=== PATIENT | male | born 1940 | race Two or more races ===

== ENCOUNTER 2024-02-05 08:56 | Inpatient (IN) | payer MEDICARE, BC, SELFPAY ==
[2024-02-05] VITALS (20 sets, daily range): BP systolic 176–206; BP diastolic 81–106; PULSE 68–80; RESP 16–25; TEMP 36.2–36.8; O2SAT 89–98; BMI 23.8; BMI 23.1
--- NOTE | 2024-02-05 09:00 | PC.NURSE ---
CEZAR, per EMS report, pt coming in for chest pain x1 week associated with nausea but no vomiting. Pt also c/o ABD pain. PMH of HTN, DM, and stroke, and on hemodialysis Friday's & Friday's. Pt connected to monitors at this time.
--- NOTE | 2024-02-05 09:02 | EKG_ITS ---
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
--- NOTE | 2024-02-05 09:33 | PC.NURSE ---
Dr. Sukumar Harris at bedside with pt and pt's , Fabienne. Dr. Harris made aware that pt here for chest pain and epigastric pain x1 week as well as rectal bleeding during BM with diarrhea for the past year, per .
[2024-02-05 10:07] LABS: Basophils # (Auto) 0.1 Thou/mm3 (0.0-0.2); Basophils % (Auto) 0 % (0-2.5); Eosinophils % (Auto) 0 % (0-10); Hematocrit 31.4 % (41.0-53.0); Hemoglobin 10.5 g/dL (13.5-16.0); Immature Granulocytes % (Auto) 1 % (0-0); Immature Granulocytes Auto 0.07 Thou/mm3 (0.00-0.00); Lymphocytes # (Auto) 0.6 Thou/mm3 (1.0-4.8); Lymphocytes % (Auto) 5 % (10-50); Mean Corpuscular HGB Conc 33.4 g/dl (31.0-37.0); Mean Corpuscular Hemoglobin 32.1 pg (25.0-35.0); Mean Corpuscular Volume 96 fL (80-100); Monocytes # (Auto) 1.4 Thou/mm3 (0.0-0.8); Monocytes % (Auto) 10 % (0-12); Neutrophils # (Auto) 12.1 Thou/mm3 (1.8-7.7); Neutrophils % (Auto) 85 % (37-80); Nucleated Red Blood Cell % 0 /100 WBC (0); Platelet Count 208 Thou/mm3 (140-440); RDW Standard Deviation 57.4 fL (35.1-43.9); Red Blood Count 3.27 Miln/mm3 (4.50-5.90); White Blood Count 14.3 Thou/mm3 (3.8-10.6)
--- NOTE | 2024-02-05 10:25 | XR_ITS ---
Examination: AP chest single view TECHNIQUE: AP portable upright chest single view Exam date and time: February 05, 2024 1056 hours Comparison January 17, 2023 INDICATIONS: Chest pain today. FINDINGS: Prominent bilateral pulmonary edema Mild enlargement cardiac contour Left internal jugular dialysis catheter tip right atrium IMPRESSION: Prominent CHF Consider superimposed bilateral pneumonia
--- NOTE | 2024-02-05 10:30 | PD.EDADULT ---
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 History is limited by residual speech deficits from CVA and hx obtained primarily by his at bedside. Patient endorsed epigastric pain followed by right upper quadrant pain. He does not associated this pain with eating food. However, the pain is worse at night. The epigastric pain started a couple hours after eating his dinner. Patient also endorses bloody diarrhea that is chronic in nature. New onset constipation started this week as well. Allergies: None, family history: Heart history. Social history: Distant LSD drug use and marijuana. Patient denies any alcohol, tobacco or illicit drug use. Surgical history: Hernia repair. MD complaint: epigastric pain Onset (ago): hour(s) Location: chest and abdomen Radiation: abdomen Severity: moderate and severe Relieving factors: none Related Data Home Medications ?Medication ?Instructions ?Recorded ?Confirmed furosemide 40 mg tablet 40 mg PO BID 09/21/22 02/05/24 metoprolol succinate 50 mg 50 mg PO DAILY 09/21/22 02/05/24 tablet,extended release 24 hr vitamin B complex-vitamin C-folic 1 tab PO DAILY 09/21/22 02/05/24 acid 0.8 mg tablet (Aileen-Abrahan) glipizide 5 mg tablet 5 mg PO BID 02/05/24 02/05/24 Previous Rx's ?Medication ?Instructions ?Recorded atorvastatin 20 mg tablet (Lipitor) 20 mg PO HS #30 tabs 03/27/17 Allergies Allergy/AdvReac Type Severity Reaction Status Date / Time No Known Allergies Allergy Verified 11/08/22 11:08 Review of Systems Review of Systems Systems Reviewed: All systems reviewed, normal except as documented Past Medical History Past Medical History NEUROLOGIC: Positive Neurological Disorders and Cerebrovascular Accident; Negative Seizures CARDIAC: Positive Cardiac Disorders, Hypercholesterolemia, Edema and Hypertension; Negative Congestive Heart Failure RESPIRATORY: Negative Chronic Obstructive Pulmonary Disease (COPD) or Asthma GASTROINTESTINAL: Positive Gastrointestinal Disorders, Gastrointestinal Bleed, Colorectal Cancer and Gastroesophageal Reflux Disease GENITOURINARY: Positive Genitourinary Disorders, Renal Disease and Dialysis MUSCULOSKELETAL: Positive Fractures; Negative Musculoskeletal Disorders ENT: Positive Cataracts ENDOCRINE: Positive Endocrine Disorders and Diabetes Mellitus Type 2; Negative Diabetes Mellitus Type 1 HEMATOLOGIC: Negative Blood Disorders, Sickle Cell Disease or Clotting Problems OTHER HISTORY: Positive Hospitalization, Falls, Chicken Pox, Measles, Cancer and Colorectal Cancer; Negative Autoimmune Disease, Shingles, Blood Transfusions, Blood Transfusion Reaction, Anesthesia Reactions or MRSA Family History FAMILY HISTORY: Negative Family Psychiatric Problems, Family Respiratory Disorders, Family Cardiac Disorders, Family Gastrointestinal Problems, Family Cancer, Family Surgery or Family Anesthesia Reaction Surgical History SURGICAL: Positive Amputation Social History SMOKING STATUS: Never smoker SECOND HAND EXPOSURE: No SUBSTANCE USE: does not use ED Exam Narrative Physical exam: GEN: well developed, well nourished man, cooperative with slurred speech. HEENT: NCAT, anicteric conjunctivae, EOMI. CV: RRR, normal S1 and S2, no M/R/G Lungs:CTAB. No wheezing, rales or rhonchi noted ABD: BS+, non-distended, Tender epigastrium and RUQ, negative ingram's sign. Skin: No rashes, lesions. Ext: No edema b/l. 2+ dorsalis pedis pulses b/l. Neuro: Alert and oriented x2. Cranial N II-XII intact. Course Quality Measures none Orders Category Date Time Status Admit to Inpatient Status Routine Admission 02/05/24 15:27 Active Patient Condition Routine Admission 02/05/24 15:27 Ordered Bedside COVID-19 Antigen Test NOW Care 02/05/24 14:59 Active COVID-19 Screening Questionnaire NOW Care 02/05/24 15:23 Completed Decision to Admit X1 Care 02/05/24 15:23 Completed EKG (ED ONLY) *Do not use* NOW Care 02/05/24 09:02 Completed Intake and Output Routine Care 02/05/24 15:30 Ordered Notify provider NEEDED Care 02/05/24 15:27 Active Obtain weight daily Care 02/05/24 15:30 Active Diet Renal Diet 02/05/[address] chest abdomen pelvis wo Stat Exams 02/05/24 13:27 Completed CXR2 [XR chest 2V] Stat Exams 02/05/24 10:25 Completed EKG (ED Only) Stat Exams 02/05/24 09:02 Draft CBC Stat Lab 02/05/24 09:44 Completed CMP [Comprehensive Metabolic Panel] Stat Lab 02/05/24 09:44 Completed Comprehensive Metabolic Panel Stat Lab 02/05/24 12:20 Completed Procalcitonin Stat Lab 02/05/24 12:20 Completed Troponin I Stat Lab 02/05/24 09:44 Completed Troponin I Stat Lab 02/05/24 12:20 Completed Code Status Routine Oth 02/05/24 15:26 Ordered Vital Signs Vital signs: Vital Signs Temperature 97.5 F 02/05/24 09:01 Pulse Rate 80 02/05/24 09:01 Respiratory Rate 18 02/05/24 09:01 Blood Pressure 197/100 H 02/05/24 09:01 Pulse Oximetry (%) 92 L 02/05/24 09:01 Oxygen Delivery Method Room Air 02/05/24 09:01 [facility] Patient data External records reviewed:: [facility] previous records Clinical information provided by:: patient and family Social determinants that could affect healthcare access:: none Patient has the following chronic illnesses:: 83-year-old male with past medical history of hypertension, dyslipidemia, DM II, HFrEF, 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 CXR shows pulmonary edema and possible b/l pneumonia. CT a/p pending Medications Medications considered but not ordered:: None Medication administrations:: Medication Administration History Acetaminophen (Acetaminophen 325 Mg Tablet) 650 mg PO Q6H PRN PRN Reason: Fever >100.4 or pain Stop: 03/06/24 15:31 Hydrocodone Bitart/Acetaminophen (Hydrocodone/Apap 10/325 Tab) 1 tab PO Q4H PRN PRN Reason: PAIN SCALE 4-6 (Moderate Stop: 02/10/24 15:31 Albuterol/Ipratropium (Albuterol/Ipratropium (Duoneb) Rt Mae 3 Ml Nebu) 3 ml INH Q4HR PRN PRN Reason: SHORTNESS OF BREATH OR WHEEZE Stop: 03/06/24 15:31 Atorvastatin Calcium (Atorvastatin Calcium 20 Mg Tablet) 20 mg PO HS [facility] Stop: 03/06/24 20:59 Dextrose (Dextrose 50%-Water Inj 50 Ml Syringe) 25 ml IV Q15MIN PRN PRN Reason: BG 50-70 responsive npo pt Stop: 03/06/24 17:11 Dextrose (Dextrose 50%-Water Inj 50 Ml Syringe) 50 ml IV Q15MIN PRN PRN Reason: BG <50 OR BG <70 & pt unresponsive Stop: 03/06/24 17:11 Glucagon (Glucagon Inj 1 Mg Vial) 1 mg IM Q15MIN PRN PRN Reason: BG <70, and no IV access Heparin Sodium (Porcine) (Heparin Sod Inj 1000 Unit/Ml Vial 10 Ml) 3,900 unit INDWELLCAT PRN PRN PRN Reason: DIALYSIS Stop: 02/19/24 16:45 Albumin Human (Albuminar-25 Ivpb) 25 gm in 100 mls @ 100 mls/min IV PRN PRN PRN Reason: DIALYSIS Stop: 02/08/24 16:45 Insulin Human Lispro (Insulin Lispro (Admelog) 1 Unit/0.01 Ml Unit) 0 unit SC [facility]; Protocol Stop: 03/06/24 20:59 Magnesium Hydroxide (Milk Of Magnesia Susp 30 Ml Udc) 30 ml PO QDAY PRN; Protocol PRN Reason: CONSTIPATION Stop: 03/06/24 15:31 Metoprolol Succinate (Metoprolol Succinate Xl 25 Mg Tabcr) 50 mg PO DAILY [facility] Stop: 03/06/24 15:44 Morphine Sulfate (Morphine Sulf Inj 10 Mg/Ml Vial) 2 mg IVP Q2H PRN PRN Reason: PAIN SCALE 7-10 (Severe Stop: 02/10/24 15:31 Ondansetron HCl (Ondansetron Inj 2 Mg/Ml Inj 2 Ml) 4 mg IV Q6H PRN; Protocol PRN Reason: NAUSEA OR VOMITING Stop: 03/06/24 15:31 Pantoprazole Sodium (Pantoprazole 40 Mg Tablet) 40 mg PO QDAY [facility] Stop: 03/06/24 15:44 Sennosides (Senna Tablet) 1 tab PO QDAY [facility]; Protocol Stop: 03/06/24 15:44 Vitamin B Complex/Vit C/Folic Acid (Vit B12/Vit C/Fa (Nephrovite) Tablet) 1 tab PO DAILY [facility] Stop: 03/06/24 15:44 Discontinued Medications Doxycycline Hyclate (Doxycycline 100 Mg Tablet) 100 mg PO X1 ONE Stop: 02/05/24 15:52 Ceftriaxone Sodium/Dextrose (Rocephin/D5w 1gm Iv Premix) 50 mls @ 100 mls/hr IV X1 ONE Stop: 02/05/24 16:21 None Consultations Consultation(s) initiated? (list below): Yes Consultation #1 (Physician, Specialty, Details): Dr. Jenkins, nephrology Diagnosis Differential Diagnosis ED Complaint MDM: CHF Most likely diagnosis given after review of the tests above:: Fluid overload 2/2 ESRD Admission Indicated Admission indicated?: indicated Explain why admission is indicated or not indicated:: Admission is indicated for this patient JESUS to be in fluid overload state. Patient refused to attend his dialysis session yesterday. Last dialysis was last Friday over a week ago. As a result, patient appears to be in fluid overload state with pulmonary edema appreciated both clinically and on imaging. Spoke with hospitalist team who says as long as nothing concerning is read on CT Chest/ab/pelvis, then will proceed with admission. Admission Request Was there a request for admission?: Yes Admission Attestation Admission request attestation: Discussed case with [] from Hospitalist service regarding admission. Discussed patients ED course, exam findings, labs, and radiology results. The Hospitalist [agrees,declines] to accept the patient for admission. 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 History is limited by residual speech deficits from CVA and hx obtained primarily by his at bedside. Patient endorsed epigastric pain followed by right upper quadrant pain. .The pain is worse at night. Consider esophageal ulcers in the differential and patient had negative ingram's sign making cholecystits less likely on differential. Considering no sick contacts, no fever, chills, N/V, then infectious source is less likely. On imaging patient is found to have pulmonary edema likely due to missing his scheduled dialysis yesterday. Dr. Jenkins Nephrology recommends to pursue HD tomorrow 02/06/24. Differential Diagnosis Differential Diagnosis: CHF Medical Records Medical records reviewed: Yes I reviewed the patient's medical records. Lab Data Lab results reviewed: Yes I reviewed the patient's lab results. 02/05/24 09:44 02/05/24 12:20 Labs: Lab Results 02/05/24 02/05/24 Range/Units 09:44 12:20 WBC 14.3 H (3.8-10.6) Thou/mm3 RBC 3.27 L (4.50-5.90) Miln/mm3 Hgb 10.5 L (13.5-16.0) g/dL Hct 31.4 L (41.0-53.0) % MCV 96 (80-100) fL MCH 32.1 (25.0-35.0) pg MCHC 33.4 (31.0-37.0) g/dl RDW Std Deviation 57.4 H (35.1-43.9) fL Plt Count 208 (140-440) Thou/mm3 Neut % (Auto) 85 H (37-80) % Lymph % (Auto) 5 L (10-50) % [place] % (Auto) 10 (0-12) % Eos % (Auto) 0 (0-10) % Baso % (Auto) 0 (0-2.5) % Neut # (Auto) 12.1 H (1.8-7.7) Thou/mm3 Lymph # (Auto) 0.6 L (1.0-4.8) Thou/mm3 [place] # (Auto) 1.4 H (0.0-0.8) Thou/mm3 Eos # (Auto) 0.0 (0.0-0.5) Thou/mm3 Baso # (Auto) 0.1 (0.0-0.2) Thou/mm3 Immature Gran # (Auto) 0.07 H (0.00-0.00) Thou/mm3 Absolute Nucleated RBC 0.00 (0.00-0.00) Thou/mm3 Immature Gran % 1 H (0-0) % Nucleated RBC % 0 (0) /100 WBC Sodium 133 L 134 L (136-145) mMol/L Potassium 5.8 H 5.4 H (3.4-5.1) mMol/L Chloride 100 101 (98-107) mMol/L Carbon Dioxide 17.4 L 16.3 L (20.0-31.0) mMol/L Anion Gap 16 17 H (7-16) BUN 120 H* 116 H* (9-23) mg/dL Creatinine 7.5 H* 7.5 H* (0.6-1.3) mg/dL Estim Creat Clear Calc 7.2 L 7.2 L (>60) mL/min eGFR 7 L* 7 L* (60 - ) See Note BUN/Creatinine Ratio 16 15 (12-20) Ratio Glucose 175 H 166 H (74-106) mg/dL Calculated Osmolality 308 H 309 H (275-295) Calcium 10.0 9.9 (8.3-10.6) mg/dL Corrected Calcium 10.0 9.9 (8.5-10.1) mg/dL Total Bilirubin 0.7 0.7 (0.3-1.2) mg/dL AST 20 < 8 (0-34) U/L ALT 12 11 (10-49) U/L Alkaline Phosphatase 81 78 (46-116) U/L Troponin I 0.037 0.043 (0.0-0.045) ng/mL Total Protein 7.8 7.5 (5.7-8.2) gm/dL Albumin 4.9 H 4.8 (3.4-4.8) gm/dL Globulin 2.9 2.7 (2.3-3.5) gm/dL Albumin/Globulin Ratio 1.7 1.8 (1.2-2.2) Procalcitonin 1.76 H (0.0-0.49) ng/ml Radiology Data Radiology results reviewed: Yes I reviewed the patient's radiology results. Discharge Plan Plan Patient Disposition: Admit Acute Care w/in Hospital Problem List Clinical Impression: Fluid overload, ESRD on dialysis MD Attestation MD Attestation The patient was seen by the PGY-2. I, the supervising physician, also encountered and examined the patient while remaining present during the entire ER visit. I was available for consultation as needed. Working with the PGY 2, management, treatment plan, and documentation were formulated. I agree with the plan and documentation.
[2024-02-05 11:24] LABS: Alanine Aminotransferase 12 U/L (10-49); Albumin, Serum 4.9 gm/dL (3.4-4.8); Albumin/Globulin Ratio 1.7 (1.2-2.2); Alkaline Phosphatase 81 U/L (46-116); Anion Gap 16 (7-16); Aspartate Amino Transferase 20 U/L (0-34); BUN/Creatinine Ratio 16 Ratio (12-20); Bilirubin,Total 0.7 mg/dL (0.3-1.2); Carbon Dioxide 17.4 mMol/L (20.0-31.0); Chloride 100 mMol/L (98-107); Creatinine (Component) 7.5 mg/dL (0.6-1.3); Estimated Creatinine Clearance 7.2 mL/min (>60); Globulin 2.9 gm/dL (2.3-3.5); Glucose 175 mg/dL (74-106); Osmolality,Calculated 308 (275-295); Potassium 5.8 mMol/L (3.4-5.1); Sodium 133 mMol/L (136-145); Total Protein 7.8 gm/dL (5.7-8.2); Troponin I 0.037 ng/mL (0.0-0.045); eGFR 7 See Note
[2024-02-05 11:31] LABS: Blood Urea Nitrogen 120 mg/dL (9-23)
[2024-02-05 12:48] LABS: Troponin I 0.043 ng/mL (0.0-0.045)
[2024-02-05 13:16] LABS: Alanine Aminotransferase 11 U/L (10-49); Albumin, Serum 4.8 gm/dL (3.4-4.8); Albumin/Globulin Ratio 1.8 (1.2-2.2); Alkaline Phosphatase 78 U/L (46-116); Anion Gap 17 (7-16); Aspartate Amino Transferase < 8 U/L (0-34); BUN/Creatinine Ratio 15 Ratio (12-20); Bilirubin,Total 0.7 mg/dL (0.3-1.2); Calcium 9.9 mg/dL (8.3-10.6); Calcium (Corrected) 9.9 mg/dL (8.5-10.1); Carbon Dioxide 16.3 mMol/L (20.0-31.0); Chloride 101 mMol/L (98-107); Creatinine (Component) 7.5 mg/dL (0.6-1.3); Estimated Creatinine Clearance 7.2 mL/min (>60); Globulin 2.7 gm/dL (2.3-3.5); Glucose 166 mg/dL (74-106); Osmolality,Calculated 309 (275-295); Potassium 5.4 mMol/L (3.4-5.1); Sodium 134 mMol/L (136-145); Total Protein 7.5 gm/dL (5.7-8.2); eGFR 7 See Note
[2024-02-05 13:19] LABS: Blood Urea Nitrogen 116 mg/dL (9-23)
--- NOTE | 2024-02-05 13:27 | XR_ITS ---
Examination: CT chest, without intravenous contrast. CT abdomen, without intravenous contrast. CT pelvis, without intravenous contrast. 2-D sagittal and coronal reconstructions. 3-D reconstructions. Date and time of exam:February 05, 2024 at 1345 hours INDICATIONS: Right upper abdominal pain chest pain beginning 2 days ago CTDI vol (mgy) 7.61 DLP (MGycm)595 Technique: Multiple CT images, 3.0 mm slice thickness, obtained chest, abdomen, pelvis, with the high-resolution 64 slice scanner.. Sagittal and coronal 2-D reconstructions are obtained. 3-D reconstructions Low dose protocols were performed. One or more of the following dose reduction techniques were used; automated exposure control, adjustment of the mA and/or KV according to patient size, use of iterative reconstruction technique. Findings: No thoracic aortic aneurysm dilatation Pulmonary artery segments are not enlarged Mild enlargement cardiac contour No paratracheal tracheobronchial or bronchopulmonary adenopathy Prominent vascular congestion with perihilar edema and pneumonia Moderate bilateral pleural effusions No focal liver or splenic lesions No gallstones No pancreatic or adrenal mass Atrophic kidneys with renal parenchymal scar formation Mild ascites No bowel obstruction Diffuse colonic diverticulosis Normal appendix No diverticulitis Abundant stool in the rectum although solid rectal sigmoid mass cannot be excluded, axial image 265, clinical correlation advised Contracted urinary bladder Prostatomegaly, transverse dimension 6.4 cm Left inguinal hernia containing sigmoid colon no incarcerated bowel Advanced degenerative disc disease L4-L5, L5-S1 IMPRESSION: Prominent heart failure Edema and likely superimposed bilateral pneumonia Moderate bilateral pleural effusions Atrophic kidneys with renal parenchymal scar formation, no hydronephrosis Diffuse colonic diverticulosis Normal appendix Abundant stool in the rectum multiple solid rectal sigmoid mass cannot be excluded, recommend direct inspection Significant prostatomegaly Left inguinal hernia containing sigmoid colon but no incarcerated bowel
--- NOTE | 2024-02-05 13:29 | PC.NURSE ---
PT WALKED TO AND FROM BATHROOM AND 02 SATS 89% UPON RETURN TO ROOM. STEPHANIE TSAI AND ALLISON INFORMED
--- NOTE | 2024-02-05 14:12 | PD.RESCONSUL ---
HPI Data of Consult Consult date: 02/05/24 Primary Care Provider: Carrillo Greenwood MD Consult Narrative Reason for consult: ESRD History of present illness: Mr. Bay is 83-year-old male with a previous medical history of end-stage renal disease on dialysis M/F (2/week), type 2 diabetes, hypertension, dyslipidemia, HFrEF, CVA who came to the ED with abdominal and chest pain. Abdominal pain is located in the right upper quadrant. He reports shortness of breath when lying on his back. His Fabienne is at the bedside. History taking is limited due to aphasia. His reported that the pain started approximately a week ago. Denies any possible precipitating factors, such as food poisoning or upper respiratory infection. She also reported that he has been having chronic diarrhea in the last year, periodically stool with bright red blood. Denies nausea vomiting, headache, fevers. Last dialysis session 02/02/24. ED course: Blood pressure 192/93, heart rate 75. Saturates well in rest on 2 L NC, when walking to the bathroom desaturated to 89. Labs were significant for WBC 14.9, sodium 134, potassium 5.4, bicarb 16.3, anion gap 17, BUN 116, creatinine 7.5. Chest x-ray showed prominent CHF, bilateral pneumonia. CTA chest/abdomen and pelvis showed Prominent heart failure, pneumonia, pleural effusions, prostatomegaly and constipation. Home medications: Glipizide 5 mg, metoprolol succinate 50 mg, furosemide 40 mg, atorvastatin 20 mg. Renal consultation requested for need for dialysis. cc:: cc: Review of Systems Review of Systems Systems Reviewed: All systems reviewed, normal except as documented Past Medical History Past Medical History NEUROLOGIC: Positive Neurological Disorders and Cerebrovascular Accident; Negative Seizures CARDIAC: Positive Cardiac Disorders, Hypercholesterolemia, Edema and Hypertension; Negative Congestive Heart Failure RESPIRATORY: Negative Chronic Obstructive Pulmonary Disease (COPD) or Asthma GASTROINTESTINAL: Positive Gastrointestinal Disorders, Gastrointestinal Bleed, Colorectal Cancer and Gastroesophageal Reflux Disease GENITOURINARY: Positive Genitourinary Disorders, Renal Disease and Dialysis MUSCULOSKELETAL: Positive Fractures; Negative Musculoskeletal Disorders ENT: Positive Cataracts ENDOCRINE: Positive Endocrine Disorders and Diabetes Mellitus Type 2; Negative Diabetes Mellitus Type 1 HEMATOLOGIC: Negative Blood Disorders, Sickle Cell Disease or Clotting Problems OTHER HISTORY: Positive Hospitalization, Falls, Chicken Pox, Measles, Cancer and Colorectal Cancer; Negative Autoimmune Disease, Shingles, Blood Transfusions, Blood Transfusion Reaction, Anesthesia Reactions or MRSA Family History FAMILY HISTORY: Negative Family Psychiatric Problems, Family Respiratory Disorders, Family Cardiac Disorders, Family Gastrointestinal Problems, Family Cancer, Family Surgery or Family Anesthesia Reaction Surgical History SURGICAL: Positive Amputation Social History SMOKING STATUS: Never smoker SECOND HAND EXPOSURE: No SUBSTANCE USE: does not use Exam Vital Signs Temp Pulse Resp BP Pulse Ox O2 Del Method O2 Flow Rate 97.8 F 75 19 192/93 H 89 L Room Air 2 02/05/24 13:20 02/05/24 13:20 02/05/24 13:20 02/05/24 13:20 02/05/24 13:28 02/05/24 13:28 02/05/24 11:24 Narrative Exam Physical Exam General: Awake and in no acute distress.AOx2, not oriented in time. Mild motor aphasia. HEENT: Normocephalic, atraumatic, mucous membranes moist. Heart: Regular rate and rhythm, no murmurs. Lungs: Clear to auscultation with no wheezing or crackles. Abdomen: Soft, epigastric, RUQ tenderness, Rodrigues sign negative, positive bowel sounds. ?No guarding or rebound tenderness. Neurologic: Alert and oriented x2, motor aphasia, and patient able to move all 4 extremities. Extremities: No edema. Skin: No rash or ecchymoses. AV fistula - no thrill palpated, sutures in place s/p thrombectomy. Left subclavian tunnelled catheter, covered in dressings, Results Labs 02/06/24 04:58 02/05/24 12:20 Labs: Short CBC 02/05/24 Range/Units 09:44 WBC 14.3 H (3.8-10.6) Thou/mm3 Hgb 10.5 L (13.5-16.0) g/dL Hct 31.4 L (41.0-53.0) % Plt Count 208 (140-440) Thou/mm3 BMP 02/05/24 02/05/24 09:44 12:20 Sodium 133 L 134 L Potassium 5.8 H 5.4 H Chloride 100 101 Carbon Dioxide 17.4 L 16.3 L BUN 120 H* 116 H* Creatinine 7.5 H* 7.5 H* Glucose 175 H 166 H Calcium 10.0 9.9 Cardiac Enzymes 02/05/24 02/05/24 Range/Units 09:44 12:20 Troponin I 0.037 0.043 (0.0-0.045) ng/mL Liver Function 02/05/24 02/05/24 Range/Units 09:44 12:20 Total Bilirubin 0.7 0.7 (0.3-1.2) mg/dL AST 20 < 8 (0-34) U/L ALT 12 11 (10-49) U/L Alkaline Phosphatase 81 78 (46-116) U/L Albumin 4.9 H 4.8 (3.4-4.8) gm/dL Quality Measures Quality Measures VTE prophylaxis Advance care planning discussed with:: other Medications Home Medications and Allergies Home Medications ?Medication ?Instructions ?Recorded ?Confirmed ?Type furosemide 40 mg tablet 40 mg PO BID 09/21/22 02/05/24 History metoprolol succinate 50 mg 50 mg PO DAILY 09/21/22 02/05/24 History tablet,extended release 24 hr vitamin B complex-vitamin C-folic 1 tab PO DAILY 09/21/22 02/05/24 History acid 0.8 mg tablet (Aileen-Abrahan) glipizide 5 mg tablet 5 mg PO BID 02/05/24 02/05/24 History Allergies Allergy/AdvReac Type Severity Reaction Status Date / Time No Known Allergies Allergy Verified 11/08/22 11:08 Assessment & Plan Plan The patient is 83-year-old male with a previous medical history of end-stage renal disease on dialysis M/F (2/week), type 2 diabetes, hypertension, dyslipidemia, HFrEF, CVA who came to the ED with abdominal and chest pain. #ESRD on dialysis M/F Patient missed dialysis past Friday. His last dialysis session was a week ago. Noted to have some shortness of breath. Chest x-ray and CT showed pleural effusions and CHF. Potassium 5.4, BUN 116, creatinine 7.5. Plan: ? Will proceed with emergent dialysis #Hypertension #Hyperlipidemia #History of HFrEF #T2DM #Pneumonia - Management as per primary team. Plan of care discussed with attending Dr. Jenkins. Olga Easton MD, PGY 1. Attending Provider Attestation/Addendum Patient seen and examined with resident physician Dr. Espinoza. Note reviewed, agree with findings and recommendations. Patient currently seen on dialysis. Tolerating dialysis without any problems. Hemodialysis for 3 hours, 2K, ultrafiltration 2-3 L, Epogen 6000, no heparin ordered. Plan of care discussed with the dialysis nurse. Please see dialysis flowsheet for further details. Next dialysis will be scheduled for tomorrow. Thank you Maxim for allowing me to participate in the care of Mr. Bay
[2024-02-05 14:55] LABS: Procalcitonin 1.76 ng/ml (0.0-0.49)
--- NOTE | 2024-02-05 15:16 | PC.NURSE ---
Dr. Khan & team at bedside with pt.
--- NOTE | 2024-02-05 15:41 | ESHP_ITS ---
<Statement entered by Maxim Goss MD - 02/06/24 12:26> I have discussed and was present for the essential components of the history, physical examination, diagnosis, and treatment plan with the resident. I agree with the patient's care as documented by the resident and amended herein by me. Maxim Goss MD. <Statement entered by Darwin Fair MD - 02/05/24 16:17> Patient was seen and examined at the bedside. Patient presented with shortness of breath and chronic diarrhea from past 1 year was worked up and he follows with oncologist Dr. Salazar who did not recommend any further investigation. Patient health advocate is Dr. Jenkins who mentioned that the patient missed his dialysis session on 02/01 and his last dialysis session was January 29. He refused to undergo dialysis session on Friday as there for his dialysis session now is Friday only. Per vitals, patient was hypertensive, slightly tachycardic and saturating well on room air. Labs revealed kidney functions consistent with ESRD requiring dialysis at this point. Folded Cloth Taper plan to do hemodialysis session today and tomorrow. CT abdomen pelvis showed abundant stool throughout colon therefore will give bowel regimen. Home medications were reconciled. Will likely follow-up with him tomorrow labs and follow nephrology recommendations. All labs and orders were reviewed. Senior attestation I saw and examined the patient, and I agree with current management stated by Dr Todd MD,PGY1. Plan of care was discussed with the attending physician and resident physician. Disclaimer: Despite multiple revisions, due to the dictation software being used, the document bellow may not be free of grammatical errors including phonetic/typographic errors. However, this does not deter from our commitment to providing health care in the patient's best interest in mind. Dr. Katelyn MD, PGY 2 Documentation for date of: 02/05/24 HPI History of Present Illness Chief complaint: SOB, chills History of present illness: HPI: Patient is a 83-year-old male with an extensive past medical history significant of ESRD on HD M/F via left brachiocephalic fistula, essential hypertension, hyperlipidemia, NIDDM type II, history of multiple strokes, chronic diarrhea, chronic systolic heart failure with reduced ejection fraction [40-45%], rectal mass s/p resection previously saw Dr. Salazar but declined any further follow-up. Patient regularly follows up with health advocate and PCP Dr. Jenkins. Patient does not regularly see a marzipan maker. Patient presented today with a chief complaint of SOB and chills since last night. Patient stated that SOB started last night and progressively worsened. Was associated with chills. Also endorses PND. Denies any cough, fever, sick contacts, recent travel, vomiting. Also denies any recent change in appetite or weight loss. Patient endorses having chronic diarrhea for the past 1 year also associated with bright red blood in his stool. Of note patient recently switched his dialysis dates to M/F from M// due to his preference. Patient's last dialysis session was 01/29 and he missed his session this week on 02/01. Spoke with Dr. Jenkins, patient's health advocate. She states that patient needs 3 times weekly dialysis but he refuses, so a compromise of twice weekly dialysis was reached. However patient is still noncompliant with his twice weekly sessions and frequently misses them. He also had admissions to the hospital in the past due to missing dialysis sessions and presented with similar complaints as this admission. ED course: BP 197/100, pulse 80, RR 18, temp 97.5 F, SpO2 92% on 2L NC. Labs were significant for WBC 14.3, BUN 116, CR 7.5, bicarb 16.3. Troponin were negative and Pro-Biju was mildly elevated at 1.76. Chest x-ray showed bilateral pulmonary edema with possible reticular nodular opacities throughout lung joel. CT C/A/P was significant for B/L pulmonary edema, B/L pleural effusions, diffuse colonic diverticulosis and abundant stool in the rectum with multiple solid rectosigmoid mass. Left inguinal hernia containing sigmoid colon without incarceration. Patient will be admitted for volume overload secondary to missed dialysis session. 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 Patient's father lived to 100 years Past Medical History Past Medical History NEUROLOGIC: Positive Neurological Disorders and Cerebrovascular Accident; Negative Seizures CARDIAC: Positive Cardiac Disorders, Hypercholesterolemia, Edema and Hypertension; Negative Congestive Heart Failure RESPIRATORY: Negative Chronic Obstructive Pulmonary Disease (COPD) or Asthma GASTROINTESTINAL: Positive Gastrointestinal Disorders, Gastrointestinal Bleed, Colorectal Cancer and Gastroesophageal Reflux Disease GENITOURINARY: Positive Genitourinary Disorders, Renal Disease and Dialysis MUSCULOSKELETAL: Positive Fractures; Negative Musculoskeletal Disorders ENT: Positive Cataracts ENDOCRINE: Positive Endocrine Disorders and Diabetes Mellitus Type 2; Negative Diabetes Mellitus Type 1 HEMATOLOGIC: Negative Blood Disorders, Sickle Cell Disease or Clotting Problems OTHER HISTORY: Positive Hospitalization, Falls, Chicken Pox, Measles, Cancer and Colorectal Cancer; Negative Autoimmune Disease, Shingles, Blood Transfusions, Blood Transfusion Reaction, Anesthesia Reactions or MRSA Family History FAMILY HISTORY: Negative Family Psychiatric Problems, Family Respiratory Disorders, Family Cardiac Disorders, Family Gastrointestinal Problems, Family Cancer, Family Surgery or Family Anesthesia Reaction Surgical History SURGICAL: Positive Amputation Social History SMOKING STATUS: Never smoker SECOND HAND EXPOSURE: No SUBSTANCE USE: does not use Exam Vital Signs Temp Pulse Resp BP Pulse Ox O2 Del Method O2 Flow Rate 97.2 F 74 25 H 187/106 H 94 L Nasal Cannula 2 02/05/24 14:48 02/05/24 14:48 02/05/24 14:48 02/05/24 14:48 02/05/24 14:48 02/05/24 14:48 02/05/24 14:48 Narrative Exam Constitutional Alert, oriented x 3 and comfortable. Elderly male on O2 via NC HEENT Vision grossly intact. Patent nares. Trachea midline Respiratory Chest normal on inspection and Decrease AE at bases with crackles Cardiovascular S1 and S2 audible, RRR. No murmurs carotid bruit. No gross JVD. Abdominal Soft and non tender to palpation in all quadrants. BS + Genitourinary No bladder tenderness, no flank pain. Normal to palpation Musculoskeletal Extremities tone within normal limits. No LE edema. Neurological CN II - XII grossly intact. Extremity motor and sensation grossly intact. Skin Warm, dry and intact. No apparent lesions. Psychiatric Patient has good affect, is cooperative Results: Labs 02/06/24 04:58 02/06/24 04:58 Labs: Short CBC 02/05/24 Range/Units 09:44 WBC 14.3 H (3.8-10.6) Thou/mm3 Hgb 10.5 L (13.5-16.0) g/dL Hct 31.4 L (41.0-53.0) % Plt Count 208 (140-440) Thou/mm3 BMP 02/05/24 02/05/24 09:44 12:20 Sodium 133 L 134 L Potassium 5.8 H 5.4 H Chloride 100 101 Carbon Dioxide 17.4 L 16.3 L BUN 120 H* 116 H* Creatinine 7.5 H* 7.5 H* Glucose 175 H 166 H Calcium 10.0 9.9 Cardiac Enzymes 02/05/24 02/05/24 Range/Units 09:44 12:20 Troponin I 0.037 0.043 (0.0-0.045) ng/mL Liver Function 02/05/24 02/05/24 Range/Units 09:44 12:20 Total Bilirubin 0.7 0.7 (0.3-1.2) mg/dL AST 20 < 8 (0-34) U/L ALT 12 11 (10-49) U/L Alkaline Phosphatase 81 78 (46-116) U/L Albumin 4.9 H 4.8 (3.4-4.8) gm/dL Quality Measures Quality Measures none Advance care planning discussed with:: other Medications Home Medications and Allergies Home Medications ?Medication ?Instructions ?Recorded ?Confirmed ?Type furosemide 40 mg tablet 40 mg PO BID 09/21/22 02/05/24 History metoprolol succinate 50 mg 50 mg PO DAILY 09/21/22 02/05/24 History tablet,extended release 24 hr vitamin B complex-vitamin C-folic 1 tab PO DAILY 09/21/22 02/05/24 History acid 0.8 mg tablet (Nirav-Abrahan) glipizide 5 mg tablet 5 mg PO BID 02/05/24 02/05/24 History Allergies Allergy/AdvReac Type Severity Reaction Status Date / Time No Known Allergies Allergy Verified 11/08/22 11:08 Visit Medications Acetaminophen (Acetaminophen 325 Mg Tablet) 650 mg PO Q6H PRN PRN Reason: Fever >100.4 or pain Stop: 03/06/24 15:31 Hydrocodone Bitart/Acetaminophen (Hydrocodone/Apap 10/325 Tab) 1 tab PO Q4H PRN PRN Reason: PAIN SCALE 4-6 (Moderate Stop: 02/10/24 15:31 Albuterol/Ipratropium (Albuterol/Ipratropium (Duoneb) Rt Mae 3 Ml Nebu) 3 ml INH Q4HR PRN PRN Reason: SHORTNESS OF BREATH OR WHEEZE Stop: 03/06/24 15:31 Atorvastatin Calcium (Atorvastatin Calcium 20 Mg Tablet) 20 mg PO HS [facility] Stop: 03/06/24 20:59 Magnesium Hydroxide (Milk Of Magnesia Susp 30 Ml Udc) 30 ml PO QDAY PRN; Protocol PRN Reason: CONSTIPATION Stop: 03/06/24 15:31 Metoprolol Succinate (Metoprolol Succinate Xl 25 Mg Tabcr) 50 mg PO DAILY [facility] Stop: 03/06/24 15:44 Morphine Sulfate (Morphine Sulf Inj 10 Mg/Ml Vial) 2 mg IVP Q2H PRN PRN Reason: PAIN SCALE 7-10 (Severe Stop: 02/10/24 15:31 Ondansetron HCl (Ondansetron Inj 2 Mg/Ml Inj 2 Ml) 4 mg IV Q6H PRN; Protocol PRN Reason: NAUSEA OR VOMITING Stop: 03/06/24 15:31 Pantoprazole Sodium (Pantoprazole 40 Mg Tablet) 40 mg PO QDAY [facility] Stop: 03/06/24 15:44 Sennosides (Senna Tablet) 1 tab PO QDAY [facility]; Protocol Stop: 03/06/24 15:44 Vitamin B Complex/Vit C/Folic Acid (Vit B12/Vit C/Fa (Nephrovite) Tablet) 1 tab PO DAILY [facility] Stop: 03/06/24 15:44 Assessment & Plan Plan Patient is a 83-year-old male with an extensive past medical history significant of ESRD on HD M/F via left brachiocephalic fistula, essential hypertension, hyperlipidemia, NIDDM type II, history of multiple strokes, chronic diarrhea, chronic systolic heart failure with reduced ejection fraction [40-45%], rectal mass s/p resection previously saw Dr. Salazar but declined any further follow-up. Patient regularly follows up with health advocate and PCP Dr. Jenkins. Patient does not regularly see a marzipan maker. Patient presented today with a chief complaint of SOB and chills since last night.Patient will be admitted for volume overload secondary to missed dialysis session. Nephrology consulted, appreciate recommendations 1. Fluid overload secondary to missed dialysis session 2. ESRD on HD M/F via left brachial cephalic fistula Patient presented today with a chief complaint of SOB and chills since last night. Patient stated that SOB started last night and progressively worsened. Was associated with chills. Also endorses PND. Denies any cough, fever, sick contacts, recent travel, vomiting. Also denies any recent change in appetite or weight loss. Of note patient recently switched his dialysis dates to /F from M//F due to his preference. Patient's last dialysis session was 01/29 and he missed his session this week on 02/01. On exam patient had no lower extremity edema, however had decreased air entry at lung bases with scattered crackles auscultated. Chest x-ray showed bilateral pulmonary edema with possible reticular nodular opacities throughout lung joel. CT C/A/P was significant for B/L pulmonary edema, B/L pleural effusions, diffuse colonic diverticulosis and abundant stool in the rectum with multiple solid rectosigmoid mass. Left inguinal hernia containing sigmoid colon without incarceration. On admission BUN 116 and CR 7.5. Bicarb 16.3 and K5.4. Pro-Biju mildly elevated at 1.76 which is a nonspecific marker of inflammation. Plan: ? Renal diet ? Resumed home medication nirav-Abrahan 1 tab p.o. daily ? Patient for urgent hemodialysis. ? Nephrology, Dr Jenkins consulted. Appreciate recommendations 3. Chronic systolic heart failure with reduced ejection fraction [40-45%] Patient presented today with a chief complaint of SOB and chills since last night. On exam patient had no lower extremity edema, however had decreased air entry at lung bases with scattered crackles auscultated. Chest x-ray showed bilateral pulmonary edema with possible reticular nodular opacities throughout lung joel. CT C/A/P was significant for B/L pulmonary edema, B/L pleural effusions, diffuse colonic diverticulosis and abundant stool in the rectum with multiple solid rectosigmoid mass. Left inguinal hernia containing sigmoid colon without incarceration. Last echocardiogram completed on 04/22/2021 findings include: Normal left ventricular size with moderate global hypokinsis LV EF 40-45%. Aortic valve sclerosis mild stenosis Troponin on admission was negative Patient's home diuretic furosemide 40 Mg p.o. twice daily NYHA class C stage III Plan: ? Strict input output charting ? Daily weights ? 2G sodium restricted on renal diet ? 1500 cc fluid restriction ? To resume home medication furosemide 40 Mg p.o. twice daily 4. Hypertensive urgency 5. Essential hypertension On admission BP 197/100. Currently BP 198/96. Patient's home medication metoprolol XL 50 Mg p.o. daily Plan: ? Resumed home medication metoprolol XL 50 Mg p.o. daily 6. NIDDM type II No recent HbA1c on file Patient home medication glipizide 5 Mg p.o. twice daily Plan: ? HbA1c ordered ? SSI to cover for any glucose spikes 7. Constipation Abundant stool visualized on CT C/A/P Plan: ? Milk of magnesia as needed ? Started on senna 1 tab daily 8. History of multiple strokes 9 chronic diarrhea 10. Hematochezia 11. History of rectal mass s/p resection no acute management necessary during this hospitalization. Health maintenance: Disposition: Pending urgent hemodialysis Diet: Renal Lines: pIVs GI Prophylaxis: None Thrombo Prophylaxis: SCDs Code status: FULL CODE Plan of care discussed with Attending Dr. Goss and PGY2 Dr. Katelyn Khan MD PGY 1
--- NOTE | 2024-02-05 16:43 | PC.NURSE ---
Attempted to call report to Sonia RICHTER (Berg); RN unavailable at this time.
--- NOTE | 2024-02-05 18:48 | PC.NURSE ---
Pt need to use the bathroom, demanded to come off of HD.
[2024-02-05] MEDS: HEPARIN SOD INJ 1000 UNIT/ML VIAL 10 ML 3900 UNIT INDWELLCAT (19:09)
[2024-02-05] MEDS: DOXYCYCLINE 100 MG TABLET PO (20:06)
[2024-02-05] MEDS: cefTRIAXone/D5w 1gm IV premix 50 ML IV (20:06)
[2024-02-05] MEDS: ATORVASTATIN CALCIUM 20 MG TABLET PO (20:06)
[2024-02-06] VITALS (13 sets, daily range): BP systolic 127–160; BP diastolic 57–80; PULSE 64–77; RESP 16–98; TEMP 36.1–37.1; O2SAT 90–98
[2024-02-06 05:48] LABS: Basophils # (Auto) 0.1 Thou/mm3 (0.0-0.2); Basophils % (Auto) 1 % (0-2.5); Eosinophils # (Auto) 0.1 Thou/mm3 (0.0-0.5); Eosinophils % (Auto) 1 % (0-10); Hematocrit 29.5 % (41.0-53.0); Hemoglobin 9.8 g/dL (13.5-16.0); Immature Granulocytes % (Auto) 0 % (0-0); Immature Granulocytes Auto 0.04 Thou/mm3 (0.00-0.00); Lymphocytes # (Auto) 0.9 Thou/mm3 (1.0-4.8); Lymphocytes % (Auto) 8 % (10-50); Mean Corpuscular HGB Conc 33.2 g/dl (31.0-37.0); Mean Corpuscular Hemoglobin 31.4 pg (25.0-35.0); Mean Corpuscular Volume 95 fL (80-100); Monocytes # (Auto) 1.3 Thou/mm3 (0.0-0.8); Monocytes % (Auto) 12 % (0-12); Neutrophils # (Auto) 8.2 Thou/mm3 (1.8-7.7); Neutrophils % (Auto) 78 % (37-80); Nucleated Red Blood Cell % 0 /100 WBC (0); Platelet Count 220 Thou/mm3 (140-440); RDW Standard Deviation 55.2 fL (35.1-43.9); Red Blood Count 3.12 Miln/mm3 (4.50-5.90); White Blood Count 10.6 Thou/mm3 (3.8-10.6)
[2024-02-06 06:37] LABS: Anion Gap 13 (7-16); BUN/Creatinine Ratio 14 Ratio (12-20); Blood Urea Nitrogen 77 mg/dL (9-23); Calcium 9.5 mg/dL (8.3-10.6); Carbon Dioxide 21.7 mMol/L (20.0-31.0); Cardiac Risk Estimate 2.4 RATIO (4.0-6.7); Chloride 100 mMol/L (98-107); Cholesterol 106 mg/dL (132-200); Creatinine (Component) 5.6 mg/dL (0.6-1.3); Estimated Creatinine Clearance 9.7 mL/min (>60); Glucose 123 mg/dL (74-106); HDL Cholesterol 44 mg/dL (40-60); LDL Cholesterol,Calculated 46 mg/dL (0-130); Magnesium 2.4 mg/dL (1.6-2.6); Osmolality,Calculated 294 (275-295); Phosphorous 4.3 mg/dL (2.4-5.1); Potassium 4.2 mMol/L (3.4-5.1); Sodium 135 mMol/L (136-145); Triglycerides 79 mg/dL (30-150); eGFR 9 See Note
--- NOTE | 2024-02-06 07:55 | PC.NURSE ---
Husam dialysis chief equipment technician at bedside with pt, pt refusing dialysis this morning.
[2024-02-06 08:16] LABS: Glucose Estimated Average 108 mg/dL (80-131); Hemoglobin A1C 5.4 % Hgb (4.8-6.0)
--- NOTE | 2024-02-06 08:19 | PC.NURSE ---
Pt refused dialysis today, stated he had dialysis yesterday. Dr. Jenkins made aware and ordered to re-schedule patient HD tomorrow.
[2024-02-06 09:06] LABS: Hepatitis A Antibody IgM Non Reactive (Non React); Hepatitis B Core Antibody IgM Non Reactive (Non React); Hepatitis B Surface Ab NonReact(Not Immune) (Immune); Hepatitis B Surface Antigen Non Reactive (Non React); Hepatitis C Antibody Non Reactive (Non React)
[2024-02-06] MEDS: VIT B12/Vit C/FA (Nephrovite) TABLET 1 TAB PO (09:13)
[2024-02-06] MEDS: PANTOPRAZOLE 40 MG TABLET PO (09:14)
[2024-02-06] MEDS: METOPROLOL SUCCINATE XL 25 MG TABCR 50 MG PO (09:14)
--- NOTE | 2024-02-06 09:35 | PC.SS ---
Alireza Bay is a 83 Year old male admitted for SOB, Pulmonary Edema. SS met with patient at bedside to discuss discharge plan. Patient reports he lives at home with his , Fabienne Bay who he reports is his surrogate decision maker [phone]. Patient reports he does not utilize any source of DME to assist with ambulation. Patient's PCP is Carrillo [facility]. Choice of Pharmacy is [facility]. At time of discharge patient will return home. Discharge plan: Home Next of Kin: , Fabienne Bay [phone]
[2024-02-06] MEDS: EPOETIN ALFA-EPBX INJ 10,000 UNIT/ML VIAL (NON-ESRD) 10000 UNIT SC (09:40)
--- NOTE | 2024-02-06 09:48 | ESPR_ITS ---
<Statement entered by Maxim Goss MD - 02/06/24 17:04> I have discussed and was present for the essential components of the history, physical examination, diagnosis, and treatment plan with the resident. I agree with the patient's care as documented by the resident and amended herein by me. Maxim Goss MD. <Statement entered by Darwin Fair MD - 02/06/24 14:20> Patient was seen and examined at the bedside. Patient refused to receive dialysis today as he was having episode of diarrhea after eating his breakfast. [employer] Supervisor recommended that patient should have another session of dialysis tomorrow before discharge. He will be undergoing dialysis session tomorrow and will anticipate discharge tomorrow morning. All labs and orders were reviewed. I saw and examined the patient, and I agree with current management stated by Dr Todd MD,PGY1. Plan of care was discussed with the attending physician and resident physician. Disclaimer: Despite multiple revisions, due to the dictation software being used, the document bellow may not be free of grammatical errors including phonetic/typographic errors. However, this does not deter from our commitment to providing health care in the patient's best interest in mind. Dr. Marv MD, PGY 2 Documentation for date of: 02/06/24 Subjective Subjective Interval history: Patient was seen and examined at bedside this AM. Patient had hemodialysis session yesterday Patient tolerating renal diet. Urine output is adequate and mentation at baseline. Patient endorses improvement of his SOB today and still complains of his chronic diarrhea. Patient was scheduled to have hemodialysis this morning, however he already had breakfast this a.m. and refused to have dialysis after eating as he says that would make him nauseous. Discussed with nephrology, Dr Jenkins. She recommended patient have 1 session of dialysis tomorrow morning and after that he should be okay to be discharged. Exam Vital Signs Temp Pulse Resp BP Pulse Ox O2 Del Method O2 Flow Rate 98.5 F 64 18 159/72 H 90 L Room Air 2 02/06/24 07:20 02/06/24 09:14 02/06/24 07:20 02/06/24 09:14 02/06/24 07:20 02/06/24 07:20 02/05/24 20:00 Narrative Exam Constitutional Alert, oriented x 3 and comfortable. Elderly male on O2 via NC HEENT Vision grossly intact. Patent nares. Trachea midline Respiratory Chest normal on inspection and Decrease AE at bases with crackles?improving. Left subclavian catheter in situ. Exit site clean Cardiovascular S1 and S2 audible, RRR. No murmurs carotid bruit. No gross JVD. Abdominal Soft and non tender to palpation in all quadrants. BS + Genitourinary No bladder tenderness, no flank pain. Normal to palpation Musculoskeletal Extremities tone within normal limits. No LE edema. Neurological CN II - XII grossly intact. Extremity motor and sensation grossly intact. Skin Warm, dry and intact. Left brachial cephalic fistula, covered with bandage, thrill palpated. Psychiatric Patient has good affect, is cooperative Objective Labs 02/06/24 04:58 02/06/24 04:58 Labs: Laboratory Results - last 24 hr 02/05/24 02/05/24 02/06/24 09:44 12:20 04:58 WBC 14.3 H 10.6 RBC 3.27 L 3.12 L Hgb 10.5 L 9.8 L Hct 31.4 L 29.5 L MCV 96 95 MCH 32.1 31.4 MCHC 33.4 33.2 RDW Std Deviation 57.4 H 55.2 H Plt Count 208 220 Neut % (Auto) 85 H 78 Lymph % (Auto) 5 L 8 L [place] % (Auto) 10 12 Eos % (Auto) 0 1 Baso % (Auto) 0 1 Neut # (Auto) 12.1 H 8.2 H Lymph # (Auto) 0.6 L 0.9 L [place] # (Auto) 1.4 H 1.3 H Eos # (Auto) 0.0 0.1 Baso # (Auto) 0.1 0.1 Immature Gran # (Auto) 0.07 H 0.04 H Absolute Nucleated RBC 0.00 0.00 Immature Gran % 1 H 0 Nucleated RBC % 0 0 Sodium 133 L 134 L 135 L Potassium 5.8 H 5.4 H 4.2 D Chloride 100 101 100 Carbon Dioxide 17.4 L 16.3 L 21.7 Anion Gap 16 17 H 13 BUN 120 H* 116 H* 77 H Creatinine 7.5 H* 7.5 H* 5.6 H* D Estim Creat Clear Calc 7.2 L 7.2 L 9.7 L eGFR 7 L* 7 L* 9 L* BUN/Creatinine Ratio 16 15 14 Glucose 175 H [address] Glu mg/dL 108 Hemoglobin A1c 5.4 Calculated Osmolality 308 H 309 H 294 Calcium 10.0 9.9 9.5 Corrected Calcium 10.0 9.9 Phosphorus 4.3 Magnesium 2.4 Total Bilirubin 0.7 0.7 AST 20 < 8 ALT 12 11 Alkaline Phosphatase 81 78 Troponin I 0.037 0.043 Total Protein 7.8 7.5 Albumin 4.9 H 4.8 Globulin 2.9 2.7 Albumin/Globulin Ratio 1.7 1.8 Triglycerides 79 Cholesterol 106 L LDL Cholesterol, Calc 46 HDL Cholesterol 44 Cholesterol/HDL Ratio 2.4 L Procalcitonin 1.76 H Hepatitis A IgM Ab Non Reactive Hep Bs Antigen Non Reactive Hep Bs Antibody NonReact(Not Immune) L Hep B Core IgM Ab Non Reactive Hepatitis C Antibody Non Reactive Quality Measures Quality Measures VTE prophylaxis Advance care planning discussed with:: other Assessment & Plan Assessment Current Active Medications: Generic Name Dose Route Start Last Admin Trade Name Freq PRN Reason Stop Dose Admin Acetaminophen 650 mg 02/05/24 15:32 Acetaminophen 325 Mg Tablet PO 03/06/24 15:31 Q6H PRN Fever >100.4 or pain Hydrocodone Bitart/Acetaminophen 1 tab 02/05/24 15:32 Hydrocodone/Apap 10/325 Tab PO 02/10/24 15:31 Q4H PRN PAIN SCALE 4-6 (Moderate Albuterol/Ipratropium 3 ml 02/05/24 15:32 Albuterol/Ipratropium (Duoneb) Rt Mae 3 Ml Nebu INH 03/06/24 15:31 Q4HR PRN SHORTNESS OF BREATH OR WHEEZE Atorvastatin Calcium 20 mg 02/05/24 21:00 02/05/24 20:06 Atorvastatin Calcium 20 Mg Tablet PO 03/06/24 20:59 20 mg HS SANTO Administration Dextrose 25 ml 02/05/24 17:12 Dextrose 50%-Water Inj 50 Ml Syringe IV 03/06/24 17:11 Q15MIN PRN BG 50-70 responsive npo pt Dextrose 50 ml 02/05/24 17:12 Dextrose 50%-Water Inj 50 Ml Syringe IV 03/06/24 17:11 Q15MIN PRN BG <50 OR BG <70 & pt unresponsive Glucagon 1 mg 02/05/24 17:12 Glucagon Inj 1 Mg Vial IM Q15MIN PRN BG <70, and no IV access Heparin Sodium (Porcine) 3,900 unit 02/05/24 16:46 02/05/24 19:09 Heparin Sod Inj 1000 Unit/Ml Vial 10 Ml INDWELLCAT 02/19/24 16:45 3,900 unit PRN PRN Administration DIALYSIS Albumin Human 25 gm in 100 mls @ 100 mls/min 02/05/24 16:46 Albuminar-25 Ivpb IV 02/08/24 16:45 PRN PRN DIALYSIS Insulin Human Lispro 0 unit 02/05/24 21:00 02/06/24 07:52 Insulin Lispro (Admelog) 1 Unit/0.01 Ml Unit SC 03/06/24 20:59 Not Given ACHS SANTO Protocol Magnesium Hydroxide 30 ml 02/05/24 15:32 Milk Of Magnesia Susp 30 Ml Udc PO 03/06/24 15:31 QDAY PRN CONSTIPATION Protocol Metoprolol Succinate 50 mg 02/05/24 15:45 02/06/24 09:14 Metoprolol Succinate Xl 25 Mg Tabcr PO 03/06/24 15:44 50 mg DAILY SANTO Administration Morphine Sulfate 2 mg 02/05/24 15:32 Morphine Sulf Inj 10 Mg/Ml Vial IVP 02/10/24 15:31 Q2H PRN PAIN SCALE 7-10 (Severe Ondansetron HCl 4 mg 02/05/24 15:32 Ondansetron Inj 2 Mg/Ml Inj 2 Ml IV 03/06/24 15:31 Q6H PRN NAUSEA OR VOMITING Protocol Pantoprazole Sodium 40 mg 02/05/24 15:45 02/06/24 09:14 Pantoprazole 40 Mg Tablet PO 03/06/24 15:44 40 mg QDAY SANTO Administration Sennosides 1 tab 02/05/24 15:45 02/06/24 09:15 Senna Tablet PO 03/06/24 15:44 Not Given QDAY SANTO Protocol Vitamin B Complex/Vit C/Folic Acid 1 tab 02/05/24 15:45 02/06/24 09:13 Vit B12/Vit C/Fa (Nephrovite) Tablet PO 03/06/24 15:44 1 tab DAILY SANTO Administration Plan Patient is a 83-year-old male with an extensive past medical history significant of ESRD on HD M/F via left brachiocephalic fistula, essential hypertension, hyperlipidemia, NIDDM type II, history of multiple strokes, chronic diarrhea, chronic systolic heart failure with reduced ejection fraction [40-45%], rectal mass s/p resection previously saw Dr. Salazar but declined any further follow-up. Patient regularly follows up with journal clerk and PCP Dr. Jenkins. Patient does not regularly see a bus info consultant. Patient presented today with a chief complaint of SOB and chills since last night.Patient will be admitted for volume overload secondary to missed dialysis session. Nephrology consulted, appreciate recommendations 1. Fluid overload secondary to missed dialysis session?improving 2. ESRD on HD M/F via left subclavian catheter 3. Left brachial cephalic fistula s/p thrombectomy Patient presented today with a chief complaint of SOB and chills since last night. Patient stated that SOB started last night and progressively worsened. Was associated with chills. Also endorses PND. Denies any cough, fever, sick contacts, recent travel, vomiting. Also denies any recent change in appetite or weight loss. Of note patient recently switched his dialysis dates to M/F from M/W/F due to his preference. Patient's last dialysis session was 01/29 and he missed his session this week on 02/01. On exam patient had no lower extremity edema, however had decreased air entry at lung bases with scattered crackles auscultated. Chest x-ray showed bilateral pulmonary edema with possible reticular nodular opacities throughout lung joel. CT C/A/P was significant for B/L pulmonary edema, B/L pleural effusions, diffuse colonic diverticulosis and abundant stool in the rectum with multiple solid rectosigmoid mass. Left inguinal hernia containing sigmoid colon without incarceration. On admission BUN 116 and CR 7.5. Bicarb 16.3 and K5.4. Pro-Biju mildly elevated at 1.76 which is a nonspecific marker of inflammation. Patient had hemodialysis session yesterday after which SOB improved Patient was scheduled to have hemodialysis this morning, however he already had breakfast this a.m. and refused to have dialysis after eating as he says that would make him nauseous. Discussed with nephrology, Dr Jenkins. She recommended patient have 1 session of dialysis tomorrow morning and after that he should be okay to be discharged. Plan: ? Renal diet ? Continue home medication nirav-Abrahan 1 tab p.o. daily ? Patient for hemodialysis tomorrow and possible discharge after completion. ? Nephrology, Dr Jenkins consulted. Appreciate recommendations 4. Chronic systolic heart failure with reduced ejection fraction [40-45%] Patient presented today with a chief complaint of SOB and chills since last night. On exam patient had no lower extremity edema, however had decreased air entry at lung bases with scattered crackles auscultated. Chest x-ray showed bilateral pulmonary edema with possible reticular nodular opacities throughout lung joel. CT C/A/P was significant for B/L pulmonary edema, B/L pleural effusions, diffuse colonic diverticulosis and abundant stool in the rectum with multiple solid rectosigmoid mass. Left inguinal hernia containing sigmoid colon without incarceration. Last echocardiogram completed on 04/22/2021 findings include: Normal left ventricular size with moderate global hypokinsis LV EF 40-45%. Aortic valve sclerosis mild stenosis Troponin on admission was negative Patient's home diuretic furosemide 40 Mg p.o. twice daily NYHA class C stage III Plan: ? Strict input output charting ? Daily weights ? 2G sodium restricted on renal diet ? 1500 cc fluid restriction ? Hold home medication for now as patient is due for hemodialysis and at higher chance of hypotension. 5. Hypertensive urgency 6. Essential hypertension On admission BP 197/100. Currently BP 198/96. Patient's home medication metoprolol XL 50 Mg p.o. daily Plan: ? Continue Home medication metoprolol XL 50 Mg p.o. daily ? Started on hydralazine 10 Mg IV every 6 hourly as needed for SBP >190. 7. NIDDM type II [5.4] [02/06/2024] HbA1c 5.4% Patient home medication glipizide 5 Mg p.o. twice daily Plan: ? SSI to cover for any glucose spikes 8. Constipation Abundant stool visualized on CT C/A/P Plan: ? Milk of magnesia as needed ? Continue senna 1 tab daily 9. History of multiple strokes 10. Chronic diarrhea 11. Hematochezia 12. History of rectal mass s/p resection no acute management necessary during this hospitalization. Health maintenance: Disposition: For hemodialysis tomorrow and possible discharge after. Diet: Renal Lines: pIVs GI Prophylaxis: None Thrombo Prophylaxis: SCDs Code status: FULL CODE Plan of care discussed with Attending Dr. Goss and PGY2 Dr. Marv Khan MD PGY 1
[2024-02-06] MEDS: INSULIN LISPRO (AdmeLOG) 1 UNIT/0.01 ML UNIT SC (12:25)
--- NOTE | 2024-02-06 13:10 | ESPR_ITS ---
Documentation for date of: 02/06/24 Subjective Subjective Interval history: Mr. Bay is 83-year-old male with a previous medical history of end-stage renal disease on dialysis M/F (2/week), type 2 diabetes, hypertension, dyslipidemia, HFrEF, CVA who came to the ED with abdominal and chest pain. Abdominal pain is located in the right upper quadrant. He reports shortness of breath when lying on his back. His Fabienne is at the bedside. History taking is limited due to aphasia. His reported that the pain started approximately a week ago. Denies any possible precipitating factors, such as food poisoning or upper respiratory infection. She also reported that he has been having chronic diarrhea in the last year, periodically stool with bright red blood. Denies nausea vomiting, headache, fevers. Last dialysis session 02/02/24. ED course: Blood pressure 192/93, heart rate 75. Saturates well in rest on 2 L NC, when walking to the bathroom desaturated to 89. Labs were significant for WBC 14.9, sodium 134, potassium 5.4, bicarb 16.3, anion gap 17, BUN 116, creatinine 7.5. Chest x-ray showed prominent CHF, bilateral pneumonia. CTA chest/abdomen and pelvis showed Prominent heart failure, pneumonia, pleural effusions, prostatomegaly and constipation. Home medications: Glipizide 5 mg, metoprolol succinate 50 mg, furosemide 40 mg, atorvastatin 20 mg. 02/06/24: Patient seen and examined at the bedside. Patient has been successfully ambulating on the floor. Reports mild abdominal pain. Denies shortness of breath, chest pain, increased edema. Had a dialysis session yesterday, 1.8 L of fluid removed, declined dialysis today. Will have a dialysis tomorrow 02/07/2024. Exam Vital Signs Temp Pulse Resp BP Pulse Ox O2 Del Method O2 Flow Rate 98.1 F 66 16 160/75 H 98 Room Air 2 02/06/24 11:49 02/06/24 11:49 02/06/24 11:49 02/06/24 11:49 02/06/24 11:49 02/06/24 11:49 02/05/24 20:00 Narrative Exam Physical Exam General: Awake and in no acute distress.AOx3. Mild motor aphasia. HEENT: Normocephalic, atraumatic, mucous membranes moist. Heart: Regular rate and rhythm, no murmurs. Lungs: Clear to auscultation with no wheezing or crackles. Abdomen: Soft, lower abdominal mild tenderness, Rodrigues sign negative, positive bowel sounds. ?No guarding or rebound tenderness. Neurologic: Alert and oriented x3, motor aphasia, and patient able to move all 4 extremities. Extremities: No edema. Skin: No rash or ecchymoses. AV fistula - no thrill palpated, sutures in place s/p thrombectomy. Left subclavian tunnelled catheter, covered in dressings, Objective Labs 02/07/24 04:30 02/07/24 04:30 Labs: Laboratory Results - last 24 hr 02/05/24 02/06/24 12:20 04:58 WBC 10.6 RBC 3.12 L Hgb 9.8 L Hct 29.5 L MCV 95 MCH 31.4 MCHC 33.2 RDW Std Deviation 55.2 H Plt Count 220 Neut % (Auto) 78 Lymph % (Auto) 8 L [place] % (Auto) 12 Eos % (Auto) 1 Baso % (Auto) 1 Neut # (Auto) 8.2 H Lymph # (Auto) 0.9 L [place] # (Auto) 1.3 H Eos # (Auto) 0.1 Baso # (Auto) 0.1 Immature Gran # (Auto) 0.04 H Absolute Nucleated RBC 0.00 Immature Gran % 0 Nucleated RBC % 0 Sodium 134 L 135 L Potassium 5.4 H 4.2 D Chloride 101 100 Carbon Dioxide 16.3 L 21.7 Anion Gap 17 H 13 BUN 116 H* 77 H Creatinine 7.5 H* 5.6 H* D Estim Creat Clear Calc 7.2 L 9.7 L eGFR 7 L* 9 L* BUN/Creatinine Ratio 15 14 Glucose [address] Glu mg/dL 108 Hemoglobin A1c 5.4 Calculated Osmolality 309 H 294 Calcium 9.9 9.5 Corrected Calcium 9.9 Phosphorus 4.3 Magnesium 2.4 Total Bilirubin 0.7 AST < 8 ALT 11 Alkaline Phosphatase 78 Total Protein 7.5 Albumin 4.8 Globulin 2.7 Albumin/Globulin Ratio 1.8 Triglycerides 79 Cholesterol 106 L LDL Cholesterol, Calc 46 HDL Cholesterol 44 Cholesterol/HDL Ratio 2.4 L Procalcitonin 1.76 H Hepatitis A IgM Ab Non Reactive Hep Bs Antigen Non Reactive Hep Bs Antibody NonReact(Not Immune) L Hep B Core IgM Ab Non Reactive Hepatitis C Antibody Non Reactive Quality Measures Quality Measures VTE prophylaxis Advance care planning discussed with:: other Assessment & Plan Assessment Current Active Medications: Generic Name Dose Route Start Last Admin Trade Name Freq PRN Reason Stop Dose Admin Acetaminophen 650 mg 02/05/24 15:32 Acetaminophen 325 Mg Tablet PO 03/06/24 15:31 Q6H PRN Fever >100.4 or pain Hydrocodone Bitart/Acetaminophen 1 tab 02/05/24 15:32 Hydrocodone/Apap 10/325 Tab PO 02/10/24 15:31 Q4H PRN PAIN SCALE 4-6 (Moderate Albuterol/Ipratropium 3 ml 02/05/24 15:32 Albuterol/Ipratropium (Duoneb) Rt Mae 3 Ml Nebu INH 03/06/24 15:31 Q4HR PRN SHORTNESS OF BREATH OR WHEEZE Atorvastatin Calcium 20 mg 02/05/24 21:00 02/05/24 20:06 Atorvastatin Calcium 20 Mg Tablet PO 03/06/24 20:59 20 mg HS SANTO Administration Dextrose 25 ml 02/05/24 17:12 Dextrose 50%-Water Inj 50 Ml Syringe IV 03/06/24 17:11 Q15MIN PRN BG 50-70 responsive npo pt Dextrose 50 ml 02/05/24 17:12 Dextrose 50%-Water Inj 50 Ml Syringe IV 03/06/24 17:11 Q15MIN PRN BG <50 OR BG <70 & pt unresponsive Glucagon 1 mg 02/05/24 17:12 Glucagon Inj 1 Mg Vial IM Q15MIN PRN BG <70, and no IV access Heparin Sodium (Porcine) 3,900 unit 02/05/24 16:46 02/05/24 19:09 Heparin Sod Inj 1000 Unit/Ml Vial 10 Ml INDWELLCAT 02/19/24 16:45 3,900 unit PRN PRN Administration DIALYSIS Albumin Human 25 gm in 100 mls @ 100 mls/min 02/05/24 16:46 Albuminar-25 Ivpb IV 02/08/24 16:45 PRN PRN DIALYSIS Insulin Human Lispro 0 unit 02/05/24 21:00 02/06/24 12:25 Insulin Lispro (Admelog) 1 Unit/0.01 Ml Unit SC 03/06/24 20:59 1 unit ACHS SANTO Administration Protocol Magnesium Hydroxide 30 ml 02/05/24 15:32 Milk Of Magnesia Susp 30 Ml Udc PO 03/06/24 15:31 QDAY PRN CONSTIPATION Protocol Metoprolol Succinate 50 mg 02/05/24 15:45 02/06/24 09:14 Metoprolol Succinate Xl 25 Mg Tabcr PO 03/06/24 15:44 50 mg DAILY SANTO Administration Morphine Sulfate 2 mg 02/05/24 15:32 Morphine Sulf Inj 10 Mg/Ml Vial IVP 02/10/24 15:31 Q2H PRN PAIN SCALE 7-10 (Severe Ondansetron HCl 4 mg 02/05/24 15:32 Ondansetron Inj 2 Mg/Ml Inj 2 Ml IV 03/06/24 15:31 Q6H PRN NAUSEA OR VOMITING Protocol Pantoprazole Sodium 40 mg 02/05/24 15:45 02/06/24 09:14 Pantoprazole 40 Mg Tablet PO 03/06/24 15:44 40 mg QDAY SANTO Administration Sennosides 1 tab 02/05/24 15:45 02/06/24 09:15 Senna Tablet PO 03/06/24 15:44 Not Given QDAY SANTO Protocol Vitamin B Complex/Vit C/Folic Acid 1 tab 02/05/24 15:45 02/06/24 09:13 Vit B12/Vit C/Fa (Nephrovite) Tablet PO 03/06/24 15:44 1 tab DAILY SANTO Administration Plan The patient is 83-year-old male with a previous medical history of end-stage renal disease on dialysis M/F (2/week), type 2 diabetes, hypertension, dyslipidemia, HFrEF, CVA who came to the ED with abdominal and chest pain. #ESRD on dialysis M/F Patient missed dialysis past Friday. His last dialysis session was a week ago. Noted to have some shortness of breath. Chest x-ray and CT showed pleural effusions and CHF. Potassium 5.4, BUN 116, creatinine 7.5. 02/06/24: Sodium 135, potassium 4.2, BUN 77, creatinine 5.6, glucose 123. Plan: ? Will proceed with dialysis tomorrow #Hypertension #Hyperlipidemia #History of HFrEF #T2DM #Pneumonia #History of CVA - Management as per primary team. Plan of care discussed with attending Dr. Jenkins. Attending Provider Attestation/Addendum Patient seen and examined with resident physician Dr. Espinoza. Note reviewed, agree with findings and recommendations. Patient supposedly needs dialysis today. Declined. Next dialysis will be scheduled for tomorrow.
[2024-02-06] MEDS: LOSARTAN POTASSIUM 25 MG TABLET PO (14:26)
[2024-02-06] MEDS: ATORVASTATIN CALCIUM 20 MG TABLET PO (20:30)
[2024-02-07] VITALS (22 sets, daily range): BP systolic 135–166; BP diastolic 65–74; PULSE 60–75; RESP 17–97; TEMP 36.1–36.8; O2SAT 95–100
[2024-02-07 05:54] LABS: Basophils # (Auto) 0.1 Thou/mm3 (0.0-0.2); Basophils % (Auto) 1 % (0-2.5); Eosinophils # (Auto) 0.2 Thou/mm3 (0.0-0.5); Eosinophils % (Auto) 3 % (0-10); Hematocrit 29.1 % (41.0-53.0); Hemoglobin 9.6 g/dL (13.5-16.0); Immature Granulocytes % (Auto) 1 % (0-0); Immature Granulocytes Auto 0.04 Thou/mm3 (0.00-0.00); Lymphocytes % (Auto) 12 % (10-50); Mean Corpuscular Hemoglobin 31.5 pg (25.0-35.0); Mean Corpuscular Volume 95 fL (80-100); Monocytes # (Auto) 1.1 Thou/mm3 (0.0-0.8); Monocytes % (Auto) 13 % (0-12); Neutrophils # (Auto) 6.3 Thou/mm3 (1.8-7.7); Neutrophils % (Auto) 72 % (37-80); Nucleated Red Blood Cell % 0 /100 WBC (0); Platelet Count 239 Thou/mm3 (140-440); RDW Standard Deviation 55.7 fL (35.1-43.9); Red Blood Count 3.05 Miln/mm3 (4.50-5.90); White Blood Count 8.8 Thou/mm3 (3.8-10.6)
[2024-02-07 06:22] LABS: Anion Gap 15 (7-16); BUN/Creatinine Ratio 16 Ratio (12-20); Calcium 9.3 mg/dL (8.3-10.6); Carbon Dioxide 19.6 mMol/L (20.0-31.0); Chloride 99 mMol/L (98-107); Creatinine (Component) 6.5 mg/dL (0.6-1.3); Estimated Creatinine Clearance 8.3 mL/min (>60); Glucose 110 mg/dL (74-106); Magnesium 2.3 mg/dL (1.6-2.6); Osmolality,Calculated 300 (275-295); Phosphorous 5.4 mg/dL (2.4-5.1); Potassium 4.4 mMol/L (3.4-5.1); Sodium 134 mMol/L (136-145); eGFR 8 See Note
[2024-02-07 06:33] LABS: Blood Urea Nitrogen 101 mg/dL (9-23)
--- NOTE | 2024-02-07 08:05 | ESPR_ITS ---
Documentation for date of: 02/07/24 Subjective Subjective Interval history: Mr. Bay is 83-year-old male with a previous medical history of end-stage renal disease on dialysis M/F (2/week), type 2 diabetes, hypertension, dyslipidemia, HFrEF, CVA who came to the ED with abdominal and chest pain. Abdominal pain is located in the right upper quadrant. He reports shortness of breath when lying on his back. His Fabienne is at the bedside. History taking is limited due to aphasia. His reported that the pain started approximately a week ago. Denies any possible precipitating factors, such as food poisoning or upper respiratory infection. She also reported that he has been having chronic diarrhea in the last year, periodically stool with bright red blood. Denies nausea vomiting, headache, fevers. Last dialysis session 02/02/24. ED course: Blood pressure 192/93, heart rate 75. Saturates well in rest on 2 L NC, when walking to the bathroom desaturated to 89. Labs were significant for WBC 14.9, sodium 134, potassium 5.4, bicarb 16.3, anion gap 17, BUN 116, creatinine 7.5. Chest x-ray showed prominent CHF, bilateral pneumonia. CTA chest/abdomen and pelvis showed Prominent heart failure, pneumonia, pleural effusions, prostatomegaly and constipation. Home medications: Glipizide 5 mg, metoprolol succinate 50 mg, furosemide 40 mg, atorvastatin 20 mg. 02/06/24: Patient seen and examined at the bedside. Patient has been successfully ambulating on the floor. Reports mild abdominal pain. Denies shortness of breath, chest pain, increased edema. Had a dialysis session yesterday, 1.8 L of fluid removed, declined dialysis today. Will have a dialysis tomorrow 02/07/2024. 02/07/24: Patient seen and examined at dialysis unit. Patient was unable to receive dialysis as patient had diarrhea, today patient reports no symptoms, goal is to have net fluid 1.3 L removed today, will continue to monitor patient. Otherwise patient has no active complaints today. Exam Vital Signs Temp Pulse Resp BP Pulse Ox O2 Del Method O2 Flow Rate 98.2 F 61 18 143/66 H 95 Room Air 2 02/07/24 07:44 02/07/24 08:01 02/07/24 07:44 02/07/24 08:01 02/07/24 07:44 02/07/24 04:00 02/05/24 20:00 Narrative Exam Constitutional: Alert, oriented x 3 and comfortable. Elderly male saturating well on room air HEENT: Vision grossly intact. Patent nares. Trachea midline Respiratory: Chest normal on inspection, clear to auscultation with no wheezing or crackles. Left subclavian catheter noted. Cardiovascular: S1 and S2 audible, RRR. No murmurs carotid bruit. No gross JVD. Abdominal: Soft and non tender to palpation in all quadrants. BS + Genitourinary: No bladder tenderness, no flank pain. Normal to palpation Musculoskeletal : Extremities tone within normal limits. 1+ BLE. Neurological: CN II - XII grossly intact. Extremity motor and sensation grossly intact. Skin: Warm, dry and intact. Left brachial cephalic fistula, covered with bandage, thrill palpated. Psychiatric: Patient has good affect, is cooperative Objective Labs 02/07/24 04:30 02/07/24 04:30 Labs: Laboratory Results - last 24 hr 02/06/24 02/07/24 04:58 04:30 WBC 8.8 RBC 3.05 L Hgb 9.6 L Hct 29.1 L MCV 95 MCH 31.5 MCHC 33.0 RDW Std Deviation 55.7 H Plt Count 239 Neut % (Auto) 72 Lymph % (Auto) 12 Patrick % (Auto) 13 H Eos % (Auto) 3 Baso % (Auto) 1 Neut # (Auto) 6.3 Lymph # (Auto) 1.0 Patrick # (Auto) 1.1 H Eos # (Auto) 0.2 Baso # (Auto) 0.1 Immature Gran # (Auto) 0.04 H Absolute Nucleated RBC 0.00 Immature Gran % 1 H Nucleated RBC % 0 Sodium 134 L Potassium 4.4 Chloride 99 Carbon Dioxide 19.6 L Anion Gap 15 BUN 101 H* Creatinine 6.5 H* D Estim Creat Clear Calc 8.3 L eGFR 8 L* BUN/Creatinine Ratio [address] Glu mg/dL 108 Hemoglobin A1c 5.4 Calculated Osmolality 300 H Calcium 9.3 Phosphorus 5.4 H Magnesium 2.3 Hepatitis A IgM Ab Non Reactive Hep Bs Antigen Non Reactive Hep Bs Antibody NonReact(Not Immune) L Hep B Core IgM Ab Non Reactive Hepatitis C Antibody Non Reactive Quality Measures Quality Measures VTE prophylaxis Advance care planning discussed with:: patient Assessment & Plan Assessment Current Active Medications: Generic Name Dose Route Start Last Admin Trade Name Freq PRN Reason Stop Dose Admin Acetaminophen 650 mg 02/05/24 15:32 Acetaminophen 325 Mg Tablet PO 03/06/24 15:31 Q6H PRN Fever >100.4 or pain Protocol Hydrocodone Bitart/Acetaminophen 1 tab 02/05/24 15:32 Hydrocodone/Apap 10/325 Tab PO 02/10/24 15:31 Q4H PRN PAIN SCALE 4-6 (Moderate Albuterol/Ipratropium 3 ml 02/05/24 15:32 Albuterol/Ipratropium (Duoneb) Rt Mae 3 Ml Nebu INH 03/06/24 15:31 Q4HR PRN SHORTNESS OF BREATH OR WHEEZE Atorvastatin Calcium 20 mg 02/05/24 21:00 02/06/24 20:30 Atorvastatin Calcium 20 Mg Tablet PO 03/06/24 20:59 20 mg HS SANTO Administration Dextrose 25 ml 02/05/24 17:12 Dextrose 50%-Water Inj 50 Ml Syringe IV 03/06/24 17:11 Q15MIN PRN BG 50-70 responsive npo pt Dextrose 50 ml 02/05/24 17:12 Dextrose 50%-Water Inj 50 Ml Syringe IV 03/06/24 17:11 Q15MIN PRN BG <50 OR BG <70 & pt unresponsive Glucagon 1 mg 02/05/24 17:12 Glucagon Inj 1 Mg Vial IM Q15MIN PRN BG <70, and no IV access Heparin Sodium (Porcine) 3,900 unit 02/05/24 16:46 02/05/24 19:09 Heparin Sod Inj 1000 Unit/Ml Vial 10 Ml INDWELLCAT 02/19/24 16:45 3,900 unit PRN PRN Administration DIALYSIS Hydralazine HCl 10 mg 02/06/24 15:12 Hydralazine Inj 20 Mg/Ml Vial IV 03/07/24 15:11 Q6HR PRN SBP > 190 Albumin Human 25 gm in 100 mls @ 100 mls/min 02/05/24 16:46 Albuminar-25 Ivpb IV 02/08/24 16:45 PRN PRN DIALYSIS Insulin Human Lispro 0 unit 02/05/24 21:00 02/07/24 07:43 Insulin Lispro (Admelog) 1 Unit/0.01 Ml Unit SC 03/06/24 20:59 Not Given ACHS SANTO Protocol Magnesium Hydroxide 30 ml 02/05/24 15:32 Milk Of Magnesia Susp 30 Ml Udc PO 03/06/24 15:31 QDAY PRN CONSTIPATION Protocol Metoprolol Succinate 50 mg 02/05/24 15:45 02/06/24 09:14 Metoprolol Succinate Xl 25 Mg Tabcr PO 03/06/24 15:44 50 mg DAILY SANTO Administration Morphine Sulfate 2 mg 02/05/24 15:32 Morphine Sulf Inj 10 Mg/Ml Vial IVP 02/10/24 15:31 Q2H PRN PAIN SCALE 7-10 (Severe Ondansetron HCl 4 mg 02/05/24 15:32 Ondansetron Inj 2 Mg/Ml Inj 2 Ml IV 03/06/24 15:31 Q6H PRN NAUSEA OR VOMITING Protocol Pantoprazole Sodium 40 mg 02/05/24 15:45 02/06/24 09:14 Pantoprazole 40 Mg Tablet PO 03/06/24 15:44 40 mg QDAY SANTO Administration Sennosides 1 tab 02/05/24 15:45 02/06/24 09:15 Senna Tablet PO 03/06/24 15:44 Not Given QDAY SANTO Protocol Vitamin B Complex/Vit C/Folic Acid 1 tab 02/05/24 15:45 02/06/24 09:13 Vit B12/Vit C/Fa (Nephrovite) Tablet PO 03/06/24 15:44 1 tab DAILY SANTO Administration Plan Summary: Mr Bay is a 83-year-old male with an extensive past medical history significant of ESRD on HD M/F via left brachiocephalic fistula, essential hypertension, hyperlipidemia, NIDDM type II, history of multiple strokes, chronic diarrhea, chronic systolic heart failure with reduced ejection fraction [40-45%], rectal mass s/p resection previously saw Dr. Salazar but declined any further follow-up. Patient regularly follows up with woodwind instrument repairer and PCP Dr. Jenkins. Patient does not regularly see a interior paneler. Patient presented with chief complaint of SOB and chills since last night, endorsed having chronic diarrhea for the past 1 year also associated with bright red blood in his stool. Patient recently switched his dialysis dates to / from //F due to his preference. Patient's last dialysis session was 01/29 and he missed his session this week on 02/01. Patient needs 3 times weekly dialysis but he refuses, so a compromise of twice weekly dialysis was reached. However patient is still noncompliant with his twice weekly sessions and frequently misses them. Patient has history of multiple admissions to the hospital in the past due to missing dialysis sessions and presented with similar complaints as this admission. #ESRD on dialysis M/F Patient missed dialysis past Friday. His last dialysis session was a week ago. Noted to have some shortness of breath. Chest x-ray and CT showed pleural effusions and CHF. Potassium 5.4, BUN 116, creatinine 7.5. 02/07/24: Patient declined dialysis yesterday, labs significant for BUN 101, creatinine 6.5 4 8, sodium 134, venous carbon dioxide 19.6, phosphorus 5.4. Patient seen during dialysis today, has no current complaints, 1+ bilateral lower extremity edema noted. Plan: -Plan is to dialyze patient today, goal fluid removal around 1.5 L -Follow renal panel in a.m. -Renally dose medications #Hypertension #Hyperlipidemia #History of HFrEF #T2DM #Pneumonia #History of CVA - Management as per primary team. Plan of care discussed with attending Dr. Jenkins. Dewey Johnson PGY1 Attending Provider Attestation/Addendum Patient seen and examined with resident physician Dr. Johnson. Note reviewed, agree with findings and recommendations. Patient currently seen on dialysis. Tolerating dialysis without any problems. Hemodialysis for 3 hours, 2K, ultrafiltration 1 L, Epogen 6000, no heparin ordered. Plan of care discussed with the dialysis nurse. Please see dialysis flowsheet for further details. Renal farmer stable for discharge
[2024-02-07] MEDS: EPOETIN ALFA-EPBX INJ 10,000 UNIT/ML VIAL (ESRD) 10000 UNIT SC (10:19)
--- NOTE | 2024-02-07 10:30 | PC.NURSE ---
Pt. had to the bathroom, demanded to come off 12 minutes early
[2024-02-07] MEDS: HEPARIN SOD INJ 1000 UNIT/ML VIAL 10 ML 3900 UNIT INDWELLCAT (11:00)
[2024-02-07] MEDS: METOPROLOL SUCCINATE XL 25 MG TABCR 50 MG PO (11:23)
[2024-02-07] MEDS: VIT B12/Vit C/FA (Nephrovite) TABLET 1 TAB PO (11:24)
[2024-02-07] MEDS: PANTOPRAZOLE 40 MG TABLET PO (11:24)
--- NOTE | 2024-02-07 11:38 | PC.NURSE ---
per pt , she will be pts ride home and will be at the hospital after 1600 to cotton picker pt.
--- NOTE | 2024-02-07 14:53 | ESDS_ITS ---
<Statement entered by Maxim Goss MD - 02/08/24 12:15> I have discussed and was present for the essential components of the history, physical examination, diagnosis, and treatment plan with the resident. I agree with the patient's care as documented by the resident and amended herein by me. Maxim Goss MD. Planned Discharge Date 02/07/24 DS: Providers Provider Date of admission: 02/05/24 15:27 Primary care physician: Carrillo Greenwood MD Admitting Provider: Maxim Goss MD Attending Provider on Admission: Maxim Goss MD Consults: 02/05/24 15:38 Consult to Nephrology Stat Comment: Missed Dialysis session Consulting Provider: Bethanie Jenkins Attending Provider on DC: Maxim Goss MD Discharging Provider: Maxim Goss MD DS: Diagnosis Problem List Completed Was Problem List Reviewed/Reconciled?: Yes Hospital Course Hospital Course Hospital course: Patient is a 83-year-old male with an extensive past medical history significant of ESRD on HD M/F via left brachiocephalic fistula, essential hypertension, hyperlipidemia, NIDDM type II, history of multiple strokes, chronic diarrhea, chronic systolic heart failure with reduced ejection fraction [40-45%], rectal mass s/p resection previously saw Dr. Salazar but declined any further follow-up. Patient regularly follows up with educational programming director and PCP Dr. Jenkins. Patient does not regularly see a micromatic hone operator. Patient presented with a chief complaint of SOB and chills he reported to have chills and PND. Denies any cough, fever, sick contacts, recent travel, vomiting. Patient refused to undergo dialysis on Wednesdays and switched his dialysis days to Friday and Friday. His last dialysis session was 01/29 and he missed his session on 02/01. Labs for consistent with ESRD pattern. Chest x-ray showed bilateral pulmonary edema with possible reticulonodular opacities. CT abdomen was significant for abundant stool throughout colon. Patient underwent dialysis session on the day of admission and today, 02/06. Patient was doing well and was stable for discharge per nephrology recommendations. Patient was advised to follow-up with educational programming director and continue his dialysis sessions per nephro recs. Home medications were reconciled during hospital stay. Patient is discharged to home. # Problem list: # Fluid overload state secondary to missed dialysis session # ESRD on hemodialysis Friday/Friday via left brachial cephalic fistula # Chronic systolic heart failure with reduced ejection fraction 40-45% # Hypertensive urgency, resolved # History of essential hypertension # NIDDM type II # Constipation # History of multiple strokes # Chronic diarrhea possible malabsorption # History of rectal mass postresection # Hematochezia history DC instructions: Take all home medication as prescribed Continue hemodialysis session as per schedule Follow-up with your PCP as outpatient within 2 weeks Follow-up with educational programming director as outpatient In case of emergency, call 900 and come back to the ED Patient was seen and discussed with attending physician, Dr. Wolfgang Fair MD, PGY 2 Time Spent with Patient Time attestation: Total time spent providing and/or coordinating discharge services: Exam Vital Signs Temp Pulse Resp BP Pulse Ox O2 Del Method O2 Flow Rate 97.4 F 75 17 166/72 H 96 Room Air 2 02/07/24 12:00 02/07/24 12:00 02/07/24 12:00 02/07/24 12:00 02/07/24 12:00 02/07/24 12:00 02/05/24 20:00 Narrative Exam Constitutional: Alert, oriented x 3 and comfortable. Elderly male saturating well on room air HEENT: Vision grossly intact. Patent nares. Trachea midline Respiratory: Chest normal on inspection, clear to auscultation with no wheezing or crackles. Left subclavian catheter noted. Cardiovascular: S1 and S2 audible, RRR. No murmurs carotid bruit. No gross JVD. Abdominal: Soft and non tender to palpation in all quadrants. BS + Genitourinary: No bladder tenderness, no flank pain. Normal to palpation Musculoskeletal : Extremities tone within normal limits. 1+ BLE. Neurological: CN II - XII grossly intact. Extremity motor and sensation grossly intact. Skin: Warm, dry and intact. Left brachial cephalic fistula, covered with bandage, thrill palpated. Psychiatric: Patient has good affect, is cooperative Discharge Plan Plan Patient Disposition: HOME (Self Care) Patient condition on transfer: Stable Care Plan Goals: Take all home medication as prescribed Continue hemodialysis session as per schedule Follow-up with your PCP as outpatient within 2 weeks Follow-up with educational programming director as outpatient In case of emergency, call 900 and come back to the ED Prescriptions/Referrals Prescriptions/Med Rec: Continued atorvastatin [Lipitor] 20 MG tablet 20 mg PO HS Qty: 30 0RF Aileen-Abrahan 0.8 mg Tablet 1 tab PO DAILY metoprolol succinate 50 mg tablet extended release 24 hr 50 mg PO DAILY Patient Comments: TAKE 1 TABLET BY MOUTH ONCE DAILY furosemide 40 mg tablet 40 mg PO BID glipizide 5 mg tablet 5 mg PO BID Patient Comments: TAKE 1 TABLET BY MOUTH TWICE DAILY Referrals: Carrillo Greenwood MD [Primary Care Provider] - Bethanie Jenkins MD [Physician] - Patient/Caregiver Discharge Instructions Other Discharge Activity Instructions:: Take all home medication as prescribed Continue hemodialysis session as per schedule Follow-up with your PCP as outpatient within 2 weeks Follow-up with educational programming director Dr. Jenkins as outpatient In case of emergency, call 911 and come back to the ED Print Language: Kyrgyz Stand Alone Forms: Nydia Award Info., Patient Portal Info Letter Discharge Order Discharge Orders: Discharge (Routine); Ordered 02/07/24 Ordered By: Darwin Fair Quality Discharge Quality Measures VTE prophylaxis (SCDs)
== END 2024-02-07 16:53 | disposition home or self-care (01) | DRG 640 ==
LOC: SERX 15:18 → SERHOLD 15:59 → S3NX 17:16
PROVIDERS: Internal Medicine; Student in an Organized Health Care Education/Training Program; Admitting Provider Internal Medicine; Emergency Provider Emergency Medicine; PCP Family Medicine; Visit Provider Internal Medicine
DX: E87.70 Fluid overload, unspecified (principal); N18.6 End stage renal disease; I13.2 Hypertensive heart and chronic kidney disease with heart failure and with stage 5 chronic kidney disease, or end stage renal disease; I50.22 Chronic systolic (congestive) heart failure; I16.0 Hypertensive urgency; E11.22 Type 2 diabetes mellitus with diabetic chronic kidney disease; K57.30 Diverticulosis of large intestine without perforation or abscess without bleeding; K40.90 Unilateral inguinal hernia, without obstruction or gangrene, not specified as recurrent; E78.5 Hyperlipidemia, unspecified; K59.00 Constipation, unspecified; K52.9 Noninfective gastroenteritis and colitis, unspecified; Z99.2 Dependence on renal dialysis; Z91.158 Patient's noncompliance with renal dialysis for other reason; Z86.73 Personal history of transient ischemic attack (TIA), and cerebral infarction without residual deficits
CPT/HCPCS: 36415; 71046; 71250; 74176; 80048; 80053; 80061; 80074; 83036; 83735; 84100; 84145; 84484; 85025; 86706; 87081; 87811; 93005; 93225; 99285; J0696; J1643; J1815; Q5105; Q5106; A9270; J1644

== ENCOUNTER 2024-05-19 12:02 | Inpatient (IN) | payer MEDICARE, BC, SELFPAY ==
[2024-05-19] VITALS (16 sets, daily range): BP systolic 151–204; BP diastolic 70–101; PULSE 76–101; RESP 18–23; TEMP 36.1–37.9; O2SAT 94–100; BMI 24.0; BMI 23.3
--- NOTE | 2024-05-19 12:27 | XR_ITS ---
Examination: AP chest single view Technique one AP portable upright chest single view Exam date and time: May 19, 2024 1211 hours Comparison February 15, 2024 INDICATIONS: Coughing congestion beginning 3 days ago. FINDINGS: Mild opacity diffusely throughout the lungs Mild prominence left ventricle Moderate vascular congestion IMPRESSION: Diffuse bilateral pneumonia and/or edema, clinical correlation advised
--- NOTE | 2024-05-19 12:28 | PD.EDRME ---
Rapid Medical Screening Exam RME Arrival date/time: 05/19/24 12:02 83-year-old male presents to the emergency department today for concerns for infection to his fistula in his left arm Chief Complaint: Fever Time Seen by Provider: 05/19/24 12:32 Vital signs: Vital Signs Temperature 37.9 C 05/19/24 12:26 Pulse Rate 87 05/19/24 12:26 Respiratory Rate 18 05/19/24 12:26 Blood Pressure 191/93 H 05/19/24 12:26 Pulse Oximetry (%) 100 05/19/24 12:26 Oxygen Delivery Method Room Air 05/19/24 12:26
--- NOTE | 2024-05-19 12:34 | PD.EDFEVER ---
ED Fever RME/HPI General Chief Complaint: Fever Stated Complaint: SENT BY DIALYSIS FOR INFECTED FISTULA, FEVER Time Seen by Provider: 05/19/24 12:32 Arrival date/time: 05/19/24 12:02 RME / HPI RME / HPI Narrative: 83-year-old male with significant history of ESRD on HD , essential hypertension, hyperlipidemia, NIDDM type II, history of multiple strokes, chronic diarrhea, chronic systolic heart failure rectal mass s/p resection was sent to us by dialysis center for possible infected fistula. Patient was noted to have fever while in dialysis, and the left arm AV fistula was noted to be warm to touch however there was no redness. Patient also complained of mild cough, nonproductive and posterior chest for couple of days. Denies any abdominal pain. Dialysis was not done today. Related Data Home Medications ?Medication ?Instructions ?Recorded ?Confirmed furosemide 40 mg tablet 40 mg PO BID 09/21/22 05/19/24 metoprolol succinate 50 mg 50 mg PO DAILY 09/21/22 05/19/24 tablet,extended release 24 hr vitamin B complex-vitamin C-folic 1 tab PO DAILY 09/21/22 05/19/24 acid 0.8 mg tablet (Aileen-Abrahan) glipizide 5 mg tablet 5 mg PO BID 02/05/24 05/19/24 Previous Rx's ?Medication ?Instructions ?Recorded atorvastatin 20 mg tablet (Lipitor) 20 mg PO HS #30 tabs 03/27/17 Allergies Allergy/AdvReac Type Severity Reaction Status Date / Time No Known Allergies Allergy Verified 05/19/24 12:06 Review of Systems Review of Systems Narrative Review of Systems: Review of system reviewed and within normal limits except mentioned in HPI Physical Exam Narrative Physical exam: VITAL SIGNS: Reviewed. GENERAL APPEARANCE: Alert and interactive, follows commands, no acute distress, HEAD AND FACE: Non-traumatic. ENT: PERRL, pink conjunctivitis, eyelid no trauma, Mucous membrane moist. NECK: Supple, nontender, no nuchal rigidity. CHEST: No tenderness, no crepitus, no paradoxical movement, no retractions. LUNGS: Clear, well ventilated, symmetric, no rales, no wheezing, no ronchi, no stridor, good breath sounds bilaterally. HEART: Regular rate, regular rhythm, no murmur, no gallops. ABDOMEN: Soft, positive bowel sounds, nondistended, no guarding, nontender, no rebound, no masses, RECTAL: Deferred. GENITAL: Deferred. NEUROLOGICAL: Gross motor function intact sensory function intact, Appropriate for age. MUSCULOSKELETAL: low back nontender, full range of motion. EXTREMITIES: Left arm AV fistula warm to touch no redness no drainage positive thrill, nontender, full range of motion. SKIN: Color pink, dry, no rash, no lacerations, no abrasions, no contusions. LYMPHATICS: Deferred. Course Quality Measures none Orders Category Date Time Status Bedside Blood Glucose Q2HX3 Care 05/19/24 14:53 Active Bedside COVID-19 Antigen Test NOW Care 05/19/24 12:27 Active Bedside COVID-19 Antigen Test NOW Care 05/19/24 12:51 Active Bedside Influenza A&B Antigen Test NOW Care 05/19/24 12:27 Completed Bedside Influenza A&B Antigen Test NOW Care 05/19/24 12:51 Completed COVID-19 Screening Questionnaire NOW Care 05/19/24 15:31 Active Decision to Admit X1 Care 05/19/24 15:31 Completed Dialysis [Hemodialysis] Urgent Care 05/19/24 15:27 Active EKG (ED ONLY) *Do not use* NOW Care 05/19/24 12:49 Completed Insert IV NOW Care 05/19/24 12:27 Active Consult to Nephrology Stat Cons 05/19/24 15:25 Ordered EKG (ED Only) Stat Exams 05/19/24 12:49 Draft XR chest 2V Stat Exams 05/19/24 12:27 Completed Blood Culture (Lab) Stat Lab 05/19/24 12:55 Received CBC Stat Lab 05/19/24 12:50 Completed Comprehensive Metabolic Panel Stat Lab 05/19/24 12:50 Completed Lactate (Lactic Acid) Stat Lab 05/19/24 12:50 Completed Procalcitonin Stat Lab 05/19/24 12:50 Completed ALBUTEROL RT 0.5ml [Proventil Rt 0.5ml] Med 05/19/24 15:18 Discontinued 2.5 mg .ROUTE .STK-MED ONE ALBUTEROL RT 0.5ml [Proventil Rt 0.5ml] Med 05/19/24 14:53 Discontinued 5 mg INH X1 ONE Albumin Human 25% Ivpb [Albuminar-25 Ivpb] Med 05/19/24 15:28 Active 25 gm in 100 ml IV PRN Calcium Chloride 10% Abboject Med 05/19/24 14:53 Discontinued 10 ml IV X1 ONE Dextrose 10%-Water 1000 ml [D10w 1000 ml] 1,000 ml Med 05/19/24 15:00 Discontinued IV 100 mls/hr Dextrose 50% Syr [D50w Syringe Abboject] Med 05/19/24 14:53 Discontinued 25 ml IV Q15MIN PRN Epoetin Francisco-Epbx Inj [Retacrit Inj] Med 05/19/24 17:00 Discontinued 10,000 unit SC X1 ONE Glucagon Inj Med 05/19/24 14:53 Discontinued 1 mg IM Q15MIN PRN Insulin Regular Med 05/19/24 14:53 Discontinued 5 unit IV X1 ONE Piper/Tazo 3.375 gm Premix [Zosyn] Med 05/19/24 14:53 Discontinued 3.375 gm in 50 ml IV X1 Sod Polystyrene Sulfon Susp [Kayexalate Susp] Med 05/19/24 14:53 Discontinued 30 gm PO X1 ONE Sodium Chloride Rt Mae 0.9% [NS Rt Mae 0.9%] Med 05/19/24 14:53 Active 3 ml INH PRN PRN Vital Signs Vital signs: Vital Signs Temperature 100.3 F 05/19/24 12:26 Pulse Rate 87 05/19/24 12:26 Respiratory Rate 18 05/19/24 12:26 Blood Pressure 191/93 H 05/19/24 12:26 Pulse Oximetry (%) 100 05/19/24 12:26 Oxygen Delivery Method Room Air 05/19/24 12:26 Fever MDM Narrative MDM Narrative:: 83-year-old male with significant history of ESRD on HD , essential hypertension, hyperlipidemia, NIDDM type II, history of multiple strokes, chronic diarrhea, chronic systolic heart failure rectal mass s/p resection was sent to us by dialysis center for possible infected fistula. Patient was noted to have fever while in dialysis, and the left arm AV fistula was noted to be warm to touch however there was no redness. Patient denies any cough denies any abdominal pain. Dialysis was not done today. Sepsis alert was initiated right away Chest x-ray showed pneumonia. Laboratory workup significant for slight leukocytosis, Pro-Biju slightly elevated. Urinalysis no UTI. Potassium 6.0. CMP significant for chronic kidney disease. Patient received Zosyn IV. EKG showed normal sinus rhythm, vent rate of 81 bpm, no ST segment elevation depression noted. 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 Patient underwent dialysis today. Patient data External records reviewed:: None Clinical information provided by:: patient Social determinants that could affect healthcare access:: none Patient has the following chronic illnesses:: ESRD How is presenting disease/condition affected by chronic disease/condition?: exacerbated by Evaluation data The following diagnostics were reviewed and interpreted by me:: lab results, radiology exam(s) and EKG tracing(s) Lab and/or radiology exams considered but not ordered:: None Interpretation Summary: See results in MDM Medications / Prescriptions Medications or Prescriptions considered but not ordered:: None Medication administrations:: Medication Administration History Acetaminophen (Acetaminophen 325 Mg Tablet) 650 mg PO Q6H PRN PRN Reason: Pain 1-3 and/or Fever >100.1 Stop: 06/18/24 16:00 Dextrose (Dextrose 50%-Water Inj 50 Ml Syringe) 25 ml IV Q15MIN PRN PRN Reason: BG 50-70 responsive npo pt Stop: 06/18/24 16:06 Dextrose (Dextrose 50%-Water Inj 50 Ml Syringe) 50 ml IV Q15MIN PRN PRN Reason: BG <50 OR BG <70 & pt unresponsive Stop: 06/18/24 16:06 Glucagon (Glucagon Inj 1 Mg Vial) 1 mg IM Q15MIN PRN PRN Reason: BG <70, and no IV access Albumin Human (Albuminar-25 Ivpb) 25 gm in 100 mls @ 100 mls/min IV PRN PRN PRN Reason: DIALYSIS Piperacillin/Tazobactam/Dextrose (Zosyn) 3.375 gm in 50 mls @ 12.5 mls/hr IV Q12HR SANTO; Protocol Stop: 05/26/24 20:59 Last Admin: 05/19/24 20:40 Dose: 12.5 mls/hr Documented By: CG Vancomycin/Sodium Chloride (Vancomycin/Ns 1 Gm Ivpb) 200 mls @ 120 mls/hr IV X1 SANTO Stop: 05/26/24 16:14 Insulin Human Lispro (Insulin Lispro (Admelog) 1 Unit/0.01 Ml Unit) 0 unit SC AC SANTO; Protocol Stop: 06/18/24 16:59 Last Admin: 05/19/24 17:54 Dose: Not Given Documented By: CHRISTIANO Non-Admin Reason: Per Protocol Metoprolol Succinate (Metoprolol Succinate Xl 25 Mg Tabcr) 50 mg PO QDAY SANTO Stop: 06/19/24 08:59 Ondansetron HCl (Ondansetron Inj 2 Mg/Ml Inj 2 Ml) 4 mg IV Q6H PRN; Protocol PRN Reason: NAUSEA OR VOMITING Stop: 06/18/24 16:00 Pharmacy Consult (Vancomycin Pharmacy To Dose 1 Each Each) 1 each IV QDAY PRN PRN Reason: CONSULT Stop: 06/18/24 16:14 Sennosides (Senna Tablet) 1 tab PO QDAY SANTO; Protocol Stop: 06/19/24 08:59 Sodium Chloride (Sodium Chloride Rt Mae 0.9% 3 Ml Nebu) 3 ml INH PRN PRN PRN Reason: SOLN Stop: 06/18/24 14:52 Last Admin: 05/19/24 15:25 Dose: 3 ml Documented By: KELLY Discontinued Medications Acetaminophen/Codeine Phosphate (Acetaminophen W/Cod 300-30 Tablet) 1 tab PO X1 ONE Stop: 05/19/24 16:38 Last Admin: 05/19/24 16:50 Dose: 1 tab Documented By: CHRISTIANO Albuterol (Albuterol Rt 2.5 Mg/0.5 Ml Nebu) 5 mg INH X1 ONE Stop: 05/19/24 14:54 Last Admin: 05/19/24 15:19 Dose: 5 mg Documented By: KELLY Albuterol (Albuterol Rt 2.5 Mg/0.5 Ml Nebu) Confirm Administered Dose 2.5 mg .ROUTE .STK-MED ONE Stop: 05/19/24 15:19 Last Admin: 05/19/24 15:49 Dose: Not Given Documented By: CHRISTIANO Non-Admin Reason: Duplicate Medication on eMAR Calcium Chloride (Calcium Chloride 10% Inj 10 Ml Syrg) 10 ml IV X1 ONE Stop: 05/19/24 14:54 Last Admin: 05/19/24 15:30 Dose: 10 ml Documented By: CHRISTIANO Dextrose (Dextrose 50%-Water Inj 50 Ml Syringe) 25 ml IV Q15MIN PRN PRN Reason: BG 50-70 responsive npo pt Stop: 06/18/24 14:52 Last Admin: 05/19/24 15:28 Dose: 25 ml Documented By: CHRISTIANO Diphenhydramine HCl (Diphenhydramine 25 Mg Capsule) 25 mg PO X1 ONE Stop: 05/19/24 21:38 Last Admin: 05/19/24 21:51 Dose: 25 mg Documented By: NAS Epoetin Francisco (Epoetin Francisco-Epbx Inj 10,000 Unit/Ml Vial (Esrd)) 10,000 unit SC X1 ONE Stop: 05/19/24 17:01 Last Admin: 05/19/24 19:05 Dose: 10,000 unit Documented By: JAIRO Glucagon (Glucagon Inj 1 Mg Vial) 1 mg IM Q15MIN PRN PRN Reason: BG <70, and no IV access Hydralazine HCl (Hydralazine Inj 20 Mg/Ml Vial) 10 mg IV Q4H ONE Stop: 05/19/24 19:12 Piperacillin/Tazobactam/Dextrose (Zosyn) 3.375 gm in 50 mls @ 100 mls/hr IV X1 ONE Stop: 05/19/24 15:22 Last Infusion: 05/19/24 16:11 Dose: Infused Documented By: Admin: 05/19/24 15:31 Dose: 100 mls/hr Documented By: CHRISTIANO Dextrose (D10w 1000 Ml) 1,000 mls @ 100 mls/hr IV .Q10H SANTO Stop: 05/20/24 00:59 Last Admin: 05/19/24 16:11 Dose: Not Given Documented By: CHRISTIANO Non-Admin Reason: Discontinued Insulin Human Regular (Insulin Hum Regular 1 Unit/0.01 Ml (Per Unit)) 5 unit IV X1 ONE Stop: 05/19/24 14:54 Last Admin: 05/19/24 15:30 Dose: 5 unit Documented By: CHRISTIANO Co-signed By: MOE Labetalol HCl (Labetalol Inj 5 Mg/Ml Vial 20 Ml) 10 mg IVP X1 ONE Stop: 05/19/24 16:37 Last Admin: 05/19/24 16:50 Dose: 10 mg Documented By: CHRISTIANO Sodium Polystyrene Sulfonate (Sod Polystyrene Sulfon Susp 15 Gm/60 Ml Btl) 30 gm PO X1 ONE Stop: 05/19/24 14:54 Last Admin: 05/19/24 15:30 Dose: 30 gm Documented By: CHRISTIANO IV Zosyn Consultations Consultation(s) initiated? (list below): Yes Consultation #1 (Physician, Specialty, Details): Dr. Jenkins, patient's glass novelty maker thank you Diagnosis Fever Differential Diagnosis: cellulitis, sepsis and other (Pneumonia) Most likely diagnosis given after review of the tests above:: Pneumonia, ESRD needing hemodialysis Admission Indicated Admission indicated?: indicated Explain why admission is indicated or not indicated:: For further management Admission Request Was there a request for admission?: No Disposition Plan Disposition Plan: Admit Discharge Plan Plan Patient Disposition: Admit Acute Care w/in Hospital Problem List Clinical Impression: Pneumonia, ESRD on dialysis
--- NOTE | 2024-05-19 12:49 | EKG_ITS ---
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
[2024-05-19 12:58] LABS: Lactate (Lactic Acid) 0.9 mMol/L (0.4-2.0)
[2024-05-19 13:03] LABS: Basophils # (Auto) 0.1 Thou/mm3 (0.0-0.2); Basophils % (Auto) 0 % (0-2.5); Eosinophils % (Auto) 0 % (0-10); Hemoglobin 11.4 g/dL (13.5-16.0); Immature Granulocytes % (Auto) 0 % (0-0); Immature Granulocytes Auto 0.06 Thou/mm3 (0.00-0.00); Lymphocytes # (Auto) 0.7 Thou/mm3 (1.0-4.8); Lymphocytes % (Auto) 5 % (10-50); Mean Corpuscular HGB Conc 33.5 g/dl (31.0-37.0); Mean Corpuscular Hemoglobin 32.9 pg (25.0-35.0); Mean Corpuscular Volume 98 fL (80-100); Monocytes # (Auto) 1.5 Thou/mm3 (0.0-0.8); Monocytes % (Auto) 11 % (0-12); Neutrophils # (Auto) 11.6 Thou/mm3 (1.8-7.7); Neutrophils % (Auto) 83 % (37-80); Nucleated Red Blood Cell % 0 /100 WBC (0); Platelet Count 173 Thou/mm3 (140-440); RDW Standard Deviation 56.3 fL (35.1-43.9); Red Blood Count 3.47 Miln/mm3 (4.50-5.90)
[2024-05-19 13:33] LABS: Alanine Aminotransferase 27 U/L (10-49); Albumin, Serum 4.6 gm/dL (3.4-4.8); Albumin/Globulin Ratio 1.6 (1.2-2.2); Alkaline Phosphatase 73 U/L (46-116); Anion Gap 17 (7-16); Aspartate Amino Transferase 27 U/L (0-34); BUN/Creatinine Ratio 15 Ratio (12-20); Bilirubin,Total 0.4 mg/dL (0.3-1.2); Calcium 10.1 mg/dL (8.3-10.6); Calcium (Corrected) 10.1 mg/dL (8.5-10.1); Carbon Dioxide 20.3 mMol/L (20.0-31.0); Chloride 99 mMol/L (98-107); Creatinine (Component) 7.1 mg/dL (0.6-1.3); Estimated Creatinine Clearance 7.6 mL/min (>60); Globulin 2.8 gm/dL (2.3-3.5); Glucose 137 mg/dL (74-106); Osmolality,Calculated 307 (275-295); Procalcitonin 0.58 ng/ml (0.0-0.49); Sodium 136 mMol/L (136-145); Total Protein 7.4 gm/dL (5.7-8.2); eGFR 7 See Note
[2024-05-19 13:47] LABS: Blood Urea Nitrogen 106 mg/dL (9-23)
[2024-05-19] MEDS: ALBUTEROL RT 2.5 MG/0.5 ML NEBU 5 MG INH (15:19)
[2024-05-19] MEDS: SODIUM CHLORIDE RT SOL 0.9% 3 ML NEBU INH (15:25)
[2024-05-19] MEDS: DEXTROSE 50%-WATER INJ 50 ML SYRINGE 25 ML IV (15:28)
[2024-05-19] MEDS: SOD POLYSTYRENE SULFON SUSP 15 GM/60 ML BTL 30 GM PO (15:30)
[2024-05-19] MEDS: CALCIUM CHLORIDE 10% INJ 10 ML SYRG IV (15:30)
[2024-05-19] MEDS: INSULIN HUM REGULAR 1 UNIT/0.01 ML (PER UNIT) 5 UNIT IV (15:30)
[2024-05-19] MEDS: PIPER/TAZO 3.375 GM PREMIX 3.375 GM/50 ML BAG IV ×2 (15:31→20:40)
--- NOTE | 2024-05-19 16:11 | ESHP_ITS ---
<Statement entered by Rhonda Perdomo MD - 05/20/24 15:52> Patient was seen and examined by me personally. I have directly supervised and reviewed documentation by the team resident and agree with its findings with any exceptions or additional findings as below. Plan of care was discussed with the attending, Dr. Archibald. New admission. Patient is a 83-year-old male with past medical history of ESRD on HD through fistula M/F, CHF (EF 40-45% 04/2021), hypertension, hyperlipidemia, type 2 diabetes mellitus, multiple strokes, chronic diarrhea, and rectal mass s/p resection, who was advised to come to the ED on 05/19/2024 due to concern for L arm AV fistula which was not erythematous but was warm to touch and patient had been having fevers. Patient was about to have dialysis at his dialysis center but did not have it done. Patient was found to meet SIRS criteria with with leukocytosis and fever, sepsis alert was initiated in the ED. CXR was not very significant for pneumonia, and the patient was not endorsing respiratory symptoms. UA was negative for UTI. Patient was started on Zosyn and vancomycin renally dosed, empiric treatment for possible soft tissue infection at the fistula site. Will await cultures. Rhonda Perdomo, PGY-2 Documentation for date of: 05/19/24 HPI History of Present Illness Chief complaint: Fever History of present illness: 83-year-old male with past medical history of ESRD on HD M/F via left brachiocephalic fistula, essential hypertension, hyperlipidemia, NIDDM type II, history of multiple strokes, chronic diarrhea, chronic systolic heart failure with reduced ejection fraction [40-45%], rectal mass s/p resection previously seen by Dr. Salazar presenting to the ED on 05/19 from dialysis center after it was noted that his fistula was warm and the patient was reporting some subjective fevers at home. Patient apparently missed dialysis session on Friday secondary to diarrhea which is a chronic medical condition for him. Patient's is bedside and provides some history regarding the patient's condition. Patient apparently started dialysis about 3 years ago secondary to diabetic and hypertensive nephropathy. Patient follows Dr. Jenkins, nephrology, and apparently still makes some urine. Patient was using a left-sided tunneled catheter for several years until recently had a left-sided brachiocephalic fistula placed which a few weeks ago which was repaired by vascular surgery in [place], Dr. Houser. Patient has suture site on the AV fistula which the states needs to be removed no earlier than Sunday 05/21 per vascular surgery recommendations. Otherwise, patient denies having any concerning symptoms such as chest pain, shortness of breath, palpitations, any sick contacts, any recent dental procedures, dysuria, melena, hematochezia or hematemesis. Medical history: As stated above Surgical history: Hernia repair, cystic mass removed from cervical/neck area Allergies: NKDA Medications: Pending official med rec Family history: Noncontributory Social history: Patient currently lives with his in [place]. Remote tobacco smoking history 50 years ago, no alcohol or illicit drug use. ROS: All 12 systems assessed and the patient denies unless otherwise stated in HPI In the ED, patient presented hypertensive with blood pressure 191/93, regular heart rate, respiratory rate 18, febrile temperature of 100.3 Fahrenheit, satting 100 on room air. Pertinent lab findings included WBC of 14, hemoglobin 11.4 with MCV of 98, weight of 173, potassium of 6.0, BUN 106, creatinine 7.1, lactic acid 0.9, corrected calcium 10.1, Pro-Biju 0.58. Urinalysis pending, blood cultures ordered. Chest x-ray does show possible bilateral pneumonia versus vascular congestion EKG shows sinus rhythm with left atrial enlargement and right bundle branch block. Patient will be admitted for sepsis of unspecified source at this time and requiring emergent dialysis to be followed by nephrology. Exam Vital Signs Temp Pulse Resp BP Pulse Ox O2 Del Method 98.5 F 81 18 191/92 H 100 Room Air 05/19/24 15:01 05/19/24 15:26 05/19/24 15:26 05/19/24 15:01 05/19/24 15:26 05/19/24 15:01 Narrative Exam Physical Exam: GENERAL: Awake, answers questions appropriately, appears stated age HEENT: NC/AT. Moist mucosa. PERRLA/EOMI. CARDIO: Heart RRR, IV/ systolic ejection murmur noted on left sternal border, no JVD. PULM: No coughing or visible SOB. Lungs CTA B/L. GI: Abdomen soft, NT/ND, +BS. SKIN/MSK/EXT: Brachiocephalic fistula with suture noted and some warmth. No wounds/discoloration/rashes/edema/amputations. +Pedal pulses present B/L. NEURO: Oriented x3, Moves extremities x4, no focal neurologic deficits noted. Results: Labs 05/20/24 04:25 05/20/24 04:25 Labs: Short CBC 05/19/24 Range/Units 12:50 WBC 14.0 H (3.8-10.6) Thou/mm3 Hgb 11.4 L (13.5-16.0) g/dL Hct 34.0 L (41.0-53.0) % Plt Count 173 (140-440) Thou/mm3 BMP 05/19/24 12:50 Sodium 136 Potassium 6.0 H Chloride 99 Carbon Dioxide 20.3 BUN 106 H* Creatinine 7.1 H* Glucose 137 H Calcium 10.1 Liver Function 05/19/24 Range/Units 12:50 Total Bilirubin 0.4 (0.3-1.2) mg/dL AST 27 (0-34) U/L ALT 27 (10-49) U/L Alkaline Phosphatase 73 (46-116) U/L Albumin 4.6 (3.4-4.8) gm/dL Quality Measures Quality Measures VTE prophylaxis Advance care planning discussed with:: patient and spouse Medications Home Medications and Allergies Home Medications ?Medication ?Instructions ?Recorded ?Confirmed ?Type furosemide 40 mg tablet 40 mg PO BID 09/21/22 History metoprolol succinate 50 mg 50 mg PO DAILY 09/21/22 History tablet,extended release 24 hr vitamin B complex-vitamin C-folic 1 tab PO DAILY 09/2105/19/24 History acid 0.8 mg tablet (Aileen-Arbahan) Allergies Allergy/AdvReac Type Severity Reaction Status Date / Time latex Allergy Verified 05/20/24 01:09 Visit Medications Acetaminophen (Acetaminophen 325 Mg Tablet) 650 mg PO Q6H PRN PRN Reason: Pain 1-3 and/or Fever >100.1 Stop: 06/18/24 16:00 Dextrose (Dextrose 50%-Water Inj 50 Ml Syringe) 25 ml IV Q15MIN PRN PRN Reason: BG 50-70 responsive npo pt Stop: 06/18/24 14:52 Last Admin: 05/19/24 15:28 Dose: 25 ml Dextrose (Dextrose 50%-Water Inj 50 Ml Syringe) 25 ml IV Q15MIN PRN PRN Reason: BG 50-70 responsive npo pt Stop: 06/18/24 16:06 Dextrose (Dextrose 50%-Water Inj 50 Ml Syringe) 50 ml IV Q15MIN PRN PRN Reason: BG <50 OR BG <70 & pt unresponsive Stop: 06/18/24 16:06 Epoetin Francisoc (Epoetin Francisco-Epbx Inj 10,000 Unit/Ml Vial (Esrd)) 10,000 unit SC X1 ONE Stop: 05/19/24 17:01 Glucagon (Glucagon Inj 1 Mg Vial) 1 mg IM Q15MIN PRN PRN Reason: BG <70, and no IV access Glucagon (Glucagon Inj 1 Mg Vial) 1 mg IM Q15MIN PRN PRN Reason: BG <70, and no IV access Albumin Human (Albuminar-25 Ivpb) 25 gm in 100 mls @ 100 mls/min IV PRN PRN PRN Reason: DIALYSIS Piperacillin/Tazobactam/Dextrose (Zosyn) 50 mls @ 100 mls/hr IV Q6HR SANTO Stop: 05/26/24 16:08 Insulin Human Lispro (Insulin Lispro (Admelog) 1 Unit/0.01 Ml Unit) 0 unit SC AC SANTO; Protocol Stop: 06/18/24 16:59 Ondansetron HCl (Ondansetron Inj 2 Mg/Ml Inj 2 Ml) 4 mg IV Q6H PRN; Protocol PRN Reason: NAUSEA OR VOMITING Stop: 06/18/24 16:00 Pharmacy Consult (Vancomycin Pharmacy To Dose 1 Each Each) 1 each IV QDAY SANTO Stop: 06/18/24 16:14 Sennosides (Senna Tablet) 1 tab PO QDAY SANTO; Protocol Stop: 06/19/24 08:59 Sodium Chloride (Sodium Chloride Rt Mae 0.9% 3 Ml Nebu) 3 ml INH PRN PRN PRN Reason: SOLN Stop: 06/18/24 14:52 Last Admin: 05/19/24 15:25 Dose: 3 ml Discontinued Medications Albuterol (Albuterol Rt 2.5 Mg/0.5 Ml Nebu) 5 mg INH X1 ONE Stop: 05/19/24 14:54 Last Admin: 05/19/24 15:19 Dose: 5 mg Calcium Chloride (Calcium Chloride 10% Inj 10 Ml Syrg) 10 ml IV X1 ONE Stop: 05/19/24 14:54 Last Admin: 05/19/24 15:30 Dose: 10 ml Piperacillin/Tazobactam/Dextrose (Zosyn) 3.375 gm in 50 mls @ 100 mls/hr IV X1 ONE Stop: 05/19/24 15:22 Last Admin: 05/19/24 15:31 Dose: 100 mls/hr Dextrose (D10w 1000 Ml) 1,000 mls @ 100 mls/hr IV .Q10H SANTO Stop: 05/20/24 00:59 Insulin Human Regular (Insulin Hum Regular 1 Unit/0.01 Ml (Per Unit)) 5 unit IV X1 ONE Stop: 05/19/24 14:54 Last Admin: 05/19/24 15:30 Dose: 5 unit Sodium Polystyrene Sulfonate (Sod Polystyrene Sulfon Susp 15 Gm/60 Ml Btl) 30 gm PO X1 ONE Stop: 05/19/24 14:54 Last Admin: 05/19/24 15:30 Dose: 30 gm Assessment & Plan Plan 83-year-old male with past medical history of ESRD on HD M/F via left brachiocephalic fistula, essential hypertension, hyperlipidemia, NIDDM type II, history of multiple strokes, chronic diarrhea, chronic systolic heart failure with reduced ejection fraction [40-45%], rectal mass s/p resection previously seen by Dr. Salazar presenting to the ED from dialysis center after it was noted that his fistula was warm and the patient was reporting some subjective fevers at home will be admitted for sepsis of unspecified source at this time and requiring emergent dialysis to be followed by nephrology. #Sepsis, unspecified source Differentials include AV fistula site infection, bacteremia, endocarditis, gastroenteritis, bilateral pneumonia Per HPI, patient is been having subjective fevers at home In the ED, patient does have elevated WBC of 14, fever of 100.3, tachycardia with heart rate of 101 but saturating well on room air and lactic acid is negative Pro-Biju is mildly elevated 0.51 but patient is ESRD so it is not the most accurate test Chest x-ray does show potential bilateral pneumonia with moderate vascular congestion as well On clinical exam patient appears to have some chills and on auscultation of the heart there is definite systolic murmur Patient also has history of chronic diarrhea which is actually the reason why he missed dialysis in the first place on Friday Patient is also been having some warmth noted on the AV fistula site but there is no erythema or exudative/purulent discharge noted At this time, source is not identified but there are labs pending Plan: Started patient on empiric IV antibiotics, Zosyn and vancomycin Blood cultures ordered Urinalysis ordered Will monitor the patient for any active diarrhea consider further imaging #ESRD on HD (M/F) #Electrolyte abnormalities Patient follows Dr. Jenkins outpatient and apparently has been on dialysis for about 3 years Used to have a left-sided tunneled catheter but recently has a matured left brachiocephalic AV fistula which was recently repaired by vascular surgery as noted in HPI Patient has a suture on the repaired AV fistula which should not be removed until 05/21/2024 Plan: Emergent dialysis Monitor electrolytes with morning labs Renal diet #Essential hypertension #Hyperlipidemia Patient presented today overtly hypertensive with systolic blood pressure in the 190s likely secondary to missing dialysis as stated above Patient is apparently on atorvastatin 20 mg p.o. at bedtime, furosemide 40 mg p.o. twice daily, metoprolol succinate 50 mg p.o. daily Plan: Restarted metoprolol succinate 50 mg p.o. daily for tomorrow 05/20 Will hold other medications at this time and restart when appropriate #[id number] type 2 diabetes Last A1c on file is 5.4 but has history of A1c's in the mid 6's Patient is on glipizide 5 mg p.o. twice daily, pending official med rec Plan: Sliding scale insulin #Anemia of chronic disease Likely secondary to ESRD Plan: Nephrology planning on supplementing with EPO #History of strokes #Chronic systolic heart failure with reduced ejection fraction (40-45%) #History of rectal mass status post resection Chronic medical conditions not pertinent to the following presentation Hospital Management: Lines: PIV Bowel: Senna Diet: Renal GI prophylaxis: Not needed DVT prophylaxis: SCD Dispo: Emergent dialysis, sepsis of unspecified source treating with IV antibiotics Code: Full Patient seen and examined with attending Dr. Archibald and senior resident Dr. Leanne Dominguez, PGY-1 Attending Provider Attestation/Addendum Shawnee Martinze DO, attest that I was physically present for the werner portions of the service and evaluated the patient with the resident and I reviewed and discussed the case with the resident and agree with the resident's findings and plans of care as documented above Patient is an 83-year-old male with past medical history of end-stage renal disease on HD Friday and Fridays , HFmrEF, hypertension, hyperlipidemia, type 2 diabetes, CVA brought to the ED due to generalized weakness. Patient has had chronic diarrhea for past 3 years and was unable to go to his dialysis on Friday due to diarrhea. Patient was sent to the ED from the dialysis center today due to his left upper extremity fistula appearing warm and erythematous. Patient recently had his fistula repaired about 1 week ago. stitches noted over fistula site, but does not appear to be infected. He had a left-sided tunneled catheter that was also removed.. Patient states that he feels that the site of the left tunneled catheter appears to be tighter. Site does not appear erythematous but is slightly swollen. Fibrous scar tissue is palpated with mild fluid collection will obtain an ultrasound to rule out any abscess collection. Patient was noted to have a fever in the ED. There is concern for possible bacteremia. Will admit patient to med/telemetry for further workup and medical management of concern for sepsis secondary to possible bacteremia. Will obtain blood cultures and broad-spectrum IV antibiotics.
--- NOTE | 2024-05-19 16:25 | PC.CC ---
Patient is a 83 year-old male who presents to the hospital as he was recommended to come by dialysis for infected fistula. ASWTessie made kieb-hh-epom contact with patient. ASW introduced self, role, and reason for visit. Patient appeared alert and oriented to self, location, and situation. At bedside was patient's , Fabienne Bay who completed initial assessment with ASW. Patient's confirmed information on demographics and reports it is just her and the patient living at home. Patient's is listed as the Next of Kin. At home patient is able to ambulate independently and completes his own ADLs. Patient's reports she helps the patient when help is needed. Patient's reports patient does not use any DME at home. Patient receives primary care with [facility] and uses [facility]. Upon discharge patient plans to go back home with . community services manager to follow up with any discharge needs.
[2024-05-19] MEDS: ACETAMINOPHEN w/COD 300-30 TABLET 1 TAB PO (16:50)
[2024-05-19] MEDS: LABETALOL INJ 5 MG/ML VIAL 20 ML 10 MG IVP (16:50)
--- NOTE | 2024-05-19 17:29 | PD.RESCONSUL ---
HPI Data of Consult Consult date: 05/19/24 Requesting Physician: Shawnee Archibald DO Admitting Provider: Shawnee Archibald DO Attending Provider: Shawnee Archibald DO Primary Care Provider: Carrillo Greenwood MD Consult Narrative Reason for consult: ESRD on HD History of present illness: Mr. 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 Patient was apparently normal at his baseline 1 day ago. Since last night patient noted to have mild shortness of breath and on the day of admission, as the shortness of breath increased patient was taken to his dialysis center where they found patient to have high temperature for which patient was referred to the ER. Per patient's , he missed his routine dialysis schedule on Friday because of diarrhea. Patient is still able to produce some amount of urine. Denies cough, abdominal pain, vomitings, burning micturition. Stated that patient is getting dialysis through fistula since last 2 weeks. Patient also noted to have elevated temperature on left upper extremity mainly at the site of fistula for which the dialysis center staff referred patient to the ED ED course: -Initial vitals are blood pressure 191/93 mmHg, pulse rate 87 bpm, respiratory rate 18/min, temperature 100.3 ?F, SpO2 100% with room air -Labs showed WBC 14, Hb 11.4, sodium 136, potassium 6, anion gap 17, BUN 106, creatinine 7.1, lactate 0.9, procalcitonin 0.58 -Chest x-ray showed bilateral moderate vascular congestion -EKG showed sinus rhythm with prolonged QTc Nephrology is consulted for hemodialysis as he is due for dialysis. cc:: cc: Shawnee Archibald DO Review of Systems Review of Systems Narrative Review of Systems: Constitutional: No Weight Change, Fever, Chills, No Night Sweats, No Fatigue, No Malaise ENT/Mouth: No Hearing Changes, No Ear Pain, No Nasal Congestion, No Sinus Pain, No Hoarseness, No sore throat, No Rhinorrhea, No Swallowing Difficulty Eyes: No Eye Pain, No Swelling, No Redness, No Foreign Body, No Discharge, No Vision Changes Cardiovascular: No Chest Pain, SOB, No PND, No Dyspnea on Exertion, No Orthopnea, No Edema, No Palpitations Respiratory: No Cough, No Sputum, No Wheezing, No Dyspnea Gastrointestinal: No Nausea, No Vomiting, No Diarrhea, No Constipation, No Pain, No Heartburn, No Anorexia, No Dysphagia, No Hematochezia, No Melena, No Flatulence, No Jaundice Genitourinary: No Dysuria, No Urinary Frequency, No Hematuria, No Urinary Incontinence, No Urgency, No Flank Pain, No Urinary Flow Changes, No Hesitancy Musculoskeletal: No Arthralgias, No Myalgias, No Joint Swelling, No Joint Stiffness, No Back Pain, No Neck Pain, No Injury History Skin: No Skin Lesions, No Pruritis Neuro: No Weakness, No Numbness, No Paresthesias, No Loss of Consciousness, No Syncope, No Dizziness, No Headache, No Coordination Changes, No Recent Falls Exam Vital Signs Temp Pulse Resp BP Pulse Ox O2 Del Method 98.7 F 101 H 23 H 204/101 H 97 Room Air 05/19/24 16:15 05/19/24 16:50 05/19/24 16:15 05/19/24 16:50 05/19/24 16:15 05/19/24 16:15 Narrative Exam General: Awake. HEENT: Normocephalic, atraumatic, mucous membranes moist. Heart: Regular rate and rhythm, systolic murmur in the aortic area Lungs: Clear to auscultation with no wheezing or crackles. Abdomen: Soft, nondistended, nontender, positive bowel sounds. ?No guarding or rebound tenderness. Neurologic: Alert and oriented x3, no gross neurological deficit, and patient able to move all 4 extremities. Extremities: No edema. fistula in the left upper extremity Skin: No rash or ecchymoses. Results Labs 05/20/24 04:25 05/20/24 04:25 Labs: Short CBC 05/19/24 Range/Units 12:50 WBC 14.0 H (3.8-10.6) Thou/mm3 Hgb 11.4 L (13.5-16.0) g/dL Hct 34.0 L (41.0-53.0) % Plt Count 173 (140-440) Thou/mm3 BMP 05/19/24 12:50 Sodium 136 Potassium 6.0 H Chloride 99 Carbon Dioxide 20.3 BUN 106 H* Creatinine 7.1 H* Glucose 137 H Calcium 10.1 Liver Function 05/19/24 Range/Units 12:50 Total Bilirubin 0.4 (0.3-1.2) mg/dL AST 27 (0-34) U/L ALT 27 (10-49) U/L Alkaline Phosphatase 73 (46-116) U/L Albumin 4.6 (3.4-4.8) gm/dL Quality Measures Quality Measures VTE prophylaxis Advance care planning discussed with:: patient and spouse Medications Home Medications and Allergies Home Medications ?Medication ?Instructions ?Recorded ?Confirmed ?Type furosemide 40 mg tablet 40 mg PO BID 09/21/22 05/19/24 History metoprolol succinate 50 mg 50 mg PO DAILY 09/21/22 05/19/24 History tablet,extended release 24 hr vitamin B complex-vitamin C-folic 1 tab PO DAILY 09/21/22 05/19/24 History acid 0.8 mg tablet (Aileen-Abrahan) Allergies Allergy/AdvReac Type Severity Reaction Status Date / Time latex Allergy Verified 05/20/24 01:09 Visit Medications Acetaminophen (Acetaminophen 325 Mg Tablet) 650 mg PO Q6H PRN PRN Reason: Pain 1-3 and/or Fever >100.1 Stop: 06/18/24 16:00 Dextrose (Dextrose 50%-Water Inj 50 Ml Syringe) 25 ml IV Q15MIN PRN PRN Reason: BG 50-70 responsive npo pt Stop: 06/18/24 16:06 Dextrose (Dextrose 50%-Water Inj 50 Ml Syringe) 50 ml IV Q15MIN PRN PRN Reason: BG <50 OR BG <70 & pt unresponsive Stop: 06/18/24 16:06 Glucagon (Glucagon Inj 1 Mg Vial) 1 mg IM Q15MIN PRN PRN Reason: BG <70, and no IV access Albumin Human (Albuminar-25 Ivpb) 25 gm in 100 mls @ 100 mls/min IV PRN PRN PRN Reason: DIALYSIS Piperacillin/Tazobactam/Dextrose (Zosyn) 3.375 gm in 50 mls @ 12.5 mls/hr IV Q12HR SANTO; Protocol Stop: 05/26/24 20:59 Vancomycin/Sodium Chloride (Vancomycin/Ns 1 Gm Ivpb) 200 mls @ 120 mls/hr IV X1 SANTO Stop: 05/26/24 16:14 Insulin Human Lispro (Insulin Lispro (Admelog) 1 Unit/0.01 Ml Unit) 0 unit SC AC SANTO; Protocol Stop: 06/18/24 16:59 Metoprolol Succinate (Metoprolol Succinate Xl 25 Mg Tabcr) 50 mg PO QDAY SANTO Stop: 06/19/24 08:59 Ondansetron HCl (Ondansetron Inj 2 Mg/Ml Inj 2 Ml) 4 mg IV Q6H PRN; Protocol PRN Reason: NAUSEA OR VOMITING Stop: 06/18/24 16:00 Pharmacy Consult (Vancomycin Pharmacy To Dose 1 Each Each) 1 each IV QDAY PRN PRN Reason: CONSULT Stop: 06/18/24 16:14 Sennosides (Senna Tablet) 1 tab PO QDAY SANTO; Protocol Stop: 06/19/24 08:59 Sodium Chloride (Sodium Chloride Rt Mae 0.9% 3 Ml Nebu) 3 ml INH PRN PRN PRN Reason: SOLN Stop: 06/18/24 14:52 Last Admin: 05/19/24 15:25 Dose: 3 ml Discontinued Medications Acetaminophen/Codeine Phosphate (Acetaminophen W/Cod 300-30 Tablet) 1 tab PO X1 ONE Stop: 05/19/24 16:38 Last Admin: 05/19/24 16:50 Dose: 1 tab Albuterol (Albuterol Rt 2.5 Mg/0.5 Ml Nebu) 5 mg INH X1 ONE Stop: 05/19/24 14:54 Last Admin: 05/19/24 15:19 Dose: 5 mg Calcium Chloride (Calcium Chloride 10% Inj 10 Ml Syrg) 10 ml IV X1 ONE Stop: 05/19/24 14:54 Last Admin: 05/19/24 15:30 Dose: 10 ml Dextrose (Dextrose 50%-Water Inj 50 Ml Syringe) 25 ml IV Q15MIN PRN PRN Reason: BG 50-70 responsive npo pt Stop: 06/18/24 14:52 Last Admin: 05/19/24 15:28 Dose: 25 ml Epoetin Francisco (Epoetin Francisco-Epbx Inj 10,000 Unit/Ml Vial (Esrd)) 10,000 unit SC X1 ONE Stop: 05/19/24 17:01 Glucagon (Glucagon Inj 1 Mg Vial) 1 mg IM Q15MIN PRN PRN Reason: BG <70, and no IV access Piperacillin/Tazobactam/Dextrose (Zosyn) 3.375 gm in 50 mls @ 100 mls/hr IV X1 ONE Stop: 05/19/24 15:22 Last Infusion: 05/19/24 16:11 Dose: Infused Dextrose (D10w 1000 Ml) 1,000 mls @ 100 mls/hr IV .Q10H SANTO Stop: 05/20/24 00:59 Last Admin: 05/19/24 16:11 Dose: Not Given Insulin Human Regular (Insulin Hum Regular 1 Unit/0.01 Ml (Per Unit)) 5 unit IV X1 ONE Stop: 05/19/24 14:54 Last Admin: 05/19/24 15:30 Dose: 5 unit Labetalol HCl (Labetalol Inj 5 Mg/Ml Vial 20 Ml) 10 mg IVP X1 ONE Stop: 05/19/24 16:37 Last Admin: 05/19/24 16:50 Dose: 10 mg Sodium Polystyrene Sulfonate (Sod Polystyrene Sulfon Susp 15 Gm/60 Ml Btl) 30 gm PO X1 ONE Stop: 05/19/24 14:54 Last Admin: 05/19/24 15:30 Dose: 30 gm Assessment & Plan Plan 83-year-old male with past medical history of hypertension, hyperlipidemia, diabetes mellitus, 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 # ESRD on HD #Hyperkalemia -Patient was referred to the ED as he was noted to have fever and redness with swelling in the left upper extremity mainly at the site of fistula -Patient noted to have missed his routine dialysis session on Friday due to diarrhea which was chronic -On physical examination, the fistula site does not appear to be infected -Labs showed leukocytosis with WBC 14, BUN 106, creatinine 7.1, potassium 6 Plan -Emergent HD is ordered -Avoid nephrotoxic medication and renally dose medication #Hypertensive urgency -Blood pressure at the time of admission is 191/93mm Hg plan -Will start emergent HD -Started on metoprolol and labetalol -Monitor blood pressures and titrate medications accordingly # Anemia, normocytic normochromic -Patient seems to have chronic anemia since 2021, likely due to anemia of chronic kidney disease -Will give erythropoietin during the dialysis #Sepsis, unspecified source #ESRD on HD (M/F) #Electrolyte abnormalities #Essential hypertension #Hyperlipidemia #Kbr-[id number] type 2 diabetes #Anemia of chronic disease #History of strokes #Chronic systolic heart failure with reduced ejection fraction (40-45%) #History of rectal mass status post resection Rest of the medical conditions to be treated as per primary team Thank you for allowing us to involve in the care of the patient Patient plan of care was discussed with the attending physician, Dr. Jenkins Attending Provider Attestation/Addendum Patient seen and examined with resident physician Dr. Hernandez. Note reviewed, agree with findings and recommendations. Admitted for fever, weakness and questionable left a fistula infection. Upon reviewing fistula is accessible. Mild redness noted. Patient missed dialysis on Friday and is due today. BUN greater than 100. Potassium 6.0. Kayexalate was given and he started having more diarrhea. Declined dialysis. After convincing him he agreed for 1 hour of dialysis today. Patient currently seen on dialysis. Tolerating dialysis without any problems. Hemodialysis for 3 hours, 2K, ultrafiltration 1 L, Epogen 6000, no heparin ordered. Agreed only for 1 hour of dialysis. Plan of care discussed with the dialysis nurse. Please see dialysis flowsheet for further details. Might need GI evaluation for recurrent diarrhea for the last 3 years. Patient has been missing several dialysis sessions. Thank you Dr. Archibald for allowing me to participate in the care of Mr. Bay
--- NOTE | 2024-05-19 19:04 | XR_ITS ---
Examination: Ultrasound soft tissue extremity left chest TECHNIQUE: Haque scale sonographic images soft tissue left chest inferior to the left clavicle Presented time: May 19, 20242010 hours INDICATIONS: Discomfort left chest at the site of prior dialysis catheter, removed 1 week ago FINDINGS: Focal mass noncompressible most consistent with hematoma at the area of concern inferior to the left clavicle 5.6 x 0.8 x 1.6 cm IMPRESSION: Findings most consistent with soft tissue hematoma
[2024-05-19] MEDS: EPOETIN ALFA-EPBX INJ 10,000 UNIT/ML VIAL (ESRD) 10000 UNIT SC (19:05)
--- NOTE | 2024-05-19 19:23 | PC.NURSE ---
tx terminated early per pt request r/t diarrhea despite risks vs benefits explained. MD Jenkins notified.
--- NOTE | 2024-05-19 19:53 | PC.NURSE ---
Pt is in dialysis . Report called to fara RICHTER. notified museum informatics specialist who agreed to take pt to rm [facility] after dialysis.
[2024-05-19 21:51] LABS: Collection Type, Urine Clean Catch
[2024-05-19] MEDS: DiphenhydrAMINE 25 MG CAPSULE PO (21:51)
[2024-05-19 22:04] LABS: Bilirubin,Urine Negative (Negative); Blood,Urine 1+ (Negative); Clarity,Urine Clear (Clear/Hazy); Color,Urine Lt-Yellow (Lt Yel-Yel); Glucose, Urine 3+ (Negative); Ketones,Urine Negative (Negative); Leukocyte Esterase,Urine Negative (Negative); Nitrite,Urine Negative (Negative); Protein,Urine 3+ (Neg - Trace); RBC,Urine 3 /hpf (0-3); Specific Gravity,Urine 1.013 (1.001-1.035); Squamous Epithelial Cell,Urine < 1 /hpf (0-5); Urobilinogen,Urine Negative mg/dL (0.0-1.0); WBC,Urine 2 /hpf (0-5)
[2024-05-20] VITALS (21 sets, daily range): BP systolic 140–171; BP diastolic 66–85; PULSE 67–86; RESP 16–19; TEMP 36.1–36.9; O2SAT 93–97
[2024-05-20] MEDS: VANCOMYCIN/NS 1 GM IVPB 200 ML IV (02:40)
[2024-05-20 06:04] LABS: Basophils % (Auto) 0 % (0-2.5); Eosinophils # (Auto) 0.2 Thou/mm3 (0.0-0.5); Eosinophils % (Auto) 2 % (0-10); Hematocrit 33.4 % (41.0-53.0); Hemoglobin 11.3 g/dL (13.5-16.0); Immature Granulocytes % (Auto) 1 % (0-0); Immature Granulocytes Auto 0.06 Thou/mm3 (0.00-0.00); Lymphocytes % (Auto) 10 % (10-50); Mean Corpuscular HGB Conc 33.8 g/dl (31.0-37.0); Mean Corpuscular Hemoglobin 32.8 pg (25.0-35.0); Mean Corpuscular Volume 97 fL (80-100); Monocytes # (Auto) 1.2 Thou/mm3 (0.0-0.8); Monocytes % (Auto) 12 % (0-12); Neutrophils # (Auto) 7.8 Thou/mm3 (1.8-7.7); Neutrophils % (Auto) 76 % (37-80); Nucleated Red Blood Cell % 0 /100 WBC (0); Platelet Count 179 Thou/mm3 (140-440); RDW Standard Deviation 55.1 fL (35.1-43.9); Red Blood Count 3.45 Miln/mm3 (4.50-5.90); White Blood Count 10.3 Thou/mm3 (3.8-10.6)
[2024-05-20 07:02] LABS: Alanine Aminotransferase 19 U/L (10-49); Albumin, Serum 4.1 gm/dL (3.4-4.8); Albumin/Globulin Ratio 1.5 (1.2-2.2); Alkaline Phosphatase 63 U/L (46-116); Anion Gap 18 (7-16); Aspartate Amino Transferase 19 U/L (0-34); BUN/Creatinine Ratio 13 Ratio (12-20); Bilirubin,Total 0.6 mg/dL (0.3-1.2); Blood Urea Nitrogen 74 mg/dL (9-23); Calcium 9.9 mg/dL (8.3-10.6); Calcium (Corrected) 9.9 mg/dL (8.5-10.1); Carbon Dioxide 21.4 mMol/L (20.0-31.0); Chloride 100 mMol/L (98-107); Creatinine (Component) 5.8 mg/dL (0.6-1.3); Estimated Creatinine Clearance 9.3 mL/min (>60); Globulin 2.7 gm/dL (2.3-3.5); Glucose 117 mg/dL (74-106); Osmolality,Calculated 300 (275-295); Potassium 3.8 mMol/L (3.4-5.1); Sodium 139 mMol/L (136-145); Total Protein 6.8 gm/dL (5.7-8.2); eGFR 9 See Note
[2024-05-20] MEDS: PIPER/TAZO 3.375 GM PREMIX 3.375 GM/50 ML BAG IV ×2 (09:42→21:18)
--- NOTE | 2024-05-20 13:17 | ESPR_ITS ---
<Statement entered by Rhonda Perdomo MD - 05/21/24 06:59> Patient was seen and examined by me personally. I have directly supervised and reviewed documentation by the team resident and agree with its findings with any exceptions or additional findings as below. Plan of care was discussed with the attending, Dr. Archibald. Patient underwent dialysis yesterday, and planned for another dialysis today. Patient is feeling better without complaints. No new fevers overnight. WBC has downtrended. US which was obtained of the left chest wall due to discomfort showed soft tissue hematoma but no abscess. Continue IV Zosyn and vancomycin and await blood culture results. Rhonda Perdomo, PGY-2 Documentation for date of: 05/20/24 Subjective Subjective Interval history: 05/20/2024: Overnight patient completed emergent hemodialysis with Dr. Jenkins without any acute complications. Patient seen and assessed this morning in hospital bed, does not report any concerning symptoms such as chest pain, shortness of breath, abdominal pain, dizziness or any fever or chills. Patient has a another scheduled dialysis session today with Dr. Jenkins. Patient's blood cultures show no growth within 24 hours and white blood cell count is downtrending, but we will continue to treat with broad-spectrum IV antibiotics for an additional day. Patient had a ultrasound of the clavicle completed which showed inferior left clavicle hematoma which is stable. Will continue to monitor for any acute changes Exam Vital Signs Temp Pulse Resp BP Pulse Ox O2 Del Method 98.0 F 67 18 150/70 H 94 L Room Air 05/20/24 10:39 05/20/24 13:00 05/20/24 10:39 05/20/24 13:00 05/20/24 10:39 05/20/24 04:00 Narrative Exam Physical Exam: GENERAL: Awake, answers questions appropriately, appears stated age HEENT: NC/AT. Moist mucosa. PERRLA/EOMI. CARDIO: Heart RRR, IV/ systolic ejection murmur noted on left sternal border, no JVD. PULM: No coughing or visible SOB. Lungs CTA B/L. GI: Abdomen soft, NT/ND, +BS. SKIN/MSK/EXT: Brachiocephalic fistula with suture noted and some warmth. No wounds/discoloration/rashes/edema/amputations. +Pedal pulses present B/L. NEURO: Oriented x3, Moves extremities x4, no focal neurologic deficits noted. Objective Labs 05/21/24 04:48 05/21/24 04:48 Labs: Laboratory Results - last 24 hr 05/19/24 05/19/24 05/20/24 12:50 21:30 04:25 WBC 10.3 RBC 3.45 L Hgb 11.3 L Hct 33.4 L MCV 97 MCH 32.8 MCHC 33.8 RDW Std Deviation 55.1 H Plt Count 179 Neut % (Auto) 76 Lymph % (Auto) 10 [place] % (Auto) 12 Eos % (Auto) 2 Baso % (Auto) 0 Neut # (Auto) 7.8 H Lymph # (Auto) 1.0 [place] # (Auto) 1.2 H Eos # (Auto) 0.2 Baso # (Auto) 0.0 Immature Gran # (Auto) 0.06 H Absolute Nucleated RBC 0.00 Immature Gran % 1 H Nucleated RBC % 0 Sodium 136 139 Potassium 6.0 H 3.8 D Chloride 99 100 Carbon Dioxide 20.3 21.4 Anion Gap 17 H 18 H BUN 106 H* 74 H Creatinine 7.1 H* 5.8 H* D Estim Creat Clear Calc 7.6 L 9.3 L eGFR 7 L* 9 L* BUN/Creatinine Ratio 15 13 Glucose 137 H 117 H Calculated Osmolality 307 H 300 H Calcium 10.1 9.9 Corrected Calcium 10.1 9.9 Total Bilirubin 0.4 0.6 AST 27 19 ALT 27 19 Alkaline Phosphatase 73 63 Total Protein 7.4 6.8 Albumin 4.6 4.1 D Globulin 2.8 2.7 Albumin/Globulin Ratio 1.6 1.5 Procalcitonin 0.58 H Ur Collection Type Clean Catch Urine Color Lt-Yellow Urine Clarity Clear Urine pH 7.0 Ur Specific [place] 1.013 Urine Protein 3+ A Urine Glucose (UA) 3+ A Urine Ketones Negative Urine Blood 1+ A Urine Nitrite Negative Urine Bilirubin Negative Urine Urobilinogen (Auto) Negative Ur Leukocyte Esterase Negative Urine RBC 3 Urine WBC 2 Ur Squamous Epith Cells < 1 Urine Bacteria None Quality Measures Quality Measures none Advance care planning discussed with:: patient and spouse Assessment & Plan Assessment Current Active Medications: Generic Name Dose Route Start Last Admin Trade Name Freq PRN Reason Stop Dose Admin Acetaminophen 650 mg 05/19/24 16:01 Acetaminophen 325 Mg Tablet PO 06/18/24 16:00 Q6H PRN Pain 1-3 and/or Fever >100.1 Dextrose 25 ml 05/19/24 16:07 Dextrose 50%-Water Inj 50 Ml Syringe IV 06/18/24 16:06 Q15MIN PRN BG 50-70 responsive npo pt Dextrose 50 ml 05/19/24 16:07 Dextrose 50%-Water Inj 50 Ml Syringe IV 06/18/24 16:06 Q15MIN PRN BG <50 OR BG <70 & pt unresponsive Glucagon 1 mg 05/19/24 16:07 Glucagon Inj 1 Mg Vial IM Q15MIN PRN BG <70, and no IV access Hydralazine HCl 10 mg 05/20/24 01:38 Hydralazine Inj 20 Mg/Ml Vial IV 06/19/24 01:37 Q6H PRN SBP > 170 Albumin Human 25 gm in 100 mls @ 100 mls/min 05/19/24 15:28 Albuminar-25 Ivpb IV PRN PRN DIALYSIS Piperacillin/Tazobactam/Dextrose 3.375 gm in 50 mls @ 12.5 mls/hr 05/19/24 21:00 05/20/24 09:42 Zosyn IV 05/26/24 20:59 12.5 mls/hr Q12HR SANTO Administration Protocol Insulin Human Lispro 0 unit 05/19/24 17:00 05/20/24 11:27 Insulin Lispro (Admelog) 1 Unit/0.01 Ml Unit SC 06/18/24 16:59 Not Given AC [facility] Protocol Metoprolol Succinate 50 mg 05/20/24 09:00 05/20/24 09:42 Metoprolol Succinate Xl 25 Mg Tabcr PO 06/19/24 08:59 Not Given QDAY SANTO Ondansetron HCl 4 mg 05/19/24 16:01 Ondansetron Inj 2 Mg/Ml Inj 2 Ml IV 06/18/24 16:00 Q6H PRN NAUSEA OR VOMITING Protocol Pharmacy Consult 1 each 05/19/24 16:15 Vancomycin Pharmacy To Dose 1 Each Each IV 06/18/24 16:14 QDAY PRN CONSULT Sennosides 1 tab 05/20/24 09:00 05/20/24 09:38 Senna Tablet PO 06/19/24 08:59 Not Given QDAY SANTO Protocol Sodium Chloride 3 ml 05/19/24 14:53 05/19/24 15:25 Sodium Chloride Rt Mae 0.9% 3 Ml Nebu INH 06/18/24 14:52 3 ml PRN PRN Administration SOLN Plan 83-year-old male with past medical history of ESRD on HD M/F via left brachiocephalic fistula, essential hypertension, hyperlipidemia, NIDDM type II, history of multiple strokes, chronic diarrhea, chronic systolic heart failure with reduced ejection fraction [40-45%], rectal mass s/p resection previously seen by Dr. Slaazar presenting to the ED from dialysis center after it was noted that his fistula was warm and the patient was reporting some subjective fevers at home will be admitted for sepsis of unspecified source at this time and requiring emergent dialysis to be followed by nephrology. #Sepsis, unspecified source Differentials include AV fistula site infection, bacteremia, endocarditis, gastroenteritis, bilateral pneumonia Per HPI, patient is been having subjective fevers at home In the ED, patient does have elevated WBC of 14, fever of 100.3, tachycardia with heart rate of 101 but saturating well on room air and lactic acid is negative Pro-Biju is mildly elevated 0.51 but patient is ESRD so it is not the most accurate test Chest x-ray does show potential bilateral pneumonia with moderate vascular congestion as well On clinical exam patient appears to have some chills and on auscultation of the heart there is definite systolic murmur Patient also has history of chronic diarrhea which is actually the reason why he missed dialysis in the first place on Friday Patient is also been having some warmth noted on the AV fistula site but there is no erythema or exudative/purulent discharge noted At this time, source is not identified but there are labs pending Blood cultures no growth within 24 hours, urinalysis does not show any signs of infection Plan: Continue empiric IV antibiotics, Zosyn and vancomycin Will monitor the patient for any active diarrhea consider further imaging #ESRD on HD (M/F) #Electrolyte abnormalities Patient follows Dr. Jenikns outpatient and apparently has been on dialysis for about 3 years Used to have a left-sided tunneled catheter but recently has a matured left brachiocephalic AV fistula which was recently repaired by vascular surgery as noted in HPI Patient has a suture on the repaired AV fistula which should not be removed until 05/21/2024 Plan: Continue dialysis with Dr. Jenkins Monitor electrolytes with morning labs Renal diet #Essential hypertension #Hyperlipidemia Patient presented today overtly hypertensive with systolic blood pressure in the 190s likely secondary to missing dialysis as stated above Patient is apparently on atorvastatin 20 mg p.o. at bedtime, furosemide 40 mg p.o. twice daily, metoprolol succinate 50 mg p.o. daily Plan: Continue metoprolol succinate 50 mg p.o. daily Will hold other medications at this time and restart when appropriate #Xle-[id number] type 2 diabetes Last A1c on file is 5.4 but has history of A1c's in the mid 6's Patient is on glipizide 5 mg p.o. twice daily, pending official med rec Plan: Sliding scale insulin #Anemia of chronic disease Likely secondary to ESRD Plan: Nephrology supplementing with EPO #History of strokes #Chronic systolic heart failure with reduced ejection fraction (40-45%) #History of rectal mass status post resection Chronic medical conditions not pertinent to the following presentation Hospital Management: Lines: PIV Bowel: Senna Diet: Renal GI prophylaxis: Not needed DVT prophylaxis: SCD Dispo: Emergent dialysis, sepsis of unspecified source treating with IV antibiotics Code: Full Patient seen and examined with attending Dr. Archibald and senior resident Dr. Leanne Dominguez, PGY-1 Attending Provider Attestation/Addendum I, Shawnee Archibald DO, attest that I was physically present for the werner portions of the service and evaluated the patient with the resident and I reviewed and discussed the case with the resident and agree with the resident's findings and plans of care as documented above Patient seen and evaluated this AM. he states that he is feeling better today. at bedside and states that the patient has been suffering from diarrhea for 3 years, such that he was unable to make it to dialysis on Friday. No further episodes of fever. Pending final cultures and sensitivities. GI consulted due to chronic diarrhea.
--- NOTE | 2024-05-20 13:48 | PC.NURSE ---
TX TERMINATED 13 MIN EARLY PER PT REQUEST. MD PAN NOTIFIED.
--- NOTE | 2024-05-20 15:17 | PD.RESPRO ---
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 Patient was apparently normal at his baseline 1 day ago. Since last night patient noted to have mild shortness of breath and on the day of admission, as the shortness of breath increased patient was taken to his dialysis center where they found patient to have high temperature for which patient was referred to the ER. Per patient's , he missed his routine dialysis schedule on Friday because of diarrhea. Patient is still able to produce some amount of urine. Denies cough, abdominal pain, vomitings, burning micturition. Stated that patient is getting dialysis through fistula since last 2 weeks. Patient also noted to have elevated temperature on left upper extremity mainly at the site of fistula for which the dialysis center staff referred patient to the ED ED course: -Initial vitals are blood pressure 191/93 mmHg, pulse rate 87 bpm, respiratory rate 18/min, temperature 100.3 ?F, SpO2 100% with room air -Labs showed WBC 14, Hb 11.4, sodium 136, potassium 6, anion gap 17, BUN 106, creatinine 7.1, lactate 0.9, procalcitonin 0.58 -Chest x-ray showed bilateral moderate vascular congestion -EKG showed sinus rhythm with prolonged QTc Nephrology is consulted for hemodialysis as he is due for it 05/20/2024 Patient was seen and examined at the bedside Patient did not get complete dialysis session yesterday, so will do dialysis today Patient is still having chronic diarrhea, will consult Dr. Cantu for further recommendations Exam Vital Signs Temp Pulse Resp BP Pulse Ox O2 Del Method 98.4 F 72 18 163/66 H 96 Room Air 05/20/24 13:53 05/20/24 13:53 05/20/24 13:53 05/20/24 13:53 05/20/24 13:53 05/20/24 08:00 Narrative Exam General: Awake. HEENT: Normocephalic, atraumatic, mucous membranes moist. Heart: Regular rate and rhythm, systolic murmur in the aortic area Lungs: Clear to auscultation with no wheezing or crackles. Abdomen: Soft, nondistended, nontender, positive bowel sounds. ?No guarding or rebound tenderness. Neurologic: Alert and oriented x3, no gross neurological deficit, and patient able to move all 4 extremities. Extremities: No edema. fistula in the left upper extremity Skin: No rash or ecchymoses. Objective Labs 05/20/24 04:25 05/20/24 04:25 Labs: Laboratory Results - last 24 hr 05/19/24 05/20/24 21:30 04:25 WBC 10.3 RBC 3.45 L Hgb 11.3 L Hct 33.4 L MCV 97 MCH 32.8 MCHC 33.8 RDW Std Deviation 55.1 H Plt Count 179 Neut % (Auto) 76 Lymph % (Auto) 10 [place] % (Auto) 12 Eos % (Auto) 2 Baso % (Auto) 0 Neut # (Auto) 7.8 H Lymph # (Auto) 1.0 [place] # (Auto) 1.2 H Eos # (Auto) 0.2 Baso # (Auto) 0.0 Immature Gran # (Auto) 0.06 H Absolute Nucleated RBC 0.00 Immature Gran % 1 H Nucleated RBC % 0 Sodium 139 Potassium 3.8 D Chloride 100 Carbon Dioxide 21.4 Anion Gap 18 H BUN 74 H Creatinine 5.8 H* D Estim Creat Clear Calc 9.3 L eGFR 9 L* BUN/Creatinine Ratio 13 Glucose 117 H Calculated Osmolality 300 H Calcium 9.9 Corrected Calcium 9.9 Total Bilirubin 0.6 AST 19 ALT 19 Alkaline Phosphatase 63 Total Protein 6.8 Albumin 4.1 D Globulin 2.7 Albumin/Globulin Ratio 1.5 Ur Collection Type Clean Catch Urine Color Lt-Yellow Urine Clarity Clear Urine pH 7.0 Ur Specific Isabella 1.013 Urine Protein 3+ A Urine Glucose (UA) 3+ A Urine Ketones Negative Urine Blood 1+ A Urine Nitrite Negative Urine Bilirubin Negative Urine Urobilinogen (Auto) Negative Ur Leukocyte Esterase Negative Urine RBC 3 Urine WBC 2 Ur Squamous Epith Cells < 1 Urine Bacteria None Quality Measures Quality Measures none Advance care planning discussed with:: patient and spouse Assessment & Plan Assessment Current Active Medications: Generic Name Dose Route Start Last Admin Trade Name Freq PRN Reason Stop Dose Admin Acetaminophen 650 mg 05/19/24 16:01 Acetaminophen 325 Mg Tablet PO 06/18/24 16:00 Q6H PRN Pain 1-3 and/or Fever >100.1 Dextrose 25 ml 05/19/24 16:07 Dextrose 50%-Water Inj 50 Ml Syringe IV 06/18/24 16:06 Q15MIN PRN BG 50-70 responsive npo pt Dextrose 50 ml 05/19/24 16:07 Dextrose 50%-Water Inj 50 Ml Syringe IV 06/18/24 16:06 Q15MIN PRN BG <50 OR BG <70 & pt unresponsive Glucagon 1 mg 05/19/24 16:07 Glucagon Inj 1 Mg Vial IM Q15MIN PRN BG <70, and no IV access Hydralazine HCl 10 mg 05/20/24 01:38 Hydralazine Inj 20 Mg/Ml Vial IV 06/19/24 01:37 Q6H PRN SBP > 170 Albumin Human 25 gm in 100 mls @ 100 mls/min 05/19/24 15:28 Albuminar-25 Ivpb IV PRN PRN DIALYSIS Piperacillin/Tazobactam/Dextrose 3.375 gm in 50 mls @ 12.5 mls/hr 05/19/24 21:00 05/20/24 09:42 Zosyn IV 05/26/24 20:59 12.5 mls/hr Q12HR [facility] Administration Protocol Insulin Human Lispro 0 unit 05/19/24 17:00 05/20/24 11:27 Insulin Lispro (Admelog) 1 Unit/0.01 Ml Unit SC 06/18/24 16:59 Not Given AC [facility] Protocol Metoprolol Succinate 50 mg 05/20/24 09:00 05/20/24 09:42 Metoprolol Succinate Xl 25 Mg Tabcr PO 06/19/24 08:59 Not Given QDAY [facility] Ondansetron HCl 4 mg 05/19/24 16:01 Ondansetron Inj 2 Mg/Ml Inj 2 Ml IV 06/18/24 16:00 Q6H PRN NAUSEA OR VOMITING Protocol Pharmacy Consult 1 each 05/19/24 16:15 Vancomycin Pharmacy To Dose 1 Each Each IV 06/18/24 16:14 QDAY PRN CONSULT Sennosides 1 tab 05/20/24 09:00 05/20/24 09:38 Senna Tablet PO 06/19/24 08:59 Not Given QDAY [facility] Protocol Sodium Chloride 3 ml 05/19/24 14:53 05/19/24 15:25 Sodium Chloride Rt Mae 0.9% 3 Ml Nebu INH 06/18/24 14:52 3 ml PRN PRN Administration SOLN Plan 83-year-old male with past medical history of hypertension, hyperlipidemia, diabetes mellitus, 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 # ESRD on HD #Hyperkalemia -Patient was referred to the ED as he was noted to have fever and redness with swelling in the left upper extremity mainly at the site of fistula -Patient noted to have missed his routine dialysis session on Friday due to diarrhea which was chronic -On physical examination, the fistula site does not appear to be infected -Labs at the time of admission showed leukocytosis with WBC 14, BUN 106, creatinine 7.1, potassium 6 Plan -Emergent HD is ordered on 05/20/2024 -will do HD today -Avoid nephrotoxic medication and renally dose medication #Hypertensive urgency, resolved -Blood pressure at the time of admission is 191/93mm Hg plan -Will start HD -Started on metoprolol and labetalol -Monitor blood pressures and titrate medications accordingly # Anemia, normocytic normochromic -Patient seems to have chronic anemia since 2021, likely due to anemia of chronic kidney disease -Will give erythropoietin during the dialysis #Sepsis, unspecified source #ESRD on HD (M/F) #Electrolyte abnormalities #Essential hypertension #Hyperlipidemia #Nwh-[id number] type 2 diabetes #Anemia of chronic disease #History of strokes #Chronic systolic heart failure with reduced ejection fraction (40-45%) #History of rectal mass status post resection Rest of the medical conditions to be treated as per primary team Thank you for allowing us to involve in the care of the patient Patient plan of care was discussed with the attending physician, Dr. Alice Coleman, PGY1 Attending Provider Attestation/Addendum Patient seen and examined with resident physician Dr. Hernandez. Note reviewed, agree with findings and recommendations. Admitted for fever, weakness and questionable left a fistula infection. Upon reviewing fistula is accessible. Mild redness noted. Patient did receive only 1 hour of dialysis yesterday. Patient currently seen on dialysis. Tolerating dialysis without any problems. Hemodialysis for 3 hours, 2K, ultrafiltration 1 L, Epogen 6000, no heparin ordered. Agreed only for 1 hour of dialysis. Plan of care discussed with the dialysis nurse. Please see dialysis flowsheet for further details. Might need GI evaluation for recurrent diarrhea for the last 3 years. Patient has been missing several dialysis sessions. Thank you Dr. Archibald for allowing me to participate in the care of Mr. Bay
--- NOTE | 2024-05-20 16:11 | PC.SS ---
SS met with patient and regarding patient's d/c plan.? Pt is alert/oriented.? Pt was admitted for AVF Infection, Sepsis.? confirmed patient's demographic and contact information is correct on facesheet.? Pt resides with .? Pt ambulates independently without assistance or DME.? Pt is ok with all ADLs.? Patient?s pharmacy of choice is [facility].? is patient's medical decision maker if he is unable.? SS provided verbal d/c options for home or SNF.? ?s choice is for pt to return home upon d/c.? ?Per , pt is diabetic, has glucometer, and test strips.? [facility] and provides transportation.? states pt has an advance directive.? states pt followed up with PCP 1 month ago. D/C plan:? Return home Next of Kin:? Fabienne Bay, , phone# [phone] PCP:? Dr. Carrillo Greenwood Address:? Correct on facesheet
[2024-05-20] MEDS: INSULIN LISPRO (AdmeLOG) 1 UNIT/0.01 ML UNIT SC (17:07)
--- NOTE | 2024-05-20 23:11 | PD.IMCONS ---
HPI Data of Consult Requesting Physician: Shawnee Archibald DO Primary Care Provider: Carrillo Greenwood MD Consult Narrative Reason for consult: GI evaluation for rectal mass History of present illness: 88 years old male admitted from the ER sent there by the hemodialysis unit he was found to have sepsis with the infected shunt was started on Zosyn and vancomycin Patient has a history of end-stage renal disease on hemodialysis hypertension diabetes mellitus type 2 and hyperlipidemia Patient does have diarrhea off-and-on responds very well to loperamide On 11/19/2022 patient was evaluated by Dr. Salazar for his transanal resection of a polyp which was tubular adenoma and no dysplasia cc:: cc: Shawnee Archibald DO Review of Systems Review of Systems Systems Reviewed: All systems reviewed, normal except as documented Past Medical History Surgical History OTHER SURGICAL HX: End-stage renal disease on hemodialysis. Hypertension Diabetes mellitus type 2 hyperlipidemia . Meds Home Medications and Allergies Home Medications ?Medication ?Instructions ?Recorded ?Confirmed ?Type furosemide 40 mg tablet 40 mg PO BID 09/21/22 05/19/24 History metoprolol succinate 50 mg 50 mg PO DAILY 09/21/22 05/19/24 History tablet,extended release 24 hr vitamin B complex-vitamin C-folic 1 tab PO DAILY 09/21/22 05/19/24 History acid 0.8 mg tablet (Aileen-Abrahan) Allergies Allergy/AdvReac Type Severity Reaction Status Date / Time latex Allergy Verified 05/20/24 01:09 Exam Vital Signs Temp Pulse Resp BP Pulse Ox O2 Del Method 97.9 F 72 16 149/67 H 97 Room Air 05/20/24 20:00 05/20/24 20:00 05/20/24 20:00 05/20/24 20:00 05/20/24 20:00 05/20/24 20:00 Constitutional Comments: Chronically ill-appearing Routine Respiratory Exam Comments: Normal to auscultation Routine Abdominal Exam Comments: Soft nontender Results Labs 05/20/24 04:25 05/20/24 04:25 Labs: Short CBC 05/20/24 Range/Units 04:25 WBC 10.3 (3.8-10.6) Thou/mm3 Hgb 11.3 L (13.5-16.0) g/dL Hct 33.4 L (41.0-53.0) % Plt Count 179 (140-440) Thou/mm3 BMP 05/20/24 04:25 Sodium 139 Potassium 3.8 D Chloride 100 Carbon Dioxide 21.4 BUN 74 H Creatinine 5.8 H* D Glucose 117 H Calcium 9.9 Liver Function 05/20/24 Range/Units 04:25 Total Bilirubin 0.6 (0.3-1.2) mg/dL AST 19 (0-34) U/L ALT 19 (10-49) U/L Alkaline Phosphatase 63 (46-116) U/L Albumin 4.1 D (3.4-4.8) gm/dL Assessment and Plan Additional Assessment & Plan Additional Plan: # 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 End-stage renal disease on HD # Essential hypertension # diabetes mellitus type 2 # Hyperlipidemia Thank you very much for the opportunity to participate in this patient
[2024-05-21] VITALS: BP 149/79; PULSE 77; PULSE 79; RESP 16; TEMP 36.6; O2SAT 96
[2024-05-21 04:00] VITALS: BP 144/71; PULSE 75; PULSE 78; RESP 16; TEMP 36.6; O2SAT 98
[2024-05-21 06:10] LABS: Basophils # (Auto) 0.1 Thou/mm3 (0.0-0.2); Basophils % (Auto) 1 % (0-2.5); Eosinophils # (Auto) 0.3 Thou/mm3 (0.0-0.5); Eosinophils % (Auto) 3 % (0-10); Hematocrit 33.9 % (41.0-53.0); Hemoglobin 11.5 g/dL (13.5-16.0); Immature Granulocytes % (Auto) 0 % (0-0); Immature Granulocytes Auto 0.03 Thou/mm3 (0.00-0.00); Lymphocytes % (Auto) 12 % (10-50); Mean Corpuscular HGB Conc 33.9 g/dl (31.0-37.0); Mean Corpuscular Hemoglobin 33.2 pg (25.0-35.0); Mean Corpuscular Volume 98 fL (80-100); Monocytes # (Auto) 1.2 Thou/mm3 (0.0-0.8); Monocytes % (Auto) 15 % (0-12); Neutrophils # (Auto) 5.6 Thou/mm3 (1.8-7.7); Neutrophils % (Auto) 69 % (37-80); Nucleated Red Blood Cell % 0 /100 WBC (0); Platelet Count 205 Thou/mm3 (140-440); RDW Standard Deviation 55.3 fL (35.1-43.9); Red Blood Count 3.46 Miln/mm3 (4.50-5.90); White Blood Count 8.1 Thou/mm3 (3.8-10.6)
[2024-05-21 06:26] LABS: Alanine Aminotransferase 16 U/L (10-49); Albumin, Serum 4.1 gm/dL (3.4-4.8); Albumin/Globulin Ratio 1.6 (1.2-2.2); Alkaline Phosphatase 52 U/L (46-116); Anion Gap 13 (7-16); Aspartate Amino Transferase 13 U/L (0-34); BUN/Creatinine Ratio 10 Ratio (12-20); Bilirubin,Total 0.6 mg/dL (0.3-1.2); Blood Urea Nitrogen 43 mg/dL (9-23); Calcium 9.4 mg/dL (8.3-10.6); Calcium (Corrected) 9.4 mg/dL (8.5-10.1); Carbon Dioxide 27.3 mMol/L (20.0-31.0); Chloride 98 mMol/L (98-107); Creatinine (Component) 4.4 mg/dL (0.6-1.3); Estimated Creatinine Clearance 12.3 mL/min (>60); Globulin 2.6 gm/dL (2.3-3.5); Glucose 85 mg/dL (74-106); Osmolality,Calculated 285 (275-295); Potassium 4.1 mMol/L (3.4-5.1); Sodium 138 mMol/L (136-145); Total Protein 6.7 gm/dL (5.7-8.2); Vancomycin,Random 11.2 mcg/mL; eGFR 13 See Note
[2024-05-21 06:44] LABS: C-Reactive Protein 11.5 mg/dL (0.0-0.9)
[2024-05-21 07:52] VITALS: BP 128/66; PULSE 73; RESP 16; TEMP 37.2; O2SAT 96
[2024-05-21 08:00] VITALS: PULSE 75
[2024-05-21 08:14] VITALS: BP 128/66; PULSE 73
[2024-05-21] MEDS: METOPROLOL SUCCINATE XL 25 MG TABCR 50 MG PO (08:14)
[2024-05-21] MEDS: PIPER/TAZO 3.375 GM PREMIX 3.375 GM/50 ML BAG IV (08:14)
[2024-05-21 09:14] LABS: Stool for WBCs Negative (Negative)
[2024-05-21 09:41] LABS: Sed Rate (ESR) 41 mm/hr (0-20)
[2024-05-21] MEDS: VANCOMYCIN/NS 500 MG IVPB 100 ML 120 MG IV (10:10)
--- NOTE | 2024-05-21 11:08 | PD.RESPRO ---
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 Patient was apparently normal at his baseline 1 day ago. Since last night patient noted to have mild shortness of breath and on the day of admission, as the shortness of breath increased patient was taken to his dialysis center where they found patient to have high temperature for which patient was referred to the ER. Per patient's , he missed his routine dialysis schedule on Friday because of diarrhea. Patient is still able to produce some amount of urine. Denies cough, abdominal pain, vomitings, burning micturition. Stated that patient is getting dialysis through fistula since last 2 weeks. Patient also noted to have elevated temperature on left upper extremity mainly at the site of fistula for which the dialysis center staff referred patient to the ED ED course: -Initial vitals are blood pressure 191/93 mmHg, pulse rate 87 bpm, respiratory rate 18/min, temperature 100.3 ?F, SpO2 100% with room air -Labs showed WBC 14, Hb 11.4, sodium 136, potassium 6, anion gap 17, BUN 106, creatinine 7.1, lactate 0.9, procalcitonin 0.58 -Chest x-ray showed bilateral moderate vascular congestion -EKG showed sinus rhythm with prolonged QTc Nephrology is consulted for hemodialysis as he is due for it 05/20/2024 Patient was seen and examined at the bedside Patient did not get complete dialysis session yesterday, so will do dialysis today Patient is still having chronic diarrhea, will consult Dr. Cantu for further recommendations 05/21/2024 Patient is seen and examined at the bedside Patient is doing well. Denies any other complaints Will do dialysis as per his routine schedule Exam Vital Signs Temp Pulse Resp BP Pulse Ox O2 Del Method 97.1 F 67 18 137/71 H 98 Room Air 05/21/24 12:00 05/21/24 12:00 05/21/24 12:00 05/21/24 12:00 05/21/24 12:00 05/21/24 04:00 Narrative Exam General: Awake. HEENT: Normocephalic, atraumatic, mucous membranes moist. Heart: Regular rate and rhythm, systolic murmur in the aortic area Lungs: Clear to auscultation with no wheezing or crackles. Abdomen: Soft, nondistended, nontender, positive bowel sounds. ?No guarding or rebound tenderness. Neurologic: Alert and oriented x3, no gross neurological deficit, and patient able to move all 4 extremities. Extremities: No edema. fistula in the left upper extremity Skin: No rash or ecchymoses. Objective Labs 05/21/24 04:48 05/21/24 04:48 Labs: Laboratory Results - last 24 hr 05/21/24 05/21/24 04:48 05:05 WBC 8.1 RBC 3.46 L Hgb 11.5 L Hct 33.9 L MCV 98 MCH 33.2 MCHC 33.9 RDW Std Deviation 55.3 H Plt Count 205 Neut % (Auto) 69 Lymph % (Auto) 12 [place] % (Auto) 15 H Eos % (Auto) 3 Baso % (Auto) 1 Neut # (Auto) 5.6 Lymph # (Auto) 1.0 [place] # (Auto) 1.2 H Eos # (Auto) 0.3 Baso # (Auto) 0.1 Immature Gran # (Auto) 0.03 H Absolute Nucleated RBC 0.00 Immature Gran % 0 Nucleated RBC % 0 ESR 41 H Sodium 138 Potassium 4.1 Chloride 98 Carbon Dioxide 27.3 Anion Gap 13 BUN 43 H Creatinine 4.4 H* D Estim Creat Clear Calc 12.3 L eGFR 13 L* BUN/Creatinine Ratio 10 L Glucose 85 Calculated Osmolality 285 Calcium 9.4 Corrected Calcium 9.4 Total Bilirubin 0.6 AST 13 ALT 16 Alkaline Phosphatase 52 C-Reactive Prot, Quant 11.5 H Total Protein 6.7 Albumin 4.1 Globulin 2.6 Albumin/Globulin Ratio 1.6 Stool for White Cells Negative Stl C. diff Tox B Gene Negative Random Vancomycin 11.2 Quality Measures Quality Measures VTE prophylaxis Advance care planning discussed with:: patient Assessment & Plan Assessment Current Active Medications: Generic Name Dose Route Start Last Admin Trade Name Freq PRN Reason Stop Dose Admin Acetaminophen 650 mg 05/19/24 16:01 Acetaminophen 325 Mg Tablet PO 06/18/24 16:00 Q6H PRN Pain 1-3 and/or Fever >100.1 Dextrose 25 ml 05/19/24 16:07 Dextrose 50%-Water Inj 50 Ml Syringe IV 06/18/24 16:06 Q15MIN PRN BG 50-70 responsive npo pt Dextrose 50 ml 05/19/24 16:07 Dextrose 50%-Water Inj 50 Ml Syringe IV 06/18/24 16:06 Q15MIN PRN BG <50 OR BG <70 & pt unresponsive Glucagon 1 mg 05/19/24 16:07 Glucagon Inj 1 Mg Vial IM Q15MIN PRN BG <70, and no IV access Hydralazine HCl 10 mg 05/20/24 01:38 Hydralazine Inj 20 Mg/Ml Vial IV 06/19/24 01:37 Q6H PRN SBP > 170 Albumin Human 25 gm in 100 mls @ 100 mls/min 05/19/24 15:28 Albuminar-25 Ivpb IV PRN PRN DIALYSIS Piperacillin/Tazobactam/Dextrose 3.375 gm in 50 mls @ 12.5 mls/hr 05/19/24 21:00 05/20/24 09:42 Zosyn IV 05/26/24 20:59 12.5 mls/hr Q12HR [facility] Administration Protocol Insulin Human Lispro 0 unit 05/19/24 17:00 05/20/24 11:27 Insulin Lispro (Admelog) 1 Unit/0.01 Ml Unit SC 06/18/24 16:59 Not Given AC [facility] Protocol Metoprolol Succinate 50 mg 05/20/24 09:00 05/20/24 09:42 Metoprolol Succinate Xl 25 Mg Tabcr PO 06/19/24 08:59 Not Given QDAY [facility] Ondansetron HCl 4 mg 05/19/24 16:01 Ondansetron Inj 2 Mg/Ml Inj 2 Ml IV 06/18/24 16:00 Q6H PRN NAUSEA OR VOMITING Protocol Pharmacy Consult 1 each 05/19/24 16:15 Vancomycin Pharmacy To Dose 1 Each Each IV 06/18/24 16:14 QDAY PRN CONSULT Sennosides 1 tab 05/20/24 09:00 05/20/24 09:38 Senna Tablet PO 06/19/24 08:59 Not Given QDAY [facility] Protocol Sodium Chloride 3 ml 05/19/24 14:53 05/19/24 15:25 Sodium Chloride Rt Mae 0.9% 3 Ml Nebu INH 06/18/24 14:52 3 ml PRN PRN Administration SOLN Plan 83-year-old male with past medical history of hypertension, hyperlipidemia, diabetes mellitus, 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 # ESRD on HD #Hyperkalemia -Patient was referred to the ED as he was noted to have fever and redness with swelling in the left upper extremity mainly at the site of fistula -Patient noted to have missed his routine dialysis session on Friday due to diarrhea which was chronic -On physical examination, the fistula site does not appear to be infected -Labs at the time of admission showed leukocytosis with WBC 14, BUN 106, creatinine 7.1, potassium 6 Plan -Emergent HD is ordered on 05/20/2024 and HD done on 05/21/2024 -will do as per his routine schedule -Avoid nephrotoxic medication and renally dose medication #Hypertensive urgency, resolved -Blood pressure at the time of admission is 191/93mm Hg plan -Will start HD -Started on metoprolol and labetalol -Monitor blood pressures and titrate medications accordingly # Anemia, normocytic normochromic -Patient seems to have chronic anemia since 2021, likely due to anemia of chronic kidney disease -Will give erythropoietin during the dialysis #Sepsis, unspecified source #ESRD on HD (M/F) #Electrolyte abnormalities #Essential hypertension #Hyperlipidemia #Uhc-dcrzniq-ohwikoceb type 2 diabetes #Anemia of chronic disease #History of strokes #Chronic systolic heart failure with reduced ejection fraction (40-45%) #History of rectal mass status post resection Rest of the medical conditions to be treated as per primary team Thank you for allowing us to involve in the care of the patient Patient plan of care was discussed with the attending physician, Dr. Alice Coleman, PGY1 Attending Provider Attestation/Addendum Patient seen and examined with resident physician Dr. Hernandez. Note reviewed, agree with findings and recommendations. Admitted for fever, weakness and questionable left a fistula infection. Upon reviewing fistula is accessible. Mild redness noted. Patient did receive only 1 hour of dialysis yesterday. Patient currently seen on dialysis. Tolerating dialysis without any problems. Hemodialysis for 3 hours, 2K, ultrafiltration 1 L, Epogen 6000, no heparin ordered. Agreed only for 1 hour of dialysis. Plan of care discussed with the dialysis nurse. Please see dialysis flowsheet for further details. Might need GI evaluation for recurrent diarrhea for the last 3 years. Patient has been missing several dialysis sessions. Thank you Dr. Archibald for allowing me to participate in the care of Mr. Bay
--- NOTE | 2024-05-21 11:34 | PD.RESPRO ---
Documentation for date of: 05/21/24 Exam Vital Signs Temp Pulse Resp BP Pulse Ox O2 Del Method 99.0 F 73 16 128/66 96 Room Air 05/21/24 07:52 05/21/24 08:14 05/21/24 07:52 05/21/24 08:14 05/21/24 07:52 05/21/24 04:00 Objective Labs 05/21/24 04:48 05/21/24 04:48 Labs: Laboratory Results - last 24 hr 05/21/24 05/21/24 04:48 05:05 WBC 8.1 RBC 3.46 L Hgb 11.5 L Hct 33.9 L MCV 98 MCH 33.2 MCHC 33.9 RDW Std Deviation 55.3 H Plt Count 205 Neut % (Auto) 69 Lymph % (Auto) 12 [place] % (Auto) 15 H Eos % (Auto) 3 Baso % (Auto) 1 Neut # (Auto) 5.6 Lymph # (Auto) 1.0 [place] # (Auto) 1.2 H Eos # (Auto) 0.3 Baso # (Auto) 0.1 Immature Gran # (Auto) 0.03 H Absolute Nucleated RBC 0.00 Immature Gran % 0 Nucleated RBC % 0 ESR 41 H Sodium 138 Potassium 4.1 Chloride 98 Carbon Dioxide 27.3 Anion Gap 13 BUN 43 H Creatinine 4.4 H* D Estim Creat Clear Calc 12.3 L eGFR 13 L* BUN/Creatinine Ratio 10 L Glucose 85 Calculated Osmolality 285 Calcium 9.4 Corrected Calcium 9.4 Total Bilirubin 0.6 AST 13 ALT 16 Alkaline Phosphatase 52 C-Reactive Prot, Quant 11.5 H Total Protein 6.7 Albumin 4.1 Globulin 2.6 Albumin/Globulin Ratio 1.6 Stool for White Cells Negative Random Vancomycin 11.2 Quality Measures Quality Measures none Assessment & Plan Assessment Current Active Medications: Generic Name Dose Route Start Last Admin Trade Name Freq PRN Reason Stop Dose Admin Acetaminophen 650 mg 05/19/24 16:01 Acetaminophen 325 Mg Tablet PO 06/18/24 16:00 Q6H PRN Pain 1-3 and/or Fever >100.1 Dextrose 25 ml 05/19/24 16:07 Dextrose 50%-Water Inj 50 Ml Syringe IV 06/18/24 16:06 Q15MIN PRN BG 50-70 responsive npo pt Dextrose 50 ml 05/19/24 16:07 Dextrose 50%-Water Inj 50 Ml Syringe IV 06/18/24 16:06 Q15MIN PRN BG <50 OR BG <70 & pt unresponsive Glucagon 1 mg 05/19/24 16:07 Glucagon Inj 1 Mg Vial IM Q15MIN PRN BG <70, and no IV access Hydralazine HCl 10 mg 05/20/24 01:38 Hydralazine Inj 20 Mg/Ml Vial IV 06/19/24 01:37 Q6H PRN SBP > 170 Albumin Human 25 gm in 100 mls @ 100 mls/min 05/19/24 15:28 Albuminar-25 Ivpb IV PRN PRN DIALYSIS Piperacillin/Tazobactam/Dextrose 3.375 gm in 50 mls @ 12.5 mls/hr 05/19/24 21:00 05/21/24 08:14 Zosyn IV 05/26/24 20:59 12.5 mls/hr Q12HR [facility] Administration Protocol Insulin Human Lispro 0 unit 05/19/24 17:00 05/21/24 11:19 Insulin Lispro (Admelog) 1 Unit/0.01 Ml Unit SC 06/18/24 16:59 Not Given AC [facility] Protocol Metoprolol Succinate 50 mg 05/20/24 09:00 05/21/24 08:14 Metoprolol Succinate Xl 25 Mg Tabcr PO 06/19/24 08:59 50 mg QDAY [facility] Administration Ondansetron HCl 4 mg 05/19/24 16:01 Ondansetron Inj 2 Mg/Ml Inj 2 Ml IV 06/18/24 16:00 Q6H PRN NAUSEA OR VOMITING Protocol Pharmacy Consult 1 each 05/19/24 16:15 Vancomycin Pharmacy To Dose 1 Each Each IV 06/18/24 16:14 QDAY PRN CONSULT Sennosides 1 tab 05/20/24 09:00 05/21/24 08:09 Senna Tablet PO 06/19/24 08:59 Not Given QDAY [facility] Protocol Sodium Chloride 3 ml 05/19/24 14:53 05/19/24 15:25 Sodium Chloride Rt Mae 0.9% 3 Ml Nebu INH 06/18/24 14:52 3 ml PRN PRN Administration SOLN
[2024-05-21 12:00] VITALS: BP 137/71; PULSE 67; PULSE 78; RESP 18; TEMP 36.2; O2SAT 98
[2024-05-21 14:48] LABS: Clostridium Difficile PCR Negative (Negative)
--- NOTE | 2024-05-21 15:56 | ESDS_ITS ---
<Statement entered by Shawnee Archibald DO - 05/22/24 08:38> I, Shawnee Archibald DO, attest that I was physically present for the werner portions of the service and evaluated the patient with the resident and I reviewed and discussed the case with the resident and agree with the resident's findings and plans of care as documented above Planned Discharge Date 05/21/24 DS: Providers Provider Date of admission: 05/19/24 16:01 Primary care physician: Carrillo Greenwood MD Admitting Provider: Shawnee Archibald DO Attending Provider on Admission: Shawnee Archibald DO Consults: 05/19/24 15:25 Consult to Nephrology Stat Comment: ESRD needing dialysis Consulting Provider: Bethanie Jenkins 05/20/24 09:10 Consult to Gastroenterology Routine Comment: chronic diarrhea Consulting Provider: Nell Cantu Attending Provider on DC: Louie Dominguez MD Discharging Provider: Louie Dominguez MD DS: Diagnosis Problem List Completed Was Problem List Reviewed/Reconciled?: Yes Hospital Course Hospital Course Hospital course: 83-year-old male with past medical history of ESRD on HD M/F via left brachiocephalic fistula, essential hypertension, hyperlipidemia, non -insulin-dependent type 2 diabetes, history of multiple strokes, chronic diarrhea, chronic systolic heart failure with reduced ejection fraction, rectal mass s/p resection presented to the ED on 05/19 from dialysis as there after it was noted that the patient was having fevers. Patient recently had a fistula repair with vascular surgery prior to the episodes and had been having subjective fevers at home. In the ED, patient did present hypertensive but with regular heart rate although he was febrile with a temperature of 100.3 Fahrenheit but satting 100 on room air. Chest x-ray did show possible bilateral pneumonia versus vascular congestion and EKG showed sinus rhythm with left atrial enlargement and right bundle branch block. Patient was admitted for unspecified fever likely secondary to AV fistula site cellulitis. Nephrology was consulted and completed emergent hemodialysis for 2 days. Patient was also been having chronic diarrhea for several years now and stool cultures along with Giardia, WBC, C. difficile was ordered by gastroenterology which was consulted. Patient symptomatically improved and there was low suspicion for acute gastrointestinal process at this time; moreover, patient denied wanting extensive workup and rejected colonoscopy. As result of patient's rapid improvement, he will be discharged with the following strict instructions. Please take Keflex 500mg by mouth twice a day for 5 additional days Stop taking Glipizide 5mg tab Follow-up with your PCP within 1-2 weeks Continue taking all other home medications as prescribed Continue going to dialysis sessions If your symptoms worsen or if you develop chest pain, shortness of breath, abdominal pain or dizziness - please come back to the ED immediately. Hospital Diagnosis: #Cellulitis #ESRD on HD (M/F) #Electrolyte abnormalities #Essential hypertension #Hyperlipidemia #Wlx-[id number] type 2 diabetes #Anemia of chronic disease #History of strokes #Chronic systolic heart failure with reduced ejection fraction (40-45%) #History of rectal mass status post resection Louie Dominguez, PGY-1 Status at Discharge Overall status at discharge: patient is progressing back to baseline Time Spent with Patient Time attestation: Total time spent providing and/or coordinating discharge services: 45 minutes Time spent: Greater than 30 minutes Exam Vital Signs Temp Pulse Resp BP Pulse Ox O2 Del Method 97.1 F 67 18 137/71 H 98 Room Air 05/21/24 12:00 05/21/24 12:00 05/21/24 12:00 05/21/24 12:00 05/21/24 12:00 05/21/24 04:00 Narrative Exam Physical Exam: GENERAL: Awake, answers questions appropriately, appears stated age HEENT: NC/AT. Moist mucosa. PERRLA/EOMI. CARDIO: Heart RRR, IV/ systolic ejection murmur noted on left sternal border, no JVD. PULM: No coughing or visible SOB. Lungs CTA B/L. GI: Abdomen soft, NT/ND, +BS. SKIN/MSK/EXT: Brachiocephalic fistula with suture noted and some warmth. No wounds/discoloration/rashes/edema/amputations. +Pedal pulses present B/L. NEURO: Oriented x3, Moves extremities x4, no focal neurologic deficits noted. Discharge Plan Plan Patient Disposition: HOME (Self Care) Care Plan Goals: Please take Keflex 500mg by mouth twice a day for 5 additional days Stop taking Glipizide 5mg tab Follow-up with your PCP within 1-2 weeks Continue taking all other home medications as prescribed Continue going to dialysis sessions If your symptoms worsen or if you develop chest pain, shortness of breath, abdominal pain or dizziness - please come back to the ED immediately. Prescriptions/Referrals Prescriptions/Med Rec: New cephalexin 500 mg capsule 500 mg PO BID 5 Days Qty: 10 0RF Continued atorvastatin [Lipitor] 20 MG tablet 20 mg PO HS Qty: 30 0RF Aileen-Abrahan 0.8 mg Tablet 1 tab PO DAILY metoprolol succinate 50 mg tablet extended release 24 hr 50 mg PO DAILY Patient Comments: TAKE 1 TABLET BY MOUTH ONCE DAILY furosemide 40 mg tablet 40 mg PO BID Discontinued glipizide 5 mg tablet 5 mg PO BID Patient Comments: TAKE 1 TABLET BY MOUTH TWICE DAILY Referrals: Carrillo Greenwood MD [Primary Care Provider] - Patient/Caregiver Discharge Instructions Education Materials: Coping with Kidney Failure, Kidney Disease Reducing Po tassium, Kidney Disease: Limiting Fluids Print Language: Kyrgyz Stand Alone Forms: Nydia Award Info., Patient Portal Info Letter Discharge Order Discharge Orders: Discharge (Routine); Ordered 05/21/24 Ordered By: Louie Dominguez Quality Discharge Quality Measures VTE prophylaxis
[2024-05-25 07:48] LABS: Giardia Result NOT DETECTED
[2024-05-31 07:06] LABS: ANCA Screen NEGATIVE (NEGATIVE); Myeloperoxidase Ab <1.0 AI (<1.0); Proteinase-3 Ab <1.0 AI (<1.0)
== END 2024-05-21 14:50 | disposition home or self-care (01) | DRG 314 ==
LOC: SERX 14:47 → SERHOLD 16:12 → S3NX 20:00
PROVIDERS: Nurse Practitioner Primary Care; Specialist; Admitting Provider Internal Medicine; Emergency Provider Family Medicine; PCP Family Medicine; Visit Provider Internal Medicine
DX: T82.7XXA Infection and inflammatory reaction due to other cardiac and vascular devices, implants and grafts, initial encounter (principal); J18.9 Pneumonia, unspecified organism; N18.6 End stage renal disease; I13.2 Hypertensive heart and chronic kidney disease with heart failure and with stage 5 chronic kidney disease, or end stage renal disease; I50.22 Chronic systolic (congestive) heart failure; L03.90 Cellulitis, unspecified; E11.22 Type 2 diabetes mellitus with diabetic chronic kidney disease; E78.5 Hyperlipidemia, unspecified; D63.1 Anemia in chronic kidney disease; E87.5 Hyperkalemia; K52.9 Noninfective gastroenteritis and colitis, unspecified; I16.0 Hypertensive urgency; Z79.84 Long term (current) use of oral hypoglycemic drugs; Z86.73 Personal history of transient ischemic attack (TIA), and cerebral infarction without residual deficits; Z87.891 Personal history of nicotine dependence; Z99.2 Dependence on renal dialysis; S40.012A Contusion of left shoulder, initial encounter; Z79.899 Other long term (current) drug therapy; Z91.158 Patient's noncompliance with renal dialysis for other reason; Y83.2 Surgical operation with anastomosis, bypass or graft as the cause of abnormal reaction of the patient, or of later complication, without mention of misadventure at the time of the procedure
CPT/HCPCS: 36415; 71046; 76536; 80053; 80202; 81001; 83605; 84145; 85025; 85652; 86021; 86036; 86140; 87015; 87040; 87045; 87046; 87077; 87081; 87205; 87329; 87400; 87493; 87811; 87899; 93005; 93225; 94640; 96374; 99285; J1815; J2543; J3370; J3490; Q5105; A9270; J1920

== ENCOUNTER 2024-05-27 17:48 | Inpatient (IN) | payer MEDICARE, BC, SELFPAY ==
[2024-05-27] VITALS (7 sets, daily range): BP systolic 119–207; BP diastolic 57–102; PULSE 76–114; RESP 19–22; TEMP 37.2–39.2; O2SAT 94–99; BMI 25.6
--- NOTE | 2024-05-27 19:11 | XR_ITS ---
Examination: AP chest single view TECHNIQUE: AP portable upright chest single view Examination date time: May 27, 2024 at 1927 hours Comparison May 19, 2024 INDICATIONS: Sepsis today. FINDINGS: Diffuse significant bilateral pneumonia Mild prominence cardiac contour with moderate vascular congestion IMPRESSION: Extensive bilateral pneumonia
--- NOTE | 2024-05-27 19:14 | EKG_ITS ---
[facility] Test Date: 2024-05-27 Pat Name: LAURA BELTRAN Department: Room: - Gender: Male Marketing Liaison: : 1940 Requested By: Romina Santiago Order Number: [id number] Reading MD: Romina Santiago Measurements Intervals [place] Rate: 97 P: 20 CA: 155 QRS: 76 QRSD: 147 T: 11 QT: 409 QTc: 521 Interpretive Statements SINUS RHYTHM POSSIBLE LEFT ATRIAL ENLARGEMENT [-0.1mV P-WAVE IN V1/V2] INDETERMINATE AXIS RIGHT BUNDLE BRANCH BLOCK [120+ ms QRS DURATION, UPRIGHT V1, 40+ ms S IN I/aVL/V4/V5/V6] Compared to ECG 05/19/2024 12:51:34 Indeterminate axis now present /store/S0/[id number].pdf
--- NOTE | 2024-05-27 19:15 | EDNOTE_ITS ---
ED General RME/HPI General Chief complaint: Shortness of Breath/Dyspnea Stated complaint: SHORTNESS OF BREATH Time Seen by Provider: 05/27/24 18:51 Arrival date/time: 05/27/24 17:48 RME / HPI RME / HPI narrative: DR. WILLIS MAIN ED EVALUATION: 83-year-old male with history of high cholesterol, hypertension, CHF, recently started hemodialysis Friday last dialysis was on Friday presents to the Emergency Department [facility] with complaint of diarrhea that is gotten worse over the last few days. The patient states he left the hospital in the last 1 week. Today he is feeling worse. Per the the patient is taking his medications twice a day and is due for his Lasix tonight. She reports that he had his dialysis yesterday but only had part of it because he became sick so they could not do a full dialysis. Multiple episodes of nonbloody nonbilious diarrhea in the last 24 hours. Denies abdominal pain. Positive subjective fever. Mild shortness of breath that is improved since he has been in the hospital. Related Data Home Medications ?Medication ?Instructions ?Recorded ?Confirmed furosemide 40 mg tablet 40 mg PO BID 09/21/22 metoprolol succinate 50 mg 50 mg PO DAILY 09/21/22 tablet,extended release 24 hr vitamin B complex-vitamin C-folic 1 tab PO DAILY 09/2105/19/24 acid 0.8 mg tablet (Aileen-Arbahan) Previous Rx's ?Medication ?Instructions ?Recorded atorvastatin 20 mg tablet (Lipitor) 20 mg PO HS #30 ta bs 03/27/17 Allergies Allergy/AdvReac Type Severity Reaction Status Date / Time latex Allergy Verified 05/20/24 01:09 Review of Systems Review of Systems Systems Reviewed: All systems reviewed, normal except as documented Past Medical History Past Medical History NEUROLOGIC: Positive Neurological Disorders and Cerebrovascular Accident; Negative Seizures CARDIAC: Positive Cardiac Disorders, Hypercholesterolemia, Edema and Hypertension; Negative Congestive Heart Failure RESPIRATORY: Negative Chronic Obstructive Pulmonary Disease (COPD) or Asthma GASTROINTESTINAL: Positive Gastrointestinal Disorders, Gastrointestinal Bleed, Colorectal Cancer and Gastroesophageal Reflux Disease GENITOURINARY: Positive Genitourinary Disorders, Renal Disease and Dialysis MUSCULOSKELETAL: Positive Fractures; Negative Musculoskeletal Disorders ENT: Positive Cataracts ENDOCRINE: Positive Endocrine Disorders and Diabetes Mellitus Type 2; Negative Diabetes Mellitus Type 1 HEMATOLOGIC: Negative Blood Disorders, Sickle Cell Disease or Clotting Problems OTHER HISTORY: Positive Hospitalization, Falls, Chicken Pox, Measles, Cancer and Colorectal Cancer; Negative Autoimmune Disease, Shingles, Blood Transfusions, Blood Transfusion Reaction, Anesthesia Reactions or MRSA Family History FAMILY HISTORY: Negative Family Psychiatric Problems, Family Respiratory Disorders, Family Cardiac Disorders, Family Gastrointestinal Problems, Family Cancer, Family Surgery or Family Anesthesia Reaction Surgical History SURGICAL: Positive Amputation Social History SMOKING STATUS: Former smoker SECOND HAND EXPOSURE: No SUBSTANCE USE: does not use ED Exam Narrative Physical exam: GEN. APPEARANCE: The patient is alert awake oriented X-3 in no distress, lying down comfortably, does not look ill/toxic.? Patient has good eye contact.? Patient is cooperative. HEENT: Normocephalic, atraumatic.? Pupils are equal and reactive.? Oral mucosa is dry. Patent Nares NECK: Supple, nontender, no thyromegaly, no meningismus, no JVD, no step offs CHEST: Symmetrical, atraumatic, and with equal expansion , Nontender on palpation no deformity and no crepitus. CARDIOVASCULAR: No murmur or gallop rub or extra beats. LUNGS: There is decreased breath sounds with R> L? No laboring tachypnea or wheezing.? No intercostal subcostal retraction.? No rales and no rhonchi. ABDOMEN: Soft, flat, nontender to palpation, no guarding or rebound tenderness.? There are no abnormal masses palpated.? Active and normal bowel sounds. EXTREMITIES: Nontender.? No edema.? No cyanosis.? Patient is able to move all 4 extremities well, with full ROM. There is pedal edema at bilateral ankles. SKIN: Warm and dry, no jaundice or rashes noted. No pallor. MUSCULOSKELETAL: No lumbar or midline bony tenderness.? There is no CVA tenderness.? No paraspinal muscle spasm or tenderness. NEURO: Patient is JUDD x 4, Cranial nerves II through XII grossly intact.? There is no focal neurologic deficits noted.? GCS is 15, PNS and PRE CODER appear grossly intact. PSYCHIATRIC: Patient is in normal mood and affect, cooperative, no SI or HI or hallucinations. Course Course Course Narrative: Chest x-ray has been ordered to aid in determining etiology of shortness of breath. Refer to ROS for associated respiratory symptoms. See physical exam for additional information if not listed in ROS. 1915: Sepsis alert initiated. Patient meets the following SIRS criteria: T- 101.5, HR 114, RR 19, WBC Pending. Orders made at this time are congruent with ED Adult Sepsis Order List. Re-evaluation is to be completed. IV fluids 30 mL/kg not given secondary to patient being on hemodialysis, requiring 6 L of oxygen O2 and slightly has decreased breath sounds. Cannot rule out CHF. 2039: Sepsis reassessment performed consisting of lab review, vitals, physical exam including auscultation of heart, lungs, and visual evaluation of capillary refills, mucosal membranes and extremities. Quality Measures Current suspected stage: sepsis Possible source: unknown Blood cultures ordered: yes Antibiotic ordered: Yes Pertinent labs: 05/27/24 05/27/24 19:40 19:40 Lactic Acid 2.3 H mMol/L (0.4-2.0) Procalcitonin 3.96 H ng/ml Cancelled (0.0-0.49) sepsis Orders Category Date Time Status Teaching Fellow STAT Care 05/27/24 19:14 Active Continuous Pulse Oximetry STAT Care 05/27/24 19:14 Active EKG (ED ONLY) *Do not use* NOW Care 05/27/24 19:14 Completed In and Out Catheter X1PRN Care 05/27/24 19:14 Active Insert IV NOW Care 05/27/24 19:14 Active NPO STAT Care 05/27/24 19:14 Active Strict Intake and Output Routine Care 05/27/24 19:14 Ordered EKG (ED Only) Stat Exams 05/27/24 19:14 Draft XR chest 1V SEPSIS PROTOCOL Stat Exams 05/27/24 19:11 Completed B-Type Natriuretic Peptide Stat Lab 05/27/24 19:40 Completed Blood Culture (Lab) Stat Lab 05/27/24 19:40 Received CBC Stat Lab 05/27/24 19:40 Completed CMP [Comprehensive Metabolic Panel] Stat Lab 05/27/24 19:40 Completed LDH (Lactate Dehydrogenase) Stat Lab 05/27/24 19:40 Completed Lactate (Lactic Acid) Stat Lab 05/27/24 19:40 Results Lipase Stat Lab 05/27/24 19:40 Completed Magnesium Stat Lab 05/27/24 19:40 Completed Partial Thromboplastin Time Stat Lab 05/27/24 19:40 Completed Phosphorous Stat Lab 05/27/24 19:40 Completed Procalcitonin Stat Lab 05/27/24 19:40 Completed Prothrombin Time with INR Stat Lab 05/27/24 19:40 Completed Troponin I Stat Lab 05/27/24 19:40 Completed Urinalysis Stat Lab 05/27/24 20:24 Completed Urine Culture Stat Lab 05/27/24 20:24 Received Acetaminophen Ivpb [Ofirmev Inj] Med 05/27/24 20:37 Discontinued 1,000 mg in 100 ml IV X1 Furosemide Inj [Lasix Inj] Med 05/27/24 19:11 Discontinued 40 mg IVP X1 ONE Ondansetron Inj [Zofran Inj] Med 05/27/24 19:14 Discontinued 4 mg IV X1 ONE Sodium Chloride 0.9% 1000 ml [Ns] 1,845 ml Med 05/27/24 19:13 Discontinued IV 1,845 mls/hr Oxygen Delivery NOW RT 05/27/24 19:14 Active Vital Signs Vital signs: Vital Signs Temperature 101.5 F H 05/27/24 17:55 Pulse Rate 114 H 05/27/24 17:55 Blood Pressure 207/102 H 05/27/24 17:55 Pulse Oximetry (%) 98 05/27/24 17:55 Oxygen Delivery Method Oxy Mask 05/27/24 17:55 Procedures -ED EKG Interpretation #1: Date of EK05/27/24 Rate: 97 Interpretation: Interpreted by me Additional EKG comment: sinus rhythm, rate 97, right bundle branch block, QTc 521 MDM Patient data External records reviewed:: [facility] previous records (Reviewed last admission discharge dated 05/21/24, patient admitted for the following: ESRD on dialysis) and EMS form Clinical information provided by:: patient and EMS Social determinants that could affect healthcare access:: none Patient has the following chronic illnesses:: high cholesterol, hypertension, CHF, recently started hemodialysis Friday last dialysis was on Friday How is presenting disease/condition affected by chronic disease/condition?: e xacerbated by Evaluation data The following diagnostics were reviewed and interpreted by me:: lab results, radiology exam(s) and EKG tracing(s) Lab and/or radiology exams considered but not ordered:: none Interpretation Summary: Procedure(s): XR chest 1V SEPSIS PROTOCOL Accession Number(s): [id number] cc: Jarrett Mendoza MD; Romina Willis MD~ Examination: AP chest single view TECHNIQUE: AP portable upright chest single view Examination date time: May 27, 2024 at 1927 hours Comparison May 19, 2024 INDICATIONS: Sepsis today. FINDINGS: Diffuse significant bilateral pneumonia Mild prominence cardiac contour with moderate vascular congestion IMPRESSION: Extensive bilateral pneumonia Dictated By: Jarrett Mendoza MD Medications Medications considered but not ordered:: none Medication administrations:: Medication Administration History Acetaminophen (Acetaminophen 325 Mg Tablet) 650 mg PO Q6H PRN PRN Reason: Fever >100 or pain 1-3 Stop: 06/26/24 22:11 Atorvastatin Calcium (Atorvastatin Calcium 20 Mg Tablet) 20 mg PO HS SANTO Stop: 06/27/24 20:59 Dextrose (Dextrose 50%-Water Inj 50 Ml Syringe) 25 ml IV Q15MIN PRN PRN Reason: BG 50-70 responsive npo pt Stop: 06/26/24 22:17 Dextrose (Dextrose 50%-Water Inj 50 Ml Syringe) 50 ml IV Q15MIN PRN PRN Reason: BG <50 OR BG <70 & pt unresponsive Stop: 06/26/24 22:17 Furosemide (Furosemide Inj 10 Mg/Ml 4ml Vial) 20 mg IVP QDAY SANTO Stop: 06/27/24 08:59 Glucagon (Glucagon Inj 1 Mg Vial) 1 mg IM Q15MIN PRN PRN Reason: BG <70, and no IV access Heparin Sodium (Porcine) (Heparin Sod Inj 5000 Unit/Ml Vial) 5,000 unit SC Q12H SANTO Stop: 06/11/24 08:59 Piperacillin/Tazobactam/Dextrose (Zosyn) 3.375 gm in 50 mls @ 12.5 mls/hr IV Q12HR SANTO; Protocol Stop: 06/04/24 08:59 Vancomycin/Sodium Chloride (Vancomycin/Ns 1 Gm Ivpb) 200 mls @ 120 mls/hr IV X1 ONE Stop: 05/27/24 22:39 Insulin Human Lispro (Insulin Lispro (Admelog) 1 Unit/0.01 Ml Unit) 0 unit SC AC SANTO; Protocol Stop: 06/27/24 07:29 Pharmacy Consult (Vancomycin Pharmacy To Dose 1 Each Each) 1 each IV QDAY SANTO Stop: 06/26/24 20:59 Sevelamer Carbonate (Sevelamer Carbonate 800 Mg Tablet) 800 mg PO TID SANTO Stop: 06/27/24 05:59 Vitamin B Complex/Vit C/Folic Acid (Vit B12/Vit C/Fa (Nephrovite) Tablet) 1 tab PO QDAY [facility] Stop: 06/27/24 08:59 Discontinued Medications Furosemide (Furosemide Inj 10 Mg/Ml 4ml Vial) 40 mg IVP X1 ONE Stop: 05/27/24 19:12 Last Admin: 05/27/24 20:13 Dose: 40 mg Documented By: LB Sodium Chloride (Ns) 1,845 mls @ 1,845 mls/hr 30 ml/kg infuse over 60 min (1845 ml) IV .Q1H ONE Stop: 05/27/24 20:12 Last Admin: 05/27/24 20:16 Dose: 1,845 mls/hr Documented By: LB Acetaminophen (Ofirmev Inj) 1,000 mg in 100 mls @ 250 mls/hr IV X1 ONE Stop: 05/27/24 21:00 Last Infusion: 05/27/24 21:14 Dose: Infused Documented By: Admin: 05/27/24 20:50 Dose: 250 mls/hr Documented By: LB Piperacillin/Tazobactam/Dextrose (Zosyn) 3.375 gm in 50 mls @ 100 mls/hr IV X1 ONE Stop: 05/27/24 21:29 Last Admin: 05/27/24 21:01 Dose: 100 mls/hr Documented By: LB Ondansetron HCl (Ondansetron Inj 2 Mg/Ml Inj 2 Ml) 4 mg IV X1 ONE Stop: 05/27/24 19:15 Last Admin: 05/27/24 20:12 Dose: 4 mg Documented By: LB see above Consultations Consultation(s) initiated? (list below): Yes Consultation #1 (Physician, Specialty, Details): Discussed test HPI, PMHx, lab, radiology results and/or management with hospitalist Dr. Poe. Will admit for further evaluation and management. Accepts patient for admission. Time: 21:04 Diagnosis Differential Diagnosis ED Complaint MDM: sepsis, pneumonia, COVID, Influenza Most likely diagnosis given after review of the tests above:: Sepsis Extensive Bilateral Pneumonia Admission Indicated Admission indicated?: indicated Explain why admission is indicated or not indicated:: Diagnoses meet admission criteria. Admission Request Was there a request for admission?: Yes Admission Attestation Admission request attestation: Discussed case with [] from Hospitalist service regarding admission. Discussed patients ED course, exam findings, labs, and radiology results. The Hospitalist [agrees,declines] to accept the patient for admission. Disposition Plan Disposition Plan: Admit Medical Decision Making MDM Narrative MDM Narrative: I, Genet Leon, am scribing for and in the presence of Dr. Willis. Differential Diagnosis Differential Diagnosis: sepsis, pneumonia, COVID, Influenza Lab Data 05/27/24 19:40 05/27/24 19:40 Labs: Lab Results 05/27/24 05/27/24 05/27/24 Range/Units 19:40 19:40 19:40 WBC 12.2 H D (3.8-10.6) Thou/mm3 RBC 3.67 L (4.50-5.90) Miln/mm3 Hgb 12.0 L (13.5-16.0) g/dL Hct 35.8 L (41.0-53.0) % MCV 98 (80-100) fL MCH 32.7 (25.0-35.0) pg MCHC 33.5 (31.0-37.0) g/dl RDW Std Deviation 55.8 H (35.1-43.9) fL Plt Count 184 (140-440) Thou/mm3 Neut % (Auto) 89 H (37-80) % Lymph % (Auto) 3 L (10-50) % Jewell % (Auto) 7 (0-12) % Eos % (Auto) 0 (0-10) % Baso % (Auto) 1 (0-2.5) % Neut # (Auto) 10.9 H (1.8-7.7) Thou/mm3 Lymph # (Auto) 0.4 L (1.0-4.8) Thou/mm3 Jewell # (Auto) 0.8 (0.0-0.8) Thou/mm3 Eos # (Auto) 0.0 (0.0-0.5) Thou/mm3 Baso # (Auto) 0.1 (0.0-0.2) Thou/mm3 Immature Gran # (Auto) 0.07 H (0.00-0.00) Thou/mm3 Absolute Nucleated RBC 0.00 (0.00-0.00) Thou/mm3 Immature Gran % 1 H (0-0) % Nucleated RBC % 0 (0) /100 WBC PT 11.2 (9.0-12.2) Seconds INR 1.0 (0.9-1.3) APTT 26.2 (22.0-36.0) Seconds Sodium 135 L (136-145) mMol/L Potassium 5.0 (3.4-5.1) mMol/L Chloride 94 L (98-107) mMol/L Carbon Dioxide 24.9 (20.0-31.0) mMol/L Anion Gap 16 (7-16) BUN 72 H (9-23) mg/dL Creatinine 5.5 H* D (0.6-1.3) mg/dL Estim Creat Clear Calc 8.9 L (>60) mL/min eGFR 10 L* (60 - ) See Note BUN/Creatinine Ratio 13 (12-20) Ratio Glucose 216 H (74-106) mg/dL Calculated Osmolality 298 H (275-295) Lactic Acid 2.3 H (0.4-2.0) mMol/L Calcium 9.3 (8.3-10.6) mg/dL Corrected Calcium 9.3 (8.5-10.1) mg/dL Phosphorus 6.0 H (2.4-5.1) mg/dL Magnesium 2.0 (1.6-2.6) mg/dL Total Bilirubin 0.2 L (0.3-1.2) mg/dL AST 108 H (0-34) U/L ALT 91 H (10-49) U/L Alkaline Phosphatase 127 H (46-116) U/L Lactate Dehydrogenase 286 H (120-246) U/L Troponin I 0.054 H* Cancelled (0.0-0.045) ng/mL B-Natriuretic Peptide > 3280 H* (0-100) pg/mL Total Protein 7.3 (5.7-8.2) gm/dL Albumin 4.4 (3.4-4.8) gm/dL Globulin 2.9 (2.3-3.5) gm/dL Albumin/Globulin Ratio 1.5 (1.2-2.2) Lipase 41 (12-53) U/L Procalcitonin 3.96 H Cancelled (0.0-0.49) ng/ml Ur Collection Type Urine Color (Lt Yel-Yel) Urine Clarity (Clear/Hazy) Urine pH (5.0-7.0) Ur Specific Pilot (1.001-1.035) Urine Protein (Neg - Trace) Urine Glucose (UA) (Negative) Urine Ketones (Negative) Urine Blood (Negative) Urine Nitrite (Negative) Urine Bilirubin (Negative) Urine Urobilinogen (Auto) (0.0-1.0) mg/dL Ur Leukocyte Esterase (Negative) Urine RBC (0-3) /hpf Urine WBC (0-5) /hpf Ur Squamous Epith Cells (0-5) /hpf Urine Bacteria (None) Hyaline Casts (0-1) /hpf 05/27/24 Range/Units 20:24 WBC (3.8-10.6) Thou/mm3 RBC (4.50-5.90) Miln/mm3 Hgb (13.5-16.0) g/dL Hct (41.0-53.0) % MCV (80-100) fL MCH (25.0-35.0) pg MCHC (31.0-37.0) g/dl RDW Std Deviation (35.1-43.9) fL Plt Count (140-440) Thou/mm3 Neut % (Auto) (37-80) % Lymph % (Auto) (10-50) % Jewell % (Auto) (0-12) % Eos % (Auto) (0-10) % Baso % (Auto) (0-2.5) % Neut # (Auto) (1.8-7.7) Thou/mm3 Lymph # (Auto) (1.0-4.8) Thou/mm3 Jewell # (Auto) (0.0-0.8) Thou/mm3 Eos # (Auto) (0.0-0.5) Thou/mm3 Baso # (Auto) (0.0-0.2) Thou/mm3 Immature Gran # (Auto) (0.00-0.00) Thou/mm3 Absolute Nucleated RBC (0.00-0.00) Thou/mm3 Immature Gran % (0-0) % Nucleated RBC % (0) /100 WBC PT (9.0-12.2) Seconds INR (0.9-1.3) APTT (22.0-36.0) Seconds Sodium (136-145) mMol/L Potassium (3.4-5.1) mMol/L Chloride (98-107) mMol/L Carbon Dioxide (20.0-31.0) mMol/L Anion Gap (7-16) BUN (9-23) mg/dL Creatinine (0.6-1.3) mg/dL Estim Creat Clear Calc (>60) mL/min eGFR (60 - ) See Note BUN/Creatinine Ratio (12-20) Ratio Glucose (74-106) mg/dL Calculated Osmolality (275-295) Lactic Acid (0.4-2.0) mMol/L Calcium (8.3-10.6) mg/dL Corrected Calcium (8.5-10.1) mg/dL Phosphorus (2.4-5.1) mg/dL Magnesium (1.6-2.6) mg/dL Total Bilirubin (0.3-1.2) mg/dL AST (0-34) U/L ALT (10-49) U/L Alkaline Phosphatase (46-116) U/L Lactate Dehydrogenase (120-246) U/L Troponin I (0.0-0.045) ng/mL B-Natriuretic Peptide (0-100) pg/mL Total Protein (5.7-8.2) gm/dL Albumin (3.4-4.8) gm/dL Globulin (2.3-3.5) gm/dL Albumin/Globulin Ratio (1.2-2.2) Lipase (12-53) U/L Procalcitonin (0.0-0.49) ng/ml Ur Collection Type Clean Catch Urine Color Lt-Yellow (Lt Yel-Yel) Urine Clarity Clear (Clear/Hazy) Urine pH 8.0 H (5.0-7.0) Ur Specific Pilot 1.013 (1.001-1.035) Urine Protein 3+ A (Neg - Trace) Urine Glucose (UA) 3+ A (Negative) Urine Ketones Negative (Negative) Urine Blood Trace (Negative) Urine Nitrite Negative (Negative) Urine Bilirubin Negative (Negative) Urine Urobilinogen (Auto) Negative (0.0-1.0) mg/dL Ur Leukocyte Esterase Negative (Negative) Urine RBC 6 H (0-3) /hpf Urine WBC 2 (0-5) /hpf Ur Squamous Epith Cells 0 (0-5) /hpf Urine Bacteria None (None) Hyaline Casts < 1 (0-1) /hpf Critical Care Time Critical Care Time Total Critical Care Time (min.): 60 Attestation: The high probability of sudden, clinically significant deterioration in the patient?s condition required the highest level of my preparedness to intervene urgently. The services I provided to this patient were to treat and/or prevent clinically significant deterioration. Services included the following: chart data review, reviewing nursing notes and/or old charts, documentation time, wellness consultant collaboration regarding findings and treatment options, medication orders and management, direct patient care, vital sign assessments and ordering, interpreting and reviewing diagnostic studies and lab tests. Aggregate critical care time includes only time during which I was engaged in work directly related to the patient?s care, as described above, whether at bedside or elsewhere in the Emergency Department. It did not include time spent performing other reported procedures or the services of residents, students, nurses or physician assistants. Discharge Plan Plan Patient Disposition: Admit Acute Care w/in Hospital Problem List Clinical Impression: Sepsis, Bilateral pneumonia
[2024-05-27 19:49] LABS: Lactate (Lactic Acid) 2.3 mMol/L (0.4-2.0)
[2024-05-27 19:53] LABS: Basophils # (Auto) 0.1 Thou/mm3 (0.0-0.2); Basophils % (Auto) 1 % (0-2.5); Eosinophils % (Auto) 0 % (0-10); Hematocrit 35.8 % (41.0-53.0); Immature Granulocytes % (Auto) 1 % (0-0); Immature Granulocytes Auto 0.07 Thou/mm3 (0.00-0.00); Lymphocytes # (Auto) 0.4 Thou/mm3 (1.0-4.8); Lymphocytes % (Auto) 3 % (10-50); Mean Corpuscular HGB Conc 33.5 g/dl (31.0-37.0); Mean Corpuscular Hemoglobin 32.7 pg (25.0-35.0); Mean Corpuscular Volume 98 fL (80-100); Monocytes # (Auto) 0.8 Thou/mm3 (0.0-0.8); Monocytes % (Auto) 7 % (0-12); Neutrophils # (Auto) 10.9 Thou/mm3 (1.8-7.7); Neutrophils % (Auto) 89 % (37-80); Nucleated Red Blood Cell % 0 /100 WBC (0); Platelet Count 184 Thou/mm3 (140-440); RDW Standard Deviation 55.8 fL (35.1-43.9); Red Blood Count 3.67 Miln/mm3 (4.50-5.90); White Blood Count 12.2 Thou/mm3 (3.8-10.6)
[2024-05-27 20:09] LABS: Partial Thromboplastin Time 26.2 Seconds (22.0-36.0); Prothrombin Time 11.2 Seconds (9.0-12.2)
[2024-05-27] MEDS: ONDANSETRON INJ 2 MG/ML INJ 2 ML 4 MG IV (20:12)
[2024-05-27] MEDS: FUROSEMIDE INJ 10 MG/ML 4ML VIAL 40 MG IVP (20:13)
[2024-05-27] MEDS: SODIUM CHLORIDE 0.9% 1000 ML 1,845 ML 1845 ML IV (20:16)
[2024-05-27 20:17] LABS: B-Type Natriuretic Peptide > 3280 pg/mL (0-100)
[2024-05-27 20:18] LABS: Alanine Aminotransferase 91 U/L (10-49); Albumin, Serum 4.4 gm/dL (3.4-4.8); Albumin/Globulin Ratio 1.5 (1.2-2.2); Alkaline Phosphatase 127 U/L (46-116); Anion Gap 16 (7-16); Aspartate Amino Transferase 108 U/L (0-34); BUN/Creatinine Ratio 13 Ratio (12-20); Bilirubin,Total 0.2 mg/dL (0.3-1.2); Blood Urea Nitrogen 72 mg/dL (9-23); Calcium 9.3 mg/dL (8.3-10.6); Calcium (Corrected) 9.3 mg/dL (8.5-10.1); Carbon Dioxide 24.9 mMol/L (20.0-31.0); Chloride 94 mMol/L (98-107); Creatinine (Component) 5.5 mg/dL (0.6-1.3); Estimated Creatinine Clearance 8.9 mL/min (>60); Globulin 2.9 gm/dL (2.3-3.5); Glucose 216 mg/dL (74-106); LDH (Lactate Dehydrogenase) 286 U/L (120-246); Lipase 41 U/L (12-53); Osmolality,Calculated 298 (275-295); Sodium 135 mMol/L (136-145); Total Protein 7.3 gm/dL (5.7-8.2); eGFR 10 See Note
[2024-05-27 20:21] LABS: Troponin I 0.054 ng/mL (0.0-0.045)
[2024-05-27 20:31] LABS: Collection Type, Urine Clean Catch; Squamous Epithelial Cell,Urine 0 /hpf (0-5)
--- NOTE | 2024-05-27 20:37 | PD.EVENT ---
Documentation for date of: 05/27/24 Event Note Event Note: An 83-year-old male presented to the ER with the chief complaint of fever, cough, shortness of breath, and vomiting. Symptoms began yesterday with increased shortness of breath, productive cough with red-tinged phlegm, multiple episodes of vomiting, and subjective fever. He also reports fatigue, dizziness, and decreased appetite. There has been ongoing chronic diarrhea for the past three years, with multiple nonbloody, nonbilious episodes worsening over the past 24 hours. He did not complete his hemodialysis session yesterday due to feeling unwell after two hours. Currently, he requires supplemental oxygen. The patient has a history of ESRD on HD via left brachiocephalic fistula, HTN, HLD, type 2 DM (non-insulin dependent), CVA, chronic diarrhea, and HFrEF (EF 40?45%). Surgical history includes rectal mass s/p transanal excision (10/22/2022), hernia repair, and excision of a cervical cystic mass. Current medications include Cephalexin, Lipitor, Aileen-Abrahan, Metoprolol, and Furosemide. He does not use home oxygen, does not drive, and is functionally independent. He was recently discharged from the hospital within the past week. He declined extensive GI workup during the last admission despite a fiberoptic colonoscopy offer. In the ER, vital signs recorded as temp 101.5 F, HR 114, RR 19, BP 207/102 mmHg, and oxygen saturation 95% on 6 L/min via nasal cannula. Imaging revealed extensive bilateral pneumonia. Labs showed WBC 12.2, Hgb 12, Plt 184, Na 135, K 5, BUN 72, creatinine 5.5, glucose 216, lactic acid 2.3, phosphorus 6, AST 108, ALT 91, procalcitonin 3.96, and BNP >3280. Sepsis alert was called. The patient was admitted. Sepsis Extensive Bilateral Pneumonia #Assessment: - Fever, cough with red-tinged sputum, dyspnea, hypoxia requiring 6L NC, WBC 12.2, recent hospitalization, CXR with extensive bilateral infiltrates - SIRS = 3/4 #Plan: - Initiate broad-spectrum antibiotics - Obtain blood and sputum cultures - Monitor oxygen requirements; maintain SpO2 >92% End-Stage Renal Disease on Hemodialysis (M/W/F) #Assessment: - Missed dialysis yesterday, BUN 72, Cr 5.5, K 5.0, phosphorus 6.0 #Plan: - Monitor electrolytes and volume status daily - Nephrology consult Chronic Systolic Heart Failure with Reduced Ejection Fraction (EF 40?45%) #Assessment: - History of HFrEF, elevated BNP >3280, currently hypertensive, on metoprolol and furosemide #Plan: - Continue guideline-directed medical therapy - Not one ACEi/ARB due to history of hyperkalemia - Avoid volume overload; adjust diuretics based on volume status and HD - Monitor daily weights, BNP trends, and signs of decompensation Essential Hypertension #Assessment: - BP 207/102 mmHg in ER, on metoprolol #Plan: - Continue metoprolol - Monitor BP closely - BP goal 130/80 Hyperlipidemia #Assessment: - On atorvastatin; no acute concerns #Plan: - Continue statin therapy - Monitor LFTs, particularly with elevated AST/ALT - Reassess lipid panel outpatient - Goal LDL<70 Mrs-[id number] Type 2 Diabetes Mellitus #Assessment: - Glucose 216, chronic condition, no insulin use, recent hospitalization #Plan: - Monitor BG Q6H - Initiate sliding scale insulin PRN
--- NOTE | 2024-05-27 20:42 | PC.NURSE ---
Dr. Willis in room seeing pt. Dtr at bedside.
[2024-05-27 20:44] LABS: Procalcitonin 3.96 ng/ml (0.0-0.49)
[2024-05-27] MEDS: ACETAMINOPHEN IVPB 1,000 MG/100 ML VIAL 250 MG IV (20:50)
[2024-05-27 20:56] LABS: Bilirubin,Urine Negative (Negative); Blood,Urine Trace (Negative); Clarity,Urine Clear (Clear/Hazy); Color,Urine Lt-Yellow (Lt Yel-Yel); Glucose, Urine 3+ (Negative); Hyaline Casts,Urine < 1 /hpf (0-1); Ketones,Urine Negative (Negative); Leukocyte Esterase,Urine Negative (Negative); Nitrite,Urine Negative (Negative); Protein,Urine 3+ (Neg - Trace); RBC,Urine 6 /hpf (0-3); Specific Gravity,Urine 1.013 (1.001-1.035); Urobilinogen,Urine Negative mg/dL (0.0-1.0); WBC,Urine 2 /hpf (0-5)
--- NOTE | 2024-05-27 21:00 | ESHP_ITS ---
Documentation for date of: 05/27/24 [facility] History of Present Illness History of present illness: Messi is a 83 y/o male with PMHx of ESRD on HD M/W/F via left brachiocephalic fistula, essential hypertension, hyperlipidemia, [id number] type 2 DM, history of multiple strokes, chronic diarrhea, HFrEF (~EF 40-45%), rectal mass s/p resection who comes in for evaluation for SOB, onset today, with associated of fever and chills. Pt reports that he was at dialysis today and was not tolerating it well and also had fever and chills and was told to go to the ED and he got half of a dialysis session. He says that his kidney doctor is Dr. Jenkins and he gets dialysis Friday. He also says that he went to go see his vascular surgeon on Friday who removed the sutures from his left AV fistula that he has had repair 3 times. He was also given antibiotic, Keflex for the fistula as well. He does report also multiple episodes of vomiting all day today brownish in color. He denies any syncope, diaphoresis, numbness, tingling or headache. Denies any sick contacts or recent travel. He says he was recently discharged from the hospital a week ago for similar symptoms. 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 Edison Pappas and has not seen him in several years. He denies having history of coronary artery disease, abnormal caths or echoes. He does not use a CPAP or oxygen at home. Does not take aspirin at home. No other complaints at this time. ED Course: Patient arrived to the ED with a temperature of 100.5, heart rate of 114, blood pressure of 207/102, saturating 90% on OxyMask. He was worked up and was found to have a potassium of 5, BUN/creatinine of 72 and 5.5 respectively, glucose 216, white count 12.2, hemoglobin 12, magnesium 2, phosphorus 6, lactate 2.3, troponin 0.054, BNP over 3000, Pro-Biju 4. Urine pending. EKG showed sinus rhythm, left atrial enlargement and right bundle branch block. Chest x-ray showed extensive bilateral pneumonia. Treatment was given including Zofran x 1, Lasix x 1, 500 mL of normal saline, Tylenol 1 g. Medicine was consulted and patient was admitted to floors. PMHx: As above Surgeries: AV fistula repair 3 times on left arm, had a AV fistula in the right arm as well. Meds: Lipitor 20, metoprolol XL 50, Aileen-Abrahan 0.8, Lasix 40, sevelamer 800, Keflex 500 Allergies: Latex Family Hx: Denies family history of medical problems including heart disease, diabetes, stroke Social Hx: Born in [facility], raised in [place]. 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 Lives with his , in [place]. Has positive drug history and heavy alcohol use history, no smoking history. Review of Systems Review of Systems Narrative Review of Systems: Constitutional: +fever, +chills, no fatigue, weakness, weight loss HEENT: No eye pain, vision loss, ear pain, hearing loss, dysphagia, Cardiovascular: No chest pain, palpitations, edema, pain with walking Respiratory: No cough, + shortness of breath, no wheezing GI: No NVD, abdominal pain, constipation, blood in stool, loss of appetite, heartburn Extremities: No presence of pitting edema MSK: No back pain, joint pain, joint swelling Neuro: No dizziness, numbness, weakness, headaches, seizures, tremors Psych: No anxiety, depression Exam Vital Signs Temp Pulse Resp BP Pulse Ox O2 Del Method O2 Flow Rate 102.6 F H 98 22 H 170/88 H 94 L Nasal Cannula 6 05/27/24 20:28 05/27/24 20:28 05/27/24 20:28 05/27/24 20:28 05/27/24 20:28 05/27/24 20:28 05/27/24 20:28 Narrative Exam General: AAOx2, NAD, does not look his age, able to answer some questions HEENT: Dry mucous membranes, conjunctiva clear, EOMI, PERRLA, Cardiovascular: Ejection systolic murmur RONAN radiates to carotids, radial pulses +2 bilat, RRR Pulmonary: Crackles auscultated upon bases of lungs bilat, no cough, on NC GI: No tenderness to light or deep palpitation, no guarding, rigidity, rebound tenderness or distension, abd soft Extremities: Trace edema in lower extremities bilaterally, dorsalis pedis pulses +2 bilaterally, LUE AV fistula, RUE has had previous AV fistula, multiple areas of senile purpura Neuro: AAOx2, no focal motor or sensory deficits in the UE or LE bilat, no nystagmus appreciated, pupillary reflex +2 bilat, has some Psych: Good judgement, thought and behavior Results: Labs 05/27/24 19:40 05/27/24 19:40 Labs: Short CBC 05/27/24 Range/Units 19:40 WBC 12.2 H D (3.8-10.6) Thou/mm3 Hgb 12.0 L (13.5-16.0) g/dL Hct 35.8 L (41.0-53.0) % Plt Count 184 (140-440) Thou/mm3 BMP 05/27/24 19:40 Sodium 135 L Potassium 5.0 Chloride 94 L Carbon Dioxide 24.9 BUN 72 H Creatinine 5.5 H* D Glucose 216 H Calcium 9.3 Cardiac Enzymes 05/27/24 05/27/24 Range/Units 19:40 19:40 Troponin I 0.054 H* Cancelled (0.0-0.045) ng/mL Liver Function 05/27/24 Range/Units 19:40 Total Bilirubin 0.2 L (0.3-1.2) mg/dL AST 108 H (0-34) U/L ALT 91 H (10-49) U/L Alkaline Phosphatase 127 H (46-116) U/L Albumin 4.4 (3.4-4.8) gm/dL Quality Measures Quality Measures VTE prophylaxis Advance care planning discussed with:: patient Medications Home Medications and Allergies Home Medications ?Medication ?Instructions ?Recorded ?Confirmed ?Type furosemide 40 mg tablet 40 mg PO BID 09/21/22 History metoprolol succinate 50 mg 50 mg PO DAILY 09/21/22 History tablet,extended release 24 hr vitamin B complex-vitamin C-folic 1 tab PO DAILY 09/2105/19/24 History acid 0.8 mg tablet (Aileen-Abrahan) Allergies Allergy/AdvReac Type Severity Reaction Status Date / Time latex Allergy Verified 05/20/24 01:09 Visit Medications Piperacillin/Tazobactam/Dextrose (Zosyn) 3.375 gm in 50 mls @ 12.5 mls/hr IV Q12HR [facility]; Protocol Stop: 06/04/24 08:59 Piperacillin/Tazobactam/Dextrose (Zosyn) 3.375 gm in 50 mls @ 100 mls/hr IV X1 ONE Stop: 05/27/24 21:29 Vancomycin/Sodium Chloride (Vancomycin/Ns 1 Gm Ivpb) 200 mls @ 120 mls/hr IV X1 ONE Stop: 05/27/24 22:39 Pharmacy Consult (Vancomycin Pharmacy To Dose 1 Each Each) 1 each IV QDAY SANTO Stop: 06/26/24 20:59 Discontinued Medications Furosemide (Furosemide Inj 10 Mg/Ml 4ml Vial) 40 mg IVP X1 ONE Stop: 05/27/24 19:12 Last Admin: 05/27/24 20:13 Dose: 40 mg Sodium Chloride (Ns) 1,845 mls @ 1,845 mls/hr 30 ml/kg infuse over 60 min (1845 ml) IV .Q1H ONE Stop: 05/27/24 20:12 Last Admin: 05/27/24 20:16 Dose: 1,845 mls/hr Acetaminophen (Ofirmev Inj) 1,000 mg in 100 mls @ 250 mls/hr IV X1 ONE Stop: 05/27/24 21:00 Last Admin: 05/27/24 20:50 Dose: 250 mls/hr Ondansetron HCl (Ondansetron Inj 2 Mg/Ml Inj 2 Ml) 4 mg IV X1 ONE Stop: 05/27/24 19:15 Last Admin: 05/27/24 20:12 Dose: 4 mg Assessment & Plan Plan Assessment Messi is a 83 y/o male with PMHx of ESRD on HD M/W/F via left brachiocephalic fistula, essential hypertension, hyperlipidemia, myo-dqgmylh-gpghgmpco type 2 DM, history of multiple strokes, chronic diarrhea, HFrEF (~EF 40-45%), rectal mass s/p resection who is admitted for sepsis 2/2 PNA #Acute on chronic hypoxic respiratory failure #Sepsis secondary to #Extensive bilat PNA Tachycardic, white count 12.2, Lactate: 2.3 qSOFA: 1 points 3 out of 4 SIRS criteria Sepsis due to 3/4 SIRS criteria with acute sepsis-related organ dysfunction as evidence by RYAN on ESRD Given Sepsis Bolus: 500 mL because of hx of ESRD and CHF Respiratory failure related to PNA and fluid overload Pt will need Pseudomonal coverage and MRSA coverage due to risk factors including DM2 and recent admissions Plan: ? Zosyn 3.375 mg Q8H IV ? Pharmacy to dose Vancomycin ? Follow-up urine cultures ? Follow-up blood cultures ? Follow up MRSA screen ? Oxygen, wean down as tolerated, maintain SpO2 above 92% #Hypertensive emergency, improving #Fluid overload #ESRD, HD MWF BP 207/102 on admission, only on metoprolol No ACEi/ARB due to hyperkalemia and ESRD BUN 72, Cr 5.5, K 5.0, phosphorus 6.0 Plan: ? Do not correct systolic blood pressure more than 25% within the first 24 hours ? Dialysis session tomorrow ? Resuming Lasix 20 mg IV ? Nephrology consulted, appreciate recs ? Trend electrolytes #Hx of HTN #Chronic Systolic Heart Failure with Reduced Ejection Fraction (EF 40?45%) History of HFrEF, elevated BNP >3280, currently hypertensive, on metoprolol and furosemide Plan: ? Continue guideline-directed medical therapy ? Not one ACEi/ARB due to history of hyperkalemia ? Avoid volume overload; adjust diuretics based on volume status and HD ? Monitor daily weights, BNP trends, and signs of decompensation #Hyperlipidemia On atorvastatin 20 mg LDL 46, Total ~100 Plan: ? Continue statin therapy ? Monitor LFTs, particularly with elevated AST/ALT ? Reassess lipid panel outpatient ? Goal LDL<70 #Non insulin dependent type II Diabetes mellitus A1c in February 2024 5.4 Plan: ? Sliding scale insulin ? Hypoglycemic protocol in place ? Blood sugar checks with meals #Health Maintenance Disposition: Telemetry DVT prophylaxis: Heparin q12h GI prophylaxis: None indicated at this time Diet: Renal after passes swallow eval CODE STATUS: Full Patient seen and care discussed with my attending physician, Dr. Lui Cho, PGY-1 Attending Provider Attestation/Addendum Pt was evaluated and plan formulated together with the housestaff team. I have reviewed the residents note above and agree with most of its content. Please refer to the residents note for additional details.
[2024-05-27] MEDS: PIPER/TAZO 3.375 GM PREMIX 3.375 GM/50 ML BAG IV (21:01)
--- NOTE | 2024-05-27 21:14 | PC.NURSE ---
Awaiting for phrmacy to dose [place]
--- NOTE | 2024-05-27 22:23 | PC.NURSE ---
Called pharmacist to dose Vancomycin.
[2024-05-27 22:48] LABS: Reflex Lactate? Y
[2024-05-27] MEDS: VANCOMYCIN/NS 1 GM IVPB 200 ML IV (22:48)
[2024-05-27 23:33] LABS: Lactic Acid, 3 HR 1.5 mMol/L (0.4-2.0)
[2024-05-28] VITALS (27 sets, daily range): BP systolic 120–163; BP diastolic 60–88; PULSE 60–95; RESP 14–30; TEMP 36.6–37.3; O2SAT 95–989; BMI 25.2
--- NOTE | 2024-05-28 00:50 | XR_ITS ---
Examination: Abdomen sonogram, Limited Date and time of exam: May 28, 2024 0200 hours INDICATIONS: Elevated liver enzymes on laboratory examination May 27, 2024 Technique: Real-time german scale transabdominal sonographic images of the upper abdomen obtained. Findings: Normal gallbladder Normal common bile duct 0.3 cm Pancreatic head 2.1 cm Liver 15.1 cm fatty infiltration Normal hepatopedal portal venous flow Patent IVC IMPRESSION: Normal gallbladder Fatty liver
[2024-05-28 01:29] LABS: Alcohol, Blood Medical < 3.0 mg/dL (0-10.0)
[2024-05-28 02:23] LABS: Hepatitis A Antibody IgM Non Reactive (Non React); Hepatitis B Core Antibody IgM Non Reactive (Non React); Hepatitis B Surface Antigen Non Reactive (Non React); Hepatitis C Antibody Non Reactive (Non React)
[2024-05-28 04:37] LABS: Lactate (Lactic Acid) 1.8 mMol/L (0.4-2.0)
[2024-05-28 04:43] LABS: Basophils % (Auto) 0 % (0-2.5); Eosinophils % (Auto) 0 % (0-10); Hematocrit 30.8 % (41.0-53.0); Hemoglobin 10.5 g/dL (13.5-16.0); Immature Granulocytes % (Auto) 0 % (0-0); Immature Granulocytes Auto 0.04 Thou/mm3 (0.00-0.00); Lymphocytes # (Auto) 0.6 Thou/mm3 (1.0-4.8); Lymphocytes % (Auto) 7 % (10-50); Mean Corpuscular HGB Conc 34.1 g/dl (31.0-37.0); Mean Corpuscular Volume 97 fL (80-100); Monocytes # (Auto) 0.9 Thou/mm3 (0.0-0.8); Monocytes % (Auto) 10 % (0-12); Neutrophils # (Auto) 7.6 Thou/mm3 (1.8-7.7); Neutrophils % (Auto) 83 % (37-80); Nucleated Red Blood Cell % 0 /100 WBC (0); Platelet Count 172 Thou/mm3 (140-440); RDW Standard Deviation 55.9 fL (35.1-43.9); Red Blood Count 3.18 Miln/mm3 (4.50-5.90); White Blood Count 9.1 Thou/mm3 (3.8-10.6)
--- NOTE | 2024-05-28 04:47 | PRELIM_ITS ---
Ultrasound liver with doppler and wave doppler spectral analysis. May 28, 2024 at 0200 hours Clinical history: Elevated liver enzyme. Comparison: None. Findings: Hyperechoic liver. The liver measures 15.1 cm. There is no intrahepatic biliary ductal dilatation. The common hepatic duct is normal in caliber. The CBD measures 2.9 mm. The pancreas is within normal limits. The portal vein is patent with hepatopetal flow and normal wave Doppler spectral analysis. The hepatic veins are patent with hepatopetal flow and normal wave Doppler spectral analysis. The inferior vena cava is patent. Impression: Liver steatosis. Consider steatohepatitis in the differential diagnosis. Report Electronically Signed By: Marvin Mcguire 05/28/2024 4:46:52 AM [EST]
[2024-05-28 05:04] LABS: Partial Thromboplastin Time 28.5 Seconds (22.0-36.0); Prothrombin Time 11.3 Seconds (9.0-12.2)
[2024-05-28 05:11] LABS: Alanine Aminotransferase 65 U/L (10-49); Albumin/Globulin Ratio 1.5 (1.2-2.2); Alkaline Phosphatase 91 U/L (46-116); Anion Gap 15 (7-16); Aspartate Amino Transferase 67 U/L (0-34); BUN/Creatinine Ratio 13 Ratio (12-20); Bilirubin,Total 0.3 mg/dL (0.3-1.2); Blood Urea Nitrogen 75 mg/dL (9-23); Calcium 8.9 mg/dL (8.3-10.6); Calcium (Corrected) 8.9 mg/dL (8.5-10.1); Carbon Dioxide 24.1 mMol/L (20.0-31.0); Chloride 96 mMol/L (98-107); Creatinine (Component) 5.7 mg/dL (0.6-1.3); Estimated Creatinine Clearance 8.5 mL/min (>60); Globulin 2.7 gm/dL (2.3-3.5); Glucose 133 mg/dL (74-106); Osmolality,Calculated 294 (275-295); Phosphorous 6.7 mg/dL (2.4-5.1); Potassium 5.3 mMol/L (3.4-5.1); Sodium 135 mMol/L (136-145); Thyroid Stimulating Hormone 1.29 uIU/mL (0.55-4.78); Total Protein 6.7 gm/dL (5.7-8.2); eGFR 9 See Note
[2024-05-28] MEDS: SEVELAMER CARBONATE 800 MG TABLET PO ×3 (05:31→21:19)
[2024-05-28] MEDS: VIT B12/Vit C/FA (Nephrovite) TABLET 1 TAB PO (08:18)
[2024-05-28] MEDS: HEPARIN SOD INJ 5000 UNIT/ML VIAL SC ×2 (08:18→20:30)
[2024-05-28] MEDS: ACETAMINOPHEN 325 MG TABLET 650 MG PO (08:18)
[2024-05-28] MEDS: EPOETIN ALFA-EPBX INJ 10,000 UNIT/ML VIAL (ESRD) 10000 UNIT SC (09:52)
--- NOTE | 2024-05-28 10:46 | PC.SS ---
Patient receiving dialysis today.
[2024-05-28 11:48] LABS: Troponin I 0.408 ng/mL (0.0-0.045)
[2024-05-28 12:01] LABS: Cocci Serology, IgM Negative (Negative)
[2024-05-28] MEDS: VANCOMYCIN/NS 1 GM IVPB 200 ML IV (14:17)
--- NOTE | 2024-05-28 14:22 | ESPR_ITS ---
<Statement entered by Rhonda Perdomo MD - 05/29/24 09:18> Patient was seen and examined by me personally. I have directly supervised and reviewed documentation by the team resident and agree with its findings with any exceptions or additional findings as below. Plan of care was discussed with the attending, Dr. Castaneda. Overnight admission. 83-year-old male with past medical history of ESRD on HD M/W/F via left brachiocephalic fistula, essential hypertension, hyperlipidemia, non-insulin dependent type 2 diabetes, history of multiple strokes, chronic diarrhea, HFrEF (40-45% 2021), rectal mass s/p resection who presented to the ED on 05/27/2024 for evaluation of SOB with associated fever and chills for 1 day. Patient also was recently admitted 05/19/2024-05/21/2024 for suspected fistula site infection, was treated with IV Zosyn and vancomycin, and was subsequently discharged with 5 more days of cephalexin. Blood cultures at that time were negative. This time the patient is coming in with patchy infiltrate on CXR showing extensive bilateral pneumonia. Will treat with empiric IV Zosyn, vancomycin, await cultures, O2 as needed. Cocci serology sent as patient had not been tested in the past. Patient is also complaining of chronic diarrhea, for which GI was consulted last admission but patient had refused colonoscopy. Stool studies were negative, ANCA studies pending. Ordered tissue transglutaminase and calprotectin. Rhonda Perdomo, PGY-2 Documentation for date of: 05/28/24 Subjective Subjective Interval history: 05/28/2024: Overnight admission for 83-year-old male with past medical history of ESRD on HD (M WF), hypertension, [id number] type 2 diabetes, HFrEF (EF 40 to 45%), chronic diarrhea who presented to the ED with shortness of breath. Patient was admitted and is being treated for bilateral pneumonia with broad-spectrum IV antibiotics with blood, sputum and urine cultures pending. Patient also is completing dialysis with Dr. Jenkins along with IV diuretics for history of HFrEF with likely acute exacerbation. Patient has elevated troponin which is currently being trended as the patient also has some chest tightness/pressure-like sensation without any concerning EKG changes noted. Will continue to monitor the patient for any acute changes. Exam Vital Signs Temp Pulse Resp BP Pulse Ox O2 Del Method O2 Flow Rate 98.1 F 76 14 138/73 H 95 Nasal Cannula 3 05/28/24 12:50 05/28/24 12:50 05/28/24 12:50 05/28/24 12:50 05/28/24 12:50 05/28/24 12:50 05/28/24 12:50 Narrative Exam Physical Exam: GENERAL: Awake, aswering questions appropriately, appears stated age HEENT: NC/AT. Moist mucosa. PERRLA/EOMI. CARDIO: Heart RRR, IV/ systolic murmur heard at L sternal border, no JVD. PULM: No coughing or visible SOB. Lungs CTA B/L. GI: Abdomen soft, NT/ND, +BS. SKIN/MSK/EXT: L brachiocephalic AVF. No wounds/discoloration/rashes/edema/amputations. +Pedal pulses present B/L. NEURO: Oriented x3, no focal neurological deficits noted. Moves extremities x4. Objective Labs 05/28/24 04:27 05/28/24 04:27 Labs: Laboratory Results - last 24 hr 05/27/24 05/27/24 05/27/24 19:40 19:40 19:40 WBC 12.2 H D RBC 3.67 L Hgb 12.0 L Hct 35.8 L MCV 98 MCH 32.7 MCHC 33.5 RDW Std Deviation 55.8 H Plt Count 184 Neut % (Auto) 89 H Lymph % (Auto) 3 L Walsh % (Auto) 7 Eos % (Auto) 0 Baso % (Auto) 1 Neut # (Auto) 10.9 H Lymph # (Auto) 0.4 L Walsh # (Auto) 0.8 Eos # (Auto) 0.0 Baso # (Auto) 0.1 Immature Gran # (Auto) 0.07 H Absolute Nucleated RBC 0.00 Immature Gran % 1 H Nucleated RBC % 0 PT 11.2 INR 1.0 APTT 26.2 Sodium 135 L Potassium 5.0 Chloride 94 L Carbon Dioxide 24.9 Anion Gap 16 BUN 72 H Creatinine 5.5 H* D Estim Creat Clear Calc 8.9 L eGFR 10 L* BUN/Creatinine Ratio 13 Glucose 216 H Calculated Osmolality 298 H Lactic Acid 2.3 H Calcium 9.3 Corrected Calcium 9.3 Phosphorus 6.0 H Magnesium 2.0 Total Bilirubin 0.2 L AST 108 H ALT 91 H Alkaline Phosphatase 127 H Lactate Dehydrogenase 286 H Troponin I 0.054 H* Cancelled B-Natriuretic Peptide > 3280 H* Total Protein 7.3 Albumin 4.4 Globulin 2.9 Albumin/Globulin Ratio 1.5 Lipase 41 Procalcitonin 3.96 H Cancelled TSH Ur Collection Type Urine Color Urine Clarity Urine pH Ur Specific [place] Urine Protein Urine Glucose (UA) Urine Ketones Urine Blood Urine Nitrite Urine Bilirubin Urine Urobilinogen (Auto) Ur Leukocyte Esterase Urine RBC Urine WBC Ur Squamous Epith Cells Urine Bacteria Hyaline Casts Ethyl Alcohol Coccidioides IgM Ab Hepatitis A IgM Ab Hep Bs Antigen Hep B Core IgM Ab Hepatitis C Antibody 05/27/24 05/27/24 05/28/24 20:24 23:09 01:04 WBC RBC Hgb Hct MCV MCH MCHC RDW Std Deviation Plt Count Neut % (Auto) Lymph % (Auto) Walsh % (Auto) Eos % (Auto) Baso % (Auto) Neut # (Auto) Lymph # (Auto) Walsh # (Auto) Eos # (Auto) Baso # (Auto) Immature Gran # (Auto) Absolute Nucleated RBC Immature Gran % Nucleated RBC % PT INR APTT Sodium Potassium Chloride Carbon Dioxide Anion Gap BUN Creatinine Estim Creat Clear Calc eGFR BUN/Creatinine Ratio Glucose Calculated Osmolality Lactic Acid 1.5 Calcium Corrected Calcium Phosphorus Magnesium Total Bilirubin AST ALT Alkaline Phosphatase Lactate Dehydrogenase Troponin I B-Natriuretic Peptide Total Protein Albumin Globulin Albumin/Globulin Ratio Lipase Procalcitonin TSH Ur Collection Type Clean Catch Urine Color Lt-Yellow Urine Clarity Clear Urine pH 8.0 H Ur Specific [place] 1.013 Urine Protein 3+ A Urine Glucose (UA) 3+ A Urine Ketones Negative Urine Blood Trace Urine Nitrite Negative Urine Bilirubin Negative Urine Urobilinogen (Auto) Negative Ur Leukocyte Esterase Negative Urine RBC 6 H Urine WBC 2 Ur Squamous Epith Cells 0 Urine Bacteria None Hyaline Casts < 1 Ethyl Alcohol < 3.0 Coccidioides IgM Ab Hepatitis A IgM Ab Non Reactive Hep Bs Antigen Non Reactive Hep B Core IgM Ab Non Reactive Hepatitis C Antibody Non Reactive 05/28/24 05/28/24 05/28/24 04:27 09:07 11:03 WBC 9.1 RBC 3.18 L Hgb 10.5 L Hct 30.8 L MCV 97 MCH 33.0 MCHC 34.1 RDW Std Deviation 55.9 H Plt Count 172 Neut % (Auto) 83 H Lymph % (Auto) 7 L Walsh % (Auto) 10 Eos % (Auto) 0 Baso % (Auto) 0 Neut # (Auto) 7.6 Lymph # (Auto) 0.6 L Walsh # (Auto) 0.9 H Eos # (Auto) 0.0 Baso # (Auto) 0.0 Immature Gran # (Auto) 0.04 H Absolute Nucleated RBC 0.00 Immature Gran % 0 Nucleated RBC % 0 PT 11.3 INR 1.0 APTT 28.5 Sodium 135 L Potassium 5.3 H Chloride 96 L Carbon Dioxide 24.1 Anion Gap 15 BUN 75 H Creatinine 5.7 H* Estim Creat Clear Calc 8.5 L eGFR 9 L* BUN/Creatinine Ratio 13 Glucose 133 H D Calculated Osmolality 294 Lactic Acid 1.8 Calcium 8.9 Corrected Calcium 8.9 Phosphorus 6.7 H Magnesium 2.0 Total Bilirubin 0.3 AST 67 H ALT 65 H Alkaline Phosphatase 91 D Lactate Dehydrogenase Troponin I 0.350 H* D 0.408 H* B-Natriuretic Peptide Total Protein 6.7 Albumin 4.0 Globulin 2.7 Albumin/Globulin Ratio 1.5 Lipase Procalcitonin TSH 1.29 Ur Collection Type Urine Color Urine Clarity Urine pH Ur Specific [place] Urine Protein Urine Glucose (UA) Urine Ketones Urine Blood Urine Nitrite Urine Bilirubin Urine Urobilinogen (Auto) Ur Leukocyte Esterase Urine RBC Urine WBC Ur Squamous Epith Cells Urine Bacteria Hyaline Casts Ethyl Alcohol Coccidioides IgM Ab Negative Hepatitis A IgM Ab Hep Bs Antigen Hep B Core IgM Ab Hepatitis C Antibody Quality Measures Quality Measures VTE prophylaxis Advance care planning discussed with:: patient and spouse Assessment & Plan Assessment Current Active Medications: Generic Name Dose Route Start Last Admin Trade Name Freq PRN Reason Stop Dose Admin Acetaminophen 650 mg 05/27/24 22:12 05/28/24 08:18 Acetaminophen 325 Mg Tablet PO 06/26/24 22:11 650 mg Q6H PRN Administration Fever >100 or pain 1-3 Dextrose 25 ml 05/27/24 22:18 Dextrose 50%-Water Inj 50 Ml Syringe IV 06/26/24 22:17 Q15MIN PRN BG 50-70 responsive npo pt Dextrose 50 ml 05/27/24 22:18 Dextrose 50%-Water Inj 50 Ml Syringe IV 06/26/24 22:17 Q15MIN PRN BG <50 OR BG <70 & pt unresponsive Furosemide 40 mg 05/28/24 09:00 05/28/24 08:24 Furosemide Inj 10 Mg/Ml 4ml Vial IVP 06/27/24 08:59 Not Given BID SANTO Glucagon 1 mg 05/27/24 22:18 Glucagon Inj 1 Mg Vial IM Q15MIN PRN BG <70, and no IV access Heparin Sodium (Porcine) 5,000 unit 05/28/24 09:00 05/28/24 08:18 Heparin Sod Inj 5000 Unit/Ml Vial SC 06/11/24 08:59 5,000 unit Q12H SANTO Administration Piperacillin/Tazobactam/Dextrose 3.375 gm in 50 mls @ 12.5 mls/hr 05/28/24 09:00 05/28/24 08:27 Zosyn IV 06/04/24 08:59 Not Given Q12HR [facility] Protocol Vancomycin/Sodium Chloride 200 mls @ 120 mls/hr 05/28/24 14:00 05/28/24 14:17 Vancomycin/Ns 1 Gm Ivpb IV 05/28/24 15:39 120 mls/hr X1 ONE Administration Insulin Human Lispro 0 unit 05/28/24 07:30 05/28/24 13:04 Insulin Lispro (Admelog) 1 Unit/0.01 Ml Unit SC 06/27/24 07:29 Not Given AC [facility] Protocol Pharmacy Consult 1 each 05/27/24 21:00 Vancomycin Pharmacy To Dose 1 Each Each IV 06/26/24 20:59 QDAY [facility] Sevelamer Carbonate 800 mg 05/28/24 06:00 05/28/24 14:03 Sevelamer Carbonate 800 Mg Tablet PO 06/27/24 05:59 800 mg TID SANTO Administration Vitamin B Complex/Vit C/Folic Acid 1 tab 05/28/24 09:00 05/28/24 08:18 Vit B12/Vit C/Fa (Nephrovite) Tablet PO 06/27/24 08:59 1 tab QDAY [facility] Administration Plan 83-year-old male with past medical history of ESRD on HD M/W/F via left brachiocephalic fistula, essential hypertension, hyperlipidemia, [id number] type 2 DM, history of multiple strokes, chronic diarrhea, HFrEF (~EF 40-45%), rectal mass s/p resection who is admitted for acute on chronic hypoxic respiratory failure secondary to bilateral pneumonia, volume overloaded secondary to ESRD and elevated troponin likely secondary to NSTEMI type II versus type I. #Acute hypoxic respiratory failure #Sepsis secondary to extensive bilateral pneumonia Patient notes that after dialysis session on Friday, he felt suddenly short of breath and thought he was going to pass away at home Patient was recently discharged from the hospital for febrile illness likely secondary to cellulitis from AV fistula site and discharged with oral antibiotics In the ED, patient presented septic with the following: Tachycardic, white count 12.2, Lactate: 2.3. qSOFA: 1 points. 3 out of 4 SIRS criteria Sepsis due to 3/4 SIRS criteria with acute sepsis-related organ dysfunction as evidence by RYAN on ESRD Chest x-ray showed diffuse significant bilateral pneumonia with mild prominence of the cardiac contour and moderate vascular congestion Respiratory failure related to PNA and fluid overload Plan: Continue IV Zosyn and vancomycin, pseudomonal coverage initiated as the patient has recent hospitalization Follow-up on blood, urine, sputum cultures and MRSA screen Oxygen, wean down as tolerated, maintain SpO2 above 92% #Elevated troponin Likely NSTEMI type II versus type I Patient did present with hypertensive emergency, volume overloaded secondary to ESRD Patient is currently having some chest tightness/pressure-like sensation which is present even with and without deep inspiration EKG does not show any concerning ST changes and is similar to previous EKGs Troponin initially was 0.054 and has been up trended to 0.350 and 0.408 Plan: Trending troponin Treating hypertensive emergency along with pneumonia and dialysis for ESRD #Hypertensive emergency, improving #Fluid overload #ESRD, HD MWF Patient is on home furosemide 40 mg p.o. twice daily and metoprolol succinate 50 mg p.o. daily BP 207/102 on admission No ACEi/ARB due to hyperkalemia and ESRD BUN 72, Cr 5.5, K 5.0, phosphorus 6.0 Plan: Dialysis completed with Dr. Jenkins Blood pressure within goal for 24 hours On IV Lasix 40 mg twice daily Nephrology consulted, appreciate recs Monitor with morning labs #Hx of HTN #Chronic Systolic Heart Failure with Reduced Ejection Fraction (EF 40?45%) History of HFrEF, elevated BNP >3280, currently hypertensive, on metoprolol and furosemide Plan: Not one ACEi/ARB due to history of hyperkalemia On IV Lasix 40 mg twice daily Avoid volume overload; adjust diuretics based on volume status and HD Monitor daily weights Strict I's and O's #Elevated liver function enzymes #Metabolic associated steatotic liver disease Patient presented with elevated AST, ALT Likely secondary to acutely ill status versus primary hepatocellular disease Hepatitis panel is negative Liver ultrasound shows normal gallbladder and fatty liver Plan: Monitor liver function #Hyperlipidemia On atorvastatin 20 mg LDL 46, Total ~100 Plan: Continue statin therapy Goal LDL<70 #Non insulin dependent type II Diabetes mellitus A1c in February 2024 5.4 Plan: Sliding scale insulin Hypoglycemic protocol in place Blood sugar checks with meals Hospital management: Lines: PIV Diet: Renal Bowel: Senna GI prophylaxis: Not needed DVT prophylaxis: Heparin subcu Dispo: IV antibiotics for bilateral pneumonia, dialysis for ESRD and trending troponin Code: Full Patient seen and examined with attending Dr. Castaneda and senior resident Dr. Leanne Dominguez, PGY-1 Attending Provider Attestation/Addendum I attest that I was physically present for the evaluation, physical examination, lab and imaging review of the patient with the residents. I discussed the case with the residents and agree with the findings and plans of care as documented above. Patient is an 83 years old male with past medical history of ESRD on hemodialysis, hypertension, hyperlipidemia, diabetes, CVA, chronic diarrhea, HFrEF and rectal mass who presented to the ED with fever, chills and was admitted overnight for management of acute on chronic hypoxic respiratory failure and sepsis secondary to bilateral pneumonia. Continues to be on IV Zosyn and vancomycin. Currently on 3 L nasal cannula, saturating well. Underwent hemodialysis today with nephrology, tolerated well. We will also continue with IV Lasix. Patient noted to have elevated troponin, continue to trend and monitor for new symptoms. Continues to be on a statin for hyperlipidemia and insulin regimen for diabetes. Pending culture results. Shanta Castaneda MD
--- NOTE | 2024-05-28 16:07 | PC.PT ---
Patient was approached for PT eval at ~15:00. When PT approached patient was already standing and using the bathroom with the SENIOR MARKETING ASSOCIATE supervising. Patient and SENIOR MARKETING ASSOCIATE reported he had been up to the bathroom multiple times already and was not using any DME. The SENIOR MARKETING ASSOCIATE was there to manage the IV pole only. PT observed patient transfer from the toilet to standing and then ambulate back to bed with no assistance. Patient is xI. Will cancel PT eval.
--- NOTE | 2024-05-28 16:45 | PD.RESCONSUL ---
HPI Data of Consult Consult date: 05/28/24 Requesting Physician: Shanta Castaneda MD Admitting Provider: Perez Poe MD Attending Provider: Shanta Castaneda MD Primary Care Provider: Bethanie Jenkins MD Consult Narrative Reason for consult: ESRD on HD History of present illness: 83-year-old male with past medical history of hypertension, hyperlipidemia, type 2 diabetes mellitus, ESRD on HD [M/W/F], history of multiple strokes, chronic diarrhea, rectal mass s/p resection, HFrEF presented to the hospital with chief complaints of shortness of breath, fever with chills for 1 day. Patient stated that he was at dialysis center and was not able to tolerate it and also developed fever and chills due to which patient was referred to the ED in the middle of the dialysis session. Also stated that he recently saw vascular surgeon 3 days back for suture removal and also got treated with Keflex for the suspicion of fistula site infection. Patient denied chest pain, nausea, vomiting, palpitations. Patient had recent hospitalization 8 days ago as he missed his dialysis session and for suspected fistula site infection, fever ED course: -Initial vitals at the time of admission are blood pressure 207/102 mmHg, pulse rate 114 bpm, respiratory rate 19/min, temperature 101.5 ?F, SpO2 98% with 6 L oxygen -Labs at the time of admission showed WBC 12.2, Hb 12, platelets 184, sodium 135, potassium 5, BUN 72, creatinine 5.5 -Chest x-ray showed bilateral moderate to severe vascular congestion Nephrology is consulted for hemodialysis as patient is having ESRD cc:: cc: Shanta Castaneda MD Review of Systems Review of Systems Systems Reviewed: All systems reviewed, normal except as documented Past Medical History Past Medical History NEUROLOGIC: Positive Neurological Disorders and Cerebrovascular Accident; Negative Seizures CARDIAC: Positive Cardiac Disorders, Hypercholesterolemia, Edema and Hypertension; Negative Congestive Heart Failure RESPIRATORY: Negative Chronic Obstructive Pulmonary Disease (COPD) or Asthma GASTROINTESTINAL: Positive Gastrointestinal Disorders, Gastrointestinal Bleed, Colorectal Cancer and Gastroesophageal Reflux Disease GENITOURINARY: Positive Genitourinary Disorders, Renal Disease and Dialysis MUSCULOSKELETAL: Positive Fractures; Negative Musculoskeletal Disorders ENT: Positive Cataracts ENDOCRINE: Positive Endocrine Disorders and Diabetes Mellitus Type 2; Negative Diabetes Mellitus Type 1 HEMATOLOGIC: Negative Blood Disorders, Sickle Cell Disease or Clotting Problems OTHER HISTORY: Positive Hospitalization, Falls, Chicken Pox, Measles, Cancer and Colorectal Cancer; Negative Autoimmune Disease, Shingles, Blood Transfusions, Blood Transfusion Reaction, Anesthesia Reactions or MRSA Family History FAMILY HISTORY: Negative Family Psychiatric Problems, Family Respiratory Disorders, Family Cardiac Disorders, Family Gastrointestinal Problems, Family Cancer, Family Surgery or Family Anesthesia Reaction Surgical History SURGICAL: Positive Amputation Social History SMOKING STATUS: Former smoker SECOND HAND EXPOSURE: No SUBSTANCE USE: does not use Exam Vital Signs Temp Pulse Resp BP Pulse Ox O2 Del Method O2 Flow Rate 98.1 F 76 14 138/73 H 95 Nasal Cannula 3 05/28/24 12:50 05/28/24 12:50 05/28/24 12:50 05/28/24 12:50 05/28/24 12:50 05/28/24 12:50 05/28/24 12:50 Narrative Exam General: Awake. HEENT: Normocephalic, atraumatic, mucous membranes moist. Heart: Regular rate and rhythm, systolic murmur in the aortic area Lungs: Clear to auscultation with no wheezing or crackles. Abdomen: Soft, nondistended, nontender, positive bowel sounds. ?No guarding or rebound tenderness. Neurologic: Alert and oriented x3, no gross neurological deficit, and patient able to move all 4 extremities. Extremities: No edema. fistula in the left upper extremity Skin: No rash or ecchymoses. Results Labs 05/29/24 05:28 05/29/24 05:28 Labs: Short CBC 05/27/24 05/28/24 Range/Units 19:40 04:27 WBC 12.2 H D 9.1 (3.8-10.6) Thou/mm3 Hgb 12.0 L 10.5 L (13.5-16.0) g/dL Hct 35.8 L 30.8 L (41.0-53.0) % Plt Count 184 172 (140-440) Thou/mm3 BMP 05/27/24 05/28/24 19:40 04:27 Sodium 135 L 135 L Potassium 5.0 5.3 H Chloride 94 L 96 L Carbon Dioxide 24.9 24.1 BUN 72 H 75 H Creatinine 5.5 H* D 5.7 H* Glucose 216 H 133 H D Calcium 9.3 8.9 Cardiac Enzymes 05/27/24 05/27/24 05/28/24 Range/Units 19:40 19:40 04:27 Troponin I 0.054 H* Cancelled 0.350 H* D (0.0-0.045) ng/mL 05/28/24 Range/Units 11:03 Troponin I 0.408 H* (0.0-0.045) ng/mL Liver Function 05/27/24 05/28/24 Range/Units 19:40 04:27 Total Bilirubin 0.2 L 0.3 (0.3-1.2) mg/dL AST 108 H 67 H (0-34) U/L ALT 91 H 65 H (10-49) U/L Alkaline Phosphatase 127 H 91 D (46-116) U/L Albumin 4.4 4.0 (3.4-4.8) gm/dL Urine 05/27/24 Range/Units 20:24 Urine Color Lt-Yellow (Lt Yel-Yel) Urine Clarity Clear (Clear/Hazy) Urine pH 8.0 H (5.0-7.0) Ur Specific [place] 1.013 (1.001-1.035) Urine Protein 3+ A (Neg - Trace) Urine Glucose (UA) 3+ A (Negative) Quality Measures Quality Measures VTE prophylaxis Advance care planning discussed with:: patient Medications Home Medications and Allergies Home Medications ?Medication ?Instructions ?Recorded ?Confirmed ?Type furosemide 40 mg tablet 40 mg PO BID 09/21/22 05/28/24 History metoprolol succinate 50 mg 50 mg PO DAILY 09/21/22 05/28/24 History tablet,extended release 24 hr vitamin B complex-vitamin C-folic 1 tab PO DAILY 09/21/22 05/28/24 History acid 0.8 mg tablet (Aileen-Abrahan) sevelamer carbonate 800 mg tablet 800 mg PO TID 05/28/24 05/28/24 History Allergies Allergy/AdvReac Type Severity Reaction Status Date / Time latex Allergy Verified 05/20/24 01:09 Visit Medications Acetaminophen (Acetaminophen 325 Mg Tablet) 650 mg PO Q6H PRN PRN Reason: Fever >100 or pain 1-3 Stop: 06/26/24 22:11 Last Admin: 05/28/24 08:18 Dose: 650 mg Dextrose (Dextrose 50%-Water Inj 50 Ml Syringe) 25 ml IV Q15MIN PRN PRN Reason: BG 50-70 responsive npo pt Stop: 06/26/24 22:17 Dextrose (Dextrose 50%-Water Inj 50 Ml Syringe) 50 ml IV Q15MIN PRN PRN Reason: BG <50 OR BG <70 & pt unresponsive Stop: 06/26/24 22:17 Furosemide (Furosemide Inj 10 Mg/Ml 4ml Vial) 40 mg IVP BID [facility] Stop: 06/27/24 08:59 Last Admin: 05/28/24 08:24 Dose: Not Given Glucagon (Glucagon Inj 1 Mg Vial) 1 mg IM Q15MIN PRN PRN Reason: BG <70, and no IV access Heparin Sodium (Porcine) (Heparin Sod Inj 5000 Unit/Ml Vial) 5,000 unit SC Q12H SANTO Stop: 06/11/24 08:59 Last Admin: 05/28/24 08:18 Dose: 5,000 unit Piperacillin/Tazobactam/Dextrose (Zosyn) 3.375 gm in 50 mls @ 12.5 mls/hr IV Q12HR [facility]; Protocol Stop: 06/04/24 08:59 Last Admin: 05/28/24 08:27 Dose: Not Given Insulin Human Lispro (Insulin Lispro (Admelog) 1 Unit/0.01 Ml Unit) 0 unit SC AC SANTO; Protocol Stop: 06/27/24 07:29 Last Admin: 05/28/24 13:04 Dose: Not Given Pharmacy Consult (Vancomycin Pharmacy To Dose 1 Each Each) 1 each IV QDAY [facility] Stop: 06/26/24 20:59 Last Admin: 05/28/24 14:28 Dose: Not Given Sennosides (Senna Tablet) 1 tab PO QDAY [facility]; Protocol Stop: 06/28/24 08:59 Sevelamer Carbonate (Sevelamer Carbonate 800 Mg Tablet) 800 mg PO TID SANTO Stop: 06/27/24 05:59 Last Admin: 05/28/24 14:03 Dose: 800 mg Vitamin B Complex/Vit C/Folic Acid (Vit B12/Vit C/Fa (Nephrovite) Tablet) 1 tab PO QDAY SANTO Stop: 06/27/24 08:59 Last Admin: 05/28/24 08:18 Dose: 1 tab Discontinued Medications Atorvastatin Calcium (Atorvastatin Calcium 20 Mg Tablet) 20 mg PO HS SANTO Stop: 06/27/24 20:59 Epoetin Francisco (Epoetin Francisco-Epbx Inj 10,000 Unit/Ml Vial (Esrd)) 10,000 unit SC X1 ONE Stop: 05/28/24 10:01 Last Admin: 05/28/24 09:52 Dose: 10,000 unit Furosemide (Furosemide Inj 10 Mg/Ml 4ml Vial) 40 mg IVP X1 ONE Stop: 05/27/24 19:12 Last Admin: 05/27/24 20:13 Dose: 40 mg Furosemide (Furosemide Inj 10 Mg/Ml 4ml Vial) 20 mg IVP QDAY SANTO Stop: 06/27/24 08:59 Sodium Chloride (Ns) 1,845 mls @ 1,845 mls/hr 30 ml/kg infuse over 60 min (1845 ml) IV .Q1H ONE Stop: 05/27/24 20:12 Last Infusion: 05/27/24 21:00 Dose: 999 mls/hr Acetaminophen (Ofirmev Inj) 1,000 mg in 100 mls @ 250 mls/hr IV X1 ONE Stop: 05/27/24 21:00 Last Infusion: 05/27/24 21:14 Dose: Infused Piperacillin/Tazobactam/Dextrose (Zosyn) 3.375 gm in 50 mls @ 100 mls/hr IV X1 ONE Stop: 05/27/24 21:29 Last Infusion: 05/27/24 21:31 Dose: Infused Vancomycin/Sodium Chloride (Vancomycin/Ns 1 Gm Ivpb) 200 mls @ 120 mls/hr IV X1 ONE Stop: 05/27/24 22:39 Last Infusion: 05/28/24 00:29 Dose: Infused Vancomycin/Sodium Chloride (Vancomycin/Ns 1 Gm Ivpb) 200 mls @ 120 mls/hr IV X1 ONE Stop: 05/28/24 15:39 Last Admin: 05/28/24 14:17 Dose: 120 mls/hr Ondansetron HCl (Ondansetron Inj 2 Mg/Ml Inj 2 Ml) 4 mg IV X1 ONE Stop: 05/27/24 19:15 Last Admin: 05/27/24 20:12 Dose: 4 mg Assessment & Plan Plan 83-year-old male with past medical history of hypertension, hyperlipidemia, type 2 diabetes mellitus, ESRD on HD [M/W/F], history of multiple strokes, chronic diarrhea, rectal mass s/p resection, HFrEF presented to the hospital with chief complaints of shortness of breath, fever with chills for 1 day and nephrology is consulted for HD as patient is having ESRD # ESRD on HD Likely due to diabetes mellitus and hypertension -Patient was referred to the ED as he was noted to have fever and shortness of breath in the middle of dialysis -Labs at the time of admission showed WBC 12.2, Hb 12, platelets 184, sodium 135, potassium 5, BUN 72, creatinine 5.5 -Chest x-ray showed bilateral moderate to severe vascular congestion Plan -Received HD today for 2-hour 36 minutes and patient tolerated well -Avoid nephrotoxic medications and renally dose medications -Will continue to do dialysis as per his routine schedule #Hypertensive urgency, resolved # History of hypertension -Blood pressure at the time of admission is 207/102 mmHg -Blood pressure appears to be well-controlled as of 05/28/2024 plan -HD is done today -Patient is using metoprolol and furosemide at home -Started on renal diet and recommended to add antihypertensives based on his blood pressures -Monitor blood pressures and titrate medications accordingly # Anemia, normocytic normochromic -Patient seems to have chronic anemia since 2021, likely due to anemia of chronic kidney disease -Will give erythropoietin during the dialysis #Acute hypoxic respiratory failure #Sepsis secondary to extensive bilateral pneumonia #Elevated troponin #Chronic Systolic Heart Failure with Reduced Ejection Fraction (EF 40?45%) #Elevated liver function enzymes #Metabolic associated steatotic liver disease #Hyperlipidemia #Non insulin dependent type II Diabetes mellitus -Rest of the medical conditions to be treated as per primary team Thank you for allowing us to involved in the care of the patient Patient plan of care was discussed with the attending physician, Dr. Alice Coleman, PGY1 Attending Provider Attestation/Addendum Patient seen and examined with resident physician Dr. Hernandez. Note reviewed, agree with findings and recommendations. Patient admitted with weakness, hypoxic respiratory failure secondary to pneumonia. patient currently seen on dialysis. Tolerating dialysis without any problems. Hemodialysis for 3 hours, 2K, ultrafiltration 2-3 L, Epogen 6000, no heparin ordered. Plan of care discussed with the dialysis nurse. Please see dialysis flowsheet for further details. Plan of care discussed with primary team.
[2024-05-28 17:21] LABS: Troponin I 0.311 ng/mL (0.0-0.045)
--- NOTE | 2024-05-28 19:06 | PC.NURSE ---
patient complaining of abdominal pain, called [facility] is aware. no new order receiced.
--- NOTE | 2024-05-28 20:06 | PC.NURSE ---
MD Cho notified that patient is complaining of nausea. He said he will order a medication
[2024-05-28] MEDS: FUROSEMIDE INJ 10 MG/ML 4ML VIAL 40 MG IVP (20:28)
[2024-05-28] MEDS: PIPER/TAZO 3.375 GM PREMIX 3.375 GM/50 ML BAG IV (20:29)
[2024-05-28] MEDS: ONDANSETRON INJ 2 MG/ML INJ 2 ML 4 MG IV (20:30)
[2024-05-29] VITALS (9 sets, daily range): BP systolic 131–146; BP diastolic 54–76; PULSE 68–87; RESP 16–21; TEMP 36.6–37.2; O2SAT 92–100
[2024-05-29] MEDS: SEVELAMER CARBONATE 800 MG TABLET PO ×3 (05:12→21:03)
[2024-05-29 06:01] LABS: Basophils % (Auto) 0 % (0-2.5); Eosinophils % (Auto) 0 % (0-10); Hematocrit 30.4 % (41.0-53.0); Hemoglobin 10.1 g/dL (13.5-16.0); Immature Granulocytes % (Auto) 0 % (0-0); Immature Granulocytes Auto 0.03 Thou/mm3 (0.00-0.00); Lymphocytes # (Auto) 0.7 Thou/mm3 (1.0-4.8); Lymphocytes % (Auto) 9 % (10-50); Mean Corpuscular HGB Conc 33.2 g/dl (31.0-37.0); Mean Corpuscular Hemoglobin 32.7 pg (25.0-35.0); Mean Corpuscular Volume 98 fL (80-100); Monocytes # (Auto) 0.9 Thou/mm3 (0.0-0.8); Monocytes % (Auto) 12 % (0-12); Neutrophils # (Auto) 5.9 Thou/mm3 (1.8-7.7); Neutrophils % (Auto) 78 % (37-80); Nucleated Red Blood Cell % 0 /100 WBC (0); Platelet Count 162 Thou/mm3 (140-440); RDW Standard Deviation 57.1 fL (35.1-43.9); Red Blood Count 3.09 Miln/mm3 (4.50-5.90); White Blood Count 7.6 Thou/mm3 (3.8-10.6)
[2024-05-29 06:40] LABS: Alanine Aminotransferase 42 U/L (10-49); Albumin, Serum 4.1 gm/dL (3.4-4.8); Albumin/Globulin Ratio 1.6 (1.2-2.2); Alkaline Phosphatase 70 U/L (46-116); Anion Gap 10 (7-16); Aspartate Amino Transferase 42 U/L (0-34); BUN/Creatinine Ratio 10 Ratio (12-20); Bilirubin,Total 0.4 mg/dL (0.3-1.2); Blood Urea Nitrogen 46 mg/dL (9-23); Calcium 9.3 mg/dL (8.3-10.6); Calcium (Corrected) 9.3 mg/dL (8.5-10.1); Chloride 100 mMol/L (98-107); Creatinine (Component) 4.7 mg/dL (0.6-1.3); Estimated Creatinine Clearance 10.4 mL/min (>60); Globulin 2.6 gm/dL (2.3-3.5); Glucose 97 mg/dL (74-106); Osmolality,Calculated 285 (275-295); Phosphorous 4.7 mg/dL (2.4-5.1); Potassium 4.9 mMol/L (3.4-5.1); Sodium 137 mMol/L (136-145); Total Protein 6.7 gm/dL (5.7-8.2); Vancomycin,Random 28.9 mcg/mL; eGFR 12 See Note
[2024-05-29] MEDS: VIT B12/Vit C/FA (Nephrovite) TABLET 1 TAB PO (08:09)
[2024-05-29] MEDS: SENNA TABLET 1 TAB PO (08:09)
[2024-05-29] MEDS: FUROSEMIDE INJ 10 MG/ML 4ML VIAL 40 MG IVP ×2 (08:09→20:38)
[2024-05-29] MEDS: HEPARIN SOD INJ 5000 UNIT/ML VIAL SC ×2 (08:10→20:39)
[2024-05-29] MEDS: PIPER/TAZO 3.375 GM PREMIX 3.375 GM/50 ML BAG IV ×2 (08:10→20:39)
[2024-05-29] MEDS: ONDANSETRON INJ 2 MG/ML INJ 2 ML 4 MG IV (09:57)
--- NOTE | 2024-05-29 10:27 | ESPR_ITS ---
Documentation for date of: 05/29/24 Subjective Subjective Interval history: Patient was seen and examined in telemetry today. There were no major overnight events. Patient slept well however this morning he states that he been having some what difficulty in swallowing. His breathing has improved and he is saturating at 99 on room air. was at bedside and questions were answered about plan of care. Will continue with antibiotics at this time and continue to titrate oxygen as required. Exam Vital Signs Temp Pulse Resp BP Pulse Ox O2 Del Method O2 Flow Rate 98.9 F 81 17 146/76 H 96 Nasal Cannula 2 05/29/24 08:00 05/29/24 08:09 05/29/24 08:00 05/29/24 08:09 05/29/24 08:00 05/29/24 08:00 05/29/24 08:00 Narrative Exam Constitutional: Well nourished and in no acute distress CVS: RRR, S1 and S2 present, 4/6 systolic murmur best heard at the left sternal border RESP: CTAB, no SOB, no rales, rhonchi or wheezing. No respiratory Distress GI: Normal BS, Nontender/Nondistended. MSK: Full range of motion, No trauma or deformities or masses. Skin: Warm to touch, Dry. No rashes or lesions. No hematomas. There is a AV fistula in the left upper arm. Neuro: landfill grader II-XII grossly intact. Sensation grossly intact. Psych: (AAO) x3 . Appropriate mood and affect. Objective Labs 05/29/24 05:28 05/29/24 05:28 Labs: Laboratory Results - last 24 hr 05/28/24 05/28/24 05/28/24 09:07 11:03 16:45 WBC RBC Hgb Hct MCV MCH MCHC RDW Std Deviation Plt Count Neut % (Auto) Lymph % (Auto) [place] % (Auto) Eos % (Auto) Baso % (Auto) Neut # (Auto) Lymph # (Auto) [place] # (Auto) Eos # (Auto) Baso # (Auto) Immature Gran # (Auto) Absolute Nucleated RBC Immature Gran % Nucleated RBC % Sodium Potassium Chloride Carbon Dioxide Anion Gap BUN Creatinine Estim Creat Clear Calc eGFR BUN/Creatinine Ratio Glucose Calculated Osmolality Calcium Corrected Calcium Phosphorus Magnesium Total Bilirubin AST ALT Alkaline Phosphatase Troponin I 0.408 H* 0.311 H* Total Protein Albumin Globulin Albumin/Globulin Ratio Random Vancomycin Coccidioides IgM Ab Negative 05/29/24 05:28 WBC 7.6 RBC 3.09 L Hgb 10.1 L Hct 30.4 L MCV 98 MCH 32.7 MCHC 33.2 RDW Std Deviation 57.1 H Plt Count 162 Neut % (Auto) 78 Lymph % (Auto) 9 L [place] % (Auto) 12 Eos % (Auto) 0 Baso % (Auto) 0 Neut # (Auto) 5.9 Lymph # (Auto) 0.7 L [place] # (Auto) 0.9 H Eos # (Auto) 0.0 Baso # (Auto) 0.0 Immature Gran # (Auto) 0.03 H Absolute Nucleated RBC 0.00 Immature Gran % 0 Nucleated RBC % 0 Sodium 137 Potassium 4.9 Chloride 100 Carbon Dioxide 27.0 Anion Gap 10 BUN 46 H Creatinine 4.7 H* D Estim Creat Clear Calc 10.4 L eGFR 12 L* BUN/Creatinine Ratio 10 L Glucose 97 Calculated Osmolality 285 Calcium 9.3 Corrected Calcium 9.3 Phosphorus 4.7 Magnesium 2.0 Total Bilirubin 0.4 AST 42 H ALT 42 Alkaline Phosphatase 70 D Troponin I Total Protein 6.7 Albumin 4.1 Globulin 2.6 Albumin/Globulin Ratio 1.6 Random Vancomycin 28.9 Coccidioides IgM Ab Quality Measures Quality Measures VTE prophylaxis Advance care planning discussed with:: patient Assessment & Plan Assessment Current Active Medications: Generic Name Dose Route Start Last Admin Trade Name Freq PRN Reason Stop Dose Admin Acetaminophen 650 mg 05/27/24 22:12 05/28/24 08:18 Acetaminophen 325 Mg Tablet PO 06/26/24 22:11 650 mg Q6H PRN Administration Fever >100 or pain 1-3 Benzonatate 100 mg 05/29/24 10:20 Benzonatate 100 Mg Capsule PO 06/28/24 10:19 Q8HR PRN COUGH Protocol Dextrose 25 ml 05/27/24 22:18 Dextrose 50%-Water Inj 50 Ml Syringe IV 06/26/24 22:17 Q15MIN PRN BG 50-70 responsive npo pt Dextrose 50 ml 05/27/24 22:18 Dextrose 50%-Water Inj 50 Ml Syringe IV 06/26/24 22:17 Q15MIN PRN BG <50 OR BG <70 & pt unresponsive Furosemide 40 mg 05/28/24 09:00 05/29/24 08:09 Furosemide Inj 10 Mg/Ml 4ml Vial IVP 06/27/24 08:59 40 mg BID SANTO Administration Glucagon 1 mg 05/27/24 22:18 Glucagon Inj 1 Mg Vial IM Q15MIN PRN BG <70, and no IV access Heparin Sodium (Porcine) 5,000 unit 05/28/24 09:00 05/29/24 08:10 Heparin Sod Inj 5000 Unit/Ml Vial SC 06/11/24 08:59 5,000 unit Q12H SANTO Administration Piperacillin/Tazobactam/Dextrose 3.375 gm in 50 mls @ 12.5 mls/hr 05/28/24 09:00 05/29/24 08:10 Zosyn IV 06/04/24 08:59 12.5 mls/hr Q12HR SANTO Administration Protocol Insulin Human Lispro 0 unit 05/28/24 07:30 05/29/24 07:28 Insulin Lispro (Admelog) 1 Unit/0.01 Ml Unit SC 06/27/24 07:29 Not Given AC [facility] Protocol Ondansetron HCl 4 mg 05/28/24 20:05 05/29/24 09:57 Ondansetron Inj 2 Mg/Ml Inj 2 Ml IV 06/27/24 20:04 4 mg Q6HR PRN Administration NAUSEA OR VOMITING Protocol Pharmacy Consult 1 each 05/27/24 21:00 05/28/24 14:28 Vancomycin Pharmacy To Dose 1 Each Each IV 06/26/24 20:59 Not Given QDAY [facility] Sennosides 1 tab 05/29/24 09:00 05/29/24 08:09 Senna Tablet PO 06/28/24 08:59 1 tab QDAY [facility] Administration Protocol Sevelamer Carbonate 800 mg 05/28/24 06:00 05/29/24 05:12 Sevelamer Carbonate 800 Mg Tablet PO 06/27/24 05:59 800 mg TID SANTO Administration Vitamin B Complex/Vit C/Folic Acid 1 tab 05/28/24 09:00 05/29/24 08:09 Vit B12/Vit C/Fa (Nephrovite) Tablet PO 06/27/24 08:59 1 tab QDAY SANTO Administration Plan 83-year-old male with past medical history of ESRD on HD M/W/F via left brachiocephalic fistula, essential hypertension, hyperlipidemia, [id number] type 2 DM, history of multiple strokes, chronic diarrhea, HFrEF (~EF 40-45%), rectal mass s/p resection who is admitted for acute on chronic hypoxic respiratory failure secondary to bilateral pneumonia, volume overloaded secondary to ESRD and elevated troponin likely secondary to NSTEMI type II versus type I. #Acute hypoxic respiratory failure #Sepsis secondary to extensive bilateral pneumonia Patient notes that after dialysis session on Friday, he felt suddenly short of breath and thought he was going to pass away at home Patient was recently discharged from the hospital for febrile illness likely secondary to cellulitis from AV fistula site and discharged with oral antibiotics In the ED, patient presented septic with the following: Tachycardic, white count 12.2, Lactate: 2.3. qSOFA: 1 points. 3 out of 4 SIRS criteria Sepsis due to 3/4 SIRS criteria with acute sepsis-related organ dysfunction as evidence by RYAN on ESRD Chest x-ray showed diffuse significant bilateral pneumonia with mild prominence of the cardiac contour and moderate vascular congestion Respiratory failure related to PNA and fluid overload Plan: Continue IV Zosyn and vancomycin, pseudomonal coverage initiated as the patient has recent hospitalization Follow-up on blood, urine, sputum cultures and MRSA screen Oxygen, wean down as tolerated, maintain SpO2 above 92% Patient did well on room air today and his counts have decreased. Started benzonatate 100 mg p.o. 3 times daily as needed for cough #Elevated troponin Likely NSTEMI type II versus type I Patient did present with hypertensive emergency, volume overloaded secondary to ESRD Patient is currently having some chest tightness/pressure-like sensation which is present even with and without deep inspiration EKG does not show any concerning ST changes and is similar to previous EKGs Troponin initially was 0.054 and has been up trended to 0.350 and 0.408 Plan: Trending troponin Treating hypertensive emergency along with pneumonia and dialysis for ESRD #Hypertensive emergency, improving #Fluid overload #ESRD, HD MWF Patient is on home furosemide 40 mg p.o. twice daily and metoprolol succinate 50 mg p.o. daily BP 207/102 on admission No ACEi/ARB due to hyperkalemia and ESRD BUN 72, Cr 5.5, K 5.0, phosphorus 6.0 Plan: Dialysis completed with Dr. Jenkins Blood pressure within goal for 24 hours On IV Lasix 40 mg twice daily Nephrology consulted, appreciate recs Monitor with morning labs #Hx of HTN #Chronic Systolic Heart Failure with Reduced Ejection Fraction (EF 40?45%) History of HFrEF, elevated BNP >3280, currently hypertensive, on metoprolol and furosemide Plan: Not one ACEi/ARB due to history of hyperkalemia On IV Lasix 40 mg twice daily Avoid volume overload; adjust diuretics based on volume status and HD Monitor daily weights Strict I's and O's #Elevated liver function enzymes #Metabolic associated steatotic liver disease Patient presented with elevated AST, ALT Likely secondary to acutely ill status versus primary hepatocellular disease Hepatitis panel is negative Liver ultrasound shows normal gallbladder and fatty liver Plan: Monitor liver function #Hyperlipidemia On atorvastatin 20 mg LDL 46, Total ~100 Plan: Continue statin therapy Goal LDL<70 #Non insulin dependent type II Diabetes mellitus A1c in February 2024 5.4 Plan: Sliding scale insulin Hypoglycemic protocol in place Blood sugar checks with meals Hospital management: Lines: PIV Diet: Renal Bowel: Senna GI prophylaxis: Not needed DVT prophylaxis: Heparin subcu Dispo: IV antibiotics for bilateral pneumonia, dialysis for ESRD and trending troponin Code: Full I discussed patient's care with attending physician, Dr Leonel Currie PGY3 Attending Provider Attestation/Addendum I attest that I was physically present for the evaluation, physical examination, lab and imaging review of the patient with the residents. I discussed the case with the residents and agree with the findings and plans of care as documented above. At bedside today, patient is states that he has been having some nausea and hence was not able to eat wall. We will start him on antacids. Breathing continues to be improving, saturating well on room air. Continues to be on IV Zosyn and vancomycin pending culture results. Also added benzonatate for cough. Continues to be on IV Lasix, had dialysis session yesterday, nephrology following, appreciate recommendations. We will also obtain PT evaluation. Shanta Castaneda MD
--- NOTE | 2024-05-29 10:57 | ESPR_ITS ---
Documentation for date of: 05/29/24 Subjective Subjective Interval history: 83-year-old male with past medical history of hypertension, hyperlipidemia, type 2 diabetes mellitus, ESRD on HD [M/W/F], history of multiple strokes, chronic diarrhea, rectal mass s/p resection, HFrEF presented to the hospital with chief complaints of shortness of breath, fever with chills for 1 day. Patient stated that he was at dialysis center and was not able to tolerate it and also developed fever and chills due to which patient was referred to the ED in the middle of the dialysis session. Also stated that he recently saw vascular surgeon 3 days back for suture removal and also got treated with Keflex for the suspicion of fistula site infection. Patient denied chest pain, nausea, vomiting, palpitations. Patient had recent hospitalization 8 days ago as he missed his dialysis session and for suspected fistula site infection, fever ED course: -Initial vitals at the time of admission are blood pressure 207/102 mmHg, pulse rate 114 bpm, respiratory rate 19/min, temperature 101.5 ?F, SpO2 98% with 6 L oxygen -Labs at the time of admission showed WBC 12.2, Hb 12, platelets 184, sodium 135, potassium 5, BUN 72, creatinine 5.5 -Chest x-ray showed bilateral moderate to severe vascular congestion Nephrology is consulted for hemodialysis as patient is having ESRD 05/29/2024 Patient is seen and examined at bedside No acute overnight events. Patient is complaining of early satiety despite having good appetite. Also complaining of cough Patient had previous history of rectal tumor and recommended follow-up with Dr. Cantu with endoscopy and colonoscopy, but patient denied undergoing procedures Vitals are stable with blood pressure 146/76 mmHg, pulse rate 81 bpm, respiratory rate 17/min. Labs showed BUN 46, creatinine 4.7 Will do HD as per his routine schedule Exam Vital Signs Temp Pulse Resp BP Pulse Ox O2 Del Method O2 Flow Rate 98.9 F 81 17 146/76 H 96 Nasal Cannula 2 05/29/24 08:00 05/29/24 08:09 05/29/24 08:00 05/29/24 08:09 05/29/24 08:00 05/29/24 08:00 05/29/24 08:00 Narrative Exam General: Awake. On oxygen at 1 L/min HEENT: Normocephalic, atraumatic, mucous membranes moist. Heart: Regular rate and rhythm, systolic murmur heard at aortic area and pulmonary area Lungs: Clear to auscultation with no wheezing or crackles. Abdomen: Soft, nondistended, nontender, positive bowel sounds. ?No guarding or rebound tenderness. Neurologic: Alert and oriented x3, no gross neurological deficit, and patient able to move all 4 extremities. Extremities: No edema. AV fistula on left arm Skin: No rash or ecchymoses. Objective Labs 05/29/24 05:28 05/29/24 05:28 Labs: Laboratory Results - last 24 hr 05/28/24 05/28/24 05/28/24 09:07 11:03 16:45 WBC RBC Hgb Hct MCV MCH MCHC RDW Std Deviation Plt Count Neut % (Auto) Lymph % (Auto) [place] % (Auto) Eos % (Auto) Baso % (Auto) Neut # (Auto) Lymph # (Auto) [place] # (Auto) Eos # (Auto) Baso # (Auto) Immature Gran # (Auto) Absolute Nucleated RBC Immature Gran % Nucleated RBC % Sodium Potassium Chloride Carbon Dioxide Anion Gap BUN Creatinine Estim Creat Clear Calc eGFR BUN/Creatinine Ratio Glucose Calculated Osmolality Calcium Corrected Calcium Phosphorus Magnesium Total Bilirubin AST ALT Alkaline Phosphatase Troponin I 0.408 H* 0.311 H* Total Protein Albumin Globulin Albumin/Globulin Ratio Random Vancomycin Coccidioides IgM Ab Negative 05/29/24 05:28 WBC 7.6 RBC 3.09 L Hgb 10.1 L Hct 30.4 L MCV 98 MCH 32.7 MCHC 33.2 RDW Std Deviation 57.1 H Plt Count 162 Neut % (Auto) 78 Lymph % (Auto) 9 L [place] % (Auto) 12 Eos % (Auto) 0 Baso % (Auto) 0 Neut # (Auto) 5.9 Lymph # (Auto) 0.7 L [place] # (Auto) 0.9 H Eos # (Auto) 0.0 Baso # (Auto) 0.0 Immature Gran # (Auto) 0.03 H Absolute Nucleated RBC 0.00 Immature Gran % 0 Nucleated RBC % 0 Sodium 137 Potassium 4.9 Chloride 100 Carbon Dioxide 27.0 Anion Gap 10 BUN 46 H Creatinine 4.7 H* D Estim Creat Clear Calc 10.4 L eGFR 12 L* BUN/Creatinine Ratio 10 L Glucose 97 Calculated Osmolality 285 Calcium 9.3 Corrected Calcium 9.3 Phosphorus 4.7 Magnesium 2.0 Total Bilirubin 0.4 AST 42 H ALT 42 Alkaline Phosphatase 70 D Troponin I Total Protein 6.7 Albumin 4.1 Globulin 2.6 Albumin/Globulin Ratio 1.6 Random Vancomycin 28.9 Coccidioides IgM Ab Quality Measures Quality Measures VTE prophylaxis Advance care planning discussed with:: patient Assessment & Plan Assessment Current Active Medications: Generic Name Dose Route Start Last Admin Trade Name Freq PRN Reason Stop Dose Admin Acetaminophen 650 mg 05/27/24 22:12 05/28/24 08:18 Acetaminophen 325 Mg Tablet PO 06/26/24 22:11 650 mg Q6H PRN Administration Fever >100 or pain 1-3 Benzonatate 100 mg 05/29/24 10:20 Benzonatate 100 Mg Capsule PO 06/28/24 10:19 Q8HR PRN COUGH Protocol Dextrose 25 ml 05/27/24 22:18 Dextrose 50%-Water Inj 50 Ml Syringe IV 06/26/24 22:17 Q15MIN PRN BG 50-70 responsive npo pt Dextrose 50 ml 05/27/24 22:18 Dextrose 50%-Water Inj 50 Ml Syringe IV 06/26/24 22:17 Q15MIN PRN BG <50 OR BG <70 & pt unresponsive Furosemide 40 mg 05/28/24 09:00 05/29/24 08:09 Furosemide Inj 10 Mg/Ml 4ml Vial IVP 06/27/24 08:59 40 mg BID SANTO Administration Glucagon 1 mg 05/27/24 22:18 Glucagon Inj 1 Mg Vial IM Q15MIN PRN BG <70, and no IV access Heparin Sodium (Porcine) 5,000 unit 05/28/24 09:00 05/29/24 08:10 Heparin Sod Inj 5000 Unit/Ml Vial SC 06/11/24 08:59 5,000 unit Q12H SANTO Administration Piperacillin/Tazobactam/Dextrose 3.375 gm in 50 mls @ 12.5 mls/hr 05/28/24 09:00 05/29/24 08:10 Zosyn IV 06/04/24 08:59 12.5 mls/hr Q12HR SANTO Administration Protocol Insulin Human Lispro 0 unit 05/28/24 07:30 05/29/24 07:28 Insulin Lispro (Admelog) 1 Unit/0.01 Ml Unit SC 06/27/24 07:29 Not Given AC SANTO Protocol Ondansetron HCl 4 mg 05/28/24 20:05 05/29/24 09:57 Ondansetron Inj 2 Mg/Ml Inj 2 Ml IV 06/27/24 20:04 4 mg Q6HR PRN Administration NAUSEA OR VOMITING Protocol Pharmacy Consult 1 each 05/27/24 21:00 05/28/24 14:28 Vancomycin Pharmacy To Dose 1 Each Each IV 06/26/24 20:59 Not Given QDAY SANTO Sennosides 1 tab 05/29/24 09:00 05/29/24 08:09 Senna Tablet PO 06/28/24 08:59 1 tab QDAY SANTO Administration Protocol Sevelamer Carbonate 800 mg 05/28/24 06:00 05/29/24 05:12 Sevelamer Carbonate 800 Mg Tablet PO 06/27/24 05:59 800 mg TID SANTO Administration Vitamin B Complex/Vit C/Folic Acid 1 tab 05/28/24 09:00 05/29/24 08:09 Vit B12/Vit C/Fa (Nephrovite) Tablet PO 06/27/24 08:59 1 tab QDAY SANTO Administration Plan 83-year-old male with past medical history of hypertension, hyperlipidemia, type 2 diabetes mellitus, ESRD on HD [M/W/F], history of multiple strokes, chronic diarrhea, rectal mass s/p resection, HFrEF presented to the hospital with chief complaints of shortness of breath, fever with chills for 1 day and nephrology is consulted for HD as patient is having ESRD # ESRD on HD Likely due to diabetes mellitus and hypertension -Patient was referred to the ED as he was noted to have fever and shortness of breath in the middle of dialysis -Labs at the time of admission showed WBC 12.2, Hb 12, platelets 184, sodium 135, potassium 5, BUN 72, creatinine 5.5 -Chest x-ray showed bilateral moderate to severe vascular congestion Plan -Received HD for 2-hour 36 minutes on 05/29/2024, will continue his HD as per his routine schedule -Avoid nephrotoxic medications and renally dose medications -Will continue to do dialysis as per his routine schedule #Hypertensive urgency, resolved # History of hypertension -Blood pressure at the time of admission is 207/102 mmHg -Blood pressure appears to be well-controlled as of 05/28/2024 plan -HD is done on 05/29/2024, will do HD as her his routine schedule -Patient is using metoprolol and furosemide at home -Started on renal diet and recommended to add antihypertensives based on his blood pressures -Monitor blood pressures and titrate medications accordingly # Anemia, normocytic normochromic -Patient seems to have chronic anemia since 2021, likely due to anemia of chronic kidney disease -Will give erythropoietin during the dialysis #Acute hypoxic respiratory failure #Sepsis secondary to extensive bilateral pneumonia #Elevated troponin #Chronic Systolic Heart Failure with Reduced Ejection Fraction (EF 40?45%) #Elevated liver function enzymes #Metabolic associated steatotic liver disease #Hyperlipidemia #Non insulin dependent type II Diabetes mellitus -Rest of the medical conditions to be treated as per primary team Thank you for allowing us to involved in the care of the patient Patient plan of care was discussed with the attending physician, Dr. Alice Coleman, PGY1 Attending Provider Attestation/Addendum Patient seen and examined with resident physician Dr. Hernandez. Note reviewed, agree with findings and recommendations. Patient admitted with weakness/hypoxic respiratory failure secondary to bilateral pneumonia. On antibiotics. Complaining of cough-promethazine given. Plan of care discussed with primary team.
[2024-05-30] VITALS (8 sets, daily range): BP systolic 132–156; BP diastolic 61–79; PULSE 66–83; RESP 14–25; TEMP 36–36.9; O2SAT 95–100
[2024-05-30] MEDS: SEVELAMER CARBONATE 800 MG TABLET PO ×3 (05:27→22:07)
[2024-05-30 06:06] LABS: Basophils % (Auto) 0 % (0-2.5); Eosinophils # (Auto) 0.1 Thou/mm3 (0.0-0.5); Eosinophils % (Auto) 1 % (0-10); Hematocrit 31.3 % (41.0-53.0); Hemoglobin 10.2 g/dL (13.5-16.0); Immature Granulocytes % (Auto) 0 % (0-0); Immature Granulocytes Auto 0.02 Thou/mm3 (0.00-0.00); Lymphocytes # (Auto) 0.9 Thou/mm3 (1.0-4.8); Lymphocytes % (Auto) 12 % (10-50); Mean Corpuscular HGB Conc 32.6 g/dl (31.0-37.0); Mean Corpuscular Hemoglobin 32.8 pg (25.0-35.0); Mean Corpuscular Volume 101 fL (80-100); Monocytes # (Auto) 0.9 Thou/mm3 (0.0-0.8); Monocytes % (Auto) 13 % (0-12); Neutrophils # (Auto) 5.2 Thou/mm3 (1.8-7.7); Neutrophils % (Auto) 73 % (37-80); Nucleated Red Blood Cell % 0 /100 WBC (0); Platelet Count 186 Thou/mm3 (140-440); RDW Standard Deviation 56.8 fL (35.1-43.9); Red Blood Count 3.11 Miln/mm3 (4.50-5.90); White Blood Count 7.2 Thou/mm3 (3.8-10.6)
[2024-05-30 06:21] LABS: Alanine Aminotransferase 31 U/L (10-49); Albumin, Serum 4.2 gm/dL (3.4-4.8); Albumin/Globulin Ratio 1.5 (1.2-2.2); Alkaline Phosphatase 70 U/L (46-116); Anion Gap 11 (7-16); Aspartate Amino Transferase 34 U/L (0-34); BUN/Creatinine Ratio 10 Ratio (12-20); Bilirubin,Total 0.4 mg/dL (0.3-1.2); Blood Urea Nitrogen 57 mg/dL (9-23); Calcium 9.3 mg/dL (8.3-10.6); Calcium (Corrected) 9.3 mg/dL (8.5-10.1); Carbon Dioxide 26.3 mMol/L (20.0-31.0); Chloride 98 mMol/L (98-107); Creatinine (Component) 5.9 mg/dL (0.6-1.3); Estimated Creatinine Clearance 8.3 mL/min (>60); Globulin 2.8 gm/dL (2.3-3.5); Glucose 102 mg/dL (74-106); Osmolality,Calculated 285 (275-295); Phosphorous 4.8 mg/dL (2.4-5.1); Potassium 4.9 mMol/L (3.4-5.1); Sodium 135 mMol/L (136-145); Vancomycin,Random 25.5 mcg/mL; eGFR 9 See Note
[2024-05-30] MEDS: PIPER/TAZO 3.375 GM PREMIX 3.375 GM/50 ML BAG IV (08:04)
[2024-05-30] MEDS: VIT B12/Vit C/FA (Nephrovite) TABLET 1 TAB PO (08:05)
[2024-05-30] MEDS: FUROSEMIDE INJ 10 MG/ML 4ML VIAL 40 MG IVP ×2 (08:05→20:11)
[2024-05-30] MEDS: HEPARIN SOD INJ 5000 UNIT/ML VIAL SC ×2 (08:06→20:11)
--- NOTE | 2024-05-30 09:50 | PD.NEPHPROG ---
Documentation for date of: 05/30/24 Subjective Subjective Interval history: 83-year-old male with past medical history of hypertension, hyperlipidemia, type 2 diabetes mellitus, ESRD on HD [M/W/F], history of multiple strokes, chronic diarrhea, rectal mass s/p resection, HFrEF presented to the hospital with chief complaints of shortness of breath, fever with chills for 1 day. Patient stated that he was at dialysis center and was not able to tolerate it and also developed fever and chills due to which patient was referred to the ED in the middle of the dialysis session. Also stated that he recently saw vascular surgeon 3 days back for suture removal and also got treated with Keflex for the suspicion of fistula site infection. Patient denied chest pain, nausea, vomiting, palpitations. Patient had recent hospitalization 8 days ago as he missed his dialysis session and for suspected fistula site infection, fever ED course: -Initial vitals at the time of admission are blood pressure 207/102 mmHg, pulse rate 114 bpm, respiratory rate 19/min, temperature 101.5 ?F, SpO2 98% with 6 L oxygen -Labs at the time of admission showed WBC 12.2, Hb 12, platelets 184, sodium 135, potassium 5, BUN 72, creatinine 5.5 -Chest x-ray showed bilateral moderate to severe vascular congestion Nephrology is consulted for hemodialysis as patient is having ESRD 05/29/2024 Patient is seen and examined at bedside No acute overnight events. Patient is complaining of early satiety despite having good appetite. Also complaining of cough Patient had previous history of rectal tumor and recommended follow-up with Dr. Cantu with endoscopy and colonoscopy, but patient denied undergoing procedures Vitals are stable with blood pressure 146/76 mmHg, pulse rate 81 bpm, respiratory rate 17/min. Labs showed BUN 46, creatinine 4.7 Will do HD as per his routine schedule 05/30/2024 patient currently seen in telemetry. Still having some cough. Scheduled for dialysis tomorrow. Postdialysis renal farmer stable for discharge. On antibiotics for pneumonia. Review of Systems Review of Systems Narrative Review of Systems: CONSTITUTIONAL: Patient denies any fever, chills. HEENT: Denies any visual disturbances or hearing problems. CARDIOVASCULAR: Patient denies any chest pain, shortness of breath, swelling in the lower extremities. PULMONARY: Patient complaining of cough GASTROINTESTINAL: Patient denies any abdominal pain, constipation, nausea, vomiting. Complaining of diarrhea. GENITOURINARY: Patient denies any urinary symptoms of burning or frequency or hematuria, denies any form in the urine. SKIN: Denies any rash. MUSCULOSKELETAL: Denies any muscular skeletal problems of joint pains. NEUROLOGICAL: Denies any neurological problems of strokes, seizures or confusion. Denies any memory problems. PSYCHIATRIC: Denies any depression or anxiety. LYMPHATICS : No lymphadenopathy Exam Vital Signs Temp Pulse Resp BP Pulse Ox O2 Del Method O2 Flow Rate 36.8 C 72 16 132/61 H 98 Nasal Cannula 2 05/30/24 08:00 05/30/24 08:05 05/30/24 08:00 05/30/24 08:05 05/30/24 08:00 05/30/24 08:00 05/30/24 08:00 Narrative Exam General: Awake. On oxygen at 1 L/min HEENT: Normocephalic, atraumatic, mucous membranes moist. Heart: Regular rate and rhythm, systolic murmur heard at aortic area and pulmonary area Lungs: Few rhonchi at the bases Abdomen: Soft, nondistended, nontender, positive bowel sounds. ?No guarding or rebound tenderness. Neurologic: Alert and oriented x3, no gross neurological deficit, and patient able to move all 4 extremities. Extremities: No edema. AV fistula on left arm Skin: No rash or ecchymoses. Objective Labs 05/30/24 05:19 05/30/24 05:19 Labs: Laboratory Results - last 24 hr 05/30/24 05:19 WBC 7.2 RBC 3.11 L Hgb 10.2 L Hct 31.3 L MCV 101 H MCH 32.8 MCHC 32.6 RDW Std Deviation 56.8 H Plt Count 186 Neut % (Auto) 73 Lymph % (Auto) 12 [place] % (Auto) 13 H Eos % (Auto) 1 Baso % (Auto) 0 Neut # (Auto) 5.2 Lymph # (Auto) 0.9 L [place] # (Auto) 0.9 H Eos # (Auto) 0.1 Baso # (Auto) 0.0 Immature Gran # (Auto) 0.02 H Absolute Nucleated RBC 0.00 Immature Gran % 0 Nucleated RBC % 0 Sodium 135 L Potassium 4.9 Chloride 98 Carbon Dioxide 26.3 Anion Gap 11 BUN 57 H Creatinine 5.9 H* D Estim Creat Clear Calc 8.3 L eGFR 9 L* BUN/Creatinine Ratio 10 L Glucose 102 Calculated Osmolality 285 Calcium 9.3 Corrected Calcium 9.3 Phosphorus 4.8 Magnesium 2.0 Total Bilirubin 0.4 AST 34 ALT 31 Alkaline Phosphatase 70 Total Protein 7.0 Albumin 4.2 Globulin 2.8 Albumin/Globulin Ratio 1.5 Random Vancomycin 25.5 Assessment & Plan Additional Assessment & Plan Additional Plan: 83-year-old male with past medical history of hypertension, hyperlipidemia, type 2 diabetes mellitus, ESRD on HD [M/W/F], history of multiple strokes, chronic diarrhea, rectal mass s/p resection, HFrEF presented to the hospital with chief complaints of shortness of breath, fever with chills for 1 day and nephrology is consulted for HD as patient is having ESRD # ESRD on HD Likely due to diabetes mellitus and hypertension -Patient was referred to the ED as he was noted to have fever and shortness of breath in the middle of dialysis -Labs at the time of admission showed WBC 12.2, Hb 12, platelets 184, sodium 135, potassium 5, BUN 72, creatinine 5.5 -Chest x-ray showed bilateral moderate to severe vascular congestion Plan -Received HD for 2-hour 36 minutes on 05/29/2024, will continue his HD as per his routine schedule -Avoid nephrotoxic medications and renally dose medications -Will continue to do dialysis as per his routine schedule- am #Hypertensive urgency, resolved # History of hypertension -Blood pressure at the time of admission is 207/102 mmHg -Blood pressure appears to be well-controlled as of 05/28/2024 plan -HD is done on 05/29/2024, will do HD as her his routine schedule -Patient is using metoprolol and furosemide at home -Started on renal diet and recommended to add antihypertensives based on his blood pressures -Monitor blood pressures and titrate medications accordingly # Anemia, normocytic normochromic -Patient seems to have chronic anemia since 2021, likely due to anemia of chronic kidney disease -Will give erythropoietin during the dialysis #Acute hypoxic respiratory failure #Sepsis secondary to extensive bilateral pneumonia #Elevated troponin #Chronic Systolic Heart Failure with Reduced Ejection Fraction (EF 40?45%) #Elevated liver function enzymes #Metabolic associated steatotic liver disease #Hyperlipidemia #Non insulin dependent type II Diabetes mellitus -Rest of the medical conditions to be treated as per primary team Quality - progress note Quality Measures Quality Measures: VTE prophylaxis Reason for Continued Stay Reason for Continued Stay: further monitoring
[2024-05-30] MEDS: cefTRIAXone/D5w 1gm IV premix 1 GM/50 ML BAG IV (09:55)
--- NOTE | 2024-05-30 10:55 | PC.NURSE ---
Oxygen test: Room air at rest- 97%, Room air with exercise-92%, SPO2 on O2 with exercise-99%
--- NOTE | 2024-05-30 12:12 | ESPR_ITS ---
Documentation for date of: 05/30/24 Subjective Subjective Interval history: 05/30/2024: No acute overnight events to report. Patient seen and examined in hospital bed remains at current baseline with no concerning symptoms such as chest pain/tightness, shortness of breath, abdominal pain, dizziness or new headaches. Patient initially on 1 L nasal cannula during examination but no longer requires it; moreover, walk test was completed and the patient did not desaturate. Patient's antibiotics were switched from IV Zosyn and Vanco to IV ceftriaxone as blood cultures are negative within 48 hours. Patient continues to be on IV Lasix 40 mg twice daily for the HFrEF with systolic dysfunction and echocardiogram is pending. Patient to have dialysis likely tomorrow (Wednesday 05/31) as regular scheduled. Exam Vital Signs Temp Pulse Resp BP Pulse Ox O2 Del Method O2 Flow Rate 98.2 F 72 16 132/61 H 98 Nasal Cannula 2 05/30/24 08:00 05/30/24 08:05 05/30/24 08:00 05/30/24 08:05 05/30/24 08:00 05/30/24 08:00 05/30/24 08:00 Narrative Exam Physical Exam: General: Awake. On room air HEENT: Normocephalic, atraumatic, mucous membranes moist. Heart: Regular rate and rhythm, systolic murmur heard at aortic area and pulmonary area Lungs: Clear to auscultation with no wheezing or crackles. Abdomen: Soft, nondistended, nontender, positive bowel sounds. ?No guarding or rebound tenderness. Neurologic: Alert and oriented x3, no gross neurological deficit, and patient able to move all 4 extremities. Extremities: No edema. AV fistula on left arm Skin: No rash or ecchymoses. Objective Labs 05/30/24 05:19 05/30/24 05:19 Labs: Laboratory Results - last 24 hr 05/30/24 05:19 WBC 7.2 RBC 3.11 L Hgb 10.2 L Hct 31.3 L MCV 101 H MCH 32.8 MCHC 32.6 RDW Std Deviation 56.8 H Plt Count 186 Neut % (Auto) 73 Lymph % (Auto) 12 [place] % (Auto) 13 H Eos % (Auto) 1 Baso % (Auto) 0 Neut # (Auto) 5.2 Lymph # (Auto) 0.9 L [place] # (Auto) 0.9 H Eos # (Auto) 0.1 Baso # (Auto) 0.0 Immature Gran # (Auto) 0.02 H Absolute Nucleated RBC 0.00 Immature Gran % 0 Nucleated RBC % 0 Sodium 135 L Potassium 4.9 Chloride 98 Carbon Dioxide 26.3 Anion Gap 11 BUN 57 H Creatinine 5.9 H* D Estim Creat Clear Calc 8.3 L eGFR 9 L* BUN/Creatinine Ratio 10 L Glucose 102 Calculated Osmolality 285 Calcium 9.3 Corrected Calcium 9.3 Phosphorus 4.8 Magnesium 2.0 Total Bilirubin 0.4 AST 34 ALT 31 Alkaline Phosphatase 70 Total Protein 7.0 Albumin 4.2 Globulin 2.8 Albumin/Globulin Ratio 1.5 Random Vancomycin 25.5 Quality Measures Quality Measures VTE prophylaxis Advance care planning discussed with:: patient and spouse Assessment & Plan Assessment Current Active Medications: Generic Name Dose Route Start Last Admin Trade Name Freq PRN Reason Stop Dose Admin Acetaminophen 650 mg 05/27/24 22:12 05/28/24 08:18 Acetaminophen 325 Mg Tablet PO 06/26/24 22:11 650 mg Q6H PRN Administration Fever >100 or pain 1-3 Benzonatate 100 mg 05/29/24 10:20 Benzonatate 100 Mg Capsule PO 06/28/24 10:19 Q8HR PRN COUGH Protocol Dextrose 25 ml 05/27/24 22:18 Dextrose 50%-Water Inj 50 Ml Syringe IV 06/26/24 22:17 Q15MIN PRN BG 50-70 responsive npo pt Dextrose 50 ml 05/27/24 22:18 Dextrose 50%-Water Inj 50 Ml Syringe IV 06/26/24 22:17 Q15MIN PRN BG <50 OR BG <70 & pt unresponsive Furosemide 40 mg 05/28/24 09:00 05/30/24 08:05 Furosemide Inj 10 Mg/Ml 4ml Vial IVP 06/27/24 08:59 40 mg BID SANTO Administration Glucagon 1 mg 05/27/24 22:18 Glucagon Inj 1 Mg Vial IM Q15MIN PRN BG <70, and no IV access Heparin Sodium (Porcine) 5,000 unit 05/28/24 09:00 05/30/24 08:06 Heparin Sod Inj 5000 Unit/Ml Vial SC 06/11/24 08:59 5,000 unit Q12H SANTO Administration Ceftriaxone Sodium/Dextrose 1 gm in 50 mls @ 100 mls/hr 05/30/24 09:43 05/30/24 09:55 Rocephin/D5w 1gm Iv Premix IV 06/06/24 09:42 100 mls/hr QDAY SANTO Administration Insulin Human Lispro 0 unit 05/28/24 07:30 05/30/24 11:31 Insulin Lispro (Admelog) 1 Unit/0.01 Ml Unit SC 06/27/24 07:29 Not Given AC SANTO Protocol Ondansetron HCl 4 mg 05/28/24 20:05 05/29/24 09:57 Ondansetron Inj 2 Mg/Ml Inj 2 Ml IV 06/27/24 20:04 4 mg Q6HR PRN Administration NAUSEA OR VOMITING Protocol Sennosides 1 tab 05/29/24 09:00 05/30/24 08:06 Senna Tablet PO 06/28/24 08:59 Not Given QDAY SANTO Protocol Sevelamer Carbonate 800 mg 05/28/24 06:00 05/30/24 05:27 Sevelamer Carbonate 800 Mg Tablet PO 06/27/24 05:59 800 mg TID SANTO Administration Vitamin B Complex/Vit C/Folic Acid 1 tab 05/28/24 09:00 05/30/24 08:05 Vit B12/Vit C/Fa (Nephrovite) Tablet PO 06/27/24 08:59 1 tab QDAY SANTO Administration Plan 83-year-old male with past medical history of ESRD on HD M/W/F via left brachiocephalic fistula, essential hypertension, hyperlipidemia, wax-drxvdrg-bcjndiyrh type 2 DM, history of multiple strokes, chronic diarrhea, HFrEF (~EF 40-45%), rectal mass s/p resection who is admitted for acute on chronic hypoxic respiratory failure secondary to bilateral pneumonia, volume overloaded secondary to ESRD and elevated troponin likely secondary to NSTEMI type II versus type I. #Acute hypoxic respiratory failure #Sepsis secondary to extensive bilateral pneumonia Patient notes that after dialysis session on Friday, he felt suddenly short of breath and thought he was going to pass away at home Patient was recently discharged from the hospital for febrile illness likely secondary to cellulitis from AV fistula site and discharged with oral antibiotics In the ED, patient presented septic with the following: Tachycardic, white count 12.2, Lactate: 2.3. qSOFA: 1 points. 3 out of 4 SIRS criteria Sepsis due to 3/4 SIRS criteria with acute sepsis-related organ dysfunction as evidence by RYAN on ESRD Chest x-ray showed diffuse significant bilateral pneumonia with mild prominence of the cardiac contour and moderate vascular congestion Respiratory failure likely related to PNA and fluid overload MRSA screen is negative, urine culture no growth, blood culture no growth within 48 hours Plan: Switched IV Zosyn and vancomycin to IV ceftriaxone Patient did well on room air today and his counts have decreased. Continue benzonatate 100 mg p.o. 3 times daily as needed for cough #Elevated troponin, peaked and downtrending Likely NSTEMI type II versus type I Patient did present with hypertensive emergency, volume overloaded secondary to ESRD Patient is currently having some chest tightness/pressure-like sensation which is present even with and without deep inspiration EKG does not show any concerning ST changes and is similar to previous EKGs Troponin initially was 0.054 and has been up trended to 0.350 and 0.408 Plan: Treating hypertensive emergency along with pneumonia and dialysis for ESRD #Hypertensive emergency, improving #Fluid overload #ESRD, HD MWF Patient is on home furosemide 40 mg p.o. twice daily and metoprolol succinate 50 mg p.o. daily BP 207/102 on admission No ACEi/ARB due to hyperkalemia and ESRD BUN 72, Cr 5.5, K 5.0, phosphorus 6.0 Plan: Dialysis completed with Dr. Jenkins Blood pressure within goal for 24 hours On IV Lasix 40 mg twice daily Nephrology consulted, appreciate recs Monitor with morning labs #Hx of HTN #Chronic Systolic Heart Failure with Reduced Ejection Fraction (EF 40?45%) History of HFrEF, elevated BNP >3280, currently hypertensive, on metoprolol and furosemide Plan: Not one ACEi/ARB due to history of hyperkalemia On IV Lasix 40 mg twice daily Avoid volume overload; adjust diuretics based on volume status and HD Monitor daily weights Strict I's and O's #Elevated liver function enzymes #Metabolic associated steatotic liver disease Patient presented with elevated AST, ALT Likely secondary to acutely ill status versus primary hepatocellular disease Hepatitis panel is negative Liver ultrasound shows normal gallbladder and fatty liver Plan: Monitor liver function #Hyperlipidemia On atorvastatin 20 mg LDL 46, Total ~100 Plan: Continue statin therapy Goal LDL<70 #Non insulin dependent type II Diabetes mellitus A1c in February 2024 5.4 Plan: Sliding scale insulin Hypoglycemic protocol in place Blood sugar checks with meals Hospital management: Lines: PIV Diet: Renal Bowel: Senna GI prophylaxis: Not needed DVT prophylaxis: Heparin subcu Dispo: IV antibiotics for bilateral pneumonia, dialysis for ESRD and trending troponin Code: Full Patient seen and examined with attending Dr. Castaneda and senior resident Dr. Kush Dominguez, PGY-1 -- ATTESTATION: I saw and examined the patient this morning, and I agree with current management stated by the resident. Will continue to monitor patient during their stay. Disclaimer: Despite multiple revisions, due to the dictation software being used, the document bellow may not be free of grammatical errors including phonetic/typographic errors. However, this does not deter from our commitment to providing health care in the patient's best interest in mind. Dr. Mookie Currie, PGY-3 Attending Provider Attestation/Addendum I attest that I was physically present for the evaluation, physical examination, lab and imaging review of the patient with the residents. I discussed the case with the residents and agree with the findings and plans of care as documented above. At bedside today, patient appears comfortable and does not have any new complaints. Was working well with physical therapy and walking around the hallway. Was maintaining his saturation well even during walking. WBC count continues to be stable. Culture results have been negative for more than 48 hours, MRSA screen is negative, we will de-escalate his antibiotics to IV Rocephin daily. Also continues to be on IV Lasix twice daily for CHF exacerbation. Pending echocardiography. Shanta Castaneda MD
--- NOTE | 2024-05-30 12:42 | PC.SS ---
This is 83-year-old, , male who presented to the ED due to suffering from shortness of breath. Patient appeared alert and oriented to self, place and situation. Patient was pleasant, his mood and behavior were ordinary. Patient verified his address and phone number. Patient reported that he resides at home with his , Fabienne. Patient is independent with all ADLs, no DME use. Patient attends outpatient HD on // at 1430. Patient outpatient HD clinic is [facility]. Patient's elevator repairer helper is Dr. Jenkins. When medically clear, patient will return home, no need of transportation.
--- NOTE | 2024-05-30 13:00 | PC.NURSE ---
Patient oxygen dropped to 85% and maintained while sleeping. 1L NC applied, patient oxygen increased to 97%.
[2024-05-30 13:38] LABS: Cocci Serology, IgG Negative (Negative)
[2024-05-31] VITALS (21 sets, daily range): BP systolic 148–184; BP diastolic 66–98; PULSE 66–100; RESP 16–21; TEMP 36.4–37.1; O2SAT 93–100; BMI 27.1
[2024-05-31] MEDS: SEVELAMER CARBONATE 800 MG TABLET PO ×2 (05:10→13:14)
--- NOTE | 2024-05-31 05:44 | PC.NURSE ---
pt refused morning labs, Dr. Colmean was made aware.
--- NOTE | 2024-05-31 08:29 | PC.NURSE ---
lab notified me patient refused labs. Lab will come back later. Will continue to monitor patient.
--- NOTE | 2024-05-31 10:08 | PD.NEPHPROG ---
Documentation for date of: 05/31/24 Subjective Subjective Interval history: 83-year-old male with past medical history of hypertension, hyperlipidemia, type 2 diabetes mellitus, ESRD on HD [M/W/F], history of multiple strokes, chronic diarrhea, rectal mass s/p resection, HFrEF presented to the hospital with chief complaints of shortness of breath, fever with chills for 1 day. Patient stated that he was at dialysis center and was not able to tolerate it and also developed fever and chills due to which patient was referred to the ED in the middle of the dialysis session. Also stated that he recently saw vascular surgeon 3 days back for suture removal and also got treated with Keflex for the suspicion of fistula site infection. Patient denied chest pain, nausea, vomiting, palpitations. Patient had recent hospitalization 8 days ago as he missed his dialysis session and for suspected fistula site infection, fever ED course: -Initial vitals at the time of admission are blood pressure 207/102 mmHg, pulse rate 114 bpm, respiratory rate 19/min, temperature 101.5 ?F, SpO2 98% with 6 L oxygen -Labs at the time of admission showed WBC 12.2, Hb 12, platelets 184, sodium 135, potassium 5, BUN 72, creatinine 5.5 -Chest x-ray showed bilateral moderate to severe vascular congestion Nephrology is consulted for hemodialysis as patient is having ESRD 05/29/2024 Patient is seen and examined at bedside No acute overnight events. Patient is complaining of early satiety despite having good appetite. Also complaining of cough Patient had previous history of rectal tumor and recommended follow-up with Dr. Cantu with endoscopy and colonoscopy, but patient denied undergoing procedures Vitals are stable with blood pressure 146/76 mmHg, pulse rate 81 bpm, respiratory rate 17/min. Labs showed BUN 46, creatinine 4.7 Will do HD as per his routine schedule 05/31/2024 patient currently seen in dialysis. Postdialysis can be discharged cough is much better.. On antibiotics for pneumonia. Review of Systems Review of Systems Narrative Review of Systems: CONSTITUTIONAL: Patient denies any fever, chills. HEENT: Denies any visual disturbances or hearing problems. CARDIOVASCULAR: Patient denies any chest pain, shortness of breath, swelling in the lower extremities. PULMONARY: Patient complaining of cough GASTROINTESTINAL: Patient denies any abdominal pain, constipation, nausea, vomiting. Complaining of diarrhea. GENITOURINARY: Patient denies any urinary symptoms of burning or frequency or hematuria, denies any form in the urine. SKIN: Denies any rash. MUSCULOSKELETAL: Denies any muscular skeletal problems of joint pains. NEUROLOGICAL: Denies any neurological problems of strokes, seizures or confusion. Denies any memory problems. PSYCHIATRIC: Denies any depression or anxiety. LYMPHATICS : No lymphadenopathy Exam Vital Signs Temp Pulse Resp BP Pulse Ox O2 Del Method O2 Flow Rate 36.8 C 75 18 169/70 H 97 Room Air 2 05/31/24 16:00 05/31/24 16:00 05/31/24 16:00 05/31/24 16:00 05/31/24 16:00 05/31/24 16:05/30/24 16:00 Narrative Exam General: Awake. Patient comfortable on dialysis HEENT: Normocephalic, atraumatic, mucous membranes moist. Heart: Regular rate and rhythm, systolic murmur heard at aortic area and pulmonary area Lungs: Few rhonchi at the bases Abdomen: Soft, nondistended, nontender, positive bowel sounds. ?No guarding or rebound tenderness. Neurologic: Alert and oriented x3, no gross neurological deficit, and patient able to move all 4 extremities. Extremities: No edema. AV fistula on left arm Skin: No rash or ecchymoses. Objective Labs 05/30/24 05:19 05/30/24 05:19 Assessment & Plan Additional Assessment & Plan Additional Plan: 83-year-old male with past medical history of hypertension, hyperlipidemia, type 2 diabetes mellitus, ESRD on HD [M/W/F], history of multiple strokes, chronic diarrhea, rectal mass s/p resection, HFrEF presented to the hospital with chief complaints of shortness of breath, fever with chills for 1 day and nephrology is consulted for HD as patient is having ESRD # ESRD on HD Likely due to diabetes mellitus and hypertension -Patient was referred to the ED as he was noted to have fever and shortness of breath in the middle of dialysis -Labs at the time of admission showed WBC 12.2, Hb 12, platelets 184, sodium 135, potassium 5, BUN 72, creatinine 5.5 -Chest x-ray showed bilateral moderate to severe vascular congestion Plan Patient currently seen on dialysis. Tolerating dialysis without any problems. Hemodialysis for 3 hours, 2K, ultrafiltration 2-3 L, Epogen 6000, no heparin ordered. Plan of care discussed with the dialysis nurse. Please see dialysis flowsheet for further details. -Avoid nephrotoxic medications and renally dose medications -Renal farmer stable for discharge #Hypertensive urgency, resolved # History of hypertension -Blood pressure at the time of admission is 207/102 mmHg -Blood pressure appears to be well-controlled as of 05/28/2024 plan -HD is done on 05/29/2024, will do HD as her his routine schedule -Patient is using metoprolol and furosemide at home -Started on renal diet and recommended to add antihypertensives based on his blood pressures -Monitor blood pressures and titrate medications accordingly # Anemia, normocytic normochromic -Patient seems to have chronic anemia since 2021, likely due to anemia of chronic kidney disease -Will give erythropoietin during the dialysis #Acute hypoxic respiratory failure #Sepsis secondary to extensive bilateral pneumonia-resolved #Elevated troponin #Chronic Systolic Heart Failure with Reduced Ejection Fraction (EF 40?45%) #Elevated liver function enzymes #Metabolic associated steatotic liver disease #Hyperlipidemia #Non insulin dependent type II Diabetes mellitus -Rest of the medical conditions to be treated as per primary team
--- NOTE | 2024-05-31 10:20 | XR_ITS ---
Examination: AP chest single view TECHNIQUE: AP portable sitting chest single view Exam date and time: May 31, 2024 1119 hours COMPARISON: May 27, 2024 INDICATIONS: Shortness of breath today. FINDINGS: Partial clearing of extensive bilateral pneumonia Stable cardiac contour Moderate osteopenia IMPRESSION: Partial clearing extensive bilateral pneumonia
--- NOTE | 2024-05-31 10:22 | ECHO_ITS ---
Transthoracic Echo Report Ht (in): 65 Wt (lb): 162 Exam Location: Echo Lab Status: Inpatient Overhauler Helper: TESFAYE Berrios^^^^ Indications: Procedure Performed: BP: / HR: Technical Quality: Fair MEASUREMENTS (Male / Female) Normal Values 2D ECHO LV Diastolic Diameter PLAX 4.5 cm 4.2 - 5.9 / 3.9 - 5.3 cm LV Systolic Diameter PLAX 3.0 cm IVS Diastolic Thickness 0.9 cm 0.6 - 1.0 / 0.6 - 0.9 cm LVPW Diastolic Thickness 0.8 cm 0.6 - 1.0 / 0.6 - 0.9 cm LV Relative Wall Thickness 0.4 LVOT Diameter 1.6 cm Aortic Root Diameter 3.5 cm LA Systolic Diameter LX 3.2 cm 3.0 - 4.0 / 2.7 - 3.8 cm LV Ejection Fraction MOD BP 62.9 % >= 55 % LV Ejection Fraction MOD 4C 65.7 % LV Ejection Fraction 4C AL 66.6 % LV Ejection Fraction MOD 2C 59.1 % LV Ejection Fraction 2C AL 60.9 % LA Volume Index 49.2 cm?/m? 16 - 28 cm?/m? Ascending Aorta Diameter 3.0 cm DOPPLER AV Peak Velocity 236.0 cm/s AV Peak Gradient 22.3 mmHg AV Mean Gradient 15.0 mmHg AV Velocity Time Integral 59.4 cm LVOT Peak Velocity 74.2 cm/s LVOT Peak Gradient 2.2 mmHg LVOT Velocity Time Integral 23.0 cm AV Area Cont Eq vti 0.8 cm? AV Area Cont Eq pk 0.6 cm? MV Area PHT 2.7 cm? Mitral E Point Velocity 96.8 cm/s Mitral A Point Velocity 144.0 cm/s Mitral E to A Ratio 0.7 LV E' Lateral Velocity 8.6 cm/s Mitral E to LV E' Lateral Ratio 11.3 LV E' Septal Velocity 7.0 cm/s Mitral E to LV E' Septal Ratio 13.9 TR Peak Velocity 231.3 cm/s TR Peak Gradient 21.4 mmHg PV Peak Velocity 103.0 cm/s PV Peak Gradient 4.2 mmHg RVOT Peak Velocity 76.1 cm/s FINDINGS Left Ventricle Normal left ventricular size, wall thickness, systolic function with no obvious regional wall motion abnormalities. There is grade I diastolic dysfunction of the left ventricle (impaired relaxation pattern). The left ventricular ejection fraction is normal, estimated at 55-60%. Right Ventricle The right ventricle is normal in size and systolic function. The estimated right ventricular systolic pressure, 25 mmHg. Left Atrium Mildly increased left atrial volume 49.2 mL/m?. Right Atrium The right atrium is normal by two-dimensional imaging, color flow and Doppler imaging with no structural abnormalities, no thrombus formation present. Atrial Septum The interatrial septum appears normal with no evidence of a shunt. Aorta The aorta is normal by two-dimensional, color flow and Doppler interrogation. Mitral Valve Mild mitral regurgitation. Mild mitral annular calcification. Aortic Valve Mildto modearte aortic valve stenosis, Peak gradient 25 mm Hg mean gradient 15 mmHg, OLGA LIDIA 0.78 cm?. Tricuspid Valve There is mild tricuspid valve regurgitation. Pulmonic Valve The pulmonic valve is not well visualized. There is no significant pulmonic valve regurgitation. Vessels The pulmonary artery appears normal. The inferior vena cava pulmonary and hepatic veins appear normal. Pericardium The pericardium is normal by two-dimensional imaging. There is no significant pericardial effusion. CONCLUSIONS indication: CHF Normal left ventricular size and function. Approximate ejection fraction is 60%. RV appears normal with RVSP 25 mmHg. LA is mildly dilated. Moderate calcific aortic stensois Vmax 2.5 m/sec peak gradient 25 mm HG Mild mitral and tricuspid regurgitation Radha Waller (Electronically Signed) Final Date: 31 May 2024 17:28
[2024-05-31] MEDS: EPOETIN ALFA-EPBX INJ 10,000 UNIT/ML VIAL (NON-ESRD) 10000 UNIT SC (11:35)
--- NOTE | 2024-05-31 11:56 | PC.SS ---
Follow up note: On IV antibiotic. Dialysis today. Echo is pending. Chest Xray today. Pt is established with dialysis MWF. Pt will return home upon dc.
[2024-05-31] MEDS: cefTRIAXone/D5w 1gm IV premix 1 GM/50 ML BAG IV (12:51)
[2024-05-31] MEDS: FUROSEMIDE INJ 10 MG/ML 4ML VIAL 40 MG IVP (12:51)
[2024-05-31] MEDS: VIT B12/Vit C/FA (Nephrovite) TABLET 1 TAB PO (12:52)
[2024-05-31] MEDS: HEPARIN SOD INJ 5000 UNIT/ML VIAL SC (12:52)
--- NOTE | 2024-05-31 13:14 | ESDS_ITS ---
<Statement entered by Perez Miller MD - 06/01/24 21:45> Patient seen and examined at bedside with resident. Agree with assessment and plan as documented. Patient cleared for discharge today. Perez Miller MD Planned Discharge Date 05/31/24 DS: Providers Provider Date of admission: 05/27/24 20:43 Primary care physician: Bethanie Jenkins MD Admitting Provider: Perez Poe MD Attending Provider on Admission: Perez Miller MD Consults: 05/27/24 22:18 Consult to Nephrology Routine Comment: ESRD Consulting Provider: Bethanie Jenkins 05/28/24 09:00 Referral - SHANK ARCHER Turntable Engineer Routine Comment: kyaw Franz Attending Provider on DC: Louie Dominguez MD Discharging Provider: Louie Dominguez MD DS: Diagnosis Problem List Completed Was Problem List Reviewed/Reconciled?: Yes Hospital Course Hospital Course Hospital course: 83-year-old male with past medical history of ESRD on HD M/W/F via left brachiocephalic fistula, essential hypertension, hyperlipidemia, [id number] type 2 diabetes, history of multiple strokes, chronic diarrhea, HFrEF (EF 40 to 45%), rectal mass s/p resection presented to the ED on 05/27 for evaluation of shortness of breath associated with fever and chills. In the ED, patient was febrile with temperature of 100.5 ?F, tachycardic 114, blood pressure 207/102, saturating 90% on oxime mask. Pertinent lab findings included BUN/creatinine 72/5.5, white count of 12.2, lactate of 2.3, troponin 0.054, BNP greater than 3000, Pro-Biju 4. EKG showed sinus rhythm, chest x-ray showed exten sive bilateral pneumonia. Patient was admitted for acute on chronic hypoxic respiratory failure secondary to bilateral pneumonia, volume overload secondary to ESRD and elevated troponin likely secondary to NSTEMI type II. Patient was started on IV antibiotics, blood urine and sputum cultures were ordered which were all negative. Patient completed dialysis session with nephrology and was also treated with IV diuretics for the hypertensive emergency, fluid overload status. Patient's supplemental oxygenation needs decreased throughout several days that he was admitted. Repeat chest x-ray showed improvement in initial findings. During admission, patient also had some elevated liver enzymes and ultrasound which was ordered showed a normal gallbladder with fatty liver changes. Patient made significant recovery and will be discharged with the following strict instructions. Please take Augmentin 500-125 mg tablet by mouth once a day for 3 additional days Please take benzonatate 100 mg every 8 hours as needed for cough Continue taking all other home medications as prescribed Please follow-up with your PCP within the next 1 to 2 weeks; ask for echocardiogram results to be reviewed with you. Please follow-up with Dr. Jenkins, nephrology, and continue going to your dialysis sessions as scheduled If your symptoms worsen or if you develop new chest pain/tightness, shortness of breath, severe abdominal pain or dizziness - please come back to the ED immediately Hospital Diagnosis: #Acute hypoxic respiratory failure #Elevated troponin, peaked and downtrending #Hypertensive emergency, improving #Fluid overload #ESRD, HD MWF #Hypertension #Chronic Systolic Heart Failure with Reduced Ejection Fraction (EF 40?45%) #Elevated liver function enzymes #Metabolic associated steatotic liver disease #Hyperlipidemia #Non insulin dependent type II Diabetes mellitus Louie Dominguez, PGY-1 Status at Discharge Overall status at discharge: patient is progressing back to baseline Time Spent with Patient Time attestation: Total time spent providing and/or coordinating discharge services: 45 minutes Time spent: Greater than 30 minutes Exam Vital Signs Temp Pulse Resp BP Pulse Ox O2 Del Method O2 Flow Rate 97.7 F 69 16 158/68 H 95 Room Air 2 05/31/24 12:05 05/31/24 12:51 05/31/24 12:05 05/31/24 12:51 05/31/24 12:05 05/31/24 08:00 05/30/24 16:00 Narrative Exam Physical Exam: General: Awake. On room air HEENT: Normocephalic, atraumatic, mucous membranes moist. Heart: Regular rate and rhythm, systolic murmur heard at aortic area and pulmonary area Lungs: Clear to auscultation with no wheezing or crackles. Abdomen: Soft, nondistended, nontender, positive bowel sounds. ?No guarding or rebound tenderness. Neurologic: Alert and oriented x3, no gross neurological deficit, and patient able to move all 4 extremities. Extremities: No edema. AV fistula on left arm Skin: No rash or ecchymoses. Discharge Plan Plan Patient Disposition: HOME (Self Care) Care Plan Goals: Please take Augmentin 500-125 mg tablet by mouth once a day for 3 additional days Please take benzonatate 100 mg every 8 hours as needed for cough Continue taking all other home medications as prescribed Please follow-up with your PCP within the next 1 to 2 weeks; ask for echocardiogram results to be reviewed with you. Please follow-up with Dr. Jenkins, nephrology, and continue going to your dialysis sessions as scheduled If your symptoms worsen or if you develop new chest pain/tightness, shortness of breath, severe abdominal pain or dizziness - please come back to the ED immediately Prescriptions/Referrals Prescriptions/Med Rec: New benzonatate 100 mg Capsule 100 mg PO Q8HR PRN (Reason: Cough) 7 Days Qty: 21 0RF amoxicillin-pot clavulanate 500-125 mg tablet 1 tab PO QDAY 3 Days Qty: 3 0RF Continued atorvastatin [Lipitor] 20 MG tablet 20 mg PO HS Qty: 30 0RF Aileen-Abrahan 0.8 mg Tablet 1 tab PO DAILY metoprolol succinate 50 mg tablet extended release 24 hr 50 mg PO DAILY Patient Comments: TAKE 1 TABLET BY MOUTH ONCE DAILY furosemide 40 mg tablet 40 mg PO BID sevelamer carbonate 800 mg tablet 800 mg PO TID Rx Instructions: must administer with a meal/food Referrals: Bethanie Jenkins MD [Primary Care Provider] - Patient/Caregiver Discharge Instructions Education Materials: Kidney Failure Self Care, Kidney Disease Avoid High Sodium Print Language: Beninese Stand Alone Forms: Nydia Award Info., Patient Portal Info Letter Discharge Order Discharge Orders: Discharge (Routine); Ordered 05/31/24 Ordered By: Louie Dominguez Quality Discharge Quality Measures VTE prophylaxis
--- NOTE | 2024-05-31 13:24 | PC.NURSE ---
Dr. Alice bolanos with patient discharge. Will continue to monitor patient.
--- NOTE | 2024-05-31 13:27 | PC.NURSE ---
DC orders are in patient needs an ECHO to discharge. Notified Dr. Perdomo she is going to contact ECHO. Will continue to monitor patient.
--- NOTE | 2024-05-31 15:00 | PC.NURSE ---
Patient refusing labs. Will continue to monitor patient.
[2024-06-02 06:44] LABS: (tTG) Ab, IgA 1.3 U/mL; (tTG) Ab, IgG <1.0 U/mL
[2024-06-09 06:14] LABS: Calprotectin, Stool* 27 mcg/g
== END 2024-05-31 18:24 | disposition home or self-care (01) | DRG 871 ==
LOC: SERX 20:16 → SERHOLD 20:57 → S2NX 05-28 05:19 → S3SX 05-30 23:44 → S3NX 05-31 03:59
PROVIDERS: Student in an Organized Health Care Education/Training Program; Admitting Provider Internal Medicine; Emergency Provider Emergency Medicine; PCP Internal Medicine; Visit Provider Student in an Organized Health Care Education/Training Program
DX: A41.9 Sepsis, unspecified organism (principal); J18.9 Pneumonia, unspecified organism; J96.21 Acute and chronic respiratory failure with hypoxia; N18.6 End stage renal disease; I50.22 Chronic systolic (congestive) heart failure; I13.2 Hypertensive heart and chronic kidney disease with heart failure and with stage 5 chronic kidney disease, or end stage renal disease; N17.9 Acute kidney failure, unspecified; I16.1 Hypertensive emergency; E11.22 Type 2 diabetes mellitus with diabetic chronic kidney disease; E78.5 Hyperlipidemia, unspecified; R65.20 Severe sepsis without septic shock; E87.70 Fluid overload, unspecified; E87.5 Hyperkalemia; Z79.84 Long term (current) use of oral hypoglycemic drugs; Z99.2 Dependence on renal dialysis; K52.9 Noninfective gastroenteritis and colitis, unspecified; D63.1 Anemia in chronic kidney disease; I45.10 Unspecified right bundle-branch block; R68.81 Early satiety; E78.00 Pure hypercholesterolemia, unspecified; K76.0 Fatty (change of) liver, not elsewhere classified; R13.10 Dysphagia, unspecified; Z79.899 Other long term (current) drug therapy; Z86.73 Personal history of transient ischemic attack (TIA), and cerebral infarction without residual deficits; Z87.891 Personal history of nicotine dependence
CPT/HCPCS: 36415; 71045; 76705; 80053; 80074; 80202; 80307; 80320; 81001; 83605; 83615; 83690; 83735; 83880; 83993; 84100; 84145; 84443; 84484; 85025; 85610; 85730; 86331; 86364; 86635; 87040; 87081; 87086; 92526; 92610; 93225; 93306; 96361; 96365; 96366; 96367; 96375; 99291; J0131; J0696; J1643; J1940; J2405; J2543; J3370; J7030; Q5105; Q5106; A9270; G0480

== ENCOUNTER 2024-08-16 15:57 | Inpatient (IN) | payer MEDICARE, BC, SELFPAY ==
[2024-08-16] VITALS (10 sets, daily range): BP systolic 121–191; BP diastolic 55–102; PULSE 81–101; RESP 18–23; TEMP 36.2–39.4; O2SAT 91–100; BMI 25.8; BMI 23.2
--- NOTE | 2024-08-16 16:04 | EKG_ITS ---
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
--- NOTE | 2024-08-16 16:04 | XR_ITS ---
Examination: AP chest single view TECHNIQUE: AP portable upright chest single view Date and time: August 16, 2024 1651 hours Comparison May 31, 2024 INDICATIONS: Shortness breath today. FINDINGS: Mild heart failure Mild enlargement cardiac contour Prominent vascular congestion Suspicious for early septal edema at the lung bases Prominent osteopenia IMPRESSION: Mild heart failure
--- NOTE | 2024-08-16 16:17 | PD.EDWEAK ---
ED Weakness RME/HPI General Chief complaint: Weakness Stated complaint: WEAKNESS Time Seen by Provider: 08/16/24 16:03 Arrival date/time: 08/16/24 15:57 Limitations: no limitations RME / HPI RME / HPI Narrative: 84-year-old male who is brought in by EMS from a dialysis center. He was retirement through his right dialysis, went to the bathroom, came back, and staff noted his oxygenation was low. He was sent here for further evaluation. He has no acute shortness of breath. No cough. EMS report he maintained a saturation above 90% during transport. He has had no syncopal related falls. Patient states she has had some frequent dysuria since Friday of last week. Has had intermittent fevers. He arrived afebrile but developed a fever of 103 Fahrenheit while here. Related Data Home Medications ?Medication ?Instructions ?Recorded ?Confirmed furosemide 40 mg tablet 40 mg PO BID 09/21/22 05/28/24 metoprolol succinate 50 mg 50 mg PO DAILY 09/21/22 05/28/24 tablet,extended release 24 hr vitamin B complex-vitamin C-folic 1 tab PO DAILY 09/21/22 05/28/24 acid 0.8 mg tablet (Aileen-Abrahan) sevelamer carbonate 800 mg tablet 800 mg PO TID 05/28/24 05/28/24 Previous Rx's ?Medication ?Instructions ?Recorded atorvastatin 20 mg tablet (Lipitor) 20 mg PO HS #30 tabs 03/27/17 Allergies Allergy/AdvReac Type Severity Reaction Status Date / Time latex Allergy Verified 05/20/24 01:09 Review of Systems Review of Systems Systems Reviewed: All systems reviewed, normal except as documented ED Exam General Limitations: Present no limitations General appearance: Present alert and in no apparent distress Head Head exam: Present atraumatic Eye Eye exam: Present normal appearance, PERRL and EOMI ENT ENT exam: Present normal exam, normal oropharynx and mucous membranes moist Neck Neck exam: Present normal inspection, full ROM and trachea midline Chest Chest inspection: Present normal inspection and symmetric chest wall rise Respiratory Respiratory exam: Present normal lung sounds bilaterally Cardiovascular Cardiovascular exam: Present regular rate, normal rhythm and normal heart sounds Abdominal Exam Abdominal exam: Present soft and normal bowel sounds Extremities Exam Extremities exam: Present normal inspection and full ROM Back Exam Back exam: Present normal inspection and full ROM Neurological Exam Neurological exam: Present alert, oriented X3 and CN II-XII intact Psychiatric Psychiatric exam: Present normal affect and normal mood Skin Skin exam: Present warm, dry, intact and normal color Course Quality Measures none Orders Category Date Time Status Bedside COVID-19 Antigen Test NOW Care 08/16/24 17:49 Active Bedside Influenza A&B Antigen Test NOW Care 08/16/24 17:49 Completed COVID-19 Screening Questionnaire NOW Care 08/16/24 18:13 Active Decision to Admit X1 Care 08/16/24 18:13 Completed EKG (ED ONLY) *Do not use* NOW Care 08/16/24 16:04 Completed Insert IV NOW Care 08/16/24 17:36 Active EKG (ED Only) Stat Exams 08/16/24 16:04 Draft XR chest 1V Stat Exams 08/16/24 16:04 Completed BNP [B-Type Natriuretic Peptide] Stat Lab 08/16/24 16:57 Completed Blood Culture (Lab) Stat Lab 08/16/24 16:52 Received CBC Stat Lab 08/16/24 16:52 Completed CMP [Comprehensive Metabolic Panel] Stat Lab 08/16/24 16:52 Completed Lipase Stat Lab 08/16/24 16:52 Completed Magnesium Stat Lab 08/16/24 16:52 Completed UA [Urinalysis] Stat Lab 08/16/24 17:16 Completed Acetaminophen Tab [Tylenol ES Tab] Med 08/16/24 17:46 Discontinued 1,000 mg PO X1 ONE Sodium Chloride 0.9% 500 ml [Ns] 500 ml Med 08/16/24 17:47 Discontinued IV 999 mls/hr Sodium Chloride 0.9% 500 ml [Ns] 500 ml Med 08/16/24 17:49 Discontinued IV 999 mls/hr cephALEXin [Keflex] Med 08/16/24 18:26 Discontinued 500 mg PO X1 ONE Vital Signs Vital signs: Vital Signs Temperature 100.4 F 08/16/24 16:51 Pulse Rate 101 H 08/16/24 16:51 Respiratory Rate 22 H 08/16/24 16:51 Blood Pressure 191/102 H 08/16/24 16:51 Pulse Oximetry (%) 100 08/16/24 16:51 Oxygen Delivery Method Room Air 08/16/24 16:51 Weakness MDM Narrative MDM Narrative:: 84-year-old male who is brought in by EMS from a dialysis center. He was retirement through his right dialysis, went to the bathroom, came back, and staff noted his oxygenation was low. He was sent here for further evaluation. He has no acute shortness of breath. No cough. EMS report he maintained a saturation above 90% during transport. He has had no syncopal related falls. Patient states she has had some frequent dysuria since Friday of last week. Has had intermittent fevers. He arrived afebrile but developed a fever of 103 Fahrenheit while here. On exam patient is nontoxic. No visible signs distress. He arrived with normal vital signs however he developed a fever here. He was given a dose of Tylenol. Was given a small bolus of fluids additionally. Labs were obtained, patient has no significant leukocytosis or metabolic derangement. Urinalysis consistent UTI. He is given a dose of Keflex. His primary waste disposal attendant was called and will follow the patient. Patient to have dialysis tomorrow. We will admit to medicine. At 1920 5 PM, medicine was contacted Case discussed, they will admit the patient. Patient data External records reviewed:: [facility] previous records Clinical information provided by:: patient and family Social determinants that could affect healthcare access:: none Patient has the following chronic illnesses:: Congestive heart failure, end-stage renal disease How is presenting disease/condition affected by chronic disease/condition?: exacerbated by Evaluation data The following diagnostics were reviewed and interpreted by me:: lab results, radiology exam(s) and EKG tracing(s) (EKG obtained today at 1620 p.m. EKG reveals normal sinus rhythm at 98 bpm. There is a widened complex consistent with old right bundle branch block. There is no ST changes. There are nonspecific T wave changes at V1. There are no significant EKG changes when compared to prior EKGs.) Lab and/or radiology exams considered but not ordered:: Interpretation Summary: No leukocytosis or metabolic derangement. Urinalysis consistent with a UTI. Medications / Prescriptions Medications or Prescriptions considered but not ordered:: n/a Medication administrations:: Medication Administration History Discontinued Medications Acetaminophen (Acetaminophen 500 Mg Tablet) 1,000 mg PO X1 ONE Stop: 08/16/24 17:47 Last Admin: 08/16/24 18:05 Dose: 1,000 mg Documented By: DB Cephalexin HCl (Cephalexin 250 Mg Capsule) 500 mg PO X1 ONE Stop: 08/16/24 18:27 Last Admin: 08/16/24 18:49 Dose: 500 mg Documented By: LAYLA Sodium Chloride (Ns) 500 mls @ 999 mls/hr IV .Q31M ONE Stop: 08/16/24 18:17 Last Admin: 08/16/24 17:50 Dose: Not Given Documented By: FIDELIA Non-Admin Reason: Cancelled by Provider Sodium Chloride (Ns) 500 mls @ 999 mls/hr IV .Q31M ONE Stop: 08/16/24 18:19 Last Infusion: 08/16/24 18:44 Dose: Infused Documented By: Admin: 08/16/24 18:08 Dose: 999 mls/hr Documented By: FIDELIA See above Consultations Consultation(s) initiated? (list below): Yes Consultation #1 (Physician, Specialty, Details): Spoke of his waste disposal attendant, Dr. Taylor. Will admit to medicine. Patient will finish the dialysis tomorrow. Nephrology be available for further consultation needed. Time: 18:24 Diagnosis Weakness Differential Diagnosis: anemia, hypoglycemia, sepsis and dehydration Most likely diagnosis given after review of the tests above:: UTI Admission Indicated Admission indicated?: indicated Admission Request Was there a request for admission?: Yes Admission Attestation Admission request attestation: Discussed case with [] from Hospitalist service regarding admission. Discussed patients ED course, exam findings, labs, and radiology results. The Hospitalist [agrees,declines] to accept the patient for admission. Disposition Plan Disposition Plan: Admit Discharge Plan Plan Patient Disposition: Admit Acute Care w/in Hospital Patient condition on transfer: Stable Prescriptions/Referrals Prescriptions/Med Rec: No Action atorvastatin [Lipitor] 20 MG tablet 20 mg PO HS Qty: 30 0RF Aileen-Abrahan 0.8 mg Tablet 1 tab PO DAILY metoprolol succinate 50 mg tablet extended release 24 hr 50 mg PO DAILY Patient Comments: TAKE 1 TABLET BY MOUTH ONCE DAILY furosemide 40 mg tablet 40 mg PO BID sevelamer carbonate 800 mg tablet 800 mg PO TID Rx Instructions: must administer with a meal/food Referrals: No Primary/Family,Physician [Primary Care Provider] - In 1 week Problem List Clinical Impression: ESRD on dialysis, Congestive heart failure (CHF) Patient/Caregiver Discharge Instructions Print Language: Bhutanese Stand Alone Forms: Nydia Award Info., Patient Portal Info Letter
[2024-08-16 17:00] LABS: Basophils % (Auto) 0 % (0-2.5); Eosinophils # (Auto) 0.1 Thou/mm3 (0.0-0.5); Eosinophils % (Auto) 2 % (0-10); Hematocrit 32.5 % (41.0-53.0); Immature Granulocytes % (Auto) 1 % (0-0); Immature Granulocytes Auto 0.04 Thou/mm3 (0.00-0.00); Lymphocytes # (Auto) 0.2 Thou/mm3 (1.0-4.8); Lymphocytes % (Auto) 5 % (10-50); Mean Corpuscular HGB Conc 33.8 g/dl (31.0-37.0); Mean Corpuscular Hemoglobin 32.4 pg (25.0-35.0); Mean Corpuscular Volume 96 fL (80-100); Monocytes % (Auto) 0 % (0-12); Neutrophils # (Auto) 4.3 Thou/mm3 (1.8-7.7); Neutrophils % (Auto) 92 % (37-80); Nucleated Red Blood Cell % 0 /100 WBC (0); Platelet Count 174 Thou/mm3 (140-440); RDW Standard Deviation 53.2 fL (35.1-43.9); White Blood Count 4.7 Thou/mm3 (3.8-10.6)
[2024-08-16 17:18] LABS: Alanine Aminotransferase 22 U/L (10-49); Albumin, Serum 4.5 gm/dL (3.4-4.8); Albumin/Globulin Ratio 1.6 (1.2-2.2); Alkaline Phosphatase 143 U/L (46-116); Anion Gap 18 (7-16); Aspartate Amino Transferase 34 U/L (0-34); BUN/Creatinine Ratio 13 Ratio (12-20); Bilirubin,Total 0.4 mg/dL (0.3-1.2); Blood Urea Nitrogen 84 mg/dL (9-23); Calcium 9.5 mg/dL (8.3-10.6); Calcium (Corrected) 9.5 mg/dL (8.5-10.1); Carbon Dioxide 26.8 mMol/L (20.0-31.0); Chloride 91 mMol/L (98-107); Creatinine (Component) 6.6 mg/dL (0.6-1.3); Estimated Creatinine Clearance 7.5 mL/min (>60); Globulin 2.9 gm/dL (2.3-3.5); Glucose 174 mg/dL (74-106); Lipase 37 U/L (12-53); Magnesium 2.1 mg/dL (1.6-2.6); Osmolality,Calculated 301 (275-295); Sodium 136 mMol/L (136-145); Total Protein 7.4 gm/dL (5.7-8.2); eGFR 8 See Note
[2024-08-16 17:20] LABS: Collection Type, Urine Voided
[2024-08-16 17:49] LABS: Bilirubin,Urine Negative (Negative); Blood,Urine 2+ (Negative); Clarity,Urine Turbid (Clear/Hazy); Color,Urine Yellow (Lt Yel-Yel); Glucose, Urine 2+ (Negative); Ketones,Urine Negative (Negative); Leukocyte Esterase,Urine Positive (Negative); Nitrite,Urine Negative (Negative); PH,Urine 7.5 (5.0-7.0); Protein,Urine 2+ (Neg - Trace); RBC,Urine 57 /hpf (0-3); Specific Gravity,Urine 1.014 (1.001-1.035); Squamous Epithelial Cell,Urine < 1 /hpf (0-5); Urobilinogen,Urine Negative mg/dL (0.0-1.0); WBC,Urine 642 /hpf (0-5)
[2024-08-16] MEDS: ACETAMINOPHEN 500 MG TABLET 1000 MG PO (18:05)
[2024-08-16] MEDS: SODIUM CHLORIDE 0.9% 500 ML 500 ML 999 ML IV (18:08)
[2024-08-16 18:19] LABS: B-Type Natriuretic Peptide 2479 pg/mL (0-100)
[2024-08-16] MEDS: cephALEXin 250 MG CAPSULE 500 MG PO (18:49)
--- NOTE | 2024-08-16 20:05 | PD.RESHP ---
Documentation for date of: 08/16/24 HPI History of Present Illness Chief complaint: Burning sensation with urination, fevers, low O2 History of present illness: 84-year-old male with past of ESRD (HD on MWF), HFpEF (EF 60% on 05/2024), NIDDM, strokes with residual aphasia and chronic diarrhea was admitted to the hospital on 08/16/2024 after coming to the ED where she complains of low oxygen saturations, dysuria, subjective fevers, and weakness. Patient stated that today he was in the hemodialysis session when the bathroom and when he came back his oxygen saturation was low and he had a fever of 106 at this time. He stated that he has been having some burning sensation when he urinates and that since which was when this began he was urinating a little bit less, but was still able to produce urine. Patient also stated that he had some nausea and vomiting, but was nonbloody and this also started around . Patient stated he was started with 2 food issues hemodialysis today given that he was sent to the ER given his low O2 and fever. He does not recall any history of BPH or kidney stones in the past. Otherwise patient denies any blood in the stools, shortness of breath, chest pain, or any recent falls. ED course: Initially came in hypertensive, tachycardic, tachypneic, and febrile. Initial labs were relevant for azotemia, elevated BNP, and UA was positive for WBCs, RBCs, leukocytes esterase, and for blood. Initial imaging included chest x-ray which showed vascular congestion and EKG which showed sinus rhythm. Once patient arrived to the ED he was saturating well on room air, and does not have any shortness of breath at this time is not requiring any O2 administration. PMH: As above Surgical Hx: AV fistula left upper extremity, rectal mass resection Social Hx: Denies any current smoking, drugs, alcohol Allergies: Latex Review of Systems Review of Systems Systems Reviewed: All systems reviewed, normal except as documented Past Medical History Past Medical History NEUROLOGIC: Positive Neurological Disorders and Cerebrovascular Accident; Negative Seizures CARDIAC: Positive Cardiac Disorders, Hypercholesterolemia, Edema and Hypertension; Negative Congestive Heart Failure RESPIRATORY: Negative Chronic Obstructive Pulmonary Disease (COPD) or Asthma GASTROINTESTINAL: Positive Gastrointestinal Disorders, Gastrointestinal Bleed, Colorectal Cancer and Gastroesophageal Reflux Disease GENITOURINARY: Positive Genitourinary Disorders, Renal Disease and Dialysis MUSCULOSKELETAL: Positive Fractures; Negative Musculoskeletal Disorders ENT: Positive Cataracts ENDOCRINE: Positive Endocrine Disorders and Diabetes Mellitus Type 2; Negative Diabetes Mellitus Type 1 HEMATOLOGIC: Negative Blood Disorders, Sickle Cell Disease or Clotting Problems OTHER HISTORY: Positive Hospitalization, Falls, Chicken Pox, Measles, Cancer and Colorectal Cancer; Negative Autoimmune Disease, Shingles, Blood Transfusions, Blood Transfusion Reaction, Anesthesia Reactions or MRSA Family History FAMILY HISTORY: Negative Family Psychiatric Problems, Family Respiratory Disorders, Family Cardiac Disorders, Family Gastrointestinal Problems, Family Cancer, Family Surgery or Family Anesthesia Reaction Surgical History SURGICAL: Positive Amputation Social History SMOKING STATUS: Former smoker SECOND HAND EXPOSURE: No SUBSTANCE USE: does not use Exam Vital Signs Temp Pulse Resp BP Pulse Ox O2 Del Method 100.3 F 98 23 H 155/63 H 94 L Room Air 08/16/24 19:05 08/16/24 18:16 08/16/24 18:16 08/16/24 18:16 08/16/24 18:16 08/16/24 18:16 Narrative Exam General: A/O x3, no acute distress Eyes: PERRL, EOMI. Anicteric, vision grossly intact. Ears: No ear pain, no ear discharge, Hearing grossly intact. Nose: No nasal discharge. Mouth/Throat: Moist mucous membranes, no redness, no lesions. Neck: Neck supple, non-tender, no cervical lymphadenopathy. Lungs: Clear HUNTER to auscultation and percussion, No accessory muscle use. Cardio: Normal S1/S2, regular rhythm, systolic murmur appreciated in L Lower sternal border, no JVD Abdomen: Soft, non-tender, no palpable masses, peristalsis present, no guarding or rebound. Extremities: Symmetrical, no significant deformities, no peripheral edema , non-tender, peripheral pulses presents. Skin: No rashes, no lesions, warm to touch. Neuro: Some mild aphasia, but no other focal neurological deficits. motor and sensory intact. Psych: Cooperative, appropriate mood and effect. Results: Labs 08/16/24 16:52 08/16/24 20:54 Labs: Short CBC 08/16/24 Range/Units 16:52 WBC 4.7 (3.8-10.6) Thou/mm3 Hgb 11.0 L (13.5-16.0) g/dL Hct 32.5 L (41.0-53.0) % Plt Count 174 (140-440) Thou/mm3 BMP 08/16/24 16:52 Sodium 136 Potassium 5.0 Chloride 91 L Carbon Dioxide 26.8 BUN 84 H Creatinine 6.6 H* Glucose 174 H Calcium 9.5 Liver Function 08/16/24 Range/Units 16:52 Total Bilirubin 0.4 (0.3-1.2) mg/dL AST 34 (0-34) U/L ALT 22 (10-49) U/L Alkaline Phosphatase 143 H (46-116) U/L Albumin 4.5 (3.4-4.8) gm/dL Urine 08/16/24 Range/Units 17:16 Urine Color Yellow (Lt Yel-Yel) Urine Clarity Turbid A (Clear/Hazy) Urine pH 7.5 H (5.0-7.0) Ur Specific [place] 1.014 (1.001-1.035) Urine Protein 2+ A (Neg - Trace) Urine Glucose (UA) 2+ A (Negative) Quality Measures Quality Measures none Advance care planning discussed with:: patient and spouse Medications Home Medications and Allergies Home Medications ?Medication ?Instructions ?Recorded ?Confirmed ?Type furosemide 40 mg tablet 40 mg PO QDAY 09/21/22 08/16/24 History metoprolol succinate 50 mg 50 mg PO DAILY 09/21/22 08/16/24 History tablet,extended release 24 hr vitamin B complex-vitamin C-folic 1 tab PO DAILY 09/21/22 08/16/24 History acid 0.8 mg tablet (Aileen-Abrahan) sevelamer carbonate 800 mg tablet 800 mg PO TID 05/28/24 08/16/24 History Allergies Allergy/AdvReac Type Severity Reaction Status Date / Time latex Allergy Verified 05/20/24 01:09 Visit Medications Acetaminophen (Acetaminophen 325 Mg Tablet) 650 mg PO Q6H PRN PRN Reason: pain 1-3 and Fever >100.4 Stop: 09/15/24 19:53 Hydrocodone Bitart/Acetaminophen (Hydrocodone/Apap 5/325 Tablet) 1 tab PO Q4HR PRN PRN Reason: PAIN SCALE 4-6 (Moderate Stop: 08/21/24 19:53 Dextrose (Dextrose 50%-Water Inj 50 Ml Syringe) 25 ml IV Q15MIN PRN PRN Reason: BG 50-70 responsive npo pt Stop: 09/15/24 19:53 Dextrose (Dextrose 50%-Water Inj 50 Ml Syringe) 50 ml IV Q15MIN PRN PRN Reason: BG <50 OR BG <70 & pt unresponsive Stop: 09/15/24 19:53 Glucagon (Glucagon Inj 1 Mg Vial) 1 mg IM Q15MIN PRN PRN Reason: BG <70, and no IV access Heparin Sodium (Porcine) (Heparin Sod Inj 5000 Unit/Ml Vial) 5,000 unit SC Q8HR SANTO Stop: 08/30/24 21:59 Ceftriaxone Sodium/Dextrose (Rocephin/D5w 1gm Iv Premix) 1 gm in 50 mls @ 100 mls/hr IV QDAY SANTO Stop: 08/23/24 19:59 Insulin Human Lispro (Insulin Lispro (Admelog) 1 Unit/0.01 Ml Unit) 0 unit SC AC SANTO; Protocol Stop: 09/16/24 07:29 Ondansetron HCl (Ondansetron Inj 2 Mg/Ml Inj 2 Ml) 4 mg IVP Q6H PRN; Protocol PRN Reason: NAUSEA OR VOMITING Stop: 09/15/24 19:53 Discontinued Medications Acetaminophen (Acetaminophen 500 Mg Tablet) 1,000 mg PO X1 ONE Stop: 08/16/24 17:47 Last Admin: 08/16/24 18:05 Dose: 1,000 mg Cephalexin HCl (Cephalexin 250 Mg Capsule) 500 mg PO X1 ONE Stop: 08/16/24 18:27 Last Admin: 08/16/24 18:49 Dose: 500 mg Sodium Chloride (Ns) 500 mls @ 999 mls/hr IV .Q31M ONE Stop: 08/16/24 18:17 Last Admin: 08/16/24 17:50 Dose: Not Given Sodium Chloride (Ns) 500 mls @ 999 mls/hr IV .Q31M ONE Stop: 08/16/24 18:19 Last Infusion: 08/16/24 18:44 Dose: Infused Assessment & Plan Plan 84-year-old male with past of ESRD (HD on MWF), HFpEF (EF 60% on 05/2024), NIDDM, strokes with residual aphasia and chronic diarrhea was admitted to the hospital on 08/16/2024 for Complicated UTI. #Complicated UTI Patient came in with complaints of dysuria that started on as well as decreased urination. Patient met SIRS criteria 3 out of 4 with follow WBC elevation. Patient's UA was positive for WBC, RBCs, blood, and leukocytes esterase Patient has no history of BPH or kidney stones in the past Plan: Ceftriaxone 1 g daily (08/16/2024?) Patient got 500 mL bolus in the ED, will hold off on further IV fluids given history of HFpEF Ordered abdomen/pelvis CT due to concern for possible kidney stones given that patient had blood in the urine and to rule out any obstruction given the history of last urine quantity with urination as of recently. Bladder scan as needed and Ordered lactic acid Will continue to monitor #ESRD (HD on MWF) Patient got around have a hemodialysis session today Patient is creatinine 6.6 and BUN 84 on admission Plan: Continue hemodialysis as scheduled Avoid nephrotoxic agents Renally dose medications Nephrology consulted, appreciate recommendations #HFpEF (EF 60% 05/2024) Patient came in with out any complaints of shortness of breath or lower extremity swelling. Patient does not seem to be in CHF exacerbation at this time Chest x-ray that shows some vascular congestion BNP was elevated, but could be due to ESRD Plan: Fluid restriction of 200 mL daily Daily weights Strict JOSE G's Will hold off on diuresis for now as patient will most likely get hemodialysis tomorrow Will hold off on further IV fluids given that patient got 500 mL bolus in the ED and initially came in due to hypoxia and chest x-ray that shows some vascular congestion #Hx of NIDDM Last A1c was 5.4 in 02/2024 Plan: ISS Hypoglycemia protocol ordered A1c for morning labs Chronic diseases: #Hx of rectal mass s/p resection #Hx of strokes Some residual aphasia from previous strokes Disposition: Patient admitted to telemetry. Diet: cardiac, fluid restriction 1999, carb cons GI prophylaxis: not indicated DVT prophylaxis: heparin subcu Code: Full Case disclosed with Attending Dr. Martita Li PGY1 Disclaimer: Even though this this note was dictated by speech recognition and even though it was carefully revised there may still be minor errors in automobile or truck rental dispatcher due to voice recognition software. Attending Provider Attestation/Addendum I reviewed labs, imaging, EKG, home medications and prior available records. Face to face evaluation was performed by me. I have personally examined the patient and discussed assessment and plan with the IM team. I reviewed the resident note and agree with the plan with exceptions as below. ESRD on hemodialysis Essential hypertension Acute hypoxic respiratory failure History of HFpEF Acute febrile illness Dysuria Acute UTI Start IV ceftriaxone Consult nephrology for hemodialysis Monitor I's and O's Follow-up urine culture Tylenol as needed for fevers Wean off oxygen as tolerated
--- NOTE | 2024-08-16 20:13 | PC.NURSE ---
assisted pt up to bathrom. helped him back to bed. zeenat given per pt request and RN sofía.
--- NOTE | 2024-08-16 20:16 | XR_ITS ---
Examination: CT abdomen and pelvis without contrast. Coronal 3-D reconstructions. Sagittal 2-D reconstructions. Date and time of exam:August 16, 20242027 hours Comparison February 05, 2024 INDICATIONS: Vomiting fevers seizure today CTDI: vol (mGy): 7.07 DLP: (mGycm): 425 Technique: Axial images of the abdomen have been obtained, 3 mm slice thickness Intravenous contrast material has not been administered. Low dose protocols were performed. One or more of the following dose reduction techniques were used; automated exposure control, adjustment of the mA and/or KV according to patient size, use of iterative reconstruction technique. Findings: Contour No visualized liver lesions No definite gallstones Spleen not enlarged No pancreatic mass Mild nodular thickening left adrenal gland Significant right renal cortical thinning Moderate renal parenchymal scar formation Bilateral benign renal cysts Perinephric stranding No renal or ureteral calculi, no hydronephrosis Colonic diverticulosis Normal appendix Abundant stool in the rectum Marked prostatomegaly transverse dimension 7.4 cm Urinary bladder contracted, thick-walled Left inguinal hernia containing colon but no incarcerated bowel Advanced disc narrowing L4-L5, L5-S1 IMPRESSION: Significant right renal cortical thinning Moderate bilateral renal parenchymal scar formation Perinephric stranding No renal or ureteral calculi Normal appendix Marked prostatomegaly Left inguinal hernia containing colon but no incarcerated bowel
[2024-08-16] MEDS: ATORVASTATIN CALCIUM 20 MG TABLET 40 MG PO (20:41)
[2024-08-16] MEDS: cefTRIAXone/D5w 1gm IV premix 1 GM/50 ML BAG IV (20:41)
[2024-08-16 20:58] LABS: Lactate (Lactic Acid) 1.6 mMol/L (0.4-2.0)
[2024-08-16 21:15] LABS: Potassium 3.5 mMol/L (3.4-5.1)
[2024-08-16] MEDS: HEPARIN SOD INJ 5000 UNIT/ML VIAL SC (23:09)
[2024-08-16] MEDS: MELATONIN 3 MG TABLET PO (23:11)
[2024-08-16] MEDS: INSULIN LISPRO (AdmeLOG) 1 UNIT/0.01 ML UNIT SC (23:35)
[2024-08-17] VITALS (27 sets, daily range): BP systolic 109–165; BP diastolic 51–82; PULSE 60–90; RESP 16–95; TEMP 36.1–38.8; O2SAT 91–97
--- NOTE | 2024-08-17 03:38 | PC.NURSE ---
Dr. Rodriguez notified of both aerobic blood culture bottles have gram positive rods. No new orders at this time.
[2024-08-17] MEDS: HEPARIN SOD INJ 5000 UNIT/ML VIAL SC ×3 (05:20→20:27)
[2024-08-17 06:03] LABS: Basophils # (Auto) 0.1 Thou/mm3 (0.0-0.2); Basophils % (Auto) 0 % (0-2.5); Eosinophils % (Auto) 0 % (0-10); Immature Granulocytes % (Auto) 1 % (0-0); Immature Granulocytes Auto 0.35 Thou/mm3 (0.00-0.00); Lymphocytes # (Auto) 0.8 Thou/mm3 (1.0-4.8); Lymphocytes % (Auto) 3 % (10-50); Mean Corpuscular HGB Conc 34.6 g/dl (31.0-37.0); Mean Corpuscular Hemoglobin 33.1 pg (25.0-35.0); Mean Corpuscular Volume 96 fL (80-100); Monocytes # (Auto) 1.7 Thou/mm3 (0.0-0.8); Monocytes % (Auto) 7 % (0-12); Neutrophils # (Auto) 21.5 Thou/mm3 (1.8-7.7); Neutrophils % (Auto) 88 % (37-80); Nucleated Red Blood Cell % 0 /100 WBC (0); Platelet Count 134 Thou/mm3 (140-440); RDW Standard Deviation 53.7 fL (35.1-43.9); Red Blood Count 2.51 Miln/mm3 (4.50-5.90); White Blood Count 24.4 Thou/mm3 (3.8-10.6)
[2024-08-17 06:11] LABS: Glucose Estimated Average 105 mg/dL (80-131); Hemoglobin A1C 5.3 % Hgb (4.8-6.0)
[2024-08-17 06:14] LABS: Hemoglobin 8.3 g/dL (13.5-16.0)
[2024-08-17 06:32] LABS: Alanine Aminotransferase 16 U/L (10-49); Albumin, Serum 3.4 gm/dL (3.4-4.8); Albumin/Globulin Ratio 1.5 (1.2-2.2); Alkaline Phosphatase 89 U/L (46-116); Anion Gap 16 (7-16); Aspartate Amino Transferase 20 U/L (0-34); BUN/Creatinine Ratio 12 Ratio (12-20); Bilirubin,Total 0.2 mg/dL (0.3-1.2); Blood Urea Nitrogen 89 mg/dL (9-23); Calcium 8.7 mg/dL (8.3-10.6); Calcium (Corrected) 9.2 mg/dL (8.5-10.1); Chloride 94 mMol/L (98-107); Creatinine (Component) 7.4 mg/dL (0.6-1.3); Estimated Creatinine Clearance 7.2 mL/min (>60); Globulin 2.2 gm/dL (2.3-3.5); Glucose 145 mg/dL (74-106); Magnesium 2.1 mg/dL (1.6-2.6); Osmolality,Calculated 304 (275-295); Phosphorous 4.9 mg/dL (2.4-5.1); Potassium 4.3 mMol/L (3.4-5.1); Sodium 137 mMol/L (136-145); Total Protein 5.6 gm/dL (5.7-8.2); eGFR 7 See Note
--- NOTE | 2024-08-17 09:35 | PD.RESCONSUL ---
HPI Data of Consult Consult date: 08/17/24 Requesting Physician: Deven Arthur MD Admitting Provider: Harsha Anders MD Attending Provider: Deven Arthur MD Primary Care Provider: Physician No Primary/Family Consult Narrative Reason for consult: ESRD History of present illness: Messi is a 84 y/o male with PMHx of ESRD on HD M/W/F via left brachiocephalic fistula, essential hypertension, hyperlipidemia, [id number]-[id number] type 2 DM, history of multiple strokes, chronic diarrhea, HFpEF (~EF 60%), rectal mass s/p resection who was admitted to [facility] on 08/16/2024 after coming to the ED where he complains of low oxygen saturations, dysuria, subjective fevers, and weakness. Pt reports that while he was at his dialysis session yesterday, he took a break to use the restroom. After he finished from the restroom, pt began to desaturate and his heart rate had elevated. He did confirm that he had some vomiting and diarrhea as well. He says that he makes some urine sometimes. He says that he goes to his dialysis sessions routinely as well. His manager of internal audit is Dr. Jenkins ([facility]). No other complaints at this time. ED Course: Initially came in hypertensive, tachycardic, tachypneic, and febrile. Initial labs were relevant for azotemia, elevated BNP, and UA was positive for WBCs, RBCs, leukocytes esterase, and for blood. Initial imaging included chest x-ray which showed vascular congestion and EKG which showed sinus rhythm. Once patient arrived to the ED he was saturating well on room air, and does not have any shortness of breath at this time is not requiring any O2 administration PMHx: As above Surgeries: AV fistula repair 3 times on left arm, had a AV fistula in the right arm as well. Meds: Lipitor 20, metoprolol XL 50, Aileen-Abrahan 0.8, Lasix 40, sevelamer 800, Allergies: Latex Family Hx: Denies family history of medical problems including heart disease, diabetes, stroke Social Hx: Born in [facility], raised in [place]. 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 Lives with his , in [place]. Has positive drug history and heavy alcohol use history, no smoking history. cc:: cc: Deven Arthur MD Review of Systems Review of Systems Narrative Review of Systems: 12 point ROS is reviewed and is otherwise negative unless stated directly in the HPI Past Medical History Past Medical History NEUROLOGIC: Positive Neurological Disorders and Cerebrovascular Accident; Negative Seizures CARDIAC: Positive Cardiac Disorders, Hypercholesterolemia, Edema and Hypertension; Negative Congestive Heart Failure RESPIRATORY: Negative Chronic Obstructive Pulmonary Disease (COPD) or Asthma GASTROINTESTINAL: Positive Gastrointestinal Disorders, Gastrointestinal Bleed, Colorectal Cancer and Gastroesophageal Reflux Disease GENITOURINARY: Positive Genitourinary Disorders, Renal Disease and Dialysis MUSCULOSKELETAL: Positive Fractures; Negative Musculoskeletal Disorders ENT: Positive Cataracts ENDOCRINE: Positive Endocrine Disorders and Diabetes Mellitus Type 2; Negative Diabetes Mellitus Type 1 HEMATOLOGIC: Negative Blood Disorders, Sickle Cell Disease or Clotting Problems OTHER HISTORY: Positive Hospitalization, Falls, Chicken Pox, Measles, Cancer and Colorectal Cancer; Negative Autoimmune Disease, Shingles, Blood Transfusions, Blood Transfusion Reaction, Anesthesia Reactions or MRSA Family History FAMILY HISTORY: Negative Family Psychiatric Problems, Family Respiratory Disorders, Family Cardiac Disorders, Family Gastrointestinal Problems, Family Cancer, Family Surgery or Family Anesthesia Reaction Surgical History SURGICAL: Positive Amputation Social History SMOKING STATUS: Former smoker SECOND HAND EXPOSURE: No SUBSTANCE USE: does not use Exam Vital Signs Temp Pulse Resp BP Pulse Ox O2 Del Method 97.7 F 62 18 116/54 L 91 L Room Air 08/17/24 08:01 08/17/24 09:15 08/17/24 08:01 08/17/24 09:15 08/17/24 08:01 08/17/24 04:00 Narrative Exam General: AAOx2, NAD, does not look his age, able to answer some questions, in dialysis unit HEENT: Moist mucous membranes, conjunctiva clear, EOMI, PERRLA, Cardiovascular: Ejection systolic murmur RONAN radiates to carotids, radial pulses +2 bilat, RRR Pulmonary: Lungs CTAB, no cough, not on NC GI: No tenderness to light or deep palpitation, no guarding, rigidity, rebound tenderness or distension, abd soft Extremities: Trace edema in lower extremities bilaterally, dorsalis pedis pulses +2 bilaterally, LUE AV fistula, LUE AV fistula, multiple areas of senile purpura Neuro: AAOx2, no focal motor or sensory deficits in the UE or LE bilat, no nystagmus appreciated, pupillary reflex +2 bilat, h Psych: Good judgement, thought and behavior Results Labs 08/17/24 05:20 08/17/24 05:20 Labs: Short CBC 08/16/24 08/17/24 Range/Units 16:52 05:20 WBC 4.7 24.4 H D (3.8-10.6) Thou/mm3 Hgb 11.0 L 8.3 L D (13.5-16.0) g/dL Hct 32.5 L 24.0 L (41.0-53.0) % Plt Count 174 134 L D (140-440) Thou/mm3 BMP 08/16/24 08/16/24 08/17/24 16:52 20:54 05:20 Sodium 136 137 Potassium 5.0 3.5 D 4.3 D Chloride 91 L 94 L Carbon Dioxide 26.8 27.0 BUN 84 H 89 H Creatinine 6.6 H* 7.4 H* D Glucose 174 H 145 H Calcium 9.5 8.7 Liver Function 08/16/24 08/17/24 Range/Units 16:52 05:20 Total Bilirubin 0.4 0.2 L (0.3-1.2) mg/dL AST 34 20 (0-34) U/L ALT 22 16 (10-49) U/L Alkaline Phosphatase 143 H 89 D (46-116) U/L Albumin 4.5 3.4 D (3.4-4.8) gm/dL Urine 08/16/24 Range/Units 17:16 Urine Color Yellow (Lt Yel-Yel) Urine Clarity Turbid A (Clear/Hazy) Urine pH 7.5 H (5.0-7.0) Ur Specific [place] 1.014 (1.001-1.035) Urine Protein 2+ A (Neg - Trace) Urine Glucose (UA) 2+ A (Negative) Quality Measures Quality Measures none Advance care planning discussed with:: patient Medications Home Medications and Allergies Home Medications ?Medication ?Instructions ?Recorded ?Confirmed ?Type furosemide 40 mg tablet 40 mg PO QDAY 09/21/22 08/16/24 History metoprolol succinate 50 mg 50 mg PO DAILY 09/21/22 08/16/24 History tablet,extended release 24 hr vitamin B complex-vitamin C-folic 1 tab PO DAILY 09/21/22 08/16/24 History acid 0.8 mg tablet (Aileen-Abrahan) sevelamer carbonate 800 mg tablet 800 mg PO TID 05/28/24 08/16/24 History Allergies Allergy/AdvReac Type Severity Reaction Status Date / Time latex Allergy Verified 05/20/24 01:09 Visit Medications Acetaminophen (Acetaminophen 325 Mg Tablet) 650 mg PO Q6H PRN PRN Reason: pain 1-3 and Fever >100.4 Stop: 09/15/24 19:53 Hydrocodone Bitart/Acetaminophen (Hydrocodone/Apap 5/325 Tablet) 1 tab PO Q4HR PRN PRN Reason: PAIN SCALE 4-6 (Moderate Stop: 08/21/24 19:53 Atorvastatin Calcium (Atorvastatin Calcium 20 Mg Tablet) 40 mg PO HS SANTO Stop: 09/15/24 20:59 Last Admin: 08/16/24 20:41 Dose: 40 mg Dextrose (Dextrose 50%-Water Inj 50 Ml Syringe) 25 ml IV Q15MIN PRN PRN Reason: BG 50-70 responsive npo pt Stop: 09/15/24 19:53 Dextrose (Dextrose 50%-Water Inj 50 Ml Syringe) 50 ml IV Q15MIN PRN PRN Reason: BG <50 OR BG <70 & pt unresponsive Stop: 09/15/24 19:53 Epoetin Francisco (Epoetin Francisco-Epbx Inj 10,000 Unit/Ml Vial (Esrd)) 10,000 unit SC X1 ONE Stop: 08/17/24 10:31 Glucagon (Glucagon Inj 1 Mg Vial) 1 mg IM Q15MIN PRN PRN Reason: BG <70, and no IV access Heparin Sodium (Porcine) (Heparin Sod Inj 5000 Unit/Ml Vial) 5,000 unit SC Q8HR SANTO Stop: 08/30/24 21:59 Last Admin: 08/17/24 05:20 Dose: 5,000 unit Ceftriaxone Sodium/Dextrose (Rocephin/D5w 1gm Iv Premix) 1 gm in 50 mls @ 100 mls/hr IV QDAY SANTO Stop: 08/23/24 19:59 Last Admin: 08/16/24 20:41 Dose: 100 mls/hr Insulin Human Lispro (Insulin Lispro (Admelog) 1 Unit/0.01 Ml Unit) 0 unit SC ACHS SANTO; Protocol Stop: 09/15/24 23:29 Last Admin: 08/17/24 07:07 Dose: Not Given Melatonin (Melatonin 3 Mg Tablet) 3 mg PO [facility] Stop: 09/15/24 23:09 Last Admin: 08/16/24 23:11 Dose: 3 mg Ondansetron HCl (Ondansetron Inj 2 Mg/Ml Inj 2 Ml) 4 mg IVP Q6H PRN; Protocol PRN Reason: NAUSEA OR VOMITING Stop: 09/15/24 19:53 Discontinued Medications Acetaminophen (Acetaminophen 500 Mg Tablet) 1,000 mg PO X1 ONE Stop: 08/16/24 17:47 Last Admin: 08/16/24 18:05 Dose: 1,000 mg Cephalexin HCl (Cephalexin 250 Mg Capsule) 500 mg PO X1 ONE Stop: 08/16/24 18:27 Last Admin: 08/16/24 18:49 Dose: 500 mg Sodium Chloride (Ns) 500 mls @ 999 mls/hr IV .Q31M ONE Stop: 08/16/24 18:17 Last Admin: 08/16/24 17:50 Dose: Not Given Sodium Chloride (Ns) 500 mls @ 999 mls/hr IV .Q31M ONE Stop: 08/16/24 18:19 Last Infusion: 08/16/24 18:44 Dose: Infused Insulin Human Lispro (Insulin Lispro (Admelog) 1 Unit/0.01 Ml Unit) 0 unit SC [facility]; Protocol Stop: 09/16/24 07:29 Assessment & Plan Plan Assessment Messi is a 84 y/o male with PMHx of ESRD on HD M/W/F via left brachiocephalic fistula, essential hypertension, hyperlipidemia, [id number] type 2 DM, history of multiple strokes, chronic diarrhea, HprEF (~EF 60%), rectal mass s/p resection who is currently admitted to the hospital on for complicated UTI and acute renal failure. #ESRD (HD on MWF) BUN/Cr 89 and 7.4 respectively Currently in dialysis chair, 1 L goal removal today Sees Dr. Jenkins outpatient Likely related to combination of longstanding diabetes mellitus and hypertension CT abdomen pelvis shows significant right renal cortical thinning Moderate renal parenchymal scarring bilateral Plan: ? Continue hemodialysis as scheduled ? Avoid nephrotoxic agents ? Renally dose medications ? Sevelamer 800 mg 3 times daily with meals ? Nephro-Abrahan ? Trend CMP and lytes #Complicated UTI #Bacteremia Initial blood cultures show GNR and GPR 2/2 bottles Will see what final cultures show Has had E. coli UTI that was pansensitive in the past Has never been MRSA nares positive upon records CT shows perinephric stranding with no hydronephrosis Urine shows 642 WBCs Plan: ? Rocephin 2 g IV daily (08/17- ? Follow-up urine and blood cultures ? Follow-up MRSA screen ? Antipyretics ? Contact precautions #Hematuria DDx: IgA nephropathy, FSGS, Bladder malignancy +2 blood and 57 RBCs +6 RBCs and +1 blood seen in May 2024 Previous P?ANCA, C?ANCA were negative Plan: ? Complement studies ? MIKO ? Consider urology outpatient for cystoscopy ? Consider urine cytology #Anemia of chronic disease Hemoglobin 8.3, MCV 96 Likely related to ESRD CKD/ESRD patient's target hemoglobin above 10 Plan: ? Epogen x 1 ? Consider iron studies including ferritin and iron levels #HFpEF (EF 60% 05/2024) #Complicated UTI #Hx of NIDDM #Hx of rectal mass s/p resection #Hx of strokes #Essential hypertension Above handled by primary hospitalist team Patient seen and care discussed with my attending physician, Dr. Alice Cho, PGY-1 Attending Provider Attestation/Addendum Patient seen and examined with resident physician Dr. Vaz. Note reviewed, agree with findings and recommendations. Patient with sepsis, fever. Positive bacteremia. patient currently seen on dialysis. Tolerating dialysis without any problems. Hemodialysis for 3 hours, 2K, ultrafiltration 1 L, Epogen 6000, no heparin ordered. Plan of care discussed with the dialysis nurse. Please see dialysis flowsheet for further details. Resident physician called that patient and requesting comfort care. Will discuss with patient regarding hospice in a.m.
--- NOTE | 2024-08-17 09:57 | PC.SS ---
Initial assessment: Patient is an 84-year old male admitted for complicated UTI. Patient resides at home with spouse, Fabienne Bay. Demographic information was confirmed. informs the patient is independent with ambulation and denies any use of home DME. Patient's PCP is Carrillo Greenwood. Bridge Welder following is Dr. Jenkins. Patient is established with dialysis on schedule for Friday/Friday/Friday. Pharmacy of choice is [facility] in [place]. In case of an emergency, patient's to be contacted. Patient discharge plan is to return home, family to transport the patient home. No current needs identified at this time. D/c plan: Home Next of kin: , Fabienne
[2024-08-17] MEDS: EPOETIN ALFA-EPBX INJ 10,000 UNIT/ML VIAL (ESRD) 10000 UNIT SC (10:51)
[2024-08-17] MEDS: cefTRIAXone/D5w 1gm IV premix 1 GM/50 ML BAG IV (11:50)
[2024-08-17] MEDS: SEVELAMER CARBONATE 800 MG TABLET PO ×2 (11:50→17:09)
--- NOTE | 2024-08-17 12:12 | ESPR_ITS ---
Documentation for date of: 08/17/24 Subjective Subjective Interval history: Patient is an overnight admit. Patient seen and examined during dialysis. Patient states that he did not complete his dialysis session yesterday because he was having profuse diarrhea which is common for him since his stroke. However it has not been worked up therefore we will order C. difficile PCR. Patient endorses to feeling a little better however he states that for the past 2 days he did have dysuria, patient is in he on ESRD on HD however states he does make very little urine. Patient states that he had a fever and chills at home as well for the past 2 days. Patient denies any upper respiratory tract infection, sick contacts or recent travels. Patient has no other complaints. Vitals are stable on admission patient had a fever however since then patient has remained afebrile. Labs are reviewed hemoglobin is 8.3, hematocrit 24, platelet 134, BUN 89, creatinine 7.4, GFR 7. Lactic acid on admission 1.6, BNP 2479. Preliminary report shows blood cultures are positive for GNR will continue Rocephin and increase it to 2 g and wait for culture speciation. Exam Vital Signs Temp Pulse Resp BP Pulse Ox O2 Del Method 97.6 F 66 18 126/55 L 92 L Room Air 08/17/24 11:07 08/17/24 11:21 08/17/24 11:07 08/17/24 11:21 08/17/24 11:07 08/17/24 08:00 Narrative Exam GENERAL: A&Ox3 . Awake, Not in acute distress NEURO: no focal neurological deficits noted other than mild brocas aphagia noted HEENT: Atraumatic, Normocephalic. mucous membranes moist. Eyes open, symmetrical, & clear HEART: Normal Heart Sounds LUNGS: Clear to auscultation with no wheezing or crackles. ABDOMEN: soft, non-distended, non-tender, bowel sounds heard, no guarding or rebound tenderness SKIN: No Rash or ecchymoses EXTREMITIES: No edema, tenderness, able to move all 4 extremities, pedal pulses palpated, HD fistula noted on left UE Objective Labs 08/17/24 05:20 08/17/24 05:20 Labs: Laboratory Results - last 24 hr 08/16/24 08/16/24 08/16/24 16:52 16:57 17:16 WBC 4.7 RBC 3.40 L Hgb 11.0 L Hct 32.5 L MCV 96 MCH 32.4 MCHC 33.8 RDW Std Deviation 53.2 H Plt Count 174 Neut % (Auto) 92 H Lymph % (Auto) 5 L Marion % (Auto) 0 Eos % (Auto) 2 Baso % (Auto) 0 Neut # (Auto) 4.3 Lymph # (Auto) 0.2 L Marion # (Auto) 0.0 Eos # (Auto) 0.1 Baso # (Auto) 0.0 Immature Gran # (Auto) 0.04 H Absolute Nucleated RBC 0.00 Immature Gran % 1 H Nucleated RBC % 0 Sodium 136 Potassium 5.0 Chloride 91 L Carbon Dioxide 26.8 Anion Gap 18 H BUN 84 H Creatinine 6.6 H* Estim Creat Clear Calc 7.5 L eGFR 8 L* BUN/Creatinine Ratio [address] Glu mg/dL Hemoglobin A1c Calculated Osmolality 301 H Lactic Acid Calcium 9.5 Corrected Calcium 9.5 Phosphorus Magnesium 2.1 Total Bilirubin 0.4 AST 34 ALT 22 Alkaline Phosphatase 143 H B-Natriuretic Peptide 2479 H* Total Protein 7.4 Albumin 4.5 Globulin 2.9 Albumin/Globulin Ratio 1.6 Lipase 37 Ur Collection Type Voided Urine Color Yellow Urine Clarity Turbid A Urine pH 7.5 H Ur Specific [place] 1.014 Urine Protein 2+ A Urine Glucose (UA) 2+ A Urine Ketones Negative Urine Blood 2+ A Urine Nitrite Negative Urine Bilirubin Negative Urine Urobilinogen (Auto) Negative Ur Leukocyte Esterase Positive Urine RBC 57 H Urine WBC 642 H Ur Squamous Epith Cells < 1 Urine Bacteria None 08/16/24 08/17/24 20:54 05:20 WBC 24.4 H D RBC 2.51 L Hgb 8.3 L D Hct 24.0 L MCV 96 MCH 33.1 MCHC 34.6 RDW Std Deviation 53.7 H Plt Count 134 L D Neut % (Auto) 88 H Lymph % (Auto) 3 L Marion % (Auto) 7 Eos % (Auto) 0 Baso % (Auto) 0 Neut # (Auto) 21.5 H Lymph # (Auto) 0.8 L Marion # (Auto) 1.7 H Eos # (Auto) 0.0 Baso # (Auto) 0.1 Immature Gran # (Auto) 0.35 H Absolute Nucleated RBC 0.00 Immature Gran % 1 H Nucleated RBC % 0 Sodium 137 Potassium 3.5 D 4.3 D Chloride 94 L Carbon Dioxide 27.0 Anion Gap 16 BUN 89 H Creatinine 7.4 H* D Estim Creat Clear Calc 7.2 L eGFR 7 L* BUN/Creatinine Ratio 12 [address]ucose [address] Glu mg/dL 105 Hemoglobin A1c 5.3 Calculated Osmolality 304 H Lactic Acid 1.6 Calcium 8.7 Corrected Calcium 9.2 Phosphorus 4.9 Magnesium 2.1 Total Bilirubin 0.2 L AST 20 ALT 16 Alkaline Phosphatase 89 D B-Natriuretic Peptide Total Protein 5.6 L Albumin 3.4 D Globulin 2.2 L Albumin/Globulin Ratio 1.5 Lipase Ur Collection Type Urine Color Urine Clarity Urine pH Ur Specific [place] Urine Protein Urine Glucose (UA) Urine Ketones Urine Blood Urine Nitrite Urine Bilirubin Urine Urobilinogen (Auto) Ur Leukocyte Esterase Urine RBC Urine WBC Ur Squamous Epith Cells Urine Bacteria Quality Measures Quality Measures none Advance care planning discussed with:: patient and spouse Assessment & Plan Assessment Current Active Medications: Generic Name Dose Route Start Last Admin Trade Name Freq PRN Reason Stop Dose Admin Acetaminophen 650 mg 08/16/24 19:54 Acetaminophen 325 Mg Tablet PO 09/15/24 19:53 Q6H PRN pain 1-3 and Fever >100.4 Hydrocodone Bitart/Acetaminophen 1 tab 08/16/24 19:54 Hydrocodone/Apap 5/325 Tablet PO 08/21/24 19:53 Q4HR PRN PAIN SCALE 4-6 (Moderate Atorvastatin Calcium 40 mg 08/16/24 21:00 08/16/24 20:41 Atorvastatin Calcium 20 Mg Tablet PO 09/15/24 20:59 40 mg HS SANTO Administration Dextrose 25 ml 08/16/24 19:54 Dextrose 50%-Water Inj 50 Ml Syringe IV 09/15/24 19:53 Q15MIN PRN BG 50-70 responsive npo pt Dextrose 50 ml 08/16/24 19:54 Dextrose 50%-Water Inj 50 Ml Syringe IV 09/15/24 19:53 Q15MIN PRN BG <50 OR BG <70 & pt unresponsive Glucagon 1 mg 08/16/24 19:54 Glucagon Inj 1 Mg Vial IM Q15MIN PRN BG <70, and no IV access Heparin Sodium (Porcine) 5,000 unit 08/16/24 22:00 08/17/24 05:20 Heparin Sod Inj 5000 Unit/Ml Vial SC 08/30/24 21:59 5,000 unit Q8HR SANTO Administration Ceftriaxone Sodium/Dextrose 2 gm in 50 mls @ 100 mls/hr 08/18/24 09:00 Rocephin/D5w 2gm IV 08/25/24 08:59 QDAY SANTO Insulin Human Lispro 0 unit 08/16/24 23:30 08/17/24 11:56 Insulin Lispro (Admelog) 1 Unit/0.01 Ml Unit SC 09/15/24 23:29 Not Given ACHS SANTO Protocol Melatonin 3 mg 08/16/24 23:10 08/16/24 23:11 Melatonin 3 Mg Tablet PO 09/15/24 23:09 3 mg HS SANTO Administration Ondansetron HCl 4 mg 08/16/24 19:54 Ondansetron Inj 2 Mg/Ml Inj 2 Ml IVP 09/15/24 19:53 Q6H PRN NAUSEA OR VOMITING Protocol Pharmacy Consult 1 each 08/17/24 10:39 Pharmacy Renal Dose Adjustment 1 Ea XX 09/16/24 10:38 PRN PRN CONSULT Sevelamer Carbonate 800 mg 08/17/24 12:00 08/17/24 11:50 Sevelamer Carbonate 800 Mg Tablet PO 09/16/24 11:59 800 mg TIDWM SANTO Administration Vitamin B Complex/Vit C/Folic Acid 1 tab 08/17/24 10:45 08/17/24 11:14 Vit B12/Vit C/Fa (Nephrovite) Tablet PO 09/16/24 10:44 Not Given QDAY SANTO Plan Mr. Bay is a 84-year-old male with past of ESRD (HD on MWF), HFpEF (EF 60% on 05/2024), NIDDM, strokes with residual aphasia and chronic diarrhea was admitted to the hospital on 08/16/2024 for Complicated UTI. #Acute pylonephritis #GNR bacteremia Patient came in with complaints of dysuria that started on as well as decreased urination. Patient met SIRS criteria 3 out of 4 with follow WBC elevation. Patient's UA was positive for WBC, RBCs, blood, and leukocytes esterase Patient has no history of BPH or kidney stones in the past CT of abdomen/pelvis: Significant right renal cortical thinning, Moderate bilateral renal parenchymal scar formation, Perinephric stranding Lactic acid 1.6 Plan: -Ceftriaxone 2 g daily (08/16/2024?) -Patient got 500 mL bolus in the ED, will hold off on further IV fluids given history of HFpEF -Bladder scan as needed -Blood cultures prelim 2/2 bottles grew GNR -Urine culture pending -Will continue to monitor #ESRD (HD on MWF) Patient is creatinine 6.6 and BUN 84 on admission Patient does make small amount of urine Plan: -Continue hemodialysis as scheduled -Avoid nephrotoxic agents -Renally dose medications -Nephrology consulted, appreciate recommendations #HFpEF (EF 60% 05/2024) Patient came in with out any complaints of shortness of breath or lower extremity swelling. Patient does not seem to be in CHF exacerbation at this time Chest x-ray that shows some vascular congestion BNP was elevated, but could be due to ESRD Plan: -Fluid restriction of 200 mL daily -Daily weights -Strict JOSE G's -Will hold off on diuresis for now as patient gets hemodialysis -Will hold off on further IV fluids given that patient got 500 mL bolus in the ED and initially came in due to hypoxia and chest x-ray that shows some vascular congestion #Non-Insulin dependent type 2 diabetes Last A1c was 5.3 in 08/17/24 Plan: -ISS -Hypoglycemia protocol ordered -Accu-checks ACHS #Hx of rectal mass s/p resection #Hx of strokes Some residual aphasia from previous strokes Other CT findings Marked prostatomegaly, Left inguinal hernia containing colon but no incarcerated bowel- Pt will need outpatient follow up Health Maintenance Disposition: Med-tele DVT Prophylaxis: Heparin 5000 units SC Q8 hrs GI Prophylaxis: not indicated Diet: Cardiac Diet with 2000ml fluid restriction Lines: Peripheral lines Code status: Full Assessment and plan discussed with my attending physician Dr. Sandhya Stone (PGY-1)- Internal medicine resident Attending Provider Attestation/Addendum Face to face evaluation was performed by me. I have personally seen and examined the patient. I discussed the assessment and plan with the entire medicine team. I reviewed available medical records, imaging studies, laboratory results. I agree with the above subjective data, objective findings, assessment and plan except as corrected by me or noted below Acute urinary tract infection, present on admission suspect cystitis gram- negative bacilli, not associate with urinary catheter Gram-negative bacteremia End-stage renal disease on hemodialysis Continue antibiotics =- increase ceftriaxone dosage to 2 g daily due to bacteremia Await culture susceptibilities Hemodialysis per nephrology More than > 30 minutes spent on the encounter
--- NOTE | 2024-08-17 15:05 | PC.SS ---
Rounding note: patient receiving IV antibiotics.
[2024-08-17] MEDS: ACETAMINOPHEN 325 MG TABLET 650 MG PO (17:10)
[2024-08-17 17:40] LABS: Clostridium Difficile PCR Negative (Negative)
[2024-08-17] MEDS: ATORVASTATIN CALCIUM 20 MG TABLET 40 MG PO (20:25)
[2024-08-17] MEDS: LORazepam 2 MG/ML VIAL 0.5 MG IVP (20:25)
[2024-08-17] MEDS: MELATONIN 3 MG TABLET PO (20:25)
[2024-08-17] MEDS: INSULIN LISPRO (AdmeLOG) 1 UNIT/0.01 ML UNIT SC (20:27)
[2024-08-18] VITALS (9 sets, daily range): BP systolic 105–132; BP diastolic 55–60; PULSE 61–99; RESP 14–96; TEMP 36.1–36.7; O2SAT 93–96
--- NOTE | 2024-08-18 01:07 | PC.NURSE ---
Pt out stated that pt hit head on door, this RN did not visualize, upon entry to room pt alert/oriented no bruising/bump noted, contacted Dr. Rodriguez-candace MONCADA if any neurological changes.
[2024-08-18] MEDS: LORazepam 2 MG/ML VIAL 0.5 MG IVP (01:47)
[2024-08-18 05:09] LABS: Basophils # (Auto) 0.1 Thou/mm3 (0.0-0.2); Basophils % (Auto) 0 % (0-2.5); Eosinophils % (Auto) 0 % (0-10); Hematocrit 26.6 % (41.0-53.0); Hemoglobin 9.2 g/dL (13.5-16.0); Immature Granulocytes % (Auto) 5 % (0-0); Immature Granulocytes Auto 1.19 Thou/mm3 (0.00-0.00); Lymphocytes # (Auto) 0.8 Thou/mm3 (1.0-4.8); Lymphocytes % (Auto) 4 % (10-50); Mean Corpuscular HGB Conc 34.6 g/dl (31.0-37.0); Mean Corpuscular Hemoglobin 33.6 pg (25.0-35.0); Mean Corpuscular Volume 97 fL (80-100); Monocytes # (Auto) 2.5 Thou/mm3 (0.0-0.8); Monocytes % (Auto) 11 % (0-12); Neutrophils # (Auto) 18.1 Thou/mm3 (1.8-7.7); Neutrophils % (Auto) 79 % (37-80); Nucleated Red Blood Cell % 0 /100 WBC (0); Platelet Count 138 Thou/mm3 (140-440); RDW Standard Deviation 54.8 fL (35.1-43.9); Red Blood Count 2.74 Miln/mm3 (4.50-5.90); White Blood Count 22.7 Thou/mm3 (3.8-10.6)
[2024-08-18 05:49] LABS: Alanine Aminotransferase 16 U/L (10-49); Albumin, Serum 3.5 gm/dL (3.4-4.8); Albumin/Globulin Ratio 1.5 (1.2-2.2); Alkaline Phosphatase 102 U/L (46-116); Anion Gap 13 (7-16); Aspartate Amino Transferase 22 U/L (0-34); BUN/Creatinine Ratio 9 Ratio (12-20); Bilirubin,Total 0.3 mg/dL (0.3-1.2); Blood Urea Nitrogen 48 mg/dL (9-23); Calcium 8.7 mg/dL (8.3-10.6); Calcium (Corrected) 9.1 mg/dL (8.5-10.1); Carbon Dioxide 28.2 mMol/L (20.0-31.0); Chloride 94 mMol/L (98-107); Creatinine (Component) 5.2 mg/dL (0.6-1.3); Estimated Creatinine Clearance 10.2 mL/min (>60); Globulin 2.3 gm/dL (2.3-3.5); Glucose 136 mg/dL (74-106); Magnesium 1.9 mg/dL (1.6-2.6); Osmolality,Calculated 284 (275-295); Phosphorous 4.3 mg/dL (2.4-5.1); Potassium 3.9 mMol/L (3.4-5.1); Sodium 135 mMol/L (136-145); Total Protein 5.8 gm/dL (5.7-8.2); eGFR 10 See Note
[2024-08-18] MEDS: VIT B12/Vit C/FA (Nephrovite) TABLET 1 TAB PO (09:25)
[2024-08-18] MEDS: cefTRIAXone/D5w 2gm 2 GM/50 ML BAG IV (09:26)
--- NOTE | 2024-08-18 11:03 | ESPR_ITS ---
Documentation for date of: 08/18/24 Subjective Subjective Interval history: Messi is a 84 y/o male with PMHx of ESRD on HD M/W/F via left brachiocephalic fistula, essential hypertension, hyperlipidemia, jun-[id number] type 2 DM, history of multiple strokes, chronic diarrhea, HFpEF (~EF 60%), rectal mass s/p resection who was admitted to [facility] on 08/16/2024 after coming to the ED where he complains of low oxygen saturations, dysuria, subjective fevers, and weakness. Pt reports that while he was at his dialysis session yesterday, he took a break to use the restroom. After he finished from the restroom, pt began to desaturate and his heart rate had elevated. He did confirm that he had some vomiting and diarrhea as well. He says that he makes some urine sometimes. He says that he goes to his dialysis sessions routinely as well. His lumber cutter is Dr. Jenkins ([facility]). No other complaints at this time. ED Course: Initially came in hypertensive, tachycardic, tachypneic, and febrile. Initial labs were relevant for azotemia, elevated BNP, and UA was positive for WBCs, RBCs, leukocytes esterase, and for blood. Initial imaging included chest x-ray which showed vascular congestion and EKG which showed sinus rhythm. Once patient arrived to the ED he was saturating well on room air, and does not have any shortness of breath at this time is not requiring any O2 administration 08/18/2024 Patient examined at bedside today. No acute overnight events. Patient is refusing dialysis at this time. He wants to pursue hospice care. His white count today is 23, hemoglobin 9.2, sodium 135, chloride 94, potassium 3.9, bicarb 28, creatinine 5.2, BUN 48, glucose 136, calcium 9.1, phosphorus 4.3, magnesium 1.9. Exam Vital Signs Temp Pulse Resp BP Pulse Ox O2 Del Method 97.0 F 63 18 109/58 L 96 Room Air 08/18/24 08:00 08/18/24 08:00 08/18/24 08:00 08/18/24 08:00 08/18/24 08:00 08/18/24 08:00 Narrative Exam General: AAOx2, NAD, does not look his age, a HEENT: Moist mucous membranes, conjunctiva clear, EOMI, PERRLA, Cardiovascular: Ejection systolic murmur RONAN radiates to carotids, radial pulses +2 bilat, RRR Pulmonary: Lungs CTAB, no cough, not on NC GI: No tenderness to light or deep palpitation, no guarding, rigidity, rebound tenderness or distension, abd soft Extremities: Trace edema in lower extremities bilaterally, dorsalis pedis pulses +2 bilaterally, LUE AV fistula, multiple areas of senile purpura Neuro: AAOx2, no focal motor or sensory deficits in the UE or LE bilat Psych: Good judgement, thought and behavior Objective Labs 08/18/24 04:36 08/18/24 04:36 Labs: Laboratory Results - last 24 hr 08/17/24 08/18/24 13:20 04:36 WBC 22.7 H RBC 2.74 L Hgb 9.2 L Hct 26.6 L MCV 97 MCH 33.6 MCHC 34.6 RDW Std Deviation 54.8 H Plt Count 138 L Neut % (Auto) 79 Lymph % (Auto) 4 L Person % (Auto) 11 Eos % (Auto) 0 Baso % (Auto) 0 Neut # (Auto) 18.1 H Lymph # (Auto) 0.8 L Person # (Auto) 2.5 H Eos # (Auto) 0.0 Baso # (Auto) 0.1 Immature Gran # (Auto) 1.19 H Absolute Nucleated RBC 0.00 Immature Gran % 5 H Nucleated RBC % 0 Sodium 135 L Potassium 3.9 Chloride 94 L Carbon Dioxide 28.2 Anion Gap 13 BUN 48 H Creatinine 5.2 H* D Estim Creat Clear Calc 10.2 L eGFR 10 L* BUN/Creatinine Ratio 9 L Glucose 136 H Calculated Osmolality 284 Calcium 8.7 Corrected Calcium 9.1 Phosphorus 4.3 Magnesium 1.9 Total Bilirubin 0.3 AST 22 ALT 16 Alkaline Phosphatase 102 Total Protein 5.8 Albumin 3.5 Globulin 2.3 Albumin/Globulin Ratio 1.5 Stl C. diff Tox B Gene Negative Quality Measures Quality Measures none Advance care planning discussed with:: patient Assessment & Plan Assessment Current Active Medications: Generic Name Dose Route Start Last Admin Trade Name Freq PRN Reason Stop Dose Admin Acetaminophen 650 mg 08/16/24 19:54 08/17/24 17:10 Acetaminophen 325 Mg Tablet PO 09/15/24 19:53 650 mg Q6H PRN Administration pain 1-3 and Fever >100.4 Hydrocodone Bitart/Acetaminophen 1 tab 08/16/24 19:54 Hydrocodone/Apap 5/325 Tablet PO 08/21/24 19:53 Q4HR PRN PAIN SCALE 4-6 (Moderate Atorvastatin Calcium 40 mg 08/16/24 21:00 08/17/24 20:25 Atorvastatin Calcium 20 Mg Tablet PO 09/15/24 20:59 40 mg HS SANTO Administration Dextrose 25 ml 08/16/24 19:54 Dextrose 50%-Water Inj 50 Ml Syringe IV 09/15/24 19:53 Q15MIN PRN BG 50-70 responsive npo pt Dextrose 50 ml 08/16/24 19:54 Dextrose 50%-Water Inj 50 Ml Syringe IV 09/15/24 19:53 Q15MIN PRN BG <50 OR BG <70 & pt unresponsive Glucagon 1 mg 08/16/24 19:54 Glucagon Inj 1 Mg Vial IM Q15MIN PRN BG <70, and no IV access Heparin Sodium (Porcine) 5,000 unit 08/16/24 22:00 08/18/24 05:14 Heparin Sod Inj 5000 Unit/Ml Vial SC 08/30/24 21:59 Not Given Q8HR SANTO Ceftriaxone Sodium/Dextrose 2 gm in 50 mls @ 100 mls/hr 08/18/24 09:00 08/18/24 09:26 Rocephin/D5w 2gm IV 08/25/24 08:59 100 mls/hr QDAY SANTO Administration Insulin Human Lispro 0 unit 08/16/24 23:30 08/18/24 09:25 Insulin Lispro (Admelog) 1 Unit/0.01 Ml Unit SC 09/15/24 23:29 Not Given ACHS SANTO Protocol Melatonin 3 mg 08/16/24 23:10 08/17/24 20:25 Melatonin 3 Mg Tablet PO 09/15/24 23:09 3 mg HS SANTO Administration Ondansetron HCl 4 mg 08/16/24 19:54 Ondansetron Inj 2 Mg/Ml Inj 2 Ml IVP 09/15/24 19:53 Q6H PRN NAUSEA OR VOMITING Protocol Pharmacy Consult 1 each 08/17/24 10:39 Pharmacy Renal Dose Adjustment 1 Ea XX 09/16/24 10:38 PRN PRN CONSULT Sevelamer Carbonate 800 mg 08/17/24 12:00 08/18/24 09:25 Sevelamer Carbonate 800 Mg Tablet PO 09/16/24 11:59 800 mg TIDWM SANTO Administration Vitamin B Complex/Vit C/Folic Acid 1 tab 08/17/24 10:45 08/18/24 09:25 Vit B12/Vit C/Fa (Nephrovite) Tablet PO 09/16/24 10:44 1 tab QDAY SANTO Administration Plan Assessment Messi is a 84 y/o male with PMHx of ESRD on HD M/W/F via left brachiocephalic fistula, essential hypertension, hyperlipidemia, ure-tqkeepu-uvwmrzxmc type 2 DM, history of multiple strokes, chronic diarrhea, HprEF (~EF 60%), rectal mass s/p resection who is currently admitted to the hospital on for complicated UTI and acute renal failure. Pt will be pursing hospice care at this time. #ESRD (HD on MWF) BUN/Cr 89 and 7.4 respectively Currently in dialysis chair, 1 L goal removal today Sees Dr. Jenkins outpatient Likely related to combination of longstanding diabetes mellitus and hypertension CT abdomen pelvis shows significant right renal cortical thinning Moderate renal parenchymal scarring bilateral Patient does not want dialysis anymore, wants to pursue hospice care Plan: ? Continue hemodialysis as scheduled ? Avoid nephrotoxic agents ? Renally dose medications ? Sevelamer 800 mg 3 times daily with meals ? Nephro-Abrahan ? Trend CMP and lytes ? Hospice care #Complicated UTI #Bacteremia Initial blood cultures show GNR and GPR 2/2 bottles Will see what final cultures show Has had E. coli UTI that was pansensitive in the past Has never been MRSA nares positive upon records CT shows perinephric stranding with no hydronephrosis Urine shows 642 WBCs Plan: ? Rocephin 2 g IV daily (08/17- ? Follow-up urine and blood cultures ? Follow-up MRSA screen ? Antipyretics ? Contact precautions ? Hospice care #Hematuria DDx: IgA nephropathy, FSGS, Bladder malignancy +2 blood and 57 RBCs +6 RBCs and +1 blood seen in May 2024 Previous P?ANCA, C?ANCA were negative Plan: ? Complement studies ? MIKO ? Consider urology outpatient for cystoscopy ? Consider urine cytology #Anemia of chronic disease Hemoglobin 8.3, MCV 96 Likely related to ESRD CKD/ESRD patient's target hemoglobin above 10 Plan: ? Epogen x 1 ? Consider iron studies including ferritin and iron levels #HFpEF (EF 60% 05/2024) #Complicated UTI #Hx of NIDDM #Hx of rectal mass s/p resection #Hx of strokes #Essential hypertension Above handled by primary hospitalist team Patient seen and care discussed with my attending physician, Dr. Alice Cho, PGY-1 Attending Provider Attestation/Addendum Patient seen and examined with resident physician Dr. Vaz. Note reviewed, agree with findings and recommendations. Patient with sepsis, fever. Positive bacteremia. Patient did dialysis yesterday. He goes to dialysis Friday, Friday, Friday. Today decided to stop dialysis. He wants to go comfort care. Had a long conversation with the patient, and Dr. Vaz at bedside. Nurse was present. He wished to go home with home hospice and decided to stop dialysis we will respect his wishes. Once the cultures come back positive and p.o. antibiotics are set- okay for discharge with home hospice. [facility] was called in. No further dialysis per patient. Time spent more than 40 minutes regarding plan of care and disease management care discussed with primary team
[2024-08-18] MEDS: INSULIN LISPRO (AdmeLOG) 1 UNIT/0.01 ML UNIT SC ×2 (12:26→20:31)
--- NOTE | 2024-08-18 14:47 | PC.SS ---
Addendum entered by CYNTHIA Mitchell 08/18/24 16:07: SS update: hospice referral sent to [facility] via [facility]. Addendum entered by CYNTHIA Mitchell 08/18/24 16:02: SS follow up: spoke with patient's , Fabienne and she confirms they want to peruse hospice services. She identified [facility] as the preferred agency to send hospice referral to. Addendum entered by CYNTHIA Mitchell 08/18/24 14:48: Patient is also pending cultures. Original Note: Rounding note: plan is to d/c the patient tomorrow with hospice services.
--- NOTE | 2024-08-18 16:04 | ESPR_ITS ---
<Statement entered by Sincere Angel MD - 08/24/24 08:56> I reviewed above note and agree with findings and plans. I have also personally examined the patient with medicine team and went over assessment and plan with medical team including tech intern and resident physician. Documentation for date of: 08/18/24 Subjective Subjective Interval history: Overnight team reported, pt was given 0.5mg of ativan to which helped him go to sleep. Pt is seen and examined at bedside this morning. pt, and family including children have discussed and decided that pt no longer want to undergo invasive treatments including dialysis and they have discussed their decision with nephrology team as well. Pt would still like to continue antibiotics for bacteremia but no long wants to continue dialysis. Decision have been made that pt wants to go home with hospice. Labs are reviewed, questions are answered and hospice referral is made by the nephrology team. BC grew E. coli in 1/2 bottles. will continue Iv antibiotics and anticipate discharge tomorrow with hospice. Exam Vital Signs Temp Pulse Resp BP Pulse Ox O2 Del Method 98.0 F 61 14 130/55 L 95 Room Air 08/18/24 12:00 08/18/24 14:26 08/18/24 14:26 08/18/24 12:00 08/18/24 12:00 08/18/24 12:00 Narrative Exam GENERAL: A&Ox3 . Awake, Not in acute distress NEURO: no focal neurological deficits noted other than mild brocas aphagia noted HEENT: Atraumatic, Normocephalic. mucous membranes moist. Eyes open, symmetrical, & clear HEART: Normal Heart Sounds LUNGS: Clear to auscultation with no wheezing or crackles. ABDOMEN: soft, non-distended, non-tender, bowel sounds heard, no guarding or rebound tenderness SKIN: No Rash or ecchymoses EXTREMITIES: No edema, tenderness, able to move all 4 extremities, pedal pulses palpated, HD fistula noted on left UE Objective Labs 08/18/24 04:36 08/18/24 04:36 Labs: Laboratory Results - last 24 hr 08/17/24 08/18/24 13:20 04:36 WBC 22.7 H RBC 2.74 L Hgb 9.2 L Hct 26.6 L MCV 97 MCH 33.6 MCHC 34.6 RDW Std Deviation 54.8 H Plt Count 138 L Neut % (Auto) 79 Lymph % (Auto) 4 L Bell % (Auto) 11 Eos % (Auto) 0 Baso % (Auto) 0 Neut # (Auto) 18.1 H Lymph # (Auto) 0.8 L Bell # (Auto) 2.5 H Eos # (Auto) 0.0 Baso # (Auto) 0.1 Immature Gran # (Auto) 1.19 H Absolute Nucleated RBC 0.00 Immature Gran % 5 H Nucleated RBC % 0 Sodium 135 L Potassium 3.9 Chloride 94 L Carbon Dioxide 28.2 Anion Gap 13 BUN 48 H Creatinine 5.2 H* D Estim Creat Clear Calc 10.2 L eGFR 10 L* BUN/Creatinine Ratio 9 L Glucose 136 H Calculated Osmolality 284 Calcium 8.7 Corrected Calcium 9.1 Phosphorus 4.3 Magnesium 1.9 Total Bilirubin 0.3 AST 22 ALT 16 Alkaline Phosphatase 102 Total Protein 5.8 Albumin 3.5 Globulin 2.3 Albumin/Globulin Ratio 1.5 Stl C. diff Tox B Gene Negative Quality Measures Quality Measures none Advance care planning discussed with:: patient Assessment & Plan Assessment Current Active Medications: Generic Name Dose Route Start Last Admin Trade Name Freq PRN Reason Stop Dose Admin Acetaminophen 650 mg 08/16/24 19:54 08/17/24 17:10 Acetaminophen 325 Mg Tablet PO 09/15/24 19:53 650 mg Q6H PRN Administration pain 1-3 and Fever >100.4 Hydrocodone Bitart/Acetaminophen 1 tab 08/16/24 19:54 Hydrocodone/Apap 5/325 Tablet PO 08/21/24 19:53 Q4HR PRN PAIN SCALE 4-6 (Moderate Atorvastatin Calcium 40 mg 08/16/24 21:00 08/17/24 20:25 Atorvastatin Calcium 20 Mg Tablet PO 09/15/24 20:59 40 mg HS SANTO Administration Dextrose 25 ml 08/16/24 19:54 Dextrose 50%-Water Inj 50 Ml Syringe IV 09/15/24 19:53 Q15MIN PRN BG 50-70 responsive npo pt Dextrose 50 ml 08/16/24 19:54 Dextrose 50%-Water Inj 50 Ml Syringe IV 09/15/24 19:53 Q15MIN PRN BG <50 OR BG <70 & pt unresponsive Glucagon 1 mg 08/16/24 19:54 Glucagon Inj 1 Mg Vial IM Q15MIN PRN BG <70, and no IV access Heparin Sodium (Porcine) 5,000 unit 08/16/24 22:00 08/18/24 05:14 Heparin Sod Inj 5000 Unit/Ml Vial SC 08/30/24 21:59 Not Given Q8HR SANTO Ceftriaxone Sodium/Dextrose 2 gm in 50 mls @ 100 mls/hr 08/18/24 09:00 08/18/24 09:26 Rocephin/D5w 2gm IV 08/25/24 08:59 100 mls/hr QDAY SANTO Administration Insulin Human Lispro 0 unit 08/16/24 23:30 08/18/24 12:26 Insulin Lispro (Admelog) 1 Unit/0.01 Ml Unit SC 09/15/24 23:29 2 unit ACHS SANTO Administration Protocol Melatonin 3 mg 08/16/24 23:10 08/17/24 20:25 Melatonin 3 Mg Tablet PO 09/15/24 23:09 3 mg HS SANTO Administration Ondansetron HCl 4 mg 08/16/24 19:54 Ondansetron Inj 2 Mg/Ml Inj 2 Ml IVP 09/15/24 19:53 Q6H PRN NAUSEA OR VOMITING Protocol Pharmacy Consult 1 each 08/17/24 10:39 Pharmacy Renal Dose Adjustment 1 Ea XX 09/16/24 10:38 PRN PRN CONSULT Sevelamer Carbonate 800 mg 08/17/24 12:00 08/18/24 11:41 Sevelamer Carbonate 800 Mg Tablet PO 09/16/24 11:59 Not Given TIDWM SANTO Vitamin B Complex/Vit C/Folic Acid 1 tab 08/17/24 10:45 08/18/24 09:25 Vit B12/Vit C/Fa (Nephrovite) Tablet PO 09/16/24 10:44 1 tab QDAY SANTO Administration Plan Mr. Bay is a 84-year-old male with past of ESRD (HD on MWF), HFpEF (EF 60% on 05/2024), NIDDM, strokes with residual aphasia and chronic diarrhea was admitted to the hospital on 08/16/2024 for Complicated UTI. #Goals of Care - 08/18/24 goals of care was held between medical team and patient plus family. After discussing all treatment options, including full treatment and hospice. At this time patient would like to proceed with IV antibiotics for acute infections and then be discharged on hospice. No further aggressive interventions or work- up required including dialysis.Patient and family should appropriate understanding. Patient referred to hospice. #Acute pylonephritis #GNR bacteremia Patient came in with complaints of dysuria that started on as well as decreased urination. Patient met SIRS criteria 3 out of 4 with follow WBC elevation. Patient's UA was positive for WBC, RBCs, blood, and leukocytes esterase Patient has no history of BPH or kidney stones in the past CT of abdomen/pelvis: Significant right renal cortical thinning, Moderate bilateral renal parenchymal scar formation, Perinephric stranding Lactic acid 1.6 Plan: -Ceftriaxone 2 g daily (08/16/2024?) -Patient got 500 mL bolus in the ED, will hold off on further IV fluids given history of HFpEF -Bladder scan as needed to asses for urinary retention -Blood cultures prelim 2/2 bottles grew GNR and 1/2 grew e. coli -Urine culture pending #ESRD (HD on MWF) Patient is creatinine 6.6 and BUN 84 on admission Patient does make small amount of urine Plan: -Avoid nephrotoxic agents -Renally dose medications -Nephrology consulted, appreciate recommendations - Plan: nephrology following. Patient declines further hemodialysis and will be discharged on hospice. #HFpEF (EF 60% 05/2024) Patient came in with out any complaints of shortness of breath or lower extremity swelling. Patient does not seem to be in CHF exacerbation at this time Chest x-ray that shows some vascular congestion BNP was elevated, but could be due to ESRD Plan: -Fluid restriction of 200 mL daily -Daily weights -Strict JOSE G's -Plan: Continue treatment as desired by patient, will be discharged on hospice #Non-Insulin dependent type 2 diabetes Last A1c was 5.3 in 08/17/24 Plan: -ISS -Hypoglycemia protocol ordered -Accu-checks ACHS #Hx of rectal mass s/p resection #Hx of strokes Some residual aphasia from previous strokes - Plan: follow-up outpatient Health Maintenance Disposition: Med-tele DVT Prophylaxis: Heparin 5000 units SC Q8 hrs GI Prophylaxis: not indicated Diet: Cardiac Diet with 2000ml fluid restriction Lines: Peripheral lines Code status: Full Assessment and plan discussed with my attending physician Dr. Stanley Stone (PGY-1)- Internal medicine resident
[2024-08-18] MEDS: ATORVASTATIN CALCIUM 20 MG TABLET 40 MG PO (20:28)
--- NOTE | 2024-08-18 20:36 | PC.NURSE ---
Addendum entered by Dante Cornell RN 08/18/24 20:40: Dr. Rodriguez made aware. Dr. Rodriguez told NEELAM Howell to have patient try the melatonin 3mg first and then if it does not work Dr. Rodriguez will give ativan. Original Note: Patient refusing 2100 melatonin 3mg. Patient said that the ativan given yesterday is preferred rather than melatonin.
[2024-08-18] MEDS: MELATONIN 3 MG TABLET PO (21:11)
[2024-08-18] MEDS: HEPARIN SOD INJ 5000 UNIT/ML VIAL SC (21:13)
[2024-08-19] VITALS: BP 122/59; PULSE 71; PULSE 77; RESP 17; TEMP 36.7; O2SAT 93
--- NOTE | 2024-08-19 02:16 | PC.NURSE ---
Addendum entered by Dante Cornell RN 08/19/24 02:18: Dr. Orellana will put an order for ativan. Original Note: Patient c/o being unable to sleep despite getting melatonin and med. pass. NEELAM Howell will notify hospitalists.
[2024-08-19] MEDS: LORazepam 2 MG/ML VIAL 0.5 MG IVP (02:36)
[2024-08-19 04:00] VITALS: BP 123/71; PULSE 69; PULSE 72; RESP 16; TEMP 36.4; O2SAT 95
[2024-08-19] MEDS: HEPARIN SOD INJ 5000 UNIT/ML VIAL SC (05:23)
[2024-08-19 07:38] VITALS: PULSE 73; RESP 16; RESP 94
[2024-08-19 07:55] VITALS: BP 137/62; PULSE 66; RESP 17; TEMP 36.3; O2SAT 93
[2024-08-19] MEDS: cefTRIAXone/D5w 2gm 2 GM/50 ML BAG IV (09:10)
[2024-08-19] MEDS: VIT B12/Vit C/FA (Nephrovite) TABLET 1 TAB PO (09:10)
--- NOTE | 2024-08-19 10:16 | PC.SS ---
Patient has d/c orders for today. SS phoned Haley @ [facility]. Everything is ready. They will patient at his home later today. SS spoke to who states patient is still ambulatory and alert. She will be transporting patient home today. Physician was in speaking with and discussing POLST form. SS will place copy in chart.
[2024-08-19 12:00] VITALS: BP 146/67; PULSE 73; RESP 18; TEMP 36.3; O2SAT 93
[2024-08-19] MEDS: INSULIN LISPRO (AdmeLOG) 1 UNIT/0.01 ML UNIT SC (12:22)
--- NOTE | 2024-08-19 13:46 | ESDS_ITS ---
<Statement entered by Sincere Angel MD - 09/02/24 07:49> I reviewed above note and agree with findings and plans. I have also personally examined the patient with medicine team and went over assessment and plan with medical team including internet sourcer and resident physician. Planned Discharge Date 08/19/24 DS: Providers Provider Date of admission: 08/16/24 19:54 Primary care physician: Physician No Primary/Family Admitting Provider: Harsha Anders MD Attending Provider on Admission: Sincere Angel MD Consults: 08/16/24 20:04 Consult to Nephrology Routine Comment: Consulting Provider: Bethanie Jenkins 08/18/24 11:05 Referral Hospice Routine Comment: Attending Provider on DC: Maia Stone MD Discharging Provider: Maia Stone MD DS: Diagnosis Problem List Completed Was Problem List Reviewed/Reconciled?: Yes Hospital Course Hospital Course Hospital course: During hospitalization patient underwent 1 session of dialysis and refused any further dialysis session. Patient urine culture was positive for E. coli and blood cultures were also positive for GNR bacteremia with 1 bottle growing E. coli. The patient was started on IV antibiotics which he wishes to complete the course outpatient however patient did not want any further invasive treatments treatments including dialysis. Patient's family is at bedside patient was alert and oriented when making this decision and family had agreed with his decision. Nephrology team is also notified regarding patient's decision. Patient wishes to be discharged home with hospice. POLST form is signed patient wishes to remain DNR/DNI with comfort measures only. Arrangements are made and patient is discharged home with hospice with family at bedside. Discharge Recommendations -Patient is discharged home with hospice -Pt will continue antibiotics for additional 10 days Hospitalization Diagnosis #Goals of Care- Hospice referral made #Acute pylonephritis #GNR bacteremia #ESRD (HD on MWF) #HFpEF (EF 60% 05/2024) #Non-Insulin dependent type 2 diabetes #Hx of rectal mass s/p resection #Hx of strokes Assessment and plan discussed with my attending physician Dr. Stanley Stone (PGY-1)- Internal medicine resident Time Spent with Patient Time attestation: Total time spent providing and/or coordinating discharge services: Time spent: Greater than 30 minutes Exam Vital Signs Temp Pulse Resp BP Pulse Ox O2 Del Method 97.3 F 73 18 146/67 H 93 L Room Air 08/19/24 12:00 08/19/24 12:00 08/19/24 12:00 08/19/24 12:00 08/19/24 12:00 08/19/24 12:00 Narrative Exam GENERAL: A&Ox3 . Awake, Not in acute distress NEURO: no focal neurological deficits noted other than mild brocas aphagia noted HEENT: Atraumatic, Normocephalic. mucous membranes moist. Eyes open, symmetrical, & clear HEART: Normal Heart Sounds LUNGS: Clear to auscultation with no wheezing or crackles. ABDOMEN: soft, non-distended, non-tender, bowel sounds heard, no guarding or rebound tenderness SKIN: No Rash or ecchymoses EXTREMITIES: No edema, tenderness, able to move all 4 extremities, pedal pulses palpated, HD fistula noted on left UE Discharge Plan Plan Patient Disposition: Home w/HOSPICE Patient condition on transfer: Stable Care Plan Goals: -Patient is discharged home with hospice -Pt will continue antibiotics for additional 10 days Prescriptions/Referrals Prescriptions/Med Rec: New amoxicillin-pot clavulanate 875-125 mg tablet 1 tab PO BID 10 Days Qty: 20 0RF Continued furosemide 40 mg tablet 40 mg PO QDAY sevelamer carbonate 800 mg tablet 800 mg PO TID Rx Instructions: must administer with a meal/food Discontinued atorvastatin [Lipitor] 20 MG tablet 20 mg PO HS Qty: 30 0RF Aileen-Abrahan 0.8 mg Tablet 1 tab PO DAILY metoprolol succinate 50 mg tablet extended release 24 hr 50 mg PO DAILY Patient Comments: TAKE 1 TABLET BY MOUTH ONCE DAILY Referrals: No Primary/Family,Physician [Primary Care Provider] - Patient/Caregiver Discharge Instructions Meds to Beds: No Discharge Activity: activity as tolerated Education Materials: What Is Hospice?, Understanding DNR Orders Print Language: Belarusian Stand Alone Forms: Nydia Award Info., Patient Portal Info Letter Discharge Order Discharge Orders: Discharge (Routine); Ordered 08/19/24 Ordered By: Maia Stone Quality Discharge Quality Measures VTE prophylaxis
--- NOTE | 2024-08-19 15:29 | PD.RESPRO ---
Documentation for date of: 08/19/24 Subjective Subjective Interval history: Patient examined at bedside today. No acute overnight events. Patient does not have any lab draws today. Patient is going to go home with hospice today. Patient will be discharged today with oral antibiotic based off sensitivities for E. coli bacteremia. No other complaints at this time. Exam Vital Signs Temp Pulse Resp BP Pulse Ox O2 Del Method 97.3 F 73 18 146/67 H 93 L Room Air 08/19/24 12:00 08/19/24 12:00 08/19/24 12:00 08/19/24 12:00 08/19/24 12:00 08/19/24 12:00 Narrative Exam General: AAOx2, NAD, does not look his age, a HEENT: Moist mucous membranes, conjunctiva clear, EOMI, PERRLA, Cardiovascular: Ejection systolic murmur RONAN radiates to carotids, radial pulses +2 bilat, RRR Pulmonary: Lungs CTAB, no cough, not on NC GI: No tenderness to light or deep palpitation, no guarding, rigidity, rebound tenderness or distension, abd soft Extremities: Trace edema in lower extremities bilaterally, dorsalis pedis pulses +2 bilaterally, LUE AV fistula, multiple areas of senile purpura Neuro: AAOx2, no focal motor or sensory deficits in the UE or LE bilat Psych: Good judgement, thought and behavior Objective Labs 08/18/24 04:36 08/18/24 04:36 Quality Measures Quality Measures none Advance care planning discussed with:: patient Assessment & Plan Assessment Current Active Medications: Generic Name Dose Route Start Last Admin Trade Name Freq PRN Reason Stop Dose Admin Acetaminophen 650 mg 08/16/24 19:54 08/17/24 17:10 Acetaminophen 325 Mg Tablet PO 09/15/24 19:53 650 mg Q6H PRN Administration pain 1-3 and Fever >100.4 Hydrocodone Bitart/Acetaminophen 1 tab 08/16/24 19:54 Hydrocodone/Apap 5/325 Tablet PO 08/21/24 19:53 Q4HR PRN PAIN SCALE 4-6 (Moderate Atorvastatin Calcium 40 mg 08/16/24 21:00 08/17/24 20:25 Atorvastatin Calcium 20 Mg Tablet PO 09/15/24 20:59 40 mg HS SANTO Administration Dextrose 25 ml 08/16/24 19:54 Dextrose 50%-Water Inj 50 Ml Syringe IV 09/15/24 19:53 Q15MIN PRN BG 50-70 responsive npo pt Dextrose 50 ml 08/16/24 19:54 Dextrose 50%-Water Inj 50 Ml Syringe IV 09/15/24 19:53 Q15MIN PRN BG <50 OR BG <70 & pt unresponsive Glucagon 1 mg 08/16/24 19:54 Glucagon Inj 1 Mg Vial IM Q15MIN PRN BG <70, and no IV access Heparin Sodium (Porcine) 5,000 unit 08/16/24 22:00 08/18/24 05:14 Heparin Sod Inj 5000 Unit/Ml Vial SC 08/30/24 21:59 Not Given Q8HR SANTO Ceftriaxone Sodium/Dextrose 2 gm in 50 mls @ 100 mls/hr 08/18/24 09:00 08/18/24 09:26 Rocephin/D5w 2gm IV 08/25/24 08:59 100 mls/hr QDAY SANTO Administration Insulin Human Lispro 0 unit 08/16/24 23:30 08/18/24 09:25 Insulin Lispro (Admelog) 1 Unit/0.01 Ml Unit SC 09/15/24 23:29 Not Given ACHS SANTO Protocol Melatonin 3 mg 08/16/24 23:10 08/17/24 20:25 Melatonin 3 Mg Tablet PO 09/15/24 23:09 3 mg HS SANTO Administration Ondansetron HCl 4 mg 08/16/24 19:54 Ondansetron Inj 2 Mg/Ml Inj 2 Ml IVP 09/15/24 19:53 Q6H PRN NAUSEA OR VOMITING Protocol Pharmacy Consult 1 each 08/17/24 10:39 Pharmacy Renal Dose Adjustment 1 Ea XX 09/16/24 10:38 PRN PRN CONSULT Sevelamer Carbonate 800 mg 08/17/24 12:00 08/18/24 09:25 Sevelamer Carbonate 800 Mg Tablet PO 09/16/24 11:59 800 mg TIDWM SANTO Administration Vitamin B Complex/Vit C/Folic Acid 1 tab 08/17/24 10:45 08/18/24 09:25 Vit B12/Vit C/Fa (Nephrovite) Tablet PO 09/16/24 10:44 1 tab QDAY SANTO Administration Plan Assessment Messi is a 84 y/o male with PMHx of ESRD on HD M/W/F via left brachiocephalic fistula, essential hypertension, hyperlipidemia, [id number] type 2 DM, history of multiple strokes, chronic diarrhea, HprEF (~EF 60%), rectal mass s/p resection who is currently admitted to the hospital on for complicated UTI and acute renal failure. Pt will be pursing hospice care at this time. #ESRD (HD on MWF) BUN/Cr 89 and 7.4 respectively Currently in dialysis chair, 1 L goal removal today Sees Dr. Jenkins outpatient Likely related to combination of longstanding diabetes mellitus and hypertension CT abdomen pelvis shows significant right renal cortical thinning Moderate renal parenchymal scarring bilateral Hospice care Plan: ? Avoid nephrotoxic agents ? Renally dose medications ? Sevelamer 800 mg 3 times daily with meals ? Nephro-Abrahan ? Hospice care #Complicated UTI #E. coli bacteremia Initial blood cultures show GNR and GPR 2/ bottles Will see what final cultures show Has had E. coli UTI that was pansensitive in the past Has never been MRSA nares positive upon records CT shows perinephric stranding with no hydronephrosis Urine shows 642 WBCs Blood cultures show pansensitive E. coli Patient will need antibiotics total duration of 14 days We recommend Augmentin or Cipro Plan: ? Follow-up MRSA screen ? Antipyretics ? Contact precautions ? Hospice care #Hematuria DDx: IgA nephropathy, FSGS, Bladder malignancy +2 blood and 57 RBCs +6 RBCs and +1 blood seen in May 2024 Previous P?ANCA, C?ANCA were negative Plan: ? Complement studies ? MIKO ? Consider urology outpatient for cystoscopy ? Consider urine cytology #Anemia of chronic disease Likely related to ESRD CKD/ESRD patient's target hemoglobin above 10 Plan: ? Consider iron studies including ferritin and iron levels #HFpEF (EF 60% 05/2024) #Complicated UTI #Hx of NIDDM #Hx of rectal mass s/p resection #Hx of strokes #Essential hypertension Above handled by primary hospitalist team Patient seen and care discussed with my attending physician, Dr. Alice Cho, PGY-1 Attending Provider Attestation/Addendum Patient seen and examined with resident physician Dr. Vaz. Note reviewed, agree with findings and recommendations. Patient was discharged home with home hospice. Declined further dialysis sessions.
[2024-08-25 06:44] LABS: ANA Pattern NUCLEAR, HOMOGENEOUS; ANA Screen, IFA POSITIVE (NEGATIVE); ANA Titer 1:40 titer; Complement Component C3* 127 mg/dL; Complement Component C4c* 20 mg/dL
== END 2024-08-19 13:10 | disposition hospice, home (50) | DRG 690 ==
LOC: SERX 18:27 → SERHOLD 20:13 → S3SX 21:33
PROVIDERS: Physician Assistant Medical; Admitting Provider Student in an Organized Health Care Education/Training Program; Emergency Provider Family Medicine; Visit Provider Internal Medicine
DX: N10 Acute pyelonephritis (principal); I50.32 Chronic diastolic (congestive) heart failure; I13.2 Hypertensive heart and chronic kidney disease with heart failure and with stage 5 chronic kidney disease, or end stage renal disease; R78.81 Bacteremia; N18.6 End stage renal disease; R09.02 Hypoxemia; E11.22 Type 2 diabetes mellitus with diabetic chronic kidney disease; I69.320 Aphasia following cerebral infarction; B96.20 Unspecified Escherichia coli [E. coli] as the cause of diseases classified elsewhere; D63.1 Anemia in chronic kidney disease; E78.5 Hyperlipidemia, unspecified; K40.90 Unilateral inguinal hernia, without obstruction or gangrene, not specified as recurrent; N40.0 Benign prostatic hyperplasia without lower urinary tract symptoms; Z66 Do not resuscitate; Z87.891 Personal history of nicotine dependence; Z51.5 Encounter for palliative care; Z99.2 Dependence on renal dialysis; Z91.158 Patient's noncompliance with renal dialysis for other reason; Z53.29 Procedure and treatment not carried out because of patient's decision for other reasons; Z87.440 Personal history of urinary (tract) infections; Z91.040 Latex allergy status; Z79.84 Long term (current) use of oral hypoglycemic drugs; Z79.899 Other long term (current) drug therapy
CPT/HCPCS: 36415; 71045; 74176; 80053; 81001; 83036; 83605; 83690; 83735; 83880; 84100; 84132; 85025; 86038; 86160; 87040; 87077; 87081; 87086; 87186; 87400; 87493; 87811; 93005; 93225; 96360; 99285; J0696; J1644; J1815; J2060; J7999; Q5105; A9270